=== PATIENT | male | born 1945 | race Caucasian/White ===

== ENCOUNTER 2024-05-26 13:05 | Inpatient (IN) | payer MEDICARE, SELFPAY ==
[2024-05-26] VITALS (45 sets, daily range): BP systolic 75–135; BP diastolic 50–99; BMI 27.5
--- NOTE | 2024-05-26 09:13 | ED.GENMED ---
History of Present Illness
<Paras Rodriguez PA-C - Last Filed: 05/26/24 15:12>
General
Chief Complaint: Change in Mental Status
Time Seen by Provider: 05/26/24 09:04
History of Present Illness
History of Present Illness:
Patient is a 78-year-old male with past medical history of anxiety, BPH, dysphagia, hyperlipidemia, history of ITP, depression with history of suicidal ideations, emphysema, chronic kidney disease stage III, cataracts, hypertension, history of
pneumonia, Parkinson's disease, history of type 2 diabetes mellitus, with history of urinary retention with Brice catheter, here today via EMS for a change in mental status.
Per EMS, the patient had a change in mental status starting today. He has been residing at [facility]. I spoke with Alfred at the facility who stated that the patient has been residing at the facility for several months.
He was initially placed there after being discharged for pneumonia. He was also found to have suicidal ideations and therefore could not be discharged back home. The patient is currently a DNR. She stated that the change in mental status and
symptoms began this morning. Patient is typically awake, alert, and oriented. This morning she noted the patient was lying in bed screaming out which was unlike him. He was also noted to be short of breath and shaking. His oxygen saturation was
noted to be 83% on room air and his blood pressure was noted to be low. He was placed on oxygen and his oxygen saturation came up to 92%. The patient was previously on oxygen but eventually weaned off and more recently has only been wearing oxygen
as needed. The oxygen requirement is therefore new for the patient. Last Brice catheter change was 1 week ago.
Review of Systems
<Paras Rodriguez PA-C - Last Filed: 05/26/24 15:12>
Review of Systems
All Other Systems: ROS reviewed and negative except as documented in HPI and ROS
Phy Exam
<Paras Rodriguez PA-C - Last Filed: 05/26/24 15:12>
Physical Exam
Physical Exam:
GENERAL: Not alert, oriented only to self and place
EYE: pupils equal and reactive
NECK: Supple, no significant adenopathy.
ENT: o/p clr, mmm.
CARDIAC: Tachycardic rate and regular rhythm.
LUNGS: Scattered wheezing noted, tachypneic
ABDOMEN: Soft, generalized nonfocal wincing with palpation of the abdomen, abdomen does appear slightly distended, no r/g, no cvat
NEUROLOGICAL: Not able to follow commands, only oriented to self and place
URINARY: Urinary catheter in place draining dark yellow urine. Left testicular is larger in size compared with the right with mild tenderness noted. No ecchymosis/skin changes.
SKIN: Warm and dry, skin intact.
MUSCULOSKELETAL: No edema, well perfused.
PSYCH: Not able to assess
Course
<Paras Rodriguez PA-C - Last Filed: 05/26/24 15:12>
Orders/Labs/Results
Orders:
Orders
05/26/24 09:05
CR Chest Portable - 1 View Urgent
Comment:
Reason For Exam: fever
Reason Study Needs to be Portable: Unable to Transport
05/26/24 09:09
Piperacillin/Tazo 4.5 Gram [Zosyn] 4.5 gram in 100 ml IV NOW
05/26/24 09:24
COVID-19 Antigen Urgent
Source: Nasal Swab
Complete Blood Count/With Diff Urgent
Comprehensive Metabolic Panel Urgent
Lipase Urgent
Magnesium Urgent
Manual Differential Urgent
NT-proBNP Urgent
PTT Urgent
Phosphorus Urgent
Procalcitonin Urgent
PCT Algorithmm Indication: Sepsis
Prothrombin Time Urgent
Troponin I Urgent
Venous Blood Gas Urgent
%Oxygen/Room Air: 89
Blood Culture Urgent
SARTHAK Source: Blood/Venous
Specimen Description:
Influenza A+B Rapid Molecular Urgent
SARTHAK Source: Nasal Swab
Specimen Description:
05/26/24 09:25
Lactic Acid Urgent
05/26/24 09:26
Blood Culture Routine
SARTHAK Source: Blood/Venous
Specimen Description:
05/26/24 09:29
Urinalysis Reflex To Culture Urgent
Date Specimen was Collected: 05/26/24
Time Specimen was Collected: 09:28
Urine Microscopic Reflex Cult Urgent
Urine Culture Urgent
SARTHAK Source: U
Specimen Description:
Date Specimen was Collected: 05/26/24
Time Specimen was Collected: 09:28
05/26/24 09:33
Acetaminophen [Tylenol/Feverall] 650 mg RECTAL NOW STA
05/26/24 09:40
CT Abd/pelvis W Iv Cont Urgent
Comment: please scan down into testicles
Reason For Exam: abd pain, left testicular pain
05/26/24 09:45
Vancomycin [Vancocin] 2,000 mg 0.9% Sodium Chloride 500 ml [Nss] 500 ml IV NOW
05/26/24 09:54
Cefepime HCl [Maxipime] 2,000 mg IV NOW STA
05/26/24 09:55
Sterile Water [Sterile Water For Injection] 10 ml IV NOW STA
05/26/24 09:58
0.9% Sodium Chloride 1000 ml [Nss] 2,700 ml IV NOW STA
05/26/24 10:00
NORepinephrine 4 MG/250 ML [Levophed] 4 mg in 250 ml IV PER PROTOCOL
Initial dose in mcg/min, then titrate:: 4
Titrate to keep:: MAP > 65 mmHg
Titrate by mcg/min:: 1-2 mcg/min
Frequency of titrations (minutes):: 5
Maximum dose in ICU in mcg/min:: 30
Maximum dose in IMU in mcg/min:: 8
Maximum dose in IVU in mcg/min:: 4
Begin to taper infusion when:: Remained at goal for 4hrs
Taper by mcg/min:: 1-2 mcg/min
Frequency of taper (minutes) if patient maintains goal:: 30
Taper to off?: Yes
If infusion off & no longer maintaining goal:: Contact Provider
05/26/24 11:30
Scrotum US [US Scrotum] Urgent
Comment:
Reason For Exam: left testicular pain
05/26/24 12:47
Admit/Transfer Patient As Directed
Co-Sign Provider:
Level of Care: Inpatient admission
Assign to:: ICU
Physician / Group: Eileen
Diagnosis: Septic Shock
Reason for Hospitalization: IV abx, IV fluids
Expected length of stay greater than two midnights?: Yes
ELOS- Estimated Length of Stay in days: 3
I certify the patient meets the requirements for IP care: Yes
0.9% Sodium Chloride 1000 ml [Nss] 1,000 ml IV BOLUS
05/26/24 12:52
Code Status As Directed
Resuscitation Status: Do not resuscitate
Reached after discussion with pt or family/Healthcare POA: Yes
DNR Bracelet Application ONCE
05/26/24 13:00
0.9% Sodium Chloride 1000 ml [Nss] 1,000 ml IV 200 mls/hr
05/26/24 13:04
Tennis Instructor Consult Routine
Consulting Provider: Nargis Pal
Was physician already notified: Yes
UROLOGY CONSULT Routine
Consulting Provider: Stephane Larson
Was physician already notified: Yes
05/26/24 13:05
Lactic Acid Urgent
05/26/24 14:56
Acetaminophen [Tylenol] 650 mg PO Q4HPRN PRN
Albuterol Nebs [Ventolin Nebules] 2.5 mg INH R Q6HPRN PRN
Cefepime HCl [Maxipime] 2,000 mg IV Q12H
Dextrose 50%-Water [Dextrose 50% Syringe] 12.5 grams IV [id number] PRN
Glucagon [GlucaGen] 1 mg IM PRN PRN
VANCOMYCIN Pharmacy to Dose [VANCOCIN Pharmacy to Dose] 1 each Pharmacy To Prepare [Call Pharmacy To Prepare] 0 ml IV PER PROTOCOL
dextran 70-hypromellose [Artificial Tears (PF)] 1 drop BOTH EYES [id number] PRN
05/26/24 14:56
Activity As Directed
Activity Level: Bedrest
Bedside Glucose Monitoring As Directed
Frequency: AC&HS
Additional Instructions:: Change to q6h if pt on TPN, tube feeding or not eating
Intake/ Output As Directed
Frequency: Per unit guidelines
Vital Signs As Directed
Frequency: Per unit guidelines
Weight As Directed
Frequency: Daily
Pulse Ox/cont/shift [RESP] Routine
Quantity: 1
Special Instructions: continuous pulse ox
DX Deep Vein Thrombosis Video Routine
05/26/24 Dinner
NPO
Allow oral meds: Yes
Allow clear liquids: Sips of Clears
NPO with Ice Chips: Yes
Comment: Allow sips/chips if patient is awake and alert
05/26/24 16:00
Carbidopa/Levodopa [Sinemet 25-100] 1 tablet PO TID
Heparin 5,000 units SC Q8
05/26/24 17:30
Lactic Acid Routine
05/26/24 18:00
Insulin Aspart Corrective Low [Novolog Flexpen-Low Resistance] See Protocol SC Q6
05/26/24 20:00
dextran 70-hypromellose [Artificial Tears (PF)] 1 drop BOTH EYES BID
05/26/24 22:00
Quetiapine Fumarate [Seroquel] 50 mg PO HS
05/27/24 06:00
Complete Blood Count/No Diff IN AM
Comprehensive Metabolic Panel IN AM
Glycohemoglobin (HgbA1c) IN AM
05/27/24 08:00
Pantoprazole [Protonix] 40 mg PO DAILY
Abnormal Lab Results
05/26/24 05/26/24 05/26/24
:24 09:25 09:28
WBC 23.4 H 10^3/uL
(4.8-10.8)
RDW 15.4 H %
(11.5-14.5)
Abs Neuts (Manual) 21.7 H 10^3/uL
(1.4-6.5)
Segmented Neutrophils 81 H %
(42-75)
Band Neutrophils 12 H %
(0-3)
Lymphocytes (Manual) 2 L %
(20-51)
PT 18.0 H Sec
(11.4-14.6)
APTT 38.2 H Sec
(23.4-35.0)
BUN 36 H mg/dl
(9-20)
Creatinine 1.6 H mg/dL
(0.7-1.3)
Lactic Acid 4.1 H* mmol/L
(0.7-2.0)
Total Bilirubin 1.6 H mg/dl
(0.2-1.3)
Troponin I 0.092 H* ng/ml
Total Protein 5.7 L g/dl
(6.3-8.2)
Albumin 3.4 L g/dl
(3.5-5.0)
Lipase 19 L U/L
(23-300)
Procalcitonin 13.77 H* ng/ml
(0.0-0.25)
Urine Ketones
Ur Occult Blood Reflex
Urine Nitrite (Reflex)
Urine Bilirubin
Leukocyte Esterase Rfl
Urine RBC
Urine WBC (Reflex)
Urine Bacteria (Reflex)
Urine Albumin (Reflex)
POC Glucose 140 H mg/dl
(70-99)
05/26/24 05/26/24
09:29 13:05
WBC
RDW
Abs Neuts (Manual)
Segmented Neutrophils
Band Neutrophils
Lymphocytes (Manual)
PT
APTT
BUN
Creatinine
Lactic Acid 2.1 H mmol/L
(0.7-2.0)
Total Bilirubin
Troponin I
Total Protein
Albumin
Lipase
Procalcitonin
Urine Ketones 1+ A
(Negative)
Ur Occult Blood Reflex 4+ A
(Negative)
Urine Nitrite (Reflex) Positive A
(Negative)
Urine Bilirubin 1+ A
(Negative)
Leukocyte Esterase Rfl 2+ A
(Negative)
Urine RBC 11-15 A /HPF
(0-2)
Urine WBC (Reflex) 16-20 A /HPF
(0-5)
Urine Bacteria (Reflex) Many A
(Negative)
Urine Albumin (Reflex) 2+ A
(Neg - Trace)
POC Glucose
05/26/24 09:24
05/26/24 09:24
Vital Signs
Initial and Last Documented VS:
Initial Vital Signs
BP
75/50
05/26/24 09:02
Last Documented Vital Signs
Temp Pulse Resp BP Pulse Ox
101.1 F H 85 16 101/58 94
05/26/24 11:15 05/26/24 13:45 05/26/24 13:45 05/26/24 13:30 05/26/24 14:28
<Sara Brice MD - Last Filed: 05/26/24 09:41>
Orders/Labs/Results
Orders:
Orders
05/26/24 09:05
CR Chest Portable - 1 View Urgent
Comment:
Reason For Exam: fever
Reason Study Needs to be Portable: Unable to Transport
05/26/24 09:09
Piperacillin/Tazo 4.5 Gram [Zosyn] 4.5 gram in 100 ml IV NOW
05/26/24 09:24
COVID-19 Antigen Urgent
Source: Nasal Swab
Complete Blood Count/With Diff Urgent
Comprehensive Metabolic Panel Urgent
Lipase Urgent
Magnesium Urgent
Manual Differential Urgent
NT-proBNP Urgent
PTT Urgent
Phosphorus Urgent
Procalcitonin Urgent
PCT Algorithmm Indication: Sepsis
Prothrombin Time Urgent
Troponin I Urgent
Venous Blood Gas Urgent
%Oxygen/Room Air: 89
Blood Culture Urgent
SARTHAK Source: Blood/Venous
Specimen Description:
Influenza A+B Rapid Molecular Urgent
SARTHAK Source: Nasal Swab
Specimen Description:
05/26/24 09:25
Lactic Acid Urgent
05/26/24 09:26
Blood Culture Routine
SARTHAK Source: Blood/Venous
Specimen Description:
05/26/24 09:29
Urinalysis Reflex To Culture Urgent
Date Specimen was Collected: 05/26/24
Time Specimen was Collected: 09:28
Urine Microscopic Reflex Cult Urgent
Urine Culture Urgent
SARTHAK Source: U
Specimen Description:
Date Specimen was Collected: 05/26/24
Time Specimen was Collected: 09:28
05/26/24 09:33
Acetaminophen [Tylenol/Feverall] 650 mg RECTAL NOW STA
05/26/24 09:40
CT Abd/pelvis W Iv Cont Urgent
Comment: please scan down into testicles
Reason For Exam: abd pain, left testicular pain
05/26/24 09:45
Vancomycin [Vancocin] 2,000 mg 0.9% Sodium Chloride 500 ml [Nss] 500 ml IV NOW
05/26/24 09:54
Cefepime HCl [Maxipime] 2,000 mg IV NOW STA
05/26/24 09:55
Sterile Water [Sterile Water For Injection] 10 ml IV NOW STA
05/26/24 09:58
0.9% Sodium Chloride 1000 ml [Nss] 2,700 ml IV NOW STA
05/26/24 10:00
NORepinephrine 4 MG/250 ML [Levophed] 4 mg in 250 ml IV PER PROTOCOL
Initial dose in mcg/min, then titrate:: 4
Titrate to keep:: MAP > 65 mmHg
Titrate by mcg/min:: 1-2 mcg/min
Frequency of titrations (minutes):: 5
Maximum dose in ICU in mcg/min:: 30
Maximum dose in IMU in mcg/min:: 8
Maximum dose in IVU in mcg/min:: 4
Begin to taper infusion when:: Remained at goal for 4hrs
Taper by mcg/min:: 1-2 mcg/min
Frequency of taper (minutes) if patient maintains goal:: 30
Taper to off?: Yes
If infusion off & no longer maintaining goal:: Contact Provider
05/26/24 11:30
Scrotum US [US Scrotum] Urgent
Comment:
Reason For Exam: left testicular pain
05/26/24 12:47
Admit/Transfer Patient As Directed
Co-Sign Provider:
Level of Care: Inpatient admission
Assign to:: ICU
Physician / Group: Eileen
Diagnosis: Septic Shock
Reason for Hospitalization: IV abx, IV fluids
Expected length of stay greater than two midnights?: Yes
ELOS- Estimated Length of Stay in days: 3
I certify the patient meets the requirements for IP care: Yes
0.9% Sodium Chloride 1000 ml [Nss] 1,000 ml IV BOLUS
05/26/24 12:52
Code Status As Directed
Resuscitation Status: Do not resuscitate
Reached after discussion with pt or family/Healthcare POA: Yes
DNR Bracelet Application ONCE
05/26/24 13:00
0.9% Sodium Chloride 1000 ml [Nss] 1,000 ml IV 200 mls/hr
05/26/24 13:04
Tennis Instructor Consult Routine
Consulting Provider: Nargis Pal
Was physician already notified: Yes
UROLOGY CONSULT Routine
Consulting Provider: Stephane Larson
Was physician already notified: Yes
05/26/24 13:05
Lactic Acid Urgent
05/26/24 14:56
Acetaminophen [Tylenol] 650 mg PO Q4HPRN PRN
Albuterol Nebs [Ventolin Nebules] 2.5 mg INH R Q6HPRN PRN
Cefepime HCl [Maxipime] 2,000 mg IV Q12H
Dextrose 50%-Water [Dextrose 50% Syringe] 12.5 grams IV [id number] PRN
Glucagon [GlucaGen] 1 mg IM PRN PRN
VANCOMYCIN Pharmacy to Dose [VANCOCIN Pharmacy to Dose] 1 each Pharmacy To Prepare [Call Pharmacy To Prepare] 0 ml IV PER PROTOCOL
dextran 70-hypromellose [Artificial Tears (PF)] 1 drop BOTH EYES [id number] PRN
05/26/24 14:56
Activity As Directed
Activity Level: Bedrest
Bedside Glucose Monitoring As Directed
Frequency: AC&HS
Additional Instructions:: Change to q6h if pt on TPN, tube feeding or not eating
Intake/ Output As Directed
Frequency: Per unit guidelines
Vital Signs As Directed
Frequency: Per unit guidelines
Weight As Directed
Frequency: Daily
Pulse Ox/cont/shift [RESP] Routine
Quantity: 1
Special Instructions: continuous pulse ox
DX Deep Vein Thrombosis Video Routine
05/26/24 Dinner
NPO
Allow oral meds: Yes
Allow clear liquids: Sips of Clears
NPO with Ice Chips: Yes
Comment: Allow sips/chips if patient is awake and alert
05/26/24 16:00
Carbidopa/Levodopa [Sinemet 25-100] 1 tablet PO TID
Heparin 5,000 units SC Q8
05/26/24 17:30
Lactic Acid Routine
05/26/24 18:00
Insulin Aspart Corrective Low [Novolog Flexpen-Low Resistance] See Protocol SC Q6
05/26/24 20:00
dextran 70-hypromellose [Artificial Tears (PF)] 1 drop BOTH EYES BID
05/26/24 22:00
Quetiapine Fumarate [Seroquel] 50 mg PO HS
05/27/24 06:00
Complete Blood Count/No Diff IN AM
Comprehensive Metabolic Panel IN AM
Glycohemoglobin (HgbA1c) IN AM
05/27/24 08:00
Pantoprazole [Protonix] 40 mg PO DAILY
Abnormal Lab Results
05/26/24 05/26/24 05/26/24
09:25 09:28
WBC 23.4 H 10^3/uL
(4.8-10.8)
RDW 15.4 H %
(11.5-14.5)
Abs Neuts (Manual) 21.7 H 10^3/uL
(1.4-6.5)
Segmented Neutrophils 81 H %
(42-75)
Band Neutrophils 12 H %
(0-3)
Lymphocytes (Manual) 2 L %
(20-51)
PT 18.0 H Sec
(11.4-14.6)
APTT 38.2 H Sec
(23.4-35.0)
BUN 36 H mg/dl
(9-20)
Creatinine 1.6 H mg/dL
(0.7-1.3)
Lactic Acid 4.1 H* mmol/L
(0.7-2.0)
Total Bilirubin 1.6 H mg/dl
(0.2-1.3)
Troponin I 0.092 H* ng/ml
Total Protein 5.7 L g/dl
(6.3-8.2)
Albumin 3.4 L g/dl
(3.5-5.0)
Lipase 19 L U/L
(23-300)
Procalcitonin 13.77 H* ng/ml
(0.0-0.25)
Urine Ketones
Ur Occult Blood Reflex
Urine Nitrite (Reflex)
Urine Bilirubin
Leukocyte Esterase Rfl
Urine RBC
Urine WBC (Reflex)
Urine Bacteria (Reflex)
Urine Albumin (Reflex)
POC Glucose 140 H mg/dl
(70-99)
05/26/24 05/26/24
09:29 13:05
WBC
RDW
Abs Neuts (Manual)
Segmented Neutrophils
Band Neutrophils
Lymphocytes (Manual)
PT
APTT
BUN
Creatinine
Lactic Acid 2.1 H mmol/L
(0.7-2.0)
Total Bilirubin
Troponin I
Total Protein
Albumin
Lipase
Procalcitonin
Urine Ketones 1+ A
(Negative)
Ur Occult Blood Reflex 4+ A
(Negative)
Urine Nitrite (Reflex) Positive A
(Negative)
Urine Bilirubin 1+ A
(Negative)
Leukocyte Esterase Rfl 2+ A
(Negative)
Urine RBC 11-15 A /HPF
(0-2)
Urine WBC (Reflex) 16-20 A /HPF
(0-5)
Urine Bacteria (Reflex) Many A
(Negative)
Urine Albumin (Reflex) 2+ A
(Neg - Trace)
POC Glucose
05/26/24 09:24
05/26/24 09:24
Vital Signs
Initial and Last Documented VS:
Initial Vital Signs
BP
75/50
05/26/24 09:02
Last Documented Vital Signs
Temp Pulse Resp BP Pulse Ox
101.1 F H 85 16 101/58 94
05/26/24 11:15 05/26/24 13:45 05/26/24 13:45 05/26/24 13:30 05/26/24 14:28
<Paras Rodriguez PA-C - Last Filed: 05/26/24 15:12>
MDM/Problems Addressed
Differential Diagnosis Includes:
Patient is a 78-year-old male with past medical history of anxiety, BPH, dysphagia, hyperlipidemia, history of ITP, depression with history of suicidal ideations, emphysema, chronic kidney disease stage III, cataracts, hypertension, history of
pneumonia, Parkinson's disease, history of type 2 diabetes mellitus, with history of urinary retention with Brice catheter, here today via EMS for a change in mental status. On my examination patient noted to be tachycardic and hypotensive with
blood pressure 75/50. Temperature rectally 104.6 �F. Oxygen saturation stable at 2 L nasal cannula above 92%. Will initiate full septic workup. Given suspicion for sepsis is high and patient is hypotensive, will provide 30 cc/kg bolus of normal
saline and will initiate broad-spectrum antibiotics. Will closely monitor and reassess.
05/26/2024 12:06: Screening labs abnormal with an elevated WBC count to 23.4 thousand. Bands 12%. BUN 36/creatinine 1.6. Troponin elevated. Procalcitonin elevated. Lactic acid elevated greater than 4. Urinalysis is abnormal with positive
nitrates, leukocyte esterase, and RBCs/WBCs. There is many bacteria. Chest x-ray reveals widespread bilateral pulmonary interstitial markings which could represent edema or pneumonitis. A CT scan of the abdomen and pelvis with IV contrast was
ordered which reveals a small predominantly fat only containing left inguinal hernia. There is mild subsegmental atelectasis and/or scarring as well as single dependent nodular opacities most likely representing atelectasis. No other acute
findings identified. I did reach out to the radiologist, Dr. Renee in reference to the scrotal abnormalities, who stated he did not see any other acute abnormalities aside from a left inguinal hernia containing predominantly fat. Given scrotal
findings, we will obtain scrotal ultrasound. The patient was reassessed and temperature has improved with Tylenol. Oxygen levels stable with 2 L nasal cannula. Blood pressure still mildly low but improving with a MAP above 65. Norepinephrine was
initially ordered, however, this was not provided as patient's blood pressure remained stable. The patient was also ordered initially 30 cc/kg bolus of normal saline for sepsis protocol, however, this was ultimately placed on hold as patient was
found to have an elevated BNP and crackles concerning for possible fluid overload. Hospitalist was contacted and patient was admitted to medicine for further treatment and evaluation. Patient stable at time of admission and transport to the medicine
floor. Case discussed with attending, Dr. Brice.
<Paras Rodriguez PA-C - Last Filed: 05/26/24 15:12>
*Critical Care Note
Total Time (30-74mins, 75-104mins- exclusive of procedures): Not Applicable
ED Attending Note
<Paras Rodriguez PA-C - Last Filed: 05/26/24 15:12>
-
Portions of this chart may have been created with voice recognition software.� Occasional wrong word or��sound alike� substitutions may have occurred due to the inherent limitations of voice recognition software.
<Sara Brice MD - Last Filed: 05/26/24 09:41>
ED Attending Note
Patient seen and examined by attending physician: Yes
ED Attending Note:
78-year-old male presents emergency department with noted change in mental status and hypotension. Daughter who is now at bedside states that he seemed his usual self on Sunday when she saw him and she brought him a donut. She does note that he
very recently had his Brice catheter changed. Patient is drowsy but arousable, notes discomfort in the left groin area, otherwise offers no complaints. He is awake, answers questions, appropriate. He knows who is his daughter is. On exam, mucous
membranes very dry, heart regular rate and rhythm, abdomen soft and nontender, no discomfort prickly at left lower quadrant. Brice catheter noted in place without drainage or pus. Left scrotum noted to be enlarged, firm, and tender to palpation.
No perineal erythema fullness blistering, etc. to suggest Master's. No skin changes at scrotum. Obviously septic, resuscitation started with IV fluids, pressors, antibiotics while workup proceeds.
Discharge Plan
Departure
Patient Disposition: Admit
Date of Disposition: 05/26/24
Time of Disposition: 12:07
Admit to: Telemetry
Admit to doctor: Alma Charles
Presentation/result/management discussed w/ accepting MD/DO: Hospitalist
Patient with high blood pressure during this ER visit?: No
Condition: Critical
Covid-19: Negative COVID-19
Discharge Problem:
Sepsis, Fever, Altered mental status
Interventions
Interventions:
*Risk Screen - Suicide Last Done: 05/26/24 09:05
*General Assessment Last Done: 05/26/24 09:05
*Neglect/Abuse Screening Last Done: 05/26/24 09:05
ED- Fall Risk Assessment Last Done: 05/26/24 09:05
*ED COVID-19 Vaccine History Last Done: 05/26/24 09:05
*Nursing Disposition Last Done: 05/26/24 14:28
ED- Pulmonary Assessment Last Done: 05/26/24 14:28
ED-Psychological Assessment Last Done: 05/26/24 14:28
ED- Neurological Assessment Last Done: 05/26/24 09:05
ED- Cardiac Assessment Last Done: 05/26/24 09:05
ED Swallowing Screen Last Done: 05/26/24 11:17
Discharge Date and Time
Discharge Date/Time: 05/26/24 14:29
[2024-05-26 09:30] LABS: Glucose - Point of Care 140 mg/dl (70-99)
[2024-05-26] MEDS: NSS 2700 ML IV (09:38)
[2024-05-26 09:50] LABS: Venous Blood Gas B.E. 1.2 mmol/L (-4 to +4); Venous Blood Gas pCO2 41 mmHg (35-48); Venous Blood Gas pH 7.41 (7.32-7.43); Venous Blood Gas pO2 32 mmHg (30-50)
[2024-05-26 09:53] LABS: Hematocrit 40.6 % (39.0-52.0); Mean Corp Hgb Conc. 34.5 g/dL (33.0-37.0); Mean Corpuscular Hgb 29.5 pg (27.0-31.0); Mean Corpuscular Volume 85.5 fL (80.0-94.0); Platelet Count 159 10^3/uL (130-400); Red Blood Cell Count 4.75 10^6/uL (4.70-6.10); Red Cell Dist. Width 15.4 % (11.5-14.5); White Blood Cell Count 23.4 10^3/uL (4.8-10.8)
[2024-05-26 09:56] LABS: APTT 38.2 Sec (23.4-35.0); INR 1.48
[2024-05-26 09:57] LABS: AST (SGOT) 24 U/L (17-59); Albumin 3.4 g/dl (3.5-5.0); Alkaline Phosphatase 70 U/L (38-126); Blood Urea Nitrogen 36 mg/dl (9-20); Calcium 8.9 mg/dl (8.4-10.2); Carbon Dioxide 25 mmol/L (22-30); Chloride 100 mmol/L (98-107); Estimated Creatinine Clearance 42 ml/min; Glucose 92 mg/dl (70-99); Lipase 19 U/L (23-300); Magnesium 1.6 mg/dl (1.6-2.3); Phosphorus 4.2 mg/dl (2.5-4.5); Potassium 3.7 mmol/L (3.5-5.1); Sodium 137 mmol/L (135-145); Total Bilirubin 1.6 mg/dl (0.2-1.3); Total Protein 5.7 g/dl (6.3-8.2); eGFR 44.38
--- NOTE | 2024-05-26 09:57 | PHANOTE ---
med rec note- called detention missing page 7
[2024-05-26 09:59] LABS: COVID-19 Antigen Negative (Negative)
[2024-05-26 10:00] LABS: Lactic Acid 4.1 mmol/L (0.7-2.0)
[2024-05-26] MEDS: MAXIPIME 2000 MG IV ×2 (10:00→21:50)
[2024-05-26] MEDS: TYLENOL/FEVERALL 650 MG RECTAL (10:00)
[2024-05-26] MEDS: STERILE WATER FOR INJECTION 10 ML IV ×2 (10:03→21:51)
[2024-05-26 10:05] LABS: Urine Albumin 2+ (Neg - Trace); Urine Bilirubin 1+ (Negative); Urine Character Very Cloudy (Clear); Urine Color Yellow; Urine Glucose Negative (Negative); Urine Ketone 1+ (Negative); Urine Leukocyte 2+ (Negative); Urine Nitrite Positive (Negative); Urine Occult Blood 4+ (Negative); Urine Specific Gravity 1.015 (<1.030); Urine Urobilinogen 1+ (Neg - 1+)
[2024-05-26] MEDS: VANCOCIN 540 MG IV (10:05)
[2024-05-26 10:13] LABS: NT-proBNP 4910 pg/ml; Troponin I 0.092 ng/ml
[2024-05-26 10:22] LABS: Procalcitonin 13.77 ng/ml (0.0-0.25)
[2024-05-26 10:48] LABS: Urine Mucus Few
[2024-05-26 10:50] LABS: Urine Amorphous Seen; Urine Squamous Cell 0-2 /LPF (Few)
[2024-05-26 10:53] LABS: Urine Bacteria Many (Negative); Urine White Cell 16-20 /HPF (0-5)
[2024-05-26 10:57] LABS: Absolute Neutrophils -Man Diff 21.7 10^3/uL (1.4-6.5); Band Neutrophils 12 % (0-3); Lymphocytes 2 % (20-51); Monocytes 5 % (2-9); Normal RBC Morphology Yes; Platelets Checked Yes; Segmented Neutrophils 81 % (42-75); Total Cells Counted 100
[2024-05-26 11:02] LABS: ALT (SGPT) < 30 U/L (0-50)
--- NOTE | 2024-05-26 12:57 | HPS.HSE ---
Addendum entered and electronically signed by Luis Alfredo Arellano MD 05/26/24 15:41:
I saw and examined the patient.
The [employer]ANK[employer] or PA's note was reviewed and I agree with the note.
Comment:
78 years old male was sent to the emergency room with change in mental status. History obtained from records, emergency staff doctor. Patient had hypotension at the long term. Patient met criteria of severe sepsis with septic shock on
admission. Source possible urinary tract infection/genitourinary tract
Physical Exam
General: Chronically ill looking
HEENT: Oxygen (Nasal Cannula) and Other (Mucous Membranes are very dry)
Respiratory: Decreased Breath Sounds (Poor Inspiratory Effort)
Cardiac: S1/S2 and Regular Rhythm
GI: Soft, Tender (Left Lower Quadrant) and Distended (Slightly)
Genito-urinary: Brice (Dark Urine) and Other (Left scrotum with erythema and edema, and very tender to palpation)
Musculoskeletal: No Clubbing, No Cyanosis and No Edema
Skin: Warm and Dry
Neuro: Other (Opens eyes to name, answers a few question but unable to participate in full neurologic evaluation)
Psych: Calm
Assessment and plan
#Septic shock /severe sepsis with lactic acidosis secondary to possible catheter associated UTI versus scrotal cellulitis
Admit the patient to ICU
Start the patient on IV fluid for pressure support and consider pressure support medication as Levophed if no improvement with mean blood pressure
Empiric antibiotic with IV vancomycin and IV cefepime
Sent for urine and blood culture
Scan of the abdomen and pelvis did not show acute pathology, will do scrotal ultrasound
History of cardiomyopathy, will give IV fluid while hypotensive. Patient is a clinically dehydrated.
# History of chronic kidney disease stage IIIa. Creatinine on admission 1.6.
# Chronic urinary retention with chronic Brice
# History of Parkinson disease: Continue medications orally as possible. Aspiration precautions
# History of primary hypertension. Hold home medication while hypotensive, resume when stable blood pressure
# History of ITP. Monitor platelet count. No ecchymosis seen
# CODE STATUS, DNR
Patient is new to our system. Will try to get records. Discussed with ICU doctor, appreciate help
Total time spent to see the patient, examine the patient, review data and lab results, and discuss the treatment plan with patient, ER doctor, religion professor , And nurse around 75 minutes
Original Note:
Family Physician
-
Family Physician: * NONE
Chief Complaint
-
Change in mental status
History of Present Illness
Patient is a 78 y/o male past medical history of hypertension, diabetes, CKD, Parkinson's disease who presents with change in mental status. Patient is unable to provide much history. Additional history is obtained from nursing transfer records,
and review with emergency department staff. Patient was sent from a local long term due to change in mental status and low blood pressure. Further evaluation of the patient revealed redness and swelling of the left scrotum. Patient reports he
has had left-sided pain for the last week or so. Upon arrival to the emergency department patient was found to be febrile. He was noted be hypotensive and he received IV fluids, but blood pressure remains on the low side. Hospitalist group was
asked to evaluate the patient for admission to the hospital.
Medical History
Past Medical History
Past Medical History: Reports Other
Additional Past Medical History:
Essential Hypertension
Hyperlipidemia
Diabetes Mellitus
CKD Stage III
Parkinson's Disease
ITP
BPH
Anxiety/Depression
Past Surgical History: Reports Other (Unknown)
Social History
Unable to obtain full social history at this time due to: Acuity
Living: Care Home
Family History
Family History: Unable to Obtain
Allergies / Home Medications
Allergies reflects when Allergies were last updated in [facility].
Home Medications with original date entered in [facility]
Allergy/Medication List:
Allergies
Allergy/AdvReac Type Severity Reaction Status Date / Time
Penicillins Allergy Unknown Verified 05/26/24 09:23
Home Medications
acetaminophen 325 mg tablet (Tylenol) 650 mg PO Q4HPRN PRN mild pain/fever>100 05/26/24
albuterol sulfate 2.5 mg/3 mL (0.083 %) solution for nebulization 2.5 mg inhalation R Q6HPRN PRN sob 05/26/24
amlodipine 10 mg tablet 10 mg PO DAILY Blood Pressure 05/26/24
atorvastatin 20 mg tablet 20 mg PO HS High Cholesterol 05/26/24
bisacodyl 10 mg rectal suppository (Dulcolax (bisacodyl)) 10 mg NC DAILYPRN PRN if mom ineffective after 24 hrs 05/26/24
bupropion HCl 150 mg 24 hr tablet, extended release (Wellbutrin XL) 150 mg PO DAILY depression 05/26/24
carbidopa 25 mg-levodopa 100 mg tablet 1 tab PO TID parkinson's disease 05/26/24
clonazepam 0.5 mg tablet 0.5 mg PO BID anxiety 05/26/24
dextran 70-hypromellose eye drops in a dropperette (Artificial Tears (PF) drops in a dropperette) 1 drp BOTH EYES BID dry eyes 05/26/24
dextran 70-hypromellose eye drops in a dropperette (Artificial Tears (PF) drops in a dropperette) 1 drp BOTH EYES [id number] PRN dry eyes 05/26/24
escitalopram oxalate 5 mg tablet (Lexapro) 15 mg PO DAILY depression/anxiety 05/26/24
famotidine 20 mg tablet 20 mg PO DAILY Gastrointestinal Issue 05/26/24
finasteride 5 mg tablet 5 mg PO DAILY Urinary Issue 05/26/24
ibuprofen 200 mg tablet 400 mg PO Q6HPRN PRN mild pain 05/26/24
magnesium hydroxide 400 mg/5 mL oral suspension (Milk of Magnesia) 30 ml PO [id number] PRN if no bm 3 days 05/26/24
metformin 500 mg tablet 500 mg PO BID diabetes 05/26/24
mirtazapine 15 mg tablet (Remeron) 7.5 mg PO HS depression/sleep 05/26/24
prednisone 20 mg tablet 20 mg PO DAILY Anti-Inflammatory 05/26/24
quetiapine 25 mg tablet (Seroquel) 50 mg PO HS Mental Health/Anxiety 05/26/24
sodium phosphates 19 gram-7 gram/118 mL enema (Fleet Enema) 118 ml NC DAILYPRN PRN if dulcolax ineffective after 24 hrs 05/26/24
tamsulosin 0.4 mg capsule 0.8 mg PO DAILY Urinary Issue 05/26/24
therapeutic multivitamin 1 tab PO DAILY Supplement 05/26/24
Review of Systems
-
Unable to obtain full review of systems at this time due to: Acuity
Physical Exam
Vital Signs
Vital Signs
Temp Pulse Resp BP Pulse Ox
101.1 F H 90 34 100/67 96
05/26/24 11:15 05/26/24 11:15 05/26/24 11:15 05/26/24 11:12 05/26/24 11:15
Physical Exam
General: Well Developed and Well Nourished
HEENT: Oxygen (Nasal Cannula) and Other (Mucous Membranes are very dry)
Respiratory: Decreased Breath Sounds (Poor Inspiratory Effort)
Cardiac: S1/S2 and Regular Rhythm
GI: Soft, Tender (Left Lower Quadrant) and Distended (Slightly)
Genito-urinary: Brice (Dark Urine) and Other (Left scrotum with erythema and edema, and very tender to palpation)
Musculoskeletal: No Clubbing, No Cyanosis and No Edema
Skin: Warm and Dry
Neuro: Other (Opens eyes to name, answers a few question but unable to participate in full neurologic evaluation)
Psych: Calm
Laboratory Results
-
05/26/24 09:24
05/26/24 09:24
Laboratory Results
PT 18.0 Sec (11.4-14.6) H 05/26/24 09:24
INR 1.48 05/26/24 09:24
APTT 38.2 Sec (23.4-35.0) H 05/26/24 09:24
Lactic Acid 4.1 mmol/L (0.7-2.0) H* 05/26/24 09:25
Total Bilirubin 1.6 mg/dl (0.2-1.3) H 05/26/24 09:24
AST 24 U/L (17-59) 05/26/24 09:24
ALT < 30 U/L (0-50) 05/26/24 09:24
Alkaline Phosphatase 70 U/L (38-126) 05/26/24 09:24
Troponin I 0.092 ng/ml H* 05/26/24 09:24
Lipase 19 U/L (23-300) L 05/26/24 09:24
Data Reviewed
-
Lab Data: Labs Reviewed by me
Impression/Plan
-
Septic Shock secondary to Catheter-Associated UTI vs Orchitis vs Epididymitis vs Scrotal Cellulitis
-Consult Urology
-Continue vancomycin and cefepime
-Await urine culture and blood culture
-Await scrotal ultrasound
Non-Ischemic Myocardial Injury
-Continue to trend troponin
Essential Hypertension
-Hold amlodipine
Diabetes Mellitus, Type II
-Hold metformin
-Monitor sugars and continue coverage insulin
CKD Stage III
-Suspect creatinine is at baseline
Parkinson's Disease
-Continue Sinemet
BPH with Chronic Urinary Retention/Chronic Brice
-Stable
Anxiety/Depression
-Continue Seroquel
-Resume other oral meds when able
DVT proph: SC Heparin
Code STatus: DNR
[2024-05-26] MEDS: NSS 1000 IV ×4 (13:05→21:51)
[2024-05-26 13:37] LABS: Lactic Acid 2.1 mmol/L (0.7-2.0)
--- NOTE | 2024-05-26 14:23 | CONS.URO ---
Consultation
-
Date/Time Consultation Requested: 05/26/24
Date/Time Consultation Performed: 05/26/24 1645
Requesting Provider: ER
Performing Provider: Marsha
Reason for Consultation: cUTI, urosepsis, left testicular swelling
Medical History
History of Present Illness
78M presents from ID w/ acute change in mental status.
Noted to have low BP in addition to changes from baseline mentation.
ER evaluation notable for left testicular swelling and redness.
Patient noted left-sided testicular and groin pain for approximately 1 week.
Febrile and hypotensive in ER - received IVF resuscitation but SBP remained soft.
Past Medical History
Past Medical History: HTN, NIDDM, Renal Failure (CKD III) and Other (hyperlipidemia, Parkinson's disease, ITP, anxiety/depression, BPH)
Past Surgical History: Other (unknown)
Social History
Unable to obtain full social history at this time due to: Acuity
Living: Group Home
Family History
Family History: Unable to Obtain
Allergies/Home Medications
Allergies
Allergy/AdvReac Type Severity Reaction Status Date / Time
Penicillins Allergy Unknown Verified 05/26/24 09:23
Home Medications
�Medication �Instructions �Recorded �Confirmed �Type
acetaminophen 325 mg tablet 650 mg PO Q4HPRN PRN mild 05/26/24 05/26/24 History
(Tylenol) pain/fever>100
albuterol sulfate 2.5 mg/3 mL 2.5 mg inhalation R Q6HPRN PRN sob 05/26/24 05/26/24 History
(0.083 %) solution for nebulization
amlodipine 10 mg tablet 10 mg PO DAILY Blood Pressure 05/26/24 05/26/24 History
atorvastatin 20 mg tablet 20 mg PO HS High Cholesterol 05/26/24 05/26/24 History
bisacodyl 10 mg rectal suppository 10 mg MN DAILYPRN PRN if mom 05/26/24 05/26/24 History
(Dulcolax (bisacodyl)) ineffective after 24 hrs
bupropion HCl 150 mg 24 hr tablet, 150 mg PO DAILY depression 05/26/24 05/26/24 History
extended release (Wellbutrin XL)
carbidopa 25 mg-levodopa 100 mg 1 tab PO TID parkinson's disease 05/26/24 05/26/24 History
tablet
clonazepam 0.5 mg tablet 0.5 mg PO BID anxiety 05/26/24 05/26/24 History
dextran 70-hypromellose eye drops 1 drp BOTH EYES BID dry eyes 05/26/24 05/26/24 History
in a dropperette (Artificial Tears
(PF) drops in a dropperette)
dextran 70-hypromellose eye drops 1 drp BOTH EYES [id number] PRN dry 05/26/24 05/26/24 History
in a dropperette (Artificial Tears eyes
(PF) drops in a dropperette)
escitalopram oxalate 5 mg tablet 15 mg PO DAILY depression/anxiety 05/26/24 05/26/24 History
(Lexapro)
famotidine 20 mg tablet 20 mg PO DAILY Gastrointestinal 05/26/24 05/26/24 History
Issue
finasteride 5 mg tablet 5 mg PO DAILY Urinary Issue 05/26/24 05/26/24 History
ibuprofen 200 mg tablet 400 mg PO Q6HPRN PRN mild pain 05/26/24 05/26/24 History
magnesium hydroxide 400 mg/5 mL 30 ml PO [id number] PRN if no bm 3 05/26/24 05/26/24 History
oral suspension (Milk of Magnesia) days
metformin 500 mg tablet 500 mg PO BID diabetes 05/26/24 05/26/24 History
mirtazapine 15 mg tablet (Remeron) 7.5 mg PO HS depression/sleep 05/26/24 05/26/24 History
prednisone 20 mg tablet 20 mg PO DAILY Anti-Inflammatory 05/26/24 05/26/24 History
quetiapine 25 mg tablet (Seroquel) 50 mg PO HS Mental Health/Anxiety 05/26/24 05/26/24 History
sodium phosphates 19 gram-7 118 ml MN DAILYPRN PRN if dulcolax 05/26/24 05/26/24 History
gram/118 mL enema (Fleet Enema) ineffective after 24 hrs
tamsulosin 0.4 mg capsule 0.8 mg PO DAILY Urinary Issue 05/26/24 05/26/24 History
therapeutic multivitamin 1 tab PO DAILY Supplement 05/26/24 05/26/24 History
Review of Systems
-
Unable to obtain full review of systems at this time due to: Acuity
History Source: Patient, Group Home and Transfer Record
A 12 point Review of Systems was completed except as noted: No
Physical Exam
Vital Signs
Vital Signs
Temp Pulse Resp BP Pulse Ox
101.1 F H 85 16 101/58 94
05/26/24 11:15 05/26/24 13:45 05/26/24 13:45 05/26/24 13:30 05/26/24 13:45
Lab / Testing Results
Laboratory Results
05/26/24 09:24
05/26/24 09:24
Physical Exam
General: Fever and Chills
HEENT: Normocephalic and Anicteric
Respiratory: Non Labored Respirations
Cardiac: S1/S2
Breast: N/A
GI: Soft, Non Tender and Non Distended
Rectal: Deferred by Provider
Genito-urinary: Clear Urine, Brice Catheter and Other (left scrotal edema and soft tissue swelling w/ erythema, no palpable abscess or loculated fluid collection, no crepitus)
Musculoskeletal: No Edema
Skin: Warm and Dry
Neuro: Nonfocal/Grossly Intact
Hematologic/Lymphatic: No Lymphadenopathy
Psych: Confused
Assessment / Plan
-
Urosepsis secondary to cUTI
Chronic urinary retention w/ indwelling Brice catheter (changed 1 week ago)
Acute left epididymo-orchitis w/ reactive hydrocele
WBC >23
Cr 1.6 (baseline unknown)
05/26: CTAP w/o IV contrast => no acute urologic pathology, bladder decompressed around Brice catheter balloon
05/26: Scrotal US => Moderate complex left hydrocele. Small right epididymal head cyst versus spermatocele. Small simple right hydrocele.
exam c/w acute left epididymo-orchitis WITHOUT features indicative of a necrotizing soft tissue (i.e. Master's gangrene).
CT and US imaging reviewed - c/w acute left epididymo-orchitis.
OF NOTE - I was present during bedside scrotal US and imaging reviewed at time of exam in addition to radiologist's report.
- Broad-spectrum IV antibiotics
- F/U UCx + BCx x2 speciation/sensitivities
- elevated scrotum to minimize edema
D/w Hospitalist.
Data Reviewed
-
Total Time Spent with Patient (in minutes): 55
CT Scan: Image personally visualized and interpreted, Report Reviewed by Me and Discussed with Physician
Ultrasound: Image personally visualized and interpreted, Report Reviewed by Me and Discussed with Physician
Lab Data: Labs Reviewed and Discussed with Physician
Old Records: Reviewed
--- NOTE | 2024-05-26 14:27 | CON.INTV ---
Addendum entered and electronically signed by Nargis Pal MD 05/26/24 15:25:
Additional history obtained from daughter. Patient was diagnosed with ITP in the last year postsurgical. Initially was thought to be secondary to anesthesia but with any procedure, illness, patient developed thrombocytopenia and requires higher
dose steroids.
Presently, pressure systolic pressure 75
Patient also with apneic episodes
Will empirically start stress dose steroids, continue with fluid boluses
Follow platelets
BiPAP as needed
Reviewed with critical care nursing
Original Note:
Consultation
Consultation Request
Date/Time Consultation Requested: 05/26
Date/Time Consultation Performed: 05/26
Reason for Consultation: Critical care
Medical History
-
History of Present Illness:
History is obtained from the chart as patient is unable to provide adequate history. 78-year-old assisted resident who presents with change in mental status changes. Patient is resides at [facility]. Patient also
noted to be short of breath and tremulous. Noted to have 83% saturation and hypotension. Patient was brought to [facility] where upon arrival, temperature 101.1, pulse 90, breathing at 34, blood pressure 100/67, 96%. Patient was given IV
fluids, Zosyn therapy. Cultures were sent. White count 23.4, creatinine 1.6. Patient was admitted for septic shock requiring pressors. We are asked to help from critical care standpoint
At this time, patient denies any shortness of breath, chest pain, abdominal pain. Systolic blood pressure 110s/80s. He received about 1500 cc in the ED, has not required pressors
Brice catheter in place
.
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
urinary retention with Brice catheter, history of pneumonia
Past Medical History
Past Medical History: None (See above)
Past Surgical History: None (See above)
Social History
Tobacco: Other (Unable to obtain)
Living: Detention
Family History
Family History: Unable to Obtain
Allergies / Home Medications
Allergies
Allergy/AdvReac Type Severity Reaction Status Date / Time
Penicillins Allergy Unknown Verified 05/26/24 09:23
Home Medications
�Medication �Instructions �Recorded �Confirmed �Last Taken �Type
acetaminophen 325 mg tablet 650 mg PO Q4HPRN PRN mild 05/26/24 05/26/24 Unknown History
(Tylenol) pain/fever>100
albuterol sulfate 2.5 mg/3 mL 2.5 mg inhalation R Q6HPRN PRN sob 05/26/24 05/26/24 Unknown History
(0.083 %) solution for nebulization
amlodipine 10 mg tablet 10 mg PO DAILY Blood Pressure 05/26/24 05/26/24 Unknown History
atorvastatin 20 mg tablet 20 mg PO HS High Cholesterol 05/26/24 05/26/24 Unknown History
bisacodyl 10 mg rectal suppository 10 mg KS DAILYPRN PRN if mom 05/26/24 05/26/24 Unknown History
(Dulcolax (bisacodyl)) ineffective after 24 hrs
bupropion HCl 150 mg 24 hr tablet, 150 mg PO DAILY depression 05/26/24 05/26/24 Unknown History
extended release (Wellbutrin XL)
carbidopa 25 mg-levodopa 100 mg 1 tab PO TID parkinson's disease 05/26/24 05/26/24 Unknown History
tablet
clonazepam 0.5 mg tablet 0.5 mg PO BID anxiety 05/26/24 05/26/24 Unknown History
dextran 70-hypromellose eye drops 1 drp BOTH EYES BID dry eyes 05/26/24 05/26/24 Unknown History
in a dropperette (Artificial Tears
(PF) drops in a dropperette)
dextran 70-hypromellose eye drops 1 drp BOTH EYES [id number] PRN dry 05/26/24 05/26/24 Unknown History
in a dropperette (Artificial Tears eyes
(PF) drops in a dropperette)
escitalopram oxalate 5 mg tablet 15 mg PO DAILY depression/anxiety 05/26/24 05/26/24 Unknown History
(Lexapro)
famotidine 20 mg tablet 20 mg PO DAILY Gastrointestinal 05/26/24 05/26/24 Unknown History
Issue
finasteride 5 mg tablet 5 mg PO DAILY Urinary Issue 05/26/24 05/26/24 Unknown History
ibuprofen 200 mg tablet 400 mg PO Q6HPRN PRN mild pain 05/26/24 05/26/24 Unknown History
magnesium hydroxide 400 mg/5 mL 30 ml PO [id number] PRN if no bm 3 05/26/24 05/26/24 Unknown History
oral suspension (Milk of Magnesia) days
metformin 500 mg tablet 500 mg PO BID diabetes 05/26/24 05/26/24 Unknown History
mirtazapine 15 mg tablet (Remeron) 7.5 mg PO HS depression/sleep 05/26/24 05/26/24 Unknown History
prednisone 20 mg tablet 20 mg PO DAILY Anti-Inflammatory 05/26/24 05/26/24 Unknown History
quetiapine 25 mg tablet (Seroquel) 50 mg PO HS Mental Health/Anxiety 05/26/24 05/26/24 Unknown History
sodium phosphates 19 gram-7 118 ml KS DAILYPRN PRN if dulcolax 05/26/24 05/26/24 Unknown History
gram/118 mL enema (Fleet Enema) ineffective after 24 hrs
tamsulosin 0.4 mg capsule 0.8 mg PO DAILY Urinary Issue 05/26/24 05/26/24 Unknown History
therapeutic multivitamin 1 tab PO DAILY Supplement 05/26/24 05/26/24 Unknown History
Review of Systems
-
Unable to Obtain full review of systems at this time due to: Dementia
Vitals / Labs / Diagnostic Testing
Vital Signs
Temp Pulse Resp BP Pulse Ox
101.1 F H 85 16 101/58 94
05/26/24 11:15 07/08/24 13:45 05/26/24 13:45 05/26/24 13:30 05/26/24 13:45
Lab Data
05/26/24 09:24
05/26/24 09:24
Laboratory Results
05/26/24
09:24
PT 18.0 H
INR 1.48
APTT 38.2 H
Microbiology
05/26/24 09:24 Nasal Swab Influenza Types A & B (NEEMA) - Final
Negative for Influenza A & B, NAAT
Negative results must be combined with clinical observations
and patient history.
Nucleic Acid Amplification test (NAAT)performed on the
[employer] platform.
Diagnostic Testing:
Physical Exam
-
HEENT: Normocephalic, Anicteric, Other (Dry mucosa) and Other (Large neck)
Cardiovascular: S1/S2, Regular Rhythm, Murmur (n), Rub (n) and Peripheral Edema (tr)
Respiratory: Wheeze (mild, upper airway), Rales (n), Rhonchi (few) and Accessory Resp Muscle Use (Mild use of accessory muscles)
GI: Soft, Non Distended (Obese) and Non Tender
Neurology: Awake, No Motor Deficits (Moves extremities, generally weak) and Tremors (Tremulous)
Skin: Other (Extremities are warm. Scrotum is enlarged, mildly erythematous, mildly warm)
General: Comfortable (Appears comfortable, answering questions)
Assessment
-
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
changes, tremors. Found to be hypotensive, with enlarged scrotum, erythematous. Patient was given IV fluids, IV antibiotics admitted to ICU for further management
Hypotension, septic shock
Chronic Brice catheter
Scrotal swelling/erythema
Elevated troponin
Bibasilar nodular atelectasis per abdominal imaging (my review)
Suspected rounded atelectasis
Fat-containing left inguinal hernia
Leukocytosis
Elevated lactate
Conditions present prior to admission
Hypertension
Diabetes
Chronic kidney disease, stage III
History of BPH, chronic Brice catheter
History of anxiety/depression
Suicidal ideation in the past
History of ITP
Plan/recommendations
At this time, patient appears to be critically ill
Presents with mental status changes, hypotension
Elevated lactate noted
Moving forward
Continue with treatment for sepsis
Blood pressure systolic 70s, now improved to the 100s
Received 1500 cc of normal saline
Brice catheter in place
Swollen scrotum noted
Chest exam is clear with mild wheezing
Abdominal imaging with nodular atelectasis at the base, no acute abdominal findings
Continue with IV fluids
Records suggest history of cardiomyopathy although cannot confirm this
Present oxygen requirement is minimal. Follow closely
Pressors as needed
Continue antibiotics, Zosyn/Vanco
Follow culture data
Brice catheter in place. Given scrotal findings, urology has been consulted per primary service
Reviewed with critical care nursing
DNR status noted
TCCT 31 min
--- NOTE | 2024-05-26 14:52 | W.PN.SEPSIS ---
Sepsis
Vital Signs
Temp Pulse Resp BP Pulse Ox
101.1 F H 85 16 101/58 94
05/26/24 11:15 05/26/24 13:45 05/26/24 13:45 05/26/24 13:30 05/26/24 14:28
Physical Exam
Physical Exam:
A focused exam was performed after fluid resuscitation.
Capillary Refill
Bilateral Upper Extremity:
Courtney Time: Less than 3 sec
Pulse Evaluation
Right Radial:
Pulse Evaluation: Present
Additional Information
Patient appears to have responded to IV fluid resuscitation. Has not required pressors
Continue with maintenance fluids for now
Bolus fluids as indicated
[2024-05-26 14:54] LABS: Glucose - Point of Care 102 mg/dl (70-99)
--- NOTE | 2024-05-26 15:43 | PHA.VAN.IN ---
Assessment
- Assessment
Renal Function: Unknown baseline
Concomitant Antimicrobials: cefepime
Plan
- Plan
Initial / Loading Dose: 2000mg - 05/26 10:05
Maintenance Regimen: dosing by level
Monitoring: random 05/27 06
Pharmacokinetics Vancomycin I
- -
Patient Age: 78
Patient Sex: Male
Vancomycin Day #: 1
Indication: Genito-Urinary Tract
Requesting Provider: Crispin Fierro
Pertinent Antimicrobial Allergies:
penicillins - unknown
Height / Weight:
Height 5 ft 11 in
Actual Weight 89.4 kg
Pertinent Past Medical History: Parkinson's, CKD
- Vital Signs / Lab Results
Temp Pulse Resp BP Pulse Ox
98.8 F 85 16 101/58 94
05/26/24 15:00 05/26/24 13:45 05/26/24 13:45 05/26/24 13:30 05/26/24 14:28
Lab Results - Hematology
05/26/24
09:24
WBC 23.4 H
Band Neutrophils 12 H
Lab Results - Chemistry
05/26/24
09:24
BUN 36 H
Creatinine 1.6 H
Estimated Creat Clear 42
Albumin 3.4 L
05/26/24 05/26/24
09:25 13:05
Lactic Acid 4.1 H* 2.1 H
Lab Results - Urine
05/26/24
09:29
Urine Nitrite (Reflex) Positive A
Leukocyte Esterase Rfl 2+ A
Urine WBC (Reflex) 16-20 A
Ur Squamous Epith Cells 0-2
Urine Bacteria (Reflex) Many A
Microbiology Results
05/26/24 09:24 Influenza Types A & B (NEEMA) - Final
Nasal Swab Negative for Influenza A & B, NAAT
Negative results must be combined with clinical observations
and patient history.
Nucleic Acid Amplification test (NAAT)performed on the
[employer] platform.
[2024-05-26] MEDS: HEPARIN 5000 UNITS SC ×2 (16:46→23:32)
[2024-05-26] MEDS: SOLU-CORTEF 100 MG IV (16:47)
--- NOTE | 2024-05-26 17:04 | PTCARENOTE ---
pt received from ED on 2L O2. AAOx2 lethargic but arousable. Chronic bernardo with cloudy dark yellow urine. NS started with increase in BP. Complete CHG bath and oral care provided. Daughter at beside helped with admission. Elbows and heels reddened
but blanchable, skin barrier applied.
[2024-05-26 17:53] LABS: Glucose - Point of Care 118 mg/dl (70-99)
[2024-05-26] MEDS: SINEMET 25-100 PO ×2 (19:11→21:51)
[2024-05-26] MEDS: DESENEX/MITRAZOL/ZEASORB 1 APPLIC TOPICAL (19:39)
[2024-05-26] MEDS: REFRESH EYE DROPS (PF) 1 DROPS BOTH EYES (19:39)
--- NOTE | 2024-05-26 20:11 | PTCARENOTE ---
Received patient in bed, oriented to self, very drowsy and lethargic. Responds to verbal stimulation, follows commands. PERRLA, 2mm. Normal sinus, 80s, BP stable, 90s-100s/50s-60s, normothermic. Trace edema in bilateral hands and feet, SCDs on. on 4
liters nasal cannula, saturating 94%. Lung sounds very coarse, scattered rhonchi throughout. Abdomen round, obese, firm, hypoactive bowel sounds, incontinent of stool. Chronic bernardo draining cloudy, dereck urine. MASD on bilateral groin, desenex
applied. Left scrotum swollen, tender to touch. Heels and elbows red but blanchable. NSS @ 200 mls/hr ongoing per order. 2 PIVs patent, WNL. Mouth care done. Hourly rounding and patient safety checks ongoing.
[2024-05-26] MEDS: SEROQUEL PO (21:51)
[2024-05-26] MEDS: SOLU-CORTEF 50 MG IV (23:31)
[2024-05-27] VITALS (25 sets, daily range): BP systolic 89–130; BP diastolic 58–94; PULSE 2–94; O2SAT 92–93; BMI 28.6
--- NOTE | 2024-05-27 00:30 | PTCARENOTE ---
Patient assessment unchanged from previous, warm blanket provided.
[2024-05-27 00:36] LABS: Glucose - Point of Care 141 mg/dl (70-99)
--- NOTE | 2024-05-27 02:48 | PTCARENOTE ---
Patient put on bipap earlier in the night, continuously desaturating into the high 70s. Switched to cpap, tolerated for about 2 hours and wakes up agitated, trying to take the mask off, saying 'I gotta get it off'. Switched back to nasal cannula.
[2024-05-27] MEDS: VENTOLIN NEBULES 2.5 MG INH (03:19)
[2024-05-27] MEDS: NSS (PRESERVATIVE FREE) 0.25 ML IV (03:41)
[2024-05-27] MEDS: ATIVAN 0.5 MG IV (03:42)
[2024-05-27 03:57] LABS: Hematocrit 33.4 % (39.0-52.0); Hemoglobin 11.4 g/dL (13.0-18.0); Mean Corp Hgb Conc. 34.1 g/dL (33.0-37.0); Mean Corpuscular Hgb 30.3 pg (27.0-31.0); Mean Corpuscular Volume 88.8 fL (80.0-94.0); Red Blood Cell Count 3.76 10^6/uL (4.70-6.10); Red Cell Dist. Width 15.4 % (11.5-14.5)
--- NOTE | 2024-05-27 04:11 | PTCARENOTE ---
Patient more anxious, crying in bed saying 'I don't feel good, I don't know what's wrong'. Complaining of SOB, breathing treatment given. Ativan 0.5 mg given. Mouth care done again for dryness.
[2024-05-27 04:23] LABS: Vancomycin Random 10.9 ug/ml
[2024-05-27 04:47] LABS: AST (SGOT) 25 U/L (17-59); Albumin 2.9 g/dl (3.5-5.0); Alkaline Phosphatase 77 U/L (38-126); Blood Urea Nitrogen 32 mg/dl (9-20); Calcium 7.9 mg/dl (8.4-10.2); Carbon Dioxide 19 mmol/L (22-30); Chloride 110 mmol/L (98-107); Estimated Creatinine Clearance 61 ml/min; Glucose 114 mg/dl (70-99); Potassium 3.8 mmol/L (3.5-5.1); Sodium 140 mmol/L (135-145); Total Bilirubin 0.8 mg/dl (0.2-1.3); Total Protein 5.1 g/dl (6.3-8.2); eGFR > 60.00
[2024-05-27 05:12] LABS: ALT (SGPT) < 30 U/L (0-50)
[2024-05-27 05:33] LABS: Hepatitis C Antibody Negative (Negative)
[2024-05-27] MEDS: SOLU-CORTEF 50 MG IV (05:33)
[2024-05-27 05:48] LABS: Mean Platelet Volume 11.3 fL (7.4-10.4); Platelet Count 62 10^3/uL (130-400)
[2024-05-27 06:17] LABS: Glucose - Point of Care 137 mg/dl (70-99)
--- NOTE | 2024-05-27 06:32 | W.PN.HOSP.TC ---
Today's Communication/Plan
-
.
Assessment / Plan
Assessment / Plan
Physical Exam
General: Chronically ill looking, on oxygen
HEENT: Oxygen (Nasal Cannula) and Other (Mucous Membranes are dry)
Respiratory: Decreased Breath Sounds (Poor Inspiratory Effort)
Cardiac: S1/S2 and Regular Rhythm
GI: Soft,
Genito-urinary: Brice (Dark Urine) and Other (Left scrotum with erythema and edema, and very tender to palpation)
Musculoskeletal: No Clubbing, No Cyanosis and No Edema
Skin: Warm and Dry
Neuro: better today, more alert, answering questions. Tremor
Psych: Calm
78 years old male was sent to the emergency room with change in mental status. Patient met criteria of severe sepsis with septic shock on admission. Source possible urinary tract infection/genitourinary tract
Assessment and plan
#Septic shock /severe sepsis with lactic acidosis secondary to possible catheter associated UTI versus scrotal cellulitis
He is better, no fevers, better blood pressure. WBC is coming down
Will cut back on IVF
c/w empiric IV Cefepime and Vancomycin
Await urine and blood cultures
US scrotum Moderate complex left hydrocele. Small right epididymal head cyst versus spermatocele.
D/w urology.
Appreciate urology and ICU doctors input
# History of cardiomyopathy, s/p IV fluid while hypotensive. Patient is less dehydrated today, will cut back on IVF
# drop in HGB, likely HGB at 14 on admission was not accurate due to dehydration
monitor for now
# JANNY
History of chronic kidney disease stage IIIa. Creatinine on admission 1.6.
Creatinine is coming down
# Chronic urinary retention with chronic Brice
# History of Parkinson disease: Continue medications orally as possible. Aspiration precautions
Will need to resume oral medications
# History of primary hypertension. Held home medication while hypotensive, resume when stable blood pressure
# History of ITP. Monitor platelet count. No ecchymosis seen
# CODE STATUS, DNR
Total time spent to see the patient, examine the patient, review data and lab results, and discuss the treatment plan with patient, urologist, nurse around 55 minutes
Anticipated Discharge: > 48 hours
Subjective/Interval History
-
Date of Service: May 27, 2024
Looks better and more alert
He is hungry
No fevers
Objective Data
-
Labs:
Laboratory Results
05/27/24
03:50
WBC 19.0 H
Hgb 11.4 L
Hct 33.4 L
Plt Count 62 L D
Sodium 140
Potassium 3.8
Chloride 110 H
Carbon Dioxide 19 L
BUN 32 H
Creatinine 1.1
Glucose 114 H
Calcium 7.9 L
Total Bilirubin 0.8
AST 25
ALT < 30
Alkaline Phosphatase 77
Vital Signs:
Vital Signs
Temp Pulse Resp BP Pulse Ox
99.0 F 87 24 119/76 96
05/27/24 03:25 05/27/24 06:00 05/27/24 06:00 05/27/24 06:00 05/27/24 06:00
I&O
05/25/24 05/26/24 05/27/24
06:59 06:59 06:59
Intake Total 3200 / 3200
Output Total 1000 / 1000
Balance 2200 / 2200
--- NOTE | 2024-05-27 07:07 | W.PN.INTV ---
Today's Communication / Plan
Recommendations
Doing well, not on pressors
Continue abx, can likely stop vanc if MRSA neg
PT/OT, OOB encouraged
Further management per Uro
Can transfer to floors if ok with team, we will sign off upon transfer
Assessment
-
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
changes, tremors. Found to be hypotensive, with enlarged scrotum, erythematous. Patient was given IV fluids, IV antibiotics admitted to ICU for further management
Hypotension, septic shock
Chronic Brice catheter
Scrotal swelling/erythema
Elevated troponin
Bibasilar nodular atelectasis per abdominal imaging (my review)
Suspected rounded atelectasis
Fat-containing left inguinal hernia
Leukocytosis
Elevated lactate
Conditions present prior to admission
Hypertension
Diabetes
Chronic kidney disease, stage III
History of BPH, chronic Brice catheter
History of anxiety/depression
Suicidal ideation in the past
History of ITP
Plan/recommendations
At this time, patient appears to be improving, sitting in chair
No new complaints
Presented with mental status changes, hypotension--resolved
Elevated lactate noted
Moving forward
Continue with treatment for sepsis
Blood pressure systolic 70s, now improved to the 100s--did not require pressors
Monitor on telemetry
Received 1500 cc of normal saline
Brice catheter in place
Swollen scrotum noted
Chest exam is clear with mild wheezing
Abdominal imaging with nodular atelectasis at the base, no acute abdominal findings
Continue with IV fluids
Records suggest history of cardiomyopathy although cannot confirm this
Present oxygen requirement is minimal. Follow closely
Pressors remain off
Continue antibiotics, Zosyn/Vanco
Follow culture data
Can stop vanc if MRSA neg, pending
Brice catheter in place.
Given scrotal findings, urology has been consulted per primary service
Reviewed with critical care nursing
PT/OT, OOB
DNR status noted
Diagnostic Data
CXR 05/26/24- Low lung volumes and elevation of right hemidiaphragm. Widespread bilateral pulmonary interstitial markings at least top normal. Cannot exclude acute interstitial process such as edema or pneumonitis.
Abd CT 05/26/24- Small predominantly fat only containing left inguinal hernia. Small simple hepatic cyst. Cannot exclude small hiatal hernia. Included lung bases with some subsegmental atelectasis and/or scarring as well as single dependent nodular
opacities in the lower lobes bilaterally most likely representing 'rounded' atelectasis. No intestinal obstruction,, obstructive uropathy, free air or right lower quadrant laboratory changes. Descending colon and sigmoid diverticulosis.
-----
Critical Care time 35 mins -- The patient is admitted for acute critical illness for the treatment of vital organ failure and/or prevention of further life-threatening conditions. Total care includes time spent in review of history, physical exam,
medications, hemodynamic/ventilator parameters, laboratory data, imaging and discussion with house staff, pharmacy, respiratory therapy, finance broker, and nursing.
Subjective Dataa
Subjective Data
Date of Service:
Date of Service: May 27, 2024
Chief Complaint: [employer] Follow Up
Subjective:
Doing well, no acute events ON
Remains off pressors
Tremors noted, but at baseline. Sitting in chair
No new complaints
Objective Data
Data Reviewed
Vital Signs / I&O / Oxygen:
Vital Signs
Temp Pulse Resp BP Pulse Ox
99.0 F 87 24 119/76 96
05/27/24 03:25 05/27/24 06:00 05/27/24 06:00 05/27/24 06:00 05/27/24 06:00
Intake and Output
05/26/24 05/27/24 05/28/24
06:59 06:59 06:59
Intake Total 3200 / 3200
Output Total 1000 / 1000
Balance 2200 / 2200
SaO2 96
Nasal Cannula flow liters per 6
minute
Physical Exam
General: Comfortable and Other (NAD)
HEENT: Normocephalic, Anicteric and Moist Mucous Membranes
Cardiovascular: S1-S2 and Regular Rhythm
Respiratory: Clear and Non-Labored Respirations
GI: Soft, Non Distended and Non Tender
Neurology: Awake, Alert, Oriented, AO x 3, No Motor Deficits and Tremors
Skin: Warm, Dry and Good Color
Labs/Micro/Reports
Lab Data
05/27/24 03:50
05/27/24 03:50
Laboratory Results
05/26/24
09:24
PT 18.0 H
INR 1.48
APTT 38.2 H
Microbiology
05/26/24 09:24 Nasal Swab Influenza Types A & B (NEEMA) - Final
Negative for Influenza A & B, NAAT
Negative results must be combined with clinical observations
and patient history.
Nucleic Acid Amplification test (NAAT)performed on the
[employer] platform.
--- NOTE | 2024-05-27 07:15 | W.PN.URO.CBU ---
Today's Communication / Plan
-
- Continue broad-spectrum IV antibiotics
- Pending UCx/BCx speciation/sensitivities
- elevate scrotum to minimize edema
D/w patient.
D/w Dr. Arellano.
Assessment / Plan
-
Urosepsis secondary to cUTI
Chronic urinary retention w/ indwelling Brice catheter (changed 1 week ago)
Acute left epididymo-orchitis w/ reactive hydrocele
WBC improving
Cr 1.1 (from 1.6)
05/26: CTAP w/o IV contrast => no acute urologic pathology, bladder decompressed around Brice catheter balloon
05/26: Scrotal US => Moderate complex left hydrocele. Small right epididymal head cyst versus spermatocele. Small simple right hydrocele.
exam c/w acute left epididymo-orchitis WITHOUT features indicative of a necrotizing soft tissue (i.e. Master's gangrene).
CT and US imaging reviewed - c/w acute left epididymo-orchitis.
Diagnosis
-
Date of Service: May 27, 2024
-
Patient Diagnosis:
Urosepsis secondary to cUTI
Chronic urinary retention w/ indwelling Brice catheter
Acute left epididymo-orchitis w/ reactive hydrocele
Subjective
-
Alert and awake today.
Notes appetite.
Feeling significant w/n last 24 hrs.
Notes improvement in left testicular pain.
Objective
-
Vital Signs
Temp Pulse Resp BP Pulse Ox
98.2 F 92 20 122/80 93
05/27/24 07:52 05/27/24 08:00 05/27/24 08:00 05/27/24 08:00 05/27/24 08:00
Intake and Output
05/26/24 05/27/24 05/28/24
06:59 06:59 06:59
Intake Total 3200 / 3200
Output Total 1000 / 1000
Balance 2200 / 2200
Intake:
IV fluids (Total) 3200 / 3200
Nss 1,000 ml @ 200 mls/hr IV . 3200 / 3200
Q5H ABILIO Rx#:[id number]
Output:
Urine, Brice 1000 / 1000
Laboratory Results
05/27/24 03:50
05/27/24 03:50
Physical Exam
-
General - well developed, well nourished, no acute distress
Abdomen - soft, non-tender, non-distended
Genitalia - left scrotal swelling and erythema w/ edema, no overt cellulitis, no crepitus/loculated fluid collections/abscess, Brice catheter in place w/ clear UOP
Skin - warm & dry with no rash
Neuro - AOx3, no motor deficits
Care Review
Data Reviewed
Discussed with: Hospitalist
CT Scan: Report Pers Reviewed and Image Pers Reviewed
Ultrasound: Report Pers Reviewed and Image Pers Reviewed
Total Time Spent with Patient (in minutes): 35
[2024-05-27] MEDS: NSS 1000 IV (07:45)
[2024-05-27] MEDS: REFRESH EYE DROPS (PF) 1 DROPS BOTH EYES (08:14)
[2024-05-27] MEDS: HEPARIN 5000 UNITS SC ×3 (08:14→23:32)
[2024-05-27] MEDS: DESENEX/MITRAZOL/ZEASORB 1 APPLIC TOPICAL ×2 (08:14→20:18)
[2024-05-27] MEDS: PROTONIX 40 MG PO (08:14)
[2024-05-27] MEDS: TYLENOL 650 MG PO (08:15)
[2024-05-27] MEDS: SINEMET 25-100 1 TABLET PO ×3 (08:15→21:02)
--- NOTE | 2024-05-27 08:23 | PHA.VAN.FU ---
Vancomycin Assessment / Plan
- Assessment
Renal Function: SCR Decreasing
WBC's are: Trending Down
Concomitant Antimicrobials: cefepime
- Assessment - Therapeutic Drug Monitoring
Random Level: 10.9 - drawn ~18H after 2g loading dose
Specimen not protected from light and may have caused some degradation of the sample
- Dosing Plan
Dosing by Level: Re-dose today (Vanc 750mg now and 750mg x1 at 1800)
Will give total of 1500mg today
CrCl borderline and SCR trending down - unknown baseline
- Monitoring Plan
Random Level: 05/28 0600
- Follow Up
Pharmacy will continue to follow.
Vancomycin Follow UP
- -
Patient Age: 78
Patient Sex: Male
Vancomycin Day #: 2
Indication: Genito-Urinary Tract
Requesting Provider: Crispin Fierro
Pertinent Antimicrobial Allergies:
penicillins - unknown
Height / Weight:
Height 5 ft 11 in
Actual Weight 93 kg
Pertinent Past Medical History: Parkinson's, CKD
- Vital Signs / Lab Results
Temp Pulse Resp BP Pulse Ox
98.2 F 87 24 119/76 96
05/27/24 07:52 05/27/24 06:00 05/27/24 06:00 05/27/24 06:00 05/27/24 06:00
Lab Results - Hematology
05/26/24 05/27/24
03:50
WBC 23.4 H 19.0 H
Band Neutrophils 12 H
Lab Results - Chemistry
05/26/24 05/27/24
03:50
BUN 36 H 32 H
Creatinine 1.6 H 1.1
Estimated Creat Clear 42 61
Albumin 3.4 L 2.9 L
07/08/24 07/08/24 07/08/24
09:25 13:05 17:30
Lactic Acid 4.1 H* 2.1 H Cancelled
Lab Results - Urine
05/26/24
09:29
Urine Nitrite (Reflex) Positive A
Leukocyte Esterase Rfl 2+ A
Ur Squamous Epith Cells 0-2
Microbiology Results
05/26/24 09:24 Influenza Types A & B (NEEMA) - Final
Nasal Swab Negative for Influenza A & B, NAAT
Negative results must be combined with clinical observations
and patient history.
Nucleic Acid Amplification test (NAAT)performed on the
[employer] platform.
Therapeutic Drug Monitoring
Random Vancomycin 10.9 ug/ml 05/27/24 03:50
--- NOTE | 2024-05-27 08:45 | PTOTSP ---
Dysphagia Evaluation
Patient with mild but functional oral stage differences and no signs/complaints of pharyngeal dysphagia. Given acute confusion related to septic shock from UTI in combination with baseline history of Parkinson's disease - recommend temporary
dysphagia diet.
Recommend:
1. IDDSI Level 6 Soft/Bite Sized, IDDSI Level 0 Thin liquids
2. Medications - 1 at a time with sips of water
3. Strategies: upright to 90 degrees, supervision/assist as needed, small sips/bites, slow rate
4. Oral care 3x daily
5. Dysphagia tx at the acute care level.
[2024-05-27 09:41] LABS: Glycohemoglobin (HgbA1c) 5.3 % (4.0-5.6)
[2024-05-27] MEDS: VANCOCIN 150 IV ×2 (10:01→17:44)
[2024-05-27] MEDS: STERILE WATER FOR INJECTION 10 ML IV ×2 (10:02→21:03)
[2024-05-27] MEDS: MAXIPIME 2000 MG IV ×2 (10:02→21:03)
[2024-05-27 12:38] LABS: Glucose - Point of Care 327 mg/dl (70-99)
[2024-05-27] MEDS: DELTASONE 20 MG PO (13:17)
[2024-05-27] MEDS: NOVOLOG FLEXPEN-LOW RESISTANCE 4 UNITS SC (13:18)
--- NOTE | 2024-05-27 13:30 | PTCARENOTE ---
Dr Arellano made aware of elevated blood sugar after late lunch. No new orders. Pt also had a nonsustained asymptomatic burst hr 190s with stable blood pressure. radiation technician in room at time of episode and echo initiated shortly after episode. Pt has
been slightly confused and forgetful, t/o morning, but pleasant and cooperative. Ringing call [facility] for needs. Otherwise see flowsheets.
--- NOTE | 2024-05-27 13:35 | CARDSERVLU ---
Echocardiogram with Lumason completed after protocol screening completed. Allergies verified.
Patent IV site: __Rt AC___
IV site flushed with 0.9% NaCl pre and post administration.
Diluted bolus method utilized to enhance visualization of ventricular palmer.
Total volume given: __4.5__ mL
Patient tolerated all procedures well without complications.
[2024-05-27] MEDS: TOPROL XL 12.5 MG PO (15:51)
--- NOTE | 2024-05-27 16:10 | PTCARENOTE ---
Pt updated and aware of transfer to tele bed, attempted to call daughter and make her aware but no answer.
[2024-05-27] MEDS: NOVOLOG FLEXPEN-LOW RESISTANCE 1 UNITS SC (16:54)
--- NOTE | 2024-05-27 17:01 | CM ---
Patient from [facility] with Hx Parkinsons Dz with Dx Septic shock /severe sepsis. O2 4L. CPAP. Receiving IV Abx, IV Solucortef. ST for dysphagia. PT & OT recommend skilled rehab. Per nurse assessment; confused.
Spoke with Adm [facility]; the patient resides there in LTC on an MA bed hold. He is ambulatory with a RW and touch assistance. The patient was not on O2. He requires supervision for eating. The patient was not receiving PT.
Plan contact patient's son/daughter about SNF return.
Plan return to [facility] when medically ready.
[2024-05-27 17:07] LABS: Glucose - Point of Care 150 mg/dl (70-99)
--- NOTE | 2024-05-27 17:28 | PTCARENOTE ---
Daughter Daysi called and aware of transfer to new room.
--- NOTE | 2024-05-27 17:40 | PTCARENOTE ---
Received pt from ICU via bed. Pt acclimated to room. Call [facility] and TV remote in reach.
[2024-05-27] MEDS: REFRESH EYE DROPS (PF) BOTH EYES ×2 (20:18→20:23)
[2024-05-27] MEDS: SEROQUEL 50 MG PO (21:02)
[2024-05-27 21:53] LABS: Glucose - Point of Care 318 mg/dl (70-99)
[2024-05-28] VITALS (7 sets, daily range): BP systolic 108–137; BP diastolic 67–88; PULSE 82; O2SAT 94; BMI 29.2
[2024-05-28 02:51] LABS: Glucose - Point of Care 179 mg/dl (70-99)
--- NOTE | 2024-05-28 06:44 | W.PN.HOSP.TC ---
Today's Communication/Plan
-
Replace K
c/w IV Ab
Elevate scrotum
Start Tylenol ATC for pain, add PRN Ibuprofen
Add low dose BB for SVT
Assessment / Plan
Assessment / Plan
Physical Exam
General: Chronically ill looking, on oxygen
HEENT: Oxygen (Nasal Cannula) and Other (Mucous Membranes are dry)
Respiratory: Decreased Breath Sounds (Poor Inspiratory Effort)
Cardiac: S1/S2 and Regular Rhythm
GI: Soft,
Genito-urinary: Brice (Dark Urine) and Other (Left scrotum with erythema and edema, and very tender to palpation)
Musculoskeletal: No Clubbing, No Cyanosis and No Edema
Skin: Warm and Dry
Neuro: better today, more alert, answering questions. Tremor
Psych: Calm
78 years old male was sent to the emergency room with change in mental status. Patient met criteria of severe sepsis with septic shock on admission. Source possible urinary tract infection/genitourinary tract
Assessment and plan
#Septic shock /severe sepsis with lactic acidosis secondary to acute left epididymo-orchitis
He is better, no fevers, better blood pressure. WBC is coming down
Scrotal pain , to use pain medicine with elevation
No need for more IVF
s/p empiric IV Cefepime and Vancomycin , will stop vancomycin, c/w Cefepime and add Doxycycline.
Urine and blood cultures no growth.
US scrotum Moderate complex left hydrocele. Small right epididymal head cyst versus spermatocele.
D/w urology.
Appreciate urology and ICU doctors input
# History of cardiomyopathy, s/p IV fluid while hypotensive.
Echocardiogram showed left ventricular ejection fraction 60-65% with normal regional wall motion. Male mild to moderate mitral regurgitation, mild aortic regurgitation.
# Nonsustained supraventricular tachycardia, asymptomatic.
Blood pressure is better. Start low-dose beta-ira.
# drop in HGB, likely HGB at 14 on admission was not accurate due to dehydration. Likely hemoglobin baseline 10-11
monitor for now. No active bleeding
# JANNY, resolving
History of chronic kidney disease stage IIIa. Creatinine on admission 1.6.
Creatinine is coming down
# Chronic urinary retention with chronic Brice
# History of Parkinson disease: Continue medications orally as possible. Aspiration precautions
Resume oral medication
# History of primary hypertension. Started on low-dose beta-ira to help with cardiac dysrhythmia. Continue to hold amlodipine
# History of ITP. Monitor platelet count. No ecchymosis seen
Continue with oral prednisone
# History of depression, continue home medication including Lexapro, Seroquel, clonazepam, mirtazapine
# Hypokalemia, replaced.
# CODE STATUS, DNR
Total time spent to see the patient, examine the patient, review data and lab results, and discuss the treatment plan with patient, daughter, nurse around 55 minutes
Anticipated Discharge: > 48 hours
Subjective/Interval History
-
Date of Service: May 28, 2024
No chest pain
No sob
Scrotal pain
Objective Data
-
Labs:
Laboratory Results
05/28/24
06:08
WBC Pending
Hgb Pending
Hct Pending
Plt Count Pending
Sodium Pending
Potassium Pending
Chloride Pending
Carbon Dioxide Pending
BUN Pending
Creatinine Pending
Glucose Pending
Calcium Pending
Vital Signs:
Vital Signs
Temp Pulse Resp BP Pulse Ox
97.6 F 87 18 137/73 94
05/28/24 03:08 05/28/24 03:08 05/28/24 03:08 05/28/24 03:08 05/28/24 03:08
I&O
05/26/24 05/27/24 05/28/24
06:59 06:59 06:59
Intake Total 3200 / 3325 1405 / 1405
Output Total 1000 / 1000 975 / 975
Balance 2200 / 2325 430 / 430
[2024-05-28 06:48] LABS: Hemoglobin 10.8 g/dL (13.0-18.0); Mean Corpuscular Hgb 30.5 pg (27.0-31.0); Mean Corpuscular Volume 84.7 fL (80.0-94.0); Mean Platelet Volume 11.6 fL (7.4-10.4); Platelet Count 69 10^3/uL (130-400); Red Blood Cell Count 3.54 10^6/uL (4.70-6.10); Red Cell Dist. Width 15.3 % (11.5-14.5); White Blood Cell Count 19.8 10^3/uL (4.8-10.8)
[2024-05-28 06:56] LABS: Blood Urea Nitrogen 29 mg/dl (9-20); Calcium 8.5 mg/dl (8.4-10.2); Carbon Dioxide 20 mmol/L (22-30); Chloride 112 mmol/L (98-107); Estimated Creatinine Clearance 67 ml/min; Glucose 103 mg/dl (70-99); Potassium 3.1 mmol/L (3.5-5.1); Sodium 141 mmol/L (135-145); eGFR > 60.00
[2024-05-28 07:00] LABS: Vancomycin Random 13.5 ug/ml
[2024-05-28] MEDS: DELTASONE 20 MG PO (07:34)
[2024-05-28] MEDS: DESENEX/MITRAZOL/ZEASORB 1 APPLIC TOPICAL ×2 (07:35→19:44)
[2024-05-28] MEDS: HEPARIN 5000 UNITS SC ×3 (07:39→23:18)
[2024-05-28] MEDS: SINEMET 25-100 1 TABLET PO ×3 (07:40→21:21)
[2024-05-28] MEDS: TOPROL XL 12.5 MG PO ×2 (07:40→11:59)
[2024-05-28] MEDS: REFRESH EYE DROPS (PF) 1 DROPS BOTH EYES (07:40)
[2024-05-28 08:13] LABS: Glucose - Point of Care 101 mg/dl (70-99)
[2024-05-28] MEDS: NOVOLOG FLEXPEN-LOW RESISTANCE SC (08:39)
--- NOTE | 2024-05-28 08:39 | PHA.VAN.FU ---
Vancomycin Assessment / Plan
- Assessment
Renal Function: SCR Decreasing
WBC's are: Stable
In the past 24 hrs, patient has been: Afebrile
Concomitant Antimicrobials: cefepime
- Assessment - Therapeutic Drug Monitoring
Random Level: 13.5 - drawn ~12.5H after 2nd dose of 750mg
- Dosing Plan
Dosing by Level: Re-dose today (Vanc 750mg x2 doses)
Dosing Comments: will continue trial of BID dosing with improving SCR
holding off on scheduling dosing given unstable renal function
- Monitoring Plan
Random Level: 05/29 0600
- Follow Up
Pharmacy will continue to follow.
Vancomycin Follow UP
- -
Patient Age: 78
Patient Sex: Male
Vancomycin Day #: 3
Indication: Genito-Urinary Tract
Requesting Provider: Crispin Fierro
Pertinent Antimicrobial Allergies:
penicillins - unknown
Height / Weight:
Height 5 ft 11 in
Actual Weight 94.892 kg
Pertinent Past Medical History: Parkinson's, CKD
- Vital Signs / Lab Results
Temp Pulse Resp BP Pulse Ox
98.1 F 79 17 129/88 96
05/28/24 07:28 05/28/24 07:28 05/28/24 07:28 05/28/24 07:28 05/28/24 07:28
Lab Results - Hematology
05/26/24 05/27/24 05/28/24
03:50 06:08
WBC 23.4 H 19.0 H 19.8 H
Band Neutrophils 12 H
Lab Results - Chemistry
05/26/24 05/27/24 05/28/24
03:50 06:08
BUN 36 H 32 H 29 H
Creatinine 1.6 H 1.1 1.0
Estimated Creat Clear 42 61 67
Albumin 3.4 L 2.9 L
05/26/24 05/26/24 05/26/24
09:25 13:05 17:30
Lactic Acid 4.1 H* 2.1 H Cancelled
Microbiology Results
05/26/24 15:49 MRSA Screen - Final
Nose No Methicillin Resistant Staphylococcus aureus isolated.
05/26/24 09:26 Blood Culture - Preliminary
Blood/Venous Positive culture in progress
Gram Stain - Preliminary
05/26/24 09:29 Urine Culture - Final
Urine
05/26/24 09:24 Blood Culture - Preliminary
Blood/Venous No Growth in 24 hours- Final report to follow
05/26/24 09:24 Influenza Types A & B (NEEMA) - Final
Nasal Swab Negative for Influenza A & B, NAAT
Negative results must be combined with clinical observations
and patient history.
Nucleic Acid Amplification test (NAAT)performed on the
[employer] platform.
Therapeutic Drug Monitoring
Random Vancomycin 13.5 ug/ml 05/28/24 06:08
[2024-05-28] MEDS: VANCOCIN 150 IV (09:14)
[2024-05-28] MEDS: STERILE WATER FOR INJECTION 10 ML IV ×2 (09:17→21:20)
[2024-05-28] MEDS: MAXIPIME 2000 MG IV ×2 (09:17→21:20)
[2024-05-28 11:45] LABS: Glucose - Point of Care 243 mg/dl (70-99)
--- NOTE | 2024-05-28 11:47 | PTOTSP ---
Dysphagia Therapy
Patient with mild but functional oral stage differences likely due to acute illness and baseline Parkinson's disease. Patient reported dislike of modified diet (L6 soft/bite sized) and able to verbalize soft food choices. In order to maximize
nutrition/hydration, consider the following
Recommend:
1. Regular (pick soft), IDDSI Level 0 Thin liquids
2. Medications - 1 at a time with sips of water
3. Strategies: upright to 90 degrees, supervision/assist as needed, small sips/bites, slow rate
4. Oral care 3x daily
5. No further dysphagia tx warranted. Reconsult as appropriate.
[2024-05-28] MEDS: NOVOLOG FLEXPEN-LOW RESISTANCE 2 UNITS SC (11:59)
[2024-05-28] MEDS: KCL 40 MEQ PO (12:00)
[2024-05-28] MEDS: MOTRIN 200 MG PO (12:00)
[2024-05-28] MEDS: TYLENOL 1000 MG PO ×3 (12:02→21:21)
[2024-05-28] MEDS: TYLENOL PO (12:35)
--- NOTE | 2024-05-28 13:08 | W.PN.URO.CBU ---
Today's Communication / Plan
-
Continue IV antibiotics
Scrotal elevation
NSAIDs/Tylenol for orchialgia
Maintain Brice catheter (chronic)
Assessment / Plan
-
Urosepsis secondary to cUTI
Chronic urinary retention w/ indwelling Brice catheter (changed 1 week ago)
Acute left epididymo-orchitis w/ reactive hydrocele
WBC 19
Cr 1.0
05/26: CTAP w/o IV contrast => no acute urologic pathology, bladder decompressed around Brice catheter balloon
05/26: Scrotal US => Moderate complex left hydrocele. Small right epididymal head cyst versus spermatocele. Small simple right hydrocele.
Serial exams show stable findings c/w acute left epididymo-orchitis WITHOUT features indicative of a necrotizing soft tissue (i.e. Master's gangrene).
CT and US imaging reviewed - c/w acute left epididymo-orchitis.
Diagnosis
-
Date of Service: May 28, 2024
-
Patient Diagnosis:
Urosepsis secondary to cUTI
Chronic urinary retention w/ indwelling Brice catheter
Acute left epididymo-orchitis w/ reactive hydrocele
Subjective
-
Left scrotum tender - albeit significantly improved from admission.
Tolerating diet.
Urine clear in Brice catheter.
Objective
-
Vital Signs
Temp Pulse Resp BP Pulse Ox
98.2 F 78 18 119/79 96
05/28/24 11:18 05/28/24 11:18 05/28/24 11:18 05/28/24 11:18 05/28/24 11:18
Intake and Output
05/27/24 05/28/24 05/29/24
06:59 06:59 06:59
Intake Total 3200 / 3325 1405 / 1405
Output Total 999 / 999 975 / 975
Balance 2200 / 2325 430 / 430
Intake:
Oral fluids 880 / 880
IV fluids (Total) 3200 / 3325 375 / 375
Nss 1,000 ml @ 125 mls/hr IV . 3200 / 3325 375 / 375
Q8H ABILIO Rx#:[id number]
IV piggybacks 150 / 150
Output:
Urine, Brice 999 / 999 / 97
Laboratory Results
05/28/24 06:08
05/28/24 06:08
Physical Exam
-
General - ill-appearing, no acute distress
Abdomen - soft, non-tender, non-tender
Genitalia - Brice catheter w/ clear UOP, erythema and edema of left hemiscrotum w/o crepitus/fluid collection/abscess, tender left testis w/ palpable hydrocele
Skin - warm & dry with no rash
Neuro - AOx3, no motor deficits
Extremities - no clubbing, no cyanosis, no edema
[2024-05-28 17:16] LABS: Glucose - Point of Care 154 mg/dl (70-99)
[2024-05-28] MEDS: NOVOLOG FLEXPEN-LOW RESISTANCE 1 UNITS SC (17:31)
[2024-05-28] MEDS: GLUCOPHAGE 500 MG PO (17:32)
[2024-05-28] MEDS: VIBRAMYCIN 100 MG PO (19:44)
[2024-05-28] MEDS: REFRESH EYE DROPS (PF) BOTH EYES ×2 (19:44→19:48)
[2024-05-28 21:12] LABS: Glucose - Point of Care 138 mg/dl (70-99)
[2024-05-28] MEDS: SEROQUEL 50 MG PO (21:18)
[2024-05-28] MEDS: REMERON 7.5 MG PO (21:20)
[2024-05-29 03:32] VITALS: BP 127/77
[2024-05-29 05:35] VITALS: BMI 28.9
[2024-05-29 07:25] LABS: Glucose - Point of Care 72 mg/dl (70-99)
[2024-05-29 07:30] VITALS: BP 114/90
[2024-05-29] MEDS: NOVOLOG FLEXPEN-LOW RESISTANCE SC ×2 (07:42→11:59)
[2024-05-29] MEDS: DELTASONE 20 MG PO (07:43)
[2024-05-29] MEDS: DESENEX/MITRAZOL/ZEASORB 1 APPLIC TOPICAL ×2 (07:43→19:38)
[2024-05-29] MEDS: LEXAPRO 15 MG PO (07:44)
[2024-05-29] MEDS: HEPARIN 5000 UNITS SC ×3 (07:44→23:41)
[2024-05-29] MEDS: GLUCOPHAGE 500 MG PO ×2 (07:44→17:02)
[2024-05-29] MEDS: TOPROL XL 25 MG PO (07:45)
[2024-05-29] MEDS: VIBRAMYCIN 100 MG PO ×2 (07:45→19:38)
[2024-05-29] MEDS: REFRESH EYE DROPS (PF) 1 DROPS BOTH EYES (07:45)
[2024-05-29] MEDS: SINEMET 25-100 1 TABLET PO ×3 (07:45→21:26)
[2024-05-29] MEDS: TYLENOL 1000 MG PO ×4 (07:45→21:26)
[2024-05-29] MEDS: MAXIPIME 2000 MG IV ×2 (09:10→21:23)
[2024-05-29] MEDS: STERILE WATER FOR INJECTION 10 ML IV ×2 (09:10→21:23)
[2024-05-29 09:12] LABS: Hematocrit 34.4 % (39.0-52.0); Hemoglobin 12.3 g/dL (13.0-18.0); Mean Corp Hgb Conc. 35.8 g/dL (33.0-37.0); Mean Corpuscular Hgb 29.3 pg (27.0-31.0); Mean Corpuscular Volume 81.9 fL (80.0-94.0); Mean Platelet Volume 10.7 fL (7.4-10.4); Platelet Count 107 10^3/uL (130-400); Red Cell Dist. Width 15.9 % (11.5-14.5); White Blood Cell Count 15.5 10^3/uL (4.8-10.8)
[2024-05-29 10:31] LABS: Blood Urea Nitrogen 28 mg/dl (9-20); Calcium 9.5 mg/dl (8.4-10.2); Carbon Dioxide 18 mmol/L (22-30); Chloride 112 mmol/L (98-107); Estimated Creatinine Clearance 74 ml/min; Glucose 67 mg/dl (70-99); Potassium 3.4 mmol/L (3.5-5.1); Sodium 144 mmol/L (135-145); eGFR > 60.00
--- NOTE | 2024-05-29 11:10 | W.PN.HOSP.TC ---
Today's Communication/Plan
-
replace K
Give Ibuprofen for pain
c/w Toprol
Encourage PT/OT
Assessment / Plan
Assessment / Plan
Physical Exam
General: Chronically ill looking, on oxygen
HEENT: Oxygen (Nasal Cannula) and Other (Mucous Membranes are dry)
Respiratory: Decreased Breath Sounds (Poor Inspiratory Effort)
Cardiac: S1/S2 and Regular Rhythm
GI: Soft,
Genito-urinary: Brice (Dark Urine) and Other (Left scrotum with erythema and edema, and very tender to palpation)
Musculoskeletal: No Clubbing, No Cyanosis and No Edema
Skin: Warm and Dry
Neuro: better today, more alert, answering questions. Tremor
Psych: Calm
78 years old male was sent to the emergency room with change in mental status. Patient met criteria of severe sepsis with septic shock on admission. Source possible urinary tract infection/genitourinary tract
Assessment and plan
#Septic shock /severe sepsis with lactic acidosis secondary to acute left epididymo-orchitis
He is better, no fevers, better blood pressure. WBC is coming down
Scrotal pain , still the same quality. Receiving Tylenol ATC and PRN Ibuprofen.
No need for more IVF
s/p empiric IV Cefepime and Vancomycin , stopped vancomycin, c/w Cefepime and add Doxycycline.
Urine and blood cultures no growth.
US scrotum Moderate complex left hydrocele. Small right epididymal head cyst versus spermatocele.
D/w urology.
Appreciate urology and ICU doctors input
# One Bottle of blood culture positive for coagulase-negative staph.
Contamination
Patient is a clinically improving.
# History of cardiomyopathy, s/p IV fluid while hypotensive.
Echocardiogram showed left ventricular ejection fraction 60-65% with normal regional wall motion. Male mild to moderate mitral regurgitation, mild aortic regurgitation.
# Nonsustained supraventricular tachycardia, asymptomatic.
Blood pressure is better. Start low-dose beta-ira.
# drop in HGB, likely HGB at 14 on admission was not accurate due to dehydration. Likely hemoglobin baseline 10-11
monitor for now. No active bleeding
# JANNY, resolving
History of chronic kidney disease stage IIIa. Creatinine on admission 1.6.
Creatinine is coming down
# Chronic urinary retention with chronic Brice
# History of Parkinson disease: Continue medications orally as possible. Aspiration precautions
Resume oral medication
# History of primary hypertension. Started on low-dose beta-ira to help with cardiac dysrhythmia. Continue to hold amlodipine
# History of ITP. Monitor platelet count. No ecchymosis seen
Continue with oral prednisone
# History of depression, continue home medication including Lexapro, Seroquel, clonazepam, mirtazapine
# Hypokalemia, replaced.
# CODE STATUS, DNR
Total time spent to see the patient, examine the patient, review data and lab results, and discuss the treatment plan with patient, daughter, nurse around 55 minutes
Anticipated Discharge: 24 - 48 hours
Subjective/Interval History
-
Date of Service: May 29, 2024
Still same pain in scrotum
No fevers
no chest pain
Objective Data
-
Labs:
Laboratory Results
05/29/24
08:33
WBC 15.5 H
Hgb 12.3 L
Hct 34.4 L
Plt Count 107 L D
Sodium 144
Potassium 3.4 L
Chloride 112 H
Carbon Dioxide 18 L
BUN 28 H
Creatinine 0.9
Glucose 67 L
Calcium 9.5
Vital Signs:
Vital Signs
Temp Pulse Resp BP Pulse Ox
97.9 F 87 22 114/90 99
05/29/24 07:30 05/29/24 07:30 05/29/24 07:30 05/29/24 07:30 05/29/24 07:30
I&O
05/28/24 05/29/24 05/30/24
06:59 06:59 06:59
Intake Total 1405 / 1405 630 / 630
Output Total 975 / 975 800 / 800
Balance 430 / 430 -170 / -170
[2024-05-29 11:30] VITALS: BP 118/78
[2024-05-29 11:56] LABS: Glucose - Point of Care 133 mg/dl (70-99)
[2024-05-29] MEDS: KCL 20 MEQ PO (11:59)
--- NOTE | 2024-05-29 12:10 | W.PN.URO.CBU ---
Today's Communication / Plan
-
IV antibiotics w/ conversion to PO course on discharge for cUTI
NSAIDs/Tylenol prn
Elevate scrotum
Maintain Brice catheter
OK to resume q4 week catheter changes @[facility] on discharge
Assessment / Plan
-
Urosepsis secondary to cUTI
Chronic urinary retention w/ indwelling Brice catheter (changed 1 week ago)
Acute left epididymo-orchitis w/ reactive hydrocele
WBC downtrending
Cr 1.0
05/26: CTAP w/o IV contrast => no acute urologic pathology, bladder decompressed around Brice catheter balloon
05/26: Scrotal US => Moderate complex left hydrocele. Small right epididymal head cyst versus spermatocele. Small simple right hydrocele.
Serial exams show stable findings c/w acute left epididymo-orchitis WITHOUT features indicative of a necrotizing soft tissue (i.e. Master's gangrene).
CT and US imaging reviewed - c/w acute left epididymo-orchitis.
Diagnosis
-
Date of Service: May 29, 2024
-
Patient Diagnosis:
Urosepsis secondary to cUTI
Chronic urinary retention w/ indwelling Brice catheter
Acute left epididymo-orchitis w/ reactive hydrocele
Subjective
-
Pain gradually improving.
exam slowly improving - left testicular swelling still present (hydrocele).
Objective
-
Vital Signs
Temp Pulse Resp BP Pulse Ox
97.6 F 64 20 118/78 94
05/29/24 11:30 05/29/24 11:30 05/29/24 11:30 05/29/24 11:30 05/29/24 11:30
Intake and Output
05/28/24 05/29/24 05/30/24
06:59 06:59 06:59
Intake Total 1405 / 1405 630 / 630
Output Total 975 / 975 800 / 800
Balance 430 / 430 -170 / -170
Intake:
Oral fluids 880 / 880 480 / 480
IV fluids (Total) 375 / 375
Nss 1,000 ml @ 125 mls/hr IV . 375 / 375
[facility]8H [facility] Rx#:[id number]
IV piggybacks 150 / 150 150 / 150
Output:
Urine, Brice 975 / 975 400 / 400
Urine, Voided 400 / 400
Laboratory Results
05/29/24 08:33
05/29/24 08:33
Physical Exam
-
General - chronically ill-appearing, no acute distress
Abdomen - soft, non-tender, non-distended
Genitalia - left scrotal swelling (palpable hydrocele sac) and erythema w/ improving edema, no overt cellulitis, no crepitus/loculated fluid collections/abscess, Brice catheter in place w/ clear UOP
Skin - warm & dry with no rash
Neuro - AOx3, no motor deficits
[2024-05-29 15:24] VITALS: BP 140/85
[2024-05-29 16:45] LABS: Glucose - Point of Care 177 mg/dl (70-99)
[2024-05-29] MEDS: NOVOLOG FLEXPEN-LOW RESISTANCE 1 UNITS SC (17:02)
[2024-05-29] MEDS: REFRESH EYE DROPS (PF) BOTH EYES (19:38)
[2024-05-29 19:40] VITALS: BP 120/74
[2024-05-29] MEDS: MOTRIN 200 MG PO (19:42)
[2024-05-29 21:23] LABS: Glucose - Point of Care 140 mg/dl (70-99)
[2024-05-29] MEDS: SEROQUEL 50 MG PO (21:25)
[2024-05-29] MEDS: REMERON 7.5 MG PO (21:26)
[2024-05-29 23:04] VITALS: BP 116/71
[2024-05-30] VITALS (7 sets, daily range): BP systolic 119–148; BP diastolic 66–87; PULSE 70; BMI 28.7
[2024-05-30] MEDS: LEXAPRO 15 MG PO (07:36)
[2024-05-30] MEDS: REFRESH EYE DROPS (PF) 1 DROPS BOTH EYES ×2 (07:37→20:57)
[2024-05-30] MEDS: TYLENOL 1000 MG PO ×2 (07:38→20:59)
[2024-05-30] MEDS: SINEMET 25-100 1 TABLET PO ×3 (07:38→20:59)
[2024-05-30] MEDS: TOPROL XL 25 MG PO (07:39)
[2024-05-30] MEDS: DELTASONE 20 MG PO (07:39)
[2024-05-30] MEDS: GLUCOPHAGE 500 MG PO ×2 (07:40→16:05)
[2024-05-30] MEDS: VIBRAMYCIN 100 MG PO (07:41)
[2024-05-30] MEDS: HEPARIN 5000 UNITS SC ×3 (07:44→23:17)
[2024-05-30] MEDS: TYLENOL PO (07:46)
[2024-05-30 07:48] LABS: Glucose - Point of Care 76 mg/dl (70-99)
[2024-05-30] MEDS: ROCEPHIN 2000 MG IV (07:48)
[2024-05-30] MEDS: DESENEX/MITRAZOL/ZEASORB 1 APPLIC TOPICAL ×2 (08:09→20:57)
[2024-05-30] MEDS: NOVOLOG FLEXPEN-LOW RESISTANCE SC ×2 (08:10→12:59)
[2024-05-30 08:18] LABS: Blood Urea Nitrogen 27 mg/dl (9-20); Calcium 9.2 mg/dl (8.4-10.2); Carbon Dioxide 22 mmol/L (22-30); Chloride 111 mmol/L (98-107); Estimated Creatinine Clearance 74 ml/min; Glucose 69 mg/dl (70-99); Potassium 3.7 mmol/L (3.5-5.1); Sodium 145 mmol/L (135-145); eGFR > 60.00
--- NOTE | 2024-05-30 09:15 | CM ---
Late entry from 05/29/2024
Patient seen bedside, reports no needs to CM at this time. Patient is LTC resident on [place] bed hold at [facility]. Referral sent in [facility]. CM will continue to follow for all discharge planning needs.
Plan; return to [facility] when stable.
[2024-05-30 10:22] LABS: Hematocrit 33.4 % (39.0-52.0); Hemoglobin 11.5 g/dL (13.0-18.0); Mean Corp Hgb Conc. 34.4 g/dL (33.0-37.0); Mean Corpuscular Hgb 29.5 pg (27.0-31.0); Mean Corpuscular Volume 85.6 fL (80.0-94.0); Mean Platelet Volume 10.9 fL (7.4-10.4); Platelet Count 133 10^3/uL (130-400); Red Cell Dist. Width 16.5 % (11.5-14.5); White Blood Cell Count 13.9 10^3/uL (4.8-10.8)
--- NOTE | 2024-05-30 11:27 | PN.CDI ---
CDI
- -
CDI:
Physician Documentation Request
Admit Date: 05/26/24 13:05
Dear Doctor Eileen,
Patient admitted with severe sepsis and septic shock.
ED Note, ' ...the patient had a change in mental status starting today.... She stated that the change in mental status and symptoms began this morning. Patient is typically awake, alert, and oriented. This morning she noted the patient was lying
in bed screaming out which was unlike him.
05/29 PN, 'Source possible urinary tract infection/genitourinary tract.... acute left epididymo-orchitis.'
Based on the above, please provide in your note the most likely etiology of the change in mental status:
Metabolic encephalopathy
Toxic metabolic encephalopathy
Change in mental status only
Other
Use of terms such as suspected, likely, concern for, or probable (associated with a specific diagnosis that is being evaluated, monitored, or treated as if it exists) are acceptable and can be coded in the inpatient setting, when documented at the
time of discharge.
Thank you,
Janet ROY,RN,CCDS
CDI Specialist
Available via [place] text
Please use your independent medical judgment in providing your response.
--- NOTE | 2024-05-30 12:02 | PN.CDI ---
CDI
- -
CDI:
Physician Documentation Request
Admit Date: 05/26/24 13:05
Dear Doctor Eileen,
Patient admitted with severe sepsis and septic shock.
Platelet counts documented below:
Laboratory Tests
05/27/24 05/28/24 05/29/24
03:50 06:08 08:33
Plt Count 62 L D 69 L 107 L D
Based on the above, please clarify in the progress notes, the appropriate diagnosis, if significant, that supports the above abnormalities and additional evaluation, monitoring and/or treatment rendered:
Thrombocytopenia
Insignificant abnormal lab findings
Other
Use of terms such as suspected, likely, concern for, or probable (associated with a specific diagnosis that is being evaluated, monitored, or treated as if it exists) are acceptable and can be coded in the inpatient setting, when documented at the
time of discharge.
Thank you,
Janet ROY,RN,CCDS
CDI Specialist
Available via [place] text
Please use your independent medical judgment in providing your response.
--- NOTE | 2024-05-30 12:09 | W.PN.HOSP.TC ---
Today's Communication/Plan
-
likely dc in am or Sunday depending on scrotal discomfort
Assessment / Plan
Assessment / Plan
Physical Exam
General: Chronically ill looking, on oxygen
HEENT: Oxygen (Nasal Cannula) and Other (Mucous Membranes are dry)
Respiratory: Decreased Breath Sounds (Poor Inspiratory Effort)
Cardiac: S1/S2 and Regular Rhythm
GI: Soft,
Genito-urinary: Brice (clear Urine) and Other (Left scrotum with less erythema and edema, and less tender to palpation)
Musculoskeletal: No Clubbing, No Cyanosis and No Edema
Skin: Warm and Dry
Neuro: better today, more alert, answering questions. Tremor
Psych: Calm
78 years old male was sent to the emergency room with change in mental status. Patient met criteria of severe sepsis with septic shock on admission. Source possible urinary tract infection/genitourinary tract
Assessment and plan
#Septic shock /severe sepsis with lactic acidosis secondary to acute left epididymo-orchitis
He is better, no fevers, better blood pressure. WBC is coming down
Scrotal pain , is less with Tylenol and PRN Ibuprofen.
No need for more IVF
s/p empiric IV Cefepime and Vancomycin , stopped vancomycin & Cefepime, c/w Rocephin and Doxycycline.
Urine and blood cultures no growth.
US scrotum Moderate complex left hydrocele. Small right epididymal head cyst versus spermatocele.
D/w urology.
Appreciate urology and ICU doctors input
# Toxic metabolic encephalopathy
resolved, back to baseline. Oriented to self and surroundings.
# thrombocytopenia due to infection
Plt count is improving.
# One Bottle of blood culture positive for coagulase-negative staph.
Contamination
Patient is a clinically improving.
# History of cardiomyopathy, s/p IV fluid while hypotensive.
Echocardiogram showed left ventricular ejection fraction 60-65% with normal regional wall motion. Male mild to moderate mitral regurgitation, mild aortic regurgitation.
# Nonsustained supraventricular tachycardia, asymptomatic.
Blood pressure is better. Start low-dose beta-ira.
# drop in HGB, likely HGB at 14 on admission was not accurate due to dehydration. Likely hemoglobin baseline 10-11
monitor for now. No active bleeding
# JNANY, resolving
History of chronic kidney disease stage IIIa. Creatinine on admission 1.6.
Creatinine is coming down
# Chronic urinary retention with chronic Brice
# History of Parkinson disease: Continue medications orally as possible. Aspiration precautions
Resume oral medication
# History of primary hypertension. Started on low-dose beta-ira to help with cardiac dysrhythmia. Continue to hold amlodipine
# History of ITP. Monitor platelet count. No ecchymosis seen
Continue with oral prednisone
# History of depression, continue home medication including Lexapro, Seroquel, clonazepam, mirtazapine
# Hypokalemia, replaced.
# CODE STATUS, DNR
Total time spent to see the patient, examine the patient, review data and lab results, and discuss the treatment plan with patient, daughter, nurse around 55 minutes
Anticipated Discharge: 24 - 48 hours
Subjective/Interval History
-
Date of Service: May 30, 2024
Less pain in scrotum
No fevers
Objective Data
-
Labs:
Laboratory Results
05/30/24
07:15
WBC 13.9 H
Hgb 11.5 L
Hct 33.4 L
Plt Count 133 D
Sodium 145
Potassium 3.7
Chloride 111 H
Carbon Dioxide 22
BUN 27 H
Creatinine 0.9
Glucose 69 L
Calcium 9.2
Vital Signs:
Vital Signs
Temp Pulse Resp BP Pulse Ox
97.1 F 64 18 127/78 97
05/30/24 11:19 05/30/24 11:19 05/30/24 11:19 05/30/24 11:19 05/30/24 11:19
I&O
05/29/24 05/30/24 05/31/24
06:59 06:59 06:59
Intake Total 630 / 630 720 / 720
Output Total 800 / 800 1000 / 1000
Balance -170 / -170 -280 / -280
[2024-05-30 12:16] LABS: Glucose - Point of Care 131 mg/dl (70-99)
--- NOTE | 2024-05-30 12:58 | CM ---
Addendum entered by Constanza Thompson 05/30/24 15:11:
[facility]
Report: [phone]

Original Note:
Patient seen bedside, reports no needs to CM at this time. Patient confirms he resides at [facility]. CM offered to call family, patient reports this is not necessary at this time. CM will continue to follow for all discharge planning needs.
Plan; return to [facility] when stable.
[2024-05-30 16:05] LABS: Glucose - Point of Care 163 mg/dl (70-99)
[2024-05-30] MEDS: NOVOLOG FLEXPEN-LOW RESISTANCE 1 UNITS SC (16:06)
--- NOTE | 2024-05-30 16:25 | W.PN.URO.CBU ---
Today's Communication / Plan
-
exam progressively improving'
Continue IV antibiotics - PO course for cUTI/epididymo-orchitis on discharge (7-10 days suggested)
Ice pack and elevation to scrotum
NSAIDs/Tylenol prn
Assessment / Plan
-
Urosepsis secondary to cUTI
Chronic urinary retention w/ indwelling Brice catheter (changed 1 week ago)
Acute left epididymo-orchitis w/ reactive complex hydrocele
Afebrile
WBC downtrending
Cr WNL
05/26: CTAP w/o IV contrast => no acute urologic pathology, bladder decompressed around Brice catheter balloon
05/26: Scrotal US => Moderate complex left hydrocele. Small right epididymal head cyst vs. spermatocele. Small simple right hydrocele.
Serial exams show stable findings c/w acute left epididymo-orchitis WITHOUT features indicative of a necrotizing soft tissue (i.e. Master's gangrene) or abscess.
CT and US imaging reviewed - c/w acute left epididymo-orchitis.
Diagnosis
-
Date of Service: May 31, 2024
-
Patient Diagnosis:
Urosepsis secondary to cUTI
Chronic urinary retention w/ indwelling Brice catheter
H/o neurogenic bladder
Acute left epididymo-orchitis w/ reactive complex hydrocele
Subjective
-
Slow improvement left testicular pain - improved from admission.
Tolerating diet.
Afebrile.
Urine clear in catheter tubing.
Objective
-
Vital Signs
Temp Pulse Resp BP Pulse Ox
98.6 F 72 19 141/72 96
05/30/24 22:50 05/30/24 22:50 05/30/24 22:50 05/30/24 22:50 05/30/24 23:00
Intake and Output
05/29/24 05/30/24 05/31/24
06:59 06:59 06:59
Intake Total 630 / 630 720 / 720 840 / 840
Output Total 800 / 800 1000 / 1000 2400 / 2400
Balance -170 / -170 -280 / -280 -1560 / -1560
Intake:
Oral fluids 480 / 480 720 / 720 840 / 840
IV piggybacks 150 / 150
Output:
Urine, Brice 400 / 400 1000 / 1000 2400 / 2400
Urine, Voided 400 / 400
Laboratory Results
05/30/24 07:15
05/30/24 07:15
Physical Exam
-
General - chronically ill-appearing, no acute distress
Abdomen - soft, non-tender, non-distended
Genitalia - Brice catheter w/ clear UOP, left scrotal erythema (improved) w/ mild left lateral induration, palpable hydrocele sac, no loculated fluid collection/abscess, no crepitus
Skin - warm & dry with no rash
Neuro - AOx3, no motor deficits
Extremities - no clubbing, no cyanosis, no edema
Care Review
Data Reviewed
Discussed with: Hospitalist
CT Scan: Report Pers Reviewed and Image Pers Reviewed
Ultrasound: Report Pers Reviewed and Image Pers Reviewed
[2024-05-30 20:54] LABS: Glucose - Point of Care 81 mg/dl (70-99)
[2024-05-30] MEDS: MOTRIN 200 MG PO (20:58)
[2024-05-30] MEDS: REMERON 7.5 MG PO (20:58)
[2024-05-30] MEDS: SEROQUEL 50 MG PO (20:59)
[2024-05-31 05:42] VITALS: BMI 28.9
[2024-05-31 07:00] VITALS: BP 131/85
[2024-05-31 07:47] LABS: Glucose - Point of Care 97 mg/dl (70-99)
[2024-05-31] MEDS: NOVOLOG FLEXPEN-LOW RESISTANCE SC (08:04)
[2024-05-31] MEDS: GLUCOPHAGE 500 MG PO ×2 (08:05→18:01)
[2024-05-31] MEDS: DELTASONE 20 MG PO (08:05)
[2024-05-31] MEDS: DESENEX/MITRAZOL/ZEASORB 1 APPLIC TOPICAL ×2 (08:05→20:24)
[2024-05-31] MEDS: HEPARIN 5000 UNITS SC ×3 (08:06→22:42)
[2024-05-31] MEDS: LEXAPRO 15 MG PO (08:06)
[2024-05-31] MEDS: REFRESH EYE DROPS (PF) 1 DROPS BOTH EYES ×2 (08:06→20:23)
[2024-05-31] MEDS: SINEMET 25-100 1 TABLET PO ×3 (08:08→20:22)
[2024-05-31] MEDS: TOPROL XL 25 MG PO (08:08)
[2024-05-31] MEDS: TYLENOL 1000 MG PO ×3 (08:09→20:22)
[2024-05-31] MEDS: ROCEPHIN 2000 MG IV (08:15)
--- NOTE | 2024-05-31 11:03 | W.PN.HOSP.TC ---
Today's Communication/Plan
-
dc in am
Assessment / Plan
Assessment / Plan
Physical Exam
General: Chronically ill looking, on oxygen
HEENT: Oxygen (Nasal Cannula) and Other (Mucous Membranes are dry)
Respiratory: Decreased Breath Sounds (Poor Inspiratory Effort)
Cardiac: S1/S2 and Regular Rhythm
GI: Soft,
Genito-urinary: Brice (clear Urine) and Other (Left scrotum with less erythema and edema, and less tender to palpation)
Musculoskeletal: No Clubbing, No Cyanosis and No Edema
Skin: Warm and Dry
Neuro: better today, more alert, answering questions. Tremor
Psych: Calm
78 years old male was sent to the emergency room with change in mental status. Patient met criteria of severe sepsis with septic shock on admission. Source possible urinary tract infection/genitourinary tract
Assessment and plan
#Septic shock /severe sepsis with lactic acidosis secondary to acute left epididymo-orchitis
He is better, no fevers, better blood pressure. WBC is coming down
Scrotal pain , is less with Tylenol and PRN Ibuprofen.
No need for more IVF
s/p empiric IV Cefepime and Vancomycin , stopped vancomycin & Cefepime, c/w Rocephin, change to Cefdinir upon dc.
Urine and blood cultures no growth.
US scrotum Moderate complex left hydrocele. Small right epididymal head cyst versus spermatocele.
D/w urology.
Appreciate urology and ICU doctors input
# Toxic metabolic encephalopathy
resolved, back to baseline. Oriented to self and surroundings.
# thrombocytopenia due to infection
Plt count is improving.
# One Bottle of blood culture positive for coagulase-negative staph.
Contamination
Patient is a clinically improving.
# History of cardiomyopathy, s/p IV fluid while hypotensive.
Echocardiogram showed left ventricular ejection fraction 60-65% with normal regional wall motion. Male mild to moderate mitral regurgitation, mild aortic regurgitation.
# Nonsustained supraventricular tachycardia, asymptomatic.
Blood pressure is better. Start low-dose beta-ira.
# drop in HGB, likely HGB at 14 on admission was not accurate due to dehydration. Likely hemoglobin baseline 10-11
monitor for now. No active bleeding
# JANNY, resolving
History of chronic kidney disease stage IIIa. Creatinine on admission 1.6.
Creatinine is coming down
# Chronic urinary retention with chronic Brice
# History of Parkinson disease: Continue medications orally as possible. Aspiration precautions
Resume oral medication
# History of primary hypertension. Started on low-dose beta-ira to help with cardiac dysrhythmia. Continue to hold amlodipine
# History of ITP. Monitor platelet count. No ecchymosis seen
Continue with oral prednisone
# History of depression, continue home medication including Lexapro, Seroquel, clonazepam, mirtazapine
# Hypokalemia, replaced.
# CODE STATUS, DNR
Total time spent to see the patient, examine the patient, review data and lab results, and discuss the treatment plan with patient, daughter, nurse around 45 minutes
Anticipated Discharge: Within 24 hours
Subjective/Interval History
-
Date of Service: May 31, 2024
Less pain in scrotum
No fevers
he feels he is not ready to leave today
Objective Data
-
Vital Signs:
Vital Signs
Temp Pulse Resp BP Pulse Ox
97.7 F 72 16 131/85 97
05/31/24 07:00 05/31/24 08:08 05/31/24 07:00 05/31/24 08:08 05/31/24 07:00
I&O
05/30/24 05/31/24 06/01/24
06:59 06:59 06:59
Intake Total 720 / 720 840 / 840
Output Total 1000 / 1000 2400 / 2400
Balance -280 / -280 -1560 / -1560
[2024-05-31 11:36] LABS: Glucose - Point of Care 171 mg/dl (70-99)
[2024-05-31] MEDS: NOVOLOG FLEXPEN-LOW RESISTANCE 1 UNITS SC (11:47)
[2024-05-31 15:00] VITALS: BP 137/80
[2024-05-31 16:38] LABS: Glucose - Point of Care 236 mg/dl (70-99)
[2024-05-31] MEDS: NOVOLOG FLEXPEN-LOW RESISTANCE 2 UNITS SC (16:55)
[2024-05-31 21:37] LABS: Glucose - Point of Care 134 mg/dl (70-99)
[2024-05-31] MEDS: SEROQUEL 50 MG PO (22:42)
[2024-05-31] MEDS: REMERON 7.5 MG PO (22:42)
[2024-05-31 23:29] VITALS: BP 116/85
[2024-06-01 05:57] VITALS: BMI 28.9
--- NOTE | 2024-06-01 06:03 | W.PN.URO.CBU ---
Today's Communication / Plan
-
rec 10-14 day course of empiric outpatient abx
Assessment / Plan
-
Urosepsis secondary to cUTI
Chronic urinary retention w/ indwelling Brice catheter (changed 1 week ago)
Acute left epididymo-orchitis w/ reactive complex hydrocele
Diagnosis
-
Date of Service: June 01, 2024
-
Patient Diagnosis:
Urosepsis secondary to cUTI
Chronic urinary retention w/ indwelling Brice catheter
H/o neurogenic bladder
Acute left epididymo-orchitis w/ reactive complex hydrocele
Objective
-
Vital Signs
Temp Pulse Resp BP Pulse Ox
97.5 F 86 18 116/85 98
05/31/24 23:29 05/31/24 23:29 05/31/24 23:29 05/31/24 23:29 05/31/24 23:29
Intake and Output
05/30/24 05/31/24 06/01/24
06:59 06:59 06:59
Intake Total 720 / 720 840 / 840 720 / 720
Output Total 1000 / 1000 2400 / 2400 1350 / 1350
Balance -280 / -280 -1560 / -1560 -630 / -630
Intake:
Oral fluids 720 / 720 840 / 840 720 / 720
Output:
Urine, Brice 1000 / 1000 2400 / 2400 1350 / 1350
Laboratory Results
05/30/24 07:15
05/30/24 07:15
Physical Exam
-
General - well developed, well nourished, no acute distress
Genitalia -left testis/epid remain enlarged and tender
[2024-06-01 07:12] LABS: Glucose - Point of Care 106 mg/dl (70-99)
[2024-06-01 07:57] VITALS: BP 141/84
[2024-06-01] MEDS: REFRESH EYE DROPS (PF) 1 DROPS BOTH EYES (08:48)
[2024-06-01] MEDS: ROCEPHIN 2000 MG IV (08:48)
[2024-06-01] MEDS: SINEMET 25-100 1 TABLET PO (08:48)
[2024-06-01] MEDS: LEXAPRO 15 MG PO (08:48)
[2024-06-01] MEDS: TOPROL XL 25 MG PO (08:49)
[2024-06-01] MEDS: TYLENOL 1000 MG PO (08:49)
[2024-06-01] MEDS: HEPARIN 5000 UNITS SC (08:50)
[2024-06-01] MEDS: DESENEX/MITRAZOL/ZEASORB 1 APPLIC TOPICAL (08:50)
[2024-06-01] MEDS: NOVOLOG FLEXPEN-LOW RESISTANCE SC (08:50)
[2024-06-01] MEDS: DELTASONE 20 MG PO (08:50)
[2024-06-01] MEDS: GLUCOPHAGE 500 MG PO (08:50)
--- NOTE | 2024-06-01 09:46 | CM ---
Patient for transport back to [facility] today.
IMM completed.
Patient notified his daughter.
Ambulance transport forms completed.
[facility] updated.
[facility] updated.
[facility]
Report: [phone]
[2024-06-01 11:32] VITALS: BP 136/83
--- NOTE | 2024-06-01 11:33 | W.PN.HOSP.TC ---
Today's Communication/Plan
-
dc
Assessment / Plan
Assessment / Plan
Physical Exam
General: Chronically ill looking, on oxygen
HEENT: Oxygen (Nasal Cannula) and Other (Mucous Membranes are dry)
Respiratory: Decreased Breath Sounds (Poor Inspiratory Effort)
Cardiac: S1/S2 and Regular Rhythm
GI: Soft,
Genito-urinary: Brice (clear Urine) and Other (Left scrotum with less erythema and edema, and less tender to palpation)
Musculoskeletal: No Clubbing, No Cyanosis and No Edema
Skin: Warm and Dry
Neuro: better today, more alert, answering questions. Tremor
Psych: Calm
78 years old male was sent to the emergency room with change in mental status. Patient met criteria of severe sepsis with septic shock on admission. Source possible urinary tract infection/genitourinary tract
Assessment and plan
#Septic shock /severe sepsis with lactic acidosis secondary to acute left epididymo-orchitis
He is better, no fevers, better blood pressure. WBC is coming down
Scrotal pain , is less with Tylenol and PRN Ibuprofen.
No need for more IVF
s/p empiric IV Cefepime and Vancomycin , stopped vancomycin & Cefepime, c/w Rocephin, change to Cefdinir upon dc.
Urine and blood cultures no growth.
US scrotum Moderate complex left hydrocele. Small right epididymal head cyst versus spermatocele.
D/w urology.
Appreciate urology and ICU doctors input
# Toxic metabolic encephalopathy
resolved, back to baseline. Oriented to self and surroundings.
# thrombocytopenia due to infection
Plt count is improving.
# One Bottle of blood culture positive for coagulase-negative staph.
Contamination
Patient is a clinically improving.
# History of cardiomyopathy, s/p IV fluid while hypotensive.
Echocardiogram showed left ventricular ejection fraction 60-65% with normal regional wall motion. Male mild to moderate mitral regurgitation, mild aortic regurgitation.
# Nonsustained supraventricular tachycardia, asymptomatic.
Blood pressure is better. Start low-dose beta-ira.
# drop in HGB, likely HGB at 14 on admission was not accurate due to dehydration. Likely hemoglobin baseline 10-11
monitor for now. No active bleeding
# JANNY, resolving
History of chronic kidney disease stage IIIa. Creatinine on admission 1.6.
Creatinine is coming down
# Chronic urinary retention with chronic Brice
# History of Parkinson disease: Continue medications orally as possible. Aspiration precautions
Resume oral medication
# History of primary hypertension. Started on low-dose beta-ira to help with cardiac dysrhythmia. Continue to hold amlodipine
# History of ITP. Monitor platelet count. No ecchymosis seen
Continue with oral prednisone
# History of depression, continue home medication including Lexapro, Seroquel, clonazepam, mirtazapine
# Hypokalemia, replaced.
# CODE STATUS, DNR
Total discharge time spent to see the patient, examine the patient, review data and lab results, and discuss the discharge plan with patient, daughter, nurse around 67 minutes
Anticipated Discharge: Today
Subjective/Interval History
-
Date of Service: June 01, 2024
Doing better
less pain in scrotum
Objective Data
-
Vital Signs:
Vital Signs
Temp Pulse Resp BP Pulse Ox
98.1 F 72 16 136/83 96
06/01/24 11:32 06/01/24 11:32 06/01/24 11:32 06/01/24 11:32 06/01/24 11:32
I&O
05/31/24 06/01/24 06/02/24
06:59 06:59 06:59
Intake Total 840 / 840 720 / 720
Output Total 2400 / 2400 1350 / 1350
Balance -1560 / -1560 -630 / -630
--- NOTE | 2024-06-01 11:36 | W.DCSUMMARY ---
Discharge Summary
Discharge Data
Date of Admission: 05/26/24
Date of Discharge: 06/01/24
-
Pending Results: No
Hospital Course
78 years old male admitted with sepsis and septic shock. Patient was diagnosed with sepsis secondary to left epididymis/orchitis infection. Urine and blood culture did not show growth. Patient was followed by urologist. Patient received
intravenous antibiotics. He started to improve slowly. Patient complained of left scrotal pain and tenderness. Urologist recommended elevation and ice pack as needed. Patient used Tylenol and ibuprofen for pain. Pain and tenderness subsided
slowly. He continued to have Brice catheter which was not present before admission. No changes were made to his Parkinson medications. Patient had acute kidney injury but resolved. Echocardiogram showed left ventricular ejection fraction around
65% with mild to moderate mitral regurgitation. Patient remained hemodynamically stable. Was able to tolerate diet. Patient was discharged back to snf. He was given prescription for antibiotic to finish course of 10 days.
Discharge Plan
-
Patient Disposition: Jail/SNF
Discharge Diagnosis/Procedures: #Septic shock /severe sepsis with lactic acidosis secondary to acute left epididymo-orchitis, c/w Ice pack and elevation to scrotum/ NSAIDs/Tylenol prn
#Toxic metabolic encephalopathy
#Acute kidney injury , creatinine on discharge is 0.9.
#History of cardiomyopathy, echocardiogram showed left ventricular ejection fraction 60-65% with normal regional wall motion. Male mild to moderate mitral regurgitation, mild aortic regurgitation.
# Non-sustained supraventricular tachycardia, asymptomatic.
Started low-dose beta-ira.
Diet: As tolerated
Referrals:
Stephane Larson MD [Active] - in one to two weeks
NONE,* [Family Provider] -
Prescriptions:
New
metoprolol succinate 25 mg Tablet Extended Release 24 Hr
25 mg PO DAILY Qty: 30 0RF
cefdinir 300 mg capsule
300 mg PO BID Qty: 6 0RF
phenazopyridine [Pyridium] 100 mg tablet
100 mg PO TID PRN (Reason: dysuria) Qty: 10 0RF
polyethylene glycol 3350 [Miralax] 17 gram powder in packet
17 g PO DAILY Qty: 30 0RF
senna 8.6 mg capsule
17.2 mg PO HS Qty: 60 0RF
Continued
quetiapine [Seroquel] 25 mg Tablet
50 mg PO HS
metformin 500 mg Tablet
500 mg PO BID
acetaminophen [Tylenol] 325 mg Tablet
650 mg PO Q4HPRN PRN (Reason: mild pain/fever>100)
atorvastatin 20 mg Tablet
20 mg PO HS
albuterol sulfate 2.5 mg /3 mL (0.083 %) Solution For Nebulization
2.5 mg INHALATION R Q6HPRN PRN (Reason: sob)
prednisone 20 mg Tablet
20 mg PO DAILY
clonazepam 0.5 mg Tablet
0.5 mg PO BID
therapeutic multivitamin Tablet
1 tab PO DAILY
famotidine 20 mg Tablet
20 mg PO DAILY
magnesium hydroxide [Milk of Magnesia] 400 mg/5 mL Suspension
30 ml PO [id number] PRN (Reason: if no bm 3 days)
tamsulosin 0.4 mg Capsule
0.8 mg PO DAILY
amlodipine 10 mg Tablet
10 mg PO DAILY
bisacodyl [Dulcolax (bisacodyl)] 10 mg Suppository
10 mg SD DAILYPRN PRN (Reason: if mom ineffective after 24 hrs)
Fleet Enema 19-7 gram/118 mL Enema
118 ml SD DAILYPRN PRN (Reason: if dulcolax ineffective after 24 hrs)
mirtazapine [Remeron] 15 mg Tablet
7.5 mg PO HS
carbidopa-levodopa 25-100 mg Tablet
1 tab PO TID
finasteride 5 mg Tablet
5 mg PO DAILY
Artificial Tears (PF) Dropperette
1 drp BOTH EYES [id number] PRN (Reason: dry eyes)
Artificial Tears (PF) Dropperette
1 drp BOTH EYES BID
bupropion HCl [Wellbutrin XL] 150 mg Tablet Extended Release 24 Hr
150 mg PO DAILY
escitalopram oxalate [Lexapro] 5 mg Tablet
15 mg PO DAILY
ibuprofen 200 mg Tablet
400 mg PO Q6HPRN PRN (Reason: mod to severe pain) Qty: 0 0RF
Discharge Orders:
Discharge Patient (As Directed); Ordered 06/01/24
Ordered By: Luis Alfredo Arellano
Discharge Date and Time
Discharge Date/Time: 06/01/24 12:53
Print Language: SAO TOMEAN
== END 2024-06-01 12:53 | DRG 871 ==
LOC: 4 WEST ACU 13:05
PROVIDERS: Physician Assistant; Physician Assistant Medical; ADMITTING PHYSICIAN Internal Medicine; CONSULT PHYSICIAN Surgery; EMERGENCY PHYSICIAN Emergency Medicine; OTHER PHYSICIAN Internal Medicine Critical Care Medicine
DX: A41.9 Sepsis, unspecified organism (principal); G92.8 Other toxic encephalopathy; R65.21 Severe sepsis with septic shock; N17.9 Acute kidney failure, unspecified; E87.20 Acidosis, unspecified; I47.10 Supraventricular tachycardia, unspecified; N45.2 Orchitis; Z11.52 Encounter for screening for COVID-19; D69.6 Thrombocytopenia, unspecified
CPT/HCPCS: 71045; 74177; 76870; 80048; 80053; 80202; 81003; 81015; 82805; 82962; 83036; 83605; 83690; 83735; 83880; 84100; 84145; 84484; 85025; 85027; 85610; 85730; 86803; 87040; 87070; 87086; 87150; 87205; 87502; 87811; 90677; 92526; 92610; 93005; 93306; 93976; 94640; 94660; 96361; 96374; 96375; 97163; 97167; 97530; 99285; G0009; Q9950; Q9967

== ENCOUNTER 2024-07-07 12:52 | Emergency (ER) | payer MEDICARE, SELFPAY ==
[2024-07-07 12:58] VITALS: BP 156/118
--- NOTE | 2024-07-07 13:42 | ED.GENMED ---
History of Present Illness
<Sofy Garcia NP - Last Filed: 07/07/24 13:52>
General
Chief Complaint: Catheter/Tube Problem
Source: patient
Exam Limitations: none
Time Seen by Provider: 07/07/24 13:08
Nursing documentation reviewed up to this point in time: agreed with
History of Present Illness
History of Present Illness:
Patient sent to ED from [place] for bernardo catheter replacement. Staff at [place] unable to advance catheter. No other complaints
Past History
<Sofy Garcia NP - Last Filed: 07/07/24 13:52>
Past History
ED Past Medical History: HTN, Hypercholesterolemia, NIDDM and Other (Parkinson's dx, BPH)
Review of Systems
<Sofy Garcia NP - Last Filed: 07/07/24 13:52>
Review of Systems
Allergies reviewed?: Yes
All Other Systems: ROS reviewed and negative except as documented in HPI and ROS
Constitutional: Reports no symptoms
EENT: Reports no symptoms
Respiratory: Reports no symptoms
Cardiac: Reports no symptoms
ABD/GI: Reports no symptoms
: Reports other (chronic bernardo catheter. Unable to replace at [place])
Musculoskeletal: Reports no symptoms
Skin: Reports no symptoms
Neurological: Reports no symptoms
Psychiatric: Reports no symptoms
Phy Exam
<Sofy Garcia NP - Last Filed: 07/07/24 13:52>
General Physical Exam
General Presentation: well appearing and no apparent distress
General age: appears stated age
General Skin: warm and dry
General Habitus: normal
General Mental: alert
General Hydration: appears well hydrated
Pulmonary Exam
Pulmonary Exam: no respiratory distress and chest non tender
Genitourinary Exam Male
Exam Male: circumcised, no discharge, normal external genitalia, no evidence of trauma, no testicular swelling, no testicular tenderness and other (18F coude catheter placed by Dr. Salazar. Draining cloudy yellow urine. UA sent.)
Musculoskeletal Exam
Musculoskeletal Exam: full ROM and neuro vasc intact
Skin Exam
Skin Exam: normal color, warm/dry and no rash
Psychiatric Exam
Psychiatric Exam: normal mood/affect
Course
<Sofy Garcia NP - Last Filed: 07/07/24 13:52>
Orders/Labs/Results
Orders:
Orders
07/07/24 13:02
Lidocaine 2% [Lidocaine Uro-Jet 2%] 1 syringe .ROUTE .STK-MED ONE
07/07/24 13:30
Lidocaine 2% [Lidocaine Uro-Jet 2%] 1 syringe .ROUTE .STK-MED ONE
07/07/24 13:38
Sulfamethox./Trimethoprim Ds [Bactrim Ds 800 mg/160 mg] 1 tablet PO NOW STA
07/07/24 13:55
Urinalysis Reflex To Culture Urgent
Date Specimen was Collected: 07/07/24
Time Specimen was Collected: 13:47
Urine Microscopic Reflex Cult Urgent
Urine Culture Urgent
SARTHAK Source: U
Specimen Description:
Date Specimen was Collected: 07/07/24
Time Specimen was Collected: 13:47
Abnormal Lab Results
07/07/24
13:55
Ur Occult Blood Reflex 4+ A
(Negative)
Leukocyte Esterase Rfl 2+ A
(Negative)
Urine RBC 7-10 A /HPF
(0-2)
Urine WBC (Reflex) 40-50 A /HPF
(0-5)
Urine Bacteria (Reflex) Many A
(Negative)
Urine Albumin (Reflex) 2+ A
(Neg - Trace)
Vital Signs
Initial and Last Documented VS:
Initial Vital Signs
Temp Pulse Resp BP Pulse Ox
97.9 F 74 18 156/118 96
07/07/24 12:58 07/07/24 12:58 07/07/24 12:58 07/07/24 12:58 07/07/24 12:58
Last Documented Vital Signs
Temp Pulse Resp BP Pulse Ox
97.9 F 74 18 156/118 96
07/07/24 12:58 07/07/24 12:58 07/07/24 12:58 07/07/24 12:58 07/07/24 12:58
<Boo Salazar, DO - Last Filed: 07/07/24 19:53>
Orders/Labs/Results
Orders:
Orders
07/07/24 13:02
Lidocaine 2% [Lidocaine Uro-Jet 2%] 1 syringe .ROUTE .STK-MED ONE
07/07/24 13:30
Lidocaine 2% [Lidocaine Uro-Jet 2%] 1 syringe .ROUTE .STK-MED ONE
07/07/24 13:38
Sulfamethox./Trimethoprim Ds [Bactrim Ds 800 mg/160 mg] 1 tablet PO NOW STA
07/07/24 13:55
Urinalysis Reflex To Culture Urgent
Date Specimen was Collected: 07/07/24
Time Specimen was Collected: 13:47
Urine Microscopic Reflex Cult Urgent
Urine Culture Urgent
SARTHAK Source: U
Specimen Description:
Date Specimen was Collected: 07/07/24
Time Specimen was Collected: 13:47
Abnormal Lab Results
07/07/24
13:55
Ur Occult Blood Reflex 4+ A
(Negative)
Leukocyte Esterase Rfl 2+ A
(Negative)
Urine RBC 7-10 A /HPF
(0-2)
Urine WBC (Reflex) 40-50 A /HPF
(0-5)
Urine Bacteria (Reflex) Many A
(Negative)
Urine Albumin (Reflex) 2+ A
(Neg - Trace)
Vital Signs
Initial and Last Documented VS:
Initial Vital Signs
Temp Pulse Resp BP Pulse Ox
97.9 F 74 18 156/118 96
07/07/24 12:58 07/07/24 12:58 07/07/24 12:58 07/07/24 12:58 07/07/24 12:58
Last Documented Vital Signs
Temp Pulse Resp BP Pulse Ox
97.9 F 74 18 156/118 96
07/07/24 12:58 07/07/24 12:58 07/07/24 12:58 07/07/24 12:58 07/07/24 12:58
Procedures
<Boo Salazar DO - Last Filed: 07/07/24 19:53>
Urinary Catheter
Procedure completed by: Dr. Salazar
Type of urinary catheter: indwelling catheter
Catheter size (lithuanian): 16
Urine description: cloudy
Urine output (ml): 500
<Sofy Garcia COMMERCIAL PHOTOGRAPHER - Last Filed: 07/07/24 13:52>
*Critical Care Note
Total Time (30-74mins, 75-104mins- exclusive of procedures): Not Applicable
<Boo Salazar DO - Last Filed: 07/07/24 19:53>
Data Reviewed
Review of Other/Old Records Reveals: Labs (Prior cultures reviewed)
<Sofy Garcia COMMERCIAL PHOTOGRAPHER - Last Filed: 07/07/24 13:52>
Update Note
Update Note:
18F coude catheter placed by Dr. Salazar, draining cloudy yellow urine. Bactrim DS started in dept pending culture results.
ED Attending Note
<Sofy Garcia COMMERCIAL PHOTOGRAPHER - Last Filed: 07/07/24 13:52>
-
Portions of this chart may have been created with voice recognition software.� Occasional wrong word or��sound alike� substitutions may have occurred due to the inherent limitations of voice recognition software.
<Boo Salazar, DO - Last Filed: 07/07/24 19:53>
ED Attending Note
Patient seen and examined by attending physician: Yes
I performed the substantive portion of visit, reviewed & personally made and approve the management plan that is documented in note by myself or FEI.: Yes
ED Attending Note:
Bernardo catheter replaced. Cover with antibiotics. Okay for discharge
Discharge Plan
Departure
Patient Disposition: Correction/SNF
Date of Disposition: 07/07/24
Time of Disposition: 13:40
Patient with high blood pressure during this ER visit?: No
Condition: Good
Covid-19: Not Applicable
Discharge Problem:
Encounter for Bernardo catheter replacement
Instructions: How to Care for Your Bernardo Catheter, Male
Prescriptions:
New
sulfamethoxazole-trimethoprim [Bactrim DS] 800-160 mg tablet
1 tab PO BID Qty: 13 0RF
No Action
quetiapine [Seroquel] 25 mg Tablet
50 mg PO HS
metformin 500 mg Tablet
500 mg PO BID
acetaminophen [Tylenol] 325 mg Tablet
650 mg PO Q4HPRN PRN (Reason: mild pain/fever>100)
atorvastatin 20 mg Tablet
20 mg PO HS
albuterol sulfate 2.5 mg /3 mL (0.083 %) Solution For Nebulization
2.5 mg INHALATION R Q6HPRN PRN (Reason: sob)
prednisone 20 mg Tablet
20 mg PO DAILY
clonazepam 0.5 mg Tablet
0.5 mg PO BID
therapeutic multivitamin Tablet
1 tab PO DAILY
famotidine 20 mg Tablet
20 mg PO DAILY
magnesium hydroxide [Milk of Magnesia] 400 mg/5 mL Suspension
30 ml PO [id number] PRN (Reason: if no bm 3 days)
tamsulosin 0.4 mg Capsule
0.8 mg PO DAILY
amlodipine 10 mg Tablet
10 mg PO DAILY
bisacodyl [Dulcolax (bisacodyl)] 10 mg Suppository
10 mg NV DAILYPRN PRN (Reason: if mom ineffective after 24 hrs)
Fleet Enema 19-7 gram/118 mL Enema
118 ml NV DAILYPRN PRN (Reason: if dulcolax ineffective after 24 hrs)
mirtazapine [Remeron] 15 mg Tablet
7.5 mg PO HS
carbidopa-levodopa 25-100 mg Tablet
1 tab PO TID
finasteride 5 mg Tablet
5 mg PO DAILY
Artificial Tears (PF) Dropperette
1 drp BOTH EYES [id number] PRN (Reason: dry eyes)
Artificial Tears (PF) Dropperette
1 drp BOTH EYES BID
bupropion HCl [Wellbutrin XL] 150 mg Tablet Extended Release 24 Hr
150 mg PO DAILY
escitalopram oxalate [Lexapro] 5 mg Tablet
15 mg PO DAILY
metoprolol succinate 25 mg Tablet Extended Release 24 Hr
25 mg PO DAILY Qty: 30 0RF
cefdinir 300 mg capsule
300 mg PO BID Qty: 6 0RF
phenazopyridine [Pyridium] 100 mg tablet
100 mg PO TID PRN (Reason: dysuria) Qty: 10 0RF
ibuprofen 200 mg Tablet
400 mg PO Q6HPRN PRN (Reason: mod to severe pain) Qty: 0 0RF
polyethylene glycol 3350 [Miralax] 17 gram powder in packet
17 g PO DAILY Qty: 30 0RF
senna 8.6 mg capsule
17.2 mg PO HS Qty: 60 0RF
Interventions
Interventions:
*Risk Screen - Suicide Last Done: 07/07/24 12:58
*General Assessment Last Done: 07/07/24 12:58
*Neglect/Abuse Screening Last Done: 07/07/24 12:58
ED- Fall Risk Assessment Last Done: 07/07/24 17:15
*Nursing Disposition Last Done: 07/07/24 17:15
RQ-[id number]-[id number] Assessment Last Done: 07/07/24 14:14
ED-Male Genitourinary Assessment Last Done: 07/07/24 14:14
Discharge Date and Time
Discharge Date/Time: 07/07/24 17:16
Print Language: LITHUANIAN
[2024-07-07] MEDS: BACTRIM DS 800 MG/160 MG 1 TABLET PO (13:50)
[2024-07-07 14:13] LABS: Urine Albumin 2+ (Neg - Trace); Urine Bilirubin Negative (Negative); Urine Character Very Cloudy (Clear); Urine Color Yellow; Urine Glucose Negative (Negative); Urine Ketone Negative (Negative); Urine Leukocyte 2+ (Negative); Urine Nitrite Negative (Negative); Urine Occult Blood 4+ (Negative); Urine Specific Gravity 1.015 (<1.030); Urine Urobilinogen Negative (Neg - 1+)
[2024-07-07 14:41] LABS: Urine Bacteria Many (Negative); Urine Squamous Cell 0-2 /LPF (Few); Urine White Cell 40-50 /HPF (0-5)
== END 2024-07-07 17:16 ==
LOC: EMR 12:52
PROVIDERS: Nurse Practitioner; EMERGENCY PHYSICIAN Student in an Organized Health Care Education/Training Program
DX: Z46.6 Encounter for fitting and adjustment of urinary device (principal)
CPT/HCPCS: 99283; 51702; 81003; 81015; 87077; 87086; 87088; 87186

== ENCOUNTER 2024-08-08 04:05 | Inpatient (IN) | payer MEDICARE, SELFPAY ==
[2024-08-08] VITALS (19 sets, daily range): BP systolic 98–140; BP diastolic 58–96; PULSE 65; O2SAT 94–95; BMI 28.6; BMI 28.1
[2024-08-08] MEDS: MORPHINE SULFATE 4 MG IV (00:33)
[2024-08-08] MEDS: ZOFRAN 4 MG IV (00:33)
--- NOTE | 2024-08-08 01:11 | ED.GENMED ---
History of Present Illness
<WARD Mcgill - Last Filed: 08/08/24 03:02>
General
Chief Complaint: Catheter/Tube Problem
Source: patient and ambulance crew
Exam Limitations: none
Time Seen by Provider: 08/08/24 00:05
History of Present Illness
History of Present Illness:
This is a 78 year old male that comes in by ambulance with c/o catheter being out. Told that they just found the patient in bed and the catheter was out. Patient was c/o penial pain. Called and spoke to the Nursing Senior Production Supervisor at [facility].
States that the patient was found to have his catheter pulled out. They are unable to place a catheter and that this has been done by the Urologist. States that the past few days the patient has been more confused. Denies any fever, chils, chest
pain, SOB, nausea, vomiting, diarrhea, headache.
Past History
<WARD Mcgill - Last Filed: 08/08/24 03:02>
Past History
ED Past Medical History: HTN, Hypercholesterolemia, NIDDM, Psychiatric (Anxiety, Depression, ), Other (Diabetic Neuropathy. Parkinson's, PNA, emphysema, Renal calculus, Urinary retention, UTI, Diplopia, thrombocytopenia, ) and Other (Parkinson's dx,
BPH)
ED Past Surgical History: Orthopedic (Spinal fusion), Urological (Lithotripsy, Urogenital implants) and Other (cataracts, )
Review of Systems
<WARD Mcgill - Last Filed: 08/08/24 03:02>
Review of Systems
Other source history: custodial
All Other Systems: ROS reviewed and negative except as documented in HPI and ROS
Constitutional: Reports no symptoms; Denies fever or chills
EENT: Reports no symptoms
Respiratory: Reports no symptoms; Denies cough or trouble breathing
Cardiac: Reports no symptoms; Denies chest pain
ABD/GI: Denies nausea, vomiting or diarrhea
: Reports other (Bernardo catheter was pulled out. Penial pain)
Musculoskeletal: Reports no symptoms
Skin: Reports no symptoms
Neurological: Denies dizzy or headache
Psychiatric: Reports no symptoms
Phy Exam
<WARD Mcgill - Last Filed: 08/08/24 03:02>
General Physical Exam
General Presentation: mild distress
General age: appears stated age
General Skin: warm and dry
General Habitus: elderly
General Mental: usual mental status
General Hydration: dry mucous membranes
ENT Exam
ENT Exam: TM's normal and pharynx normal
Cardiovascular Exam
Cardiovascular Exam: regular rate/rhythm, no edema and normal peripheral pulses
Pulmonary Exam
Pulmonary Exam: lungs clear, no respiratory distress, no rales, chest non tender, no crackles, no rhonchi, no wheezing and no cough
Gastrointestinal Exam
Gastrointestinal Exam: normal bowel sounds, no organomegaly, no pulsatile mass and distended
Musculoskeletal Exam
Musculoskeletal Exam: full ROM and no edema
Skin Exam
Skin Exam: normal color, warm/dry, no rash and no petechia
Psychiatric Exam
Psychiatric Exam: normal mood/affect
Course
<WARD Mcgill - Last Filed: 08/08/24 03:02>
Orders/Labs/Results
Orders:
Orders
08/08/24 00:13
Lidocaine 2% [Lidocaine Uro-Jet 2%] 1 syringe .ROUTE .STK-MED ONE
08/08/24 00:29
Morphine Sulfate 4 mg .ROUTE .STK-MED ONE
Ondansetron Injectable [Zofran] 4 mg .ROUTE .STK-MED ONE
08/08/24 00:31
Ondansetron Injectable [Zofran] 4 mg IV NOW STA
08/08/24 00:32
Morphine Sulfate 4 mg IV NOW STA
08/08/24 01:10
CT Abd/pelvis W Iv Cont Urgent
Comment:
Reason For Exam: abd pain, distention
0.9% Sodium Chloride 1000 ml [Nss] 1,000 ml IV BOLUS
08/08/24 01:20
Complete Blood Count/With Diff Urgent
Comprehensive Metabolic Panel Urgent
Lactic Acid Urgent
08/08/24 02:19
COVID-19 Antigen Urgent
Source: Nasal Swab
08/08/24 02:30
Lactic Acid Q4H
Comment: CANCEL 2nd LACTIC ACID IF 1st LACTIC ACID IS LESS THAN 2
08/08/24 06:30
Lactic Acid Q4H
Comment: CANCEL 2nd LACTIC ACID IF 1st LACTIC ACID IS LESS THAN 2
Abnormal Lab Results
08/08/24
01:20
RBC 4.61 L 10^6/uL
(4.70-6.10)
Hct 38.3 L %
(39.0-52.0)
RDW 14.9 H %
(11.5-14.5)
Abs Immat Gran (auto) 0.1 H 10^3/uL
(0-0.05)
Absolute Lymphs (auto) 0.5 L 10^3/uL
(1.2-3.4)
Immature Gran % 1.4 H %
(0-0.5)
Neutrophils % 87.5 H %
(42.2-75.2)
Lymphocytes % 8.3 L %
(20.5-51.1)
BUN 22 H mg/dl
(9-20)
Glucose 109 H mg/dl
(70-99)
Lactic Acid 3.6 H mmol/L
(0.7-2.0)
Total Protein 5.8 L g/dl
(6.3-8.2)
08/08/24 01:20
08/08/24 01:20
Dehydration. glucose nonfasting. elevated Lactic acid. Total protein low.
Vital Signs
Initial and Last Documented VS:
Initial Vital Signs
Temp Pulse Resp BP Pulse Ox
97.3 F 73 18 111/85 99
08/08/24 00:00 08/08/24 00:00 08/08/24 00:00 08/08/24 00:00 08/08/24 00:00
Last Documented Vital Signs
Temp Pulse Resp BP Pulse Ox
97.3 F 69 16 108/81 95
08/08/24 00:00 08/08/24 02:00 08/08/24 02:00 08/08/24 02:00 08/08/24 02:01
<Marito High DO - Last Filed: 08/08/24 02:29>
Orders/Labs/Results
Orders:
Orders
08/08/24 00:13
Lidocaine 2% [Lidocaine Uro-Jet 2%] 1 syringe .ROUTE .STK-MED ONE
08/08/24 00:29
Morphine Sulfate 4 mg .ROUTE .STK-MED ONE
Ondansetron Injectable [Zofran] 4 mg .ROUTE .STK-MED ONE
08/08/24 00:31
Ondansetron Injectable [Zofran] 4 mg IV NOW STA
08/08/24 00:32
Morphine Sulfate 4 mg IV NOW STA
08/08/24 01:10
CT Abd/pelvis W Iv Cont Urgent
Comment:
Reason For Exam: abd pain, distention
0.9% Sodium Chloride 1000 ml [Nss] 1,000 ml IV BOLUS
08/08/24 01:20
Complete Blood Count/With Diff Urgent
Comprehensive Metabolic Panel Urgent
Lactic Acid Urgent
08/08/24 02:19
COVID-19 Antigen Urgent
Source: Nasal Swab
08/08/24 02:30
Lactic Acid Q4H
Comment: CANCEL 2nd LACTIC ACID IF 1st LACTIC ACID IS LESS THAN 2
08/08/24 06:30
Lactic Acid Q4H
Comment: CANCEL 2nd LACTIC ACID IF 1st LACTIC ACID IS LESS THAN 2
Abnormal Lab Results
08/08/24
01:20
RBC 4.61 L 10^6/uL
(4.70-6.10)
Hct 38.3 L %
(39.0-52.0)
RDW 14.9 H %
(11.5-14.5)
Abs Immat Gran (auto) 0.1 H 10^3/uL
(0-0.05)
Absolute Lymphs (auto) 0.5 L 10^3/uL
(1.2-3.4)
Immature Gran % 1.4 H %
(0-0.5)
Neutrophils % 87.5 H %
(42.2-75.2)
Lymphocytes % 8.3 L %
(20.5-51.1)
BUN 22 H mg/dl
(9-20)
Glucose 109 H mg/dl
(70-99)
Lactic Acid 3.6 H mmol/L
(0.7-2.0)
Total Protein 5.8 L g/dl
(6.3-8.2)
08/08/24 01:20
08/08/24 01:20
Vital Signs
Initial and Last Documented VS:
Initial Vital Signs
Temp Pulse Resp BP Pulse Ox
97.3 F 73 18 111/85 99
08/08/24 00:00 08/08/24 00:00 08/08/24 00:00 08/08/24 00:00 08/08/24 00:00
Last Documented Vital Signs
Temp Pulse Resp BP Pulse Ox
97.3 F 69 16 108/81 95
08/08/24 00:00 08/08/24 02:00 08/08/24 02:00 08/08/24 02:00 08/08/24 02:01
<WARD Mcgill - Last Filed: 08/08/24 03:02>
MDM/Problems Addressed
Differential Diagnosis Includes:
Urinary retention. constipation
MDM/Problems Addressed:
This is a 78 year old male that comes in with c/o his catheter being pulled out. Called and spoke with the Senior Production Supervisor Dallin at [facility] and said that they found the patient with his catheter out and that the patient as been more confused the
past few days.
will get labs. Patient was seen by Dr. High and he was unable to place the bernardo. Will get CT scan as bladder scanner says that there is no urine in the bladder.
Chronic conditions affecting care:
Chronic catheter
Acute Exacerbation and/or Progression of Chronic Illness:
Chronic catheter
<WARD Mcgill - Last Filed: 08/08/24 03:02>
*Radiology
Radiology exam reviewed: radiology read reviewed (CT scan= [facility] hawk- Moderatea bladder wall thickening in an underdistended bladder, which may be due to under distention or cystitis. Small amount of gas in the bladder. No bowel obstruction or
inflammation. Appendix is not visualized, likely surgically absent. No hydronephrosis or nephrolithiasis.) and all reviewed NAD by ED Provider (Ct cont- No free air or free fluid. Moderate bilateral lower lobe subsegmental atelectasis. Moderate
cardiomegaly. Cholelithiasis without cholecystitis. Posterior spinal fusion hardware from L4-5. DJD and DDD )
*Pulse Oximetry
Patient hypoxic: no
*EKG
Interpreted by ED Provider?: NA
Rate: EKG- N/A
*Head Baker Interpretation
Rate: Head Baker- N/A
*Critical Care Note
Total Time (30-74mins, 75-104mins- exclusive of procedures): Not Applicable
ED Attending Note
<WARD Mcgill - Last Filed: 08/08/24 03:02>
-
Portions of this chart may have been created with voice recognition software.� Occasional wrong word or��sound alike� substitutions may have occurred due to the inherent limitations of voice recognition software.
<Marito High DO - Last Filed: 08/08/24 02:29>
ED Attending Note
Patient seen and examined by attending physician: Yes
I performed the substantive portion of visit, reviewed & personally made and approve the management plan that is documented in note by myself or FEI.: Yes
ED Attending Note:
Patient is a 78-year-old male with a history of Parkinson's and chronic indwelling Bernardo who presents to the emergency department from a custodial after his Bernardo catheter was found out. In the past placement of the catheter is required urology.
Patient denies fever or chills, nasal congestion, sore throat or cough. Patient denies chest pain or shortness of breath. Patient denies any abdominal pain, nausea, vomiting or diarrhea. Patient does complain of pain in his penis especially when
the catheter is attempting to be passed. On physical exam patient's heart is regular and lungs are clear. Abdomen is distended but nontender. Patient circumcised with blood at the meatus. Multiple attempts of trying to pass the catheter both
coud� and with a stylette were unsuccessful. Patient has bleeding from the meatus. Patient's lactic acid is elevated. The catheter could not be placed. Patient's lactic acid is elevated. Patient's BUN is at its baseline. Patient does not have
an elevated white count. Awaiting CT results at this time. Patient will need urology to place the tube but given the time of day is probably reasonable to wait till the morning. Patient will be admitted.
Discharge Plan
Departure
Patient Disposition: Admit
Date of Disposition: 08/08/24
Time of Disposition: 02:59
Admit to: Med/Surg
Presentation/result/management discussed w/ accepting MD/DO: Hospitalist
Patient with high blood pressure during this ER visit?: No
Condition: Good
Covid-19: Negative COVID-19
Discharge Problem:
Hematuria, Possible UTI
Prescriptions:
No Action
metformin 500 mg Tablet
500 mg PO BID
acetaminophen [Tylenol] 325 mg Tablet
650 mg PO Q4HPRN PRN (Reason: mild pain/fever>100)
atorvastatin 20 mg Tablet
20 mg PO HS
albuterol sulfate 2.5 mg /3 mL (0.083 %) Solution For Nebulization
2.5 mg INHALATION R Q6HPRN PRN (Reason: sob)
prednisone 20 mg Tablet
20 mg PO DAILY
clonazepam 0.5 mg Tablet
0.5 mg PO BID
therapeutic multivitamin Tablet
1 tab PO DAILY
famotidine 20 mg Tablet
20 mg PO DAILY
magnesium hydroxide [Milk of Magnesia] 400 mg/5 mL Suspension
30 ml PO [id number] PRN (Reason: if no bm 3 days)
tamsulosin 0.4 mg Capsule
0.8 mg PO DAILY
bisacodyl [Dulcolax (bisacodyl)] 10 mg Suppository
10 mg [place] DAILYPRN PRN (Reason: if mom ineffective after 24 hrs)
Fleet Enema 19-7 gram/118 mL Enema
118 ml [place] DAILYPRN PRN (Reason: if dulcolax ineffective after 24 hrs)
carbidopa-levodopa 25-100 mg Tablet
1 tab PO TID
finasteride 5 mg Tablet
5 mg PO DAILY
Artificial Tears (PF) Dropperette
1 drp BOTH EYES [id number] PRN (Reason: dry eyes)
Artificial Tears (PF) Dropperette
1 drp BOTH EYES BID
bupropion HCl [Wellbutrin XL] 150 mg Tablet Extended Release 24 Hr
150 mg PO Q48H
escitalopram oxalate [Lexapro] 5 mg Tablet
15 mg PO DAILY
metoprolol succinate 25 mg Tablet Extended Release 24 Hr
25 mg PO DAILY Qty: 30 0RF
phenazopyridine [Pyridium] 100 mg tablet
100 mg PO TID PRN (Reason: dysuria) Qty: 10 0RF
ibuprofen 200 mg Tablet
400 mg PO Q6HPRN PRN (Reason: mod to severe pain) Qty: 0 0RF
polyethylene glycol 3350 [Miralax] 17 gram powder in packet
17 g PO DAILY Qty: 30 0RF
senna 8.6 mg capsule
17.2 mg PO HS Qty: 60 0RF
quetiapine [Seroquel] 25 mg Tablet
25 mg PO BID
amlodipine [Norvasc] 5 mg Tablet
5 mg PO DAILY
quetiapine [Seroquel] 100 mg Tablet
100 mg PO HS
Referrals:
Ken Bodn I., DO [Family Provider] -
Interventions
Interventions:
*Risk Screen - Suicide Last Done: 08/08/24 00:00
*General Assessment Last Done: 08/08/24 00:00
*Neglect/Abuse Screening Last Done: 08/08/24 00:00
*ED COVID-19 Vaccine History Last Done: 08/08/24 00:00
IH-Xcpgkf-Eluyayqhyv Assessment Last Done: 08/08/24 00:24
ED-Male Genitourinary Assessment Last Done: 08/08/24 00:24
Discharge Date and Time
Print Language: NEPALI
[2024-08-08] MEDS: NSS 1000 IV (01:25)
[2024-08-08 01:31] LABS: % Basophils 0.3 % (0-2); % Eosinophils 0.6 % (0-6); % Immature Granulocytes 1.4 % (0-0.5); % Lymphocytes 8.3 % (20.5-51.1); % Monocytes 1.9 % (1.7-9.3); % Neutrophils 87.5 % (42.2-75.2); Absolute Immature Granulocytes 0.1 10^3/uL (0-0.05); Absolute Lymphocytes 0.5 10^3/uL (1.2-3.4); Absolute Monocytes 0.1 10^3/uL (0.1-0.6); Absolute Neutrophils 5.6 10^3/uL (1.4-6.5); Hematocrit 38.3 % (39.0-52.0); Hemoglobin 13.3 g/dL (13.0-18.0); Mean Corp Hgb Conc. 34.7 g/dL (33.0-37.0); Mean Corpuscular Hgb 28.9 pg (27.0-31.0); Mean Corpuscular Volume 83.1 fL (80.0-94.0); Mean Platelet Volume 9.1 fL (7.4-10.4); Nucleated Red Blood Cells % 0 % (-); Platelet Count 179 10^3/uL (130-400); Red Blood Cell Count 4.61 10^6/uL (4.70-6.10); Red Cell Dist. Width 14.9 % (11.5-14.5); White Blood Cell Count 6.4 10^3/uL (4.8-10.8)
[2024-08-08 01:51] LABS: Lactic Acid 3.6 mmol/L (0.7-2.0)
[2024-08-08 01:53] LABS: ALT (SGPT) 15 U/L (0-50); AST (SGOT) 17 U/L (17-59); Albumin 3.6 g/dl (3.5-5.0); Alkaline Phosphatase 90 U/L (38-126); Blood Urea Nitrogen 22 mg/dl (9-20); Calcium 9.1 mg/dl (8.4-10.2); Carbon Dioxide 25 mmol/L (22-30); Chloride 105 mmol/L (98-107); Estimated Creatinine Clearance 67 ml/min; Glucose 109 mg/dl (70-99); Potassium 4.1 mmol/L (3.5-5.1); Sodium 143 mmol/L (135-145); Total Bilirubin 0.5 mg/dl (0.2-1.3); Total Protein 5.8 g/dl (6.3-8.2); eGFR > 60.00
[2024-08-08 02:42] LABS: COVID-19 Antigen Negative (Negative)
--- NOTE | 2024-08-08 04:03 | HPS.HSE ---
Family Physician
-
Family Physician: Ken Bond
Chief Complaint
-
Hematuria / Brice Removed
History of Present Illness
Patient is a 78y M with PMH significant for Parkinson's with dementia and behavioral disturbance and BPH with chronic Brice who presents to ED from [place] after patient was found in bed with his Brice removed, bloody urethra and complaints of
penile pain. Patient presumably pulled his own Brice catheter. Staff reported that patient has seemed more confused for the past few days.
After multiple attempts in the ED, a 22 Fr 3-way catheter was placed and connected to gravity drainage. Gross blood appreciated from the urethra. Urine is dark urine without appreciable gross blood or clots.
Medical History
Past Medical History
Past Medical History: Reports Other
Additional Past Medical History:
Essential Hypertension
Hyperlipidemia
Diabetes Mellitus
CKD Stage III
Parkinson's Disease
ITP
BPH
Anxiety/Depression
Past Surgical History: Reports Other
Additional Past Surgical History:
Unknown
Social History
Unable to obtain full social history at this time due to: Acuity
Living: Alf
Family History
Family History: Unable to Obtain
Allergies / Home Medications
Allergies reflects when Allergies were last updated in [facility].
Home Medications with original date entered in [facility]
Allergy/Medication List:
Allergies
Allergy/AdvReac Type Severity Reaction Status Date / Time
Penicillins Allergy Unknown Verified 07/07/24 12:57
Home Medications
acetaminophen 325 mg tablet (Tylenol) 650 mg PO Q4HPRN PRN mild pain/fever>100 05/26/24
albuterol sulfate 2.5 mg/3 mL (0.083 %) solution for nebulization 2.5 mg inhalation R Q6HPRN PRN sob 05/26/24
atorvastatin 20 mg tablet 20 mg PO HS High Cholesterol 05/26/24
bisacodyl 10 mg rectal suppository (Dulcolax (bisacodyl)) 10 mg [place] DAILYPRN PRN if mom ineffective after 24 hrs 05/26/24
bupropion HCl 150 mg 24 hr tablet, extended release (Wellbutrin XL) 150 mg PO Q48H depression 05/26/24
carbidopa 25 mg-levodopa 100 mg tablet 1 tab PO TID parkinson's disease 05/26/24
clonazepam 0.5 mg tablet 0.5 mg PO BID anxiety 05/26/24
dextran 70-hypromellose eye drops in a dropperette (Artificial Tears (PF) drops in a dropperette) 1 drp BOTH EYES BID dry eyes 05/26/24
dextran 70-hypromellose eye drops in a dropperette (Artificial Tears (PF) drops in a dropperette) 1 drp BOTH EYES [id number] PRN dry eyes 05/26/24
escitalopram oxalate 5 mg tablet (Lexapro) 15 mg PO DAILY depression/anxiety 05/26/24
famotidine 20 mg tablet 20 mg PO DAILY Gastrointestinal Issue 05/26/24
finasteride 5 mg tablet 5 mg PO DAILY Urinary Issue 05/26/24
magnesium hydroxide 400 mg/5 mL oral suspension (Milk of Magnesia) 30 ml PO [id number] PRN if no bm 3 days 05/26/24
metformin 500 mg tablet 500 mg PO BID diabetes 05/26/24
prednisone 20 mg tablet 20 mg PO DAILY Anti-Inflammatory 05/26/24
sodium phosphates 19 gram-7 gram/118 mL enema (Fleet Enema) 118 ml [place] DAILYPRN PRN if dulcolax ineffective after 24 hrs 05/26/24
tamsulosin 0.4 mg capsule 0.8 mg PO DAILY Urinary Issue 05/26/24
therapeutic multivitamin 1 tab PO DAILY Supplement 05/26/24
ibuprofen 200 mg tablet 400 mg (2 x 200 mg) PO Q6HPRN PRN mod to severe pain #0 tabs 06/01/24
metoprolol succinate 25 mg tablet,extended release 24 hr 25 mg PO DAILY #30 tabs 06/01/24
phenazopyridine 100 mg tablet (Pyridium) 100 mg PO TID PRN dysuria #10 tabs 06/01/24
polyethylene glycol 3350 17 gram oral powder packet (Miralax) 17 g PO DAILY #30 ea 06/01/24
sennosides 8.6 mg capsule (senna) 17.2 mg (2 x 8.6 mg) PO HS #60 caps 06/01/24
amlodipine 5 mg tablet (Norvasc) 5 mg PO DAILY 08/08/24
quetiapine 100 mg tablet (Seroquel) 100 mg PO HS 08/08/24
quetiapine 25 mg tablet (Seroquel) 25 mg PO BID 08/08/24
Review of Systems
-
Unable to obtain full review of systems at this time due to: Dementia
History Source: Patient
Constitutional: Denies Fever
Respiratory: Reports Cough
Cardiac: Denies Chest Pain
Abdomen/GI: Denies Abdominal Pain
: Reports Other (Penile pain / bleeding.)
Neurological: Denies Headache
Physical Exam
Vital Signs
Vital Signs
Temp Pulse Resp BP Pulse Ox
97.3 F 87 28 112/84 96
08/08/24 00:00 08/08/24 03:00 08/08/24 03:00 08/08/24 03:00 08/08/24 03:00
Physical Exam
General: Other (78y M in no acute distress.)
HEENT: Moist mucous membranes and PERRLA
Respiratory: Clear; No Wheezes, Rales or Rhonchi
Cardiac: S1/S2 and Regular Rhythm; No Murmur
GI: Other (Abdomen is distended and somewhat firm. Not tender. No guarding. Pos BS.)
Genito-urinary: Other (Bleeding from meatus. Brice placed without difficulty and connected to gravity drainage.)
Musculoskeletal: No Clubbing, No Cyanosis and No Edema
Neuro: Awake and Alert; No Oriented
Psych: Agitated
Laboratory Results
-
08/08/24 01:20
08/08/24 01:20
Laboratory Results
Lactic Acid Cancelled 08/08/24 02:18
Total Bilirubin 0.5 mg/dl (0.2-1.3) 08/08/24 01:20
AST 17 U/L (17-59) 08/08/24 01:20
ALT 15 U/L (0-50) 08/08/24 01:20
Alkaline Phosphatase 90 U/L (38-126) 08/08/24 01:20
Impression/Plan
-
A/P: Patient is a 78y M with PMH significant for Parkinson's / dementia and BPH with chronic Brice who was sent to ED for evaluation after he was found to have pulled his Brice catheter.
Traumatic Catheter Removal
Hematuria / Likely traumatic secondary to the above
BPH with Chronic Urinary Retention
- Observe overnight for further evaluation and treatment.
- Brice re-placed in the ED.
- Urine does not appear bloody in device and suspect that bleeding from meatus is due to trauma from catheter removal.
- Not on any anticoagulants.
- Maintain Brice.
- Follow urine output and monitor for any clots / obstruction / etc.
- Urology evaluation.
- Continue usual BPH med regimen.
Elevated Lactic Acid
- ? etiology. Patient is afebrile and non-toxic appearing.
- No leukocytosis.
- ? related to metformin use and will hold this for now.
- IVFs overnight and follow serial lactate levels.
- Follow-up UA, but will hold on abx for now pending definitive evidence of infectious process.
Parkinson's Disease
Dementia with Behavioral Disturbance
- Somewhat anxious/ agitated in the ED due to discomfort / multiple attempts at Brice placement.
- Continue usual outpatient med regimen including quetiapine and clonazepam.
- Follow for mood stability.
DM-II
- Hold metformin as noted above.
- Follow glucose and cover with SSI as needed.
Benign Hypertension
- BP on the lower side in the ED.
- Will hold BP medications for now and resume when necessary.
DVT Prophylaxis: SCDs
Code Status: DNR
[2024-08-08] MEDS: ATIVAN 0.5 MG IV (04:11)
[2024-08-08 04:36] LABS: Glucose - Point of Care 136 mg/dl (70-99)
[2024-08-08 04:48] LABS: Urine Albumin 1+ (Neg - Trace); Urine Bilirubin 1+ (Negative); Urine Color Brown; Urine Glucose Negative (Negative); Urine Ketone Trace (Negative); Urine Leukocyte 2+ (Negative); Urine Nitrite Positive (Negative); Urine Occult Blood 4+ (Negative); Urine Specific Gravity 1.015 (<1.030); Urine Urobilinogen Negative (Neg - 1+)
[2024-08-08 04:50] LABS: Urine Character Cloudy (Clear)
[2024-08-08 05:07] LABS: Lactic Acid 5.7 mmol/L (0.7-2.0)
[2024-08-08] MEDS: LR 1000 IV ×2 (05:20→12:21)
--- NOTE | 2024-08-08 05:41 | PTCARENOTE ---
Pt was received from the ED. He was pulled over from stretcher to bed. Pt AAO to self, vital signs stable, bed alarm and med sitter placed for safety. Pt's lactic was 5.7. STRETCHING MACHINE TENDER FRAME notified, instructed to continue LR @125ml/hr. Pt oriented to room. Call
stevens within reach.
[2024-08-08 05:45] LABS: Urine Red Blood Cell >100 /HPF (0-2)
[2024-08-08 05:46] LABS: Urine Amorphous Seen; Urine Bacteria Many (Negative); Urine Mucus Many; Urine Squamous Cell >30 /LPF (Few); Urine White Cell >100 /HPF (0-5)
[2024-08-08] MEDS: FLOMAX 0.8 MG PO (08:06)
[2024-08-08] MEDS: DELTASONE 20 MG PO (08:07)
[2024-08-08] MEDS: SEROQUEL 25 MG PO ×2 (08:07→20:05)
[2024-08-08] MEDS: LEXAPRO 15 MG PO (08:07)
[2024-08-08 08:08] LABS: Glucose - Point of Care 101 mg/dl (70-99)
[2024-08-08] MEDS: PROSCAR 5 MG PO (08:08)
[2024-08-08] MEDS: TOPROL XL 25 MG PO (08:08)
[2024-08-08] MEDS: KLONOPIN 0.5 MG PO ×2 (08:21→20:05)
[2024-08-08] MEDS: SINEMET 25-100 1 TABLET PO ×3 (08:21→22:08)
[2024-08-08] MEDS: NOVOLOG FLEXPEN-LOW RESISTANCE SC (08:26)
[2024-08-08 08:40] LABS: Hematocrit 39.9 % (39.0-52.0); Hemoglobin 13.8 g/dL (13.0-18.0); Mean Corp Hgb Conc. 34.6 g/dL (33.0-37.0); Mean Corpuscular Volume 83.8 fL (80.0-94.0); Mean Platelet Volume 9.2 fL (7.4-10.4); Platelet Count 169 10^3/uL (130-400); Red Blood Cell Count 4.76 10^6/uL (4.70-6.10); Red Cell Dist. Width 15.1 % (11.5-14.5); White Blood Cell Count 12.2 10^3/uL (4.8-10.8)
[2024-08-08 08:58] LABS: Lactic Acid 3.1 mmol/L (0.7-2.0)
[2024-08-08 09:34] LABS: Glycohemoglobin (HgbA1c) 5.5 % (4.0-5.6)
--- NOTE | 2024-08-08 10:27 | W.PN.HOSP.TC ---
Today's Communication/Plan
-
empiric abx pending Ur Cx with elevated WBC
Assessment / Plan
Assessment / Plan
A/P: Patient is a 78y M with PMH significant for Parkinson's / dementia and BPH with chronic Bernardo who was sent to ED for evaluation after he was found to have pulled his Bernardo catheter.
Traumatic Catheter Removal
Hematuria / Likely traumatic secondary to the above
BPH with Chronic Urinary Retention
- Bernardo re-placed in the ED.
WBC 6.4-->12.2
- Urine with >100RBC/>100 WBC/Many Bact
- Not on any anticoagulants.
- Maintain Bernardo.
- Follow urine output and monitor for any clots / obstruction / etc.
- Urology evaluation.
- Continue usual BPH med regimen.
Will start on abx pending Ur cx
PCN allergy listed of unknown significance, will use Cephalosporin/Vanco
Elevated Lactic Acid
- ? etiology. Patient is afebrile and non-toxic appearing.
- No leukocytosis.
- ? related to metformin use and will hold this for now.
- IVFs overnight and follow serial lactate levels.
Lactate on admission 3.1, repeat pending
Parkinson's Disease
Dementia with Behavioral Disturbance
- Somewhat anxious/ agitated in the ED due to discomfort / multiple attempts at Bernardo placement.
- Continue usual outpatient med regimen including quetiapine and clonazepam.
- Follow for mood stability.
DM-II
- Hold metformin as noted above.
- Follow glucose and cover with SSI as needed.
Benign Hypertension
- BP on the lower side in the ED.
- Will hold BP medications for now and resume when necessary.
DVT Prophylaxis: SCDs
Code Status: DNR
Anticipated Discharge: 24 - 48 hours
Subjective/Interval History
-
Date of Service: August 08, 2024
Awake, alert, answering basic questions
Objective Data
-
Labs:
Laboratory Results
08/08/24 08/08/24
01:20 08:30
WBC 6.4 12.2 H
Hgb 13.3 13.8
Hct 38.3 L 39.9
Plt Count 179 169
Sodium 143 Pending
Potassium 4.1 Pending
Chloride 105 Pending
Carbon Dioxide 25 Pending
BUN 22 H Pending
Creatinine 1.0 Pending
Glucose 109 H Pending
Calcium 9.1 Pending
Total Bilirubin 0.5
AST 17
ALT 15
Alkaline Phosphatase 90
Vital Signs:
Vital Signs
Temp Pulse Resp BP Pulse Ox
98.2 F 75 22 128/76 97
08/08/24 07:30 08/08/24 08:08 08/08/24 07:30 08/08/24 08:08 08/08/24 09:07
Review of Systems
-
History Source: Coordinated Provider
Constitutional: Denies Fever
EENT: Reports No Symptoms Reported
Respiratory: Reports No Symptoms
Cardiac: Reports No Symptoms
Abdomen/GI: Reports No Symptoms
Genitourinary: Reports Other (bernardo has been reinserted)
Physical Exam
-
General: Well Developed, Well Nourished, No Apparent Distress and Comfortable
HEENT: Normocephalic and Atraumatic
Respiratory: Clear to Auscultation; Negative Wheezes, Rales or Rhonchi
Cardiac: Regular Rhythm and S1/S2
GI: Nontender and Nondistended
Musculoskeletal: No Clubbing, No Cyanosis and No Edema
Neuro: Awake, Alert and Other (cogwheel rigidity, with Parkinsonian tremor)
[2024-08-08 11:04] LABS: Blood Urea Nitrogen 20 mg/dl (9-20); Calcium 9.1 mg/dl (8.4-10.2); Carbon Dioxide 23 mmol/L (22-30); Chloride 103 mmol/L (98-107); Estimated Creatinine Clearance 67 ml/min; Glucose 102 mg/dl (70-99); Potassium 3.5 mmol/L (3.5-5.1); Sodium 144 mmol/L (135-145); eGFR > 60.00
--- NOTE | 2024-08-08 11:37 | PHA.VAN.IN ---
Assessment
- Assessment
Renal Function: Appears similar to baseline
Concomitant Antimicrobials: cefepime
AUC Dosing Plan
- Dosing Variables
Dosing Weight (kg): 91
Dosing CrCl (ml/min): 67
Vd coefficient (L/kg): 0.7
- Empiric Dosing
Initial / Loading Dose: 1500mg - administration pending
Maintenance Regimen: Vanc 1000mg Q12H starting 08/09 06
Estimated AUC (mcg*h/mL): 539
Estimated Peak (mcg*h/mL): 30.6
Estimated Trough (mcg/ml): 15.8
Estimated Half Life (H): 11.5
- Monitoring
No levels ordered at this time: consider levels in next few days
Pharmacokinetics Vancomycin I
- -
Patient Age: 78
Patient Sex: Male
Vancomycin Day #: 1
Indication: Genito-Urinary Tract
Requesting Provider: Dr. Lauren
Pertinent Antimicrobial Allergies:
penicillins -unknown
Height / Weight:
Height 5 ft 11 in
Actual Weight 91.444 kg
Pertinent Past Medical History: DM II
- Vital Signs / Lab Results
Temp Pulse Resp BP Pulse Ox
98.2 F 75 22 128/76 97
08/08/24 07:30 08/08/24 08:08 08/08/24 07:30 08/08/24 08:08 08/08/24 09:07
Lab Results - Hematology
08/08/24 08/08/24
01:20 08:30
WBC 6.4 12.2 H
Lab Results - Chemistry
08/08/24 08/08/24
01:20 08:30
BUN 22 H 20
Creatinine 1.0 1.0
Estimated Creat Clear 67 67
Albumin 3.6
08/08/24 08/08/24 08/08/24
01:20 02:18 04:18
Lactic Acid 3.6 H Cancelled 5.7 H*
08/08/24 08/08/24
06:00 08:30
Lactic Acid Cancelled 3.1 H
Lab Results - Urine
08/08/24
04:18
Urine Nitrite (Reflex) Positive A
Leukocyte Esterase Rfl 2+ A
Urine WBC (Reflex) >100 A
Ur Squamous Epith Cells >30
Urine Bacteria (Reflex) Many A
[2024-08-08] MEDS: VANCOCIN 300 ML IV (12:04)
[2024-08-08] MEDS: VANCOCIN 300 MG IV (12:04)
[2024-08-08 12:16] LABS: Glucose - Point of Care 206 mg/dl (70-99)
[2024-08-08] MEDS: NOVOLOG FLEXPEN-LOW RESISTANCE 2 UNITS SC ×2 (12:18→16:05)
[2024-08-08 12:46] LABS: Lactic Acid 2.4 mmol/L (0.7-2.0)
[2024-08-08] MEDS: MAXIPIME 1000 MG IV ×2 (13:55→20:04)
[2024-08-08] MEDS: STERILE WATER FOR INJECTION 10 ML IV ×2 (13:56→20:04)
--- NOTE | 2024-08-08 15:30 | W.PN.UPDATE ---
Update Note
Progress Note Update
78M with h/o Parkinson's and dementia with long-term indwelling catheter for BPH w/ chronic urinary retention.
Sent to ED after patient noted to have traumatically removed his catheter.
Seen in office on 08/05/24 (Dr. Burt) as new patient - previously saw urologist in [place] but no records available.
18Fr Coude catheter replaced.
Scheduled for catheter change in 08/2024 w/ plans for video urodynamics study in 09/2024 in office.
Multiple Brice catheter placement attempts made by ED staff - RN and MD (regular/Coude).
Urology consulted early AM 08/08 - Fr 3-way catheter placed w/o difficulty or resistance.
No grossly bloody UOP or clots noted - concentrated dark urine output after catheter placement.
A/P:
Traumatic catheter removal
Acute on chronic urinary retention
BPH
cUTI
UA >100 WBCs/RBCs, many bacteria
UCx pending
- Maintain Brice catheter to drainage
- F/U as scheduled 09/03 for catheter change w/ Urology, VUDS in 09/2024 scheduled
- Transition to PO antibiotic course on discharge for cUTI pending UCx S/S
- Tentative discharge 08/09
D/w Dr. Lauren.
[2024-08-08 16:37] LABS: Glucose - Point of Care 208 mg/dl (70-99)
--- NOTE | 2024-08-08 16:49 | CM ---
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
of bed.
he has had vn in past from [facility] and has been to [facility] acute rehab and [facility] rehab.
PCP: dr isbell
PMH:parkinson's disease,dementia,bph with chronic bernardo.
patient is adm after pulling out his bernardo/hematuria and possible uti.he is on iv abx,urine cx pending,ua with inc wbc.he is on 2 liters nc o2([facility] uses o2 at facility).patient was seen by therapy who recommended skilled therapy.i contacted
marly to let her know.cont meds for parkinson's and dementia.Plan :return to [facility] when stable for dc. referral placed in ecin.
[2024-08-08 17:37] LABS: Lactic Acid 3.2 mmol/L (0.7-2.0)
[2024-08-08 21:36] LABS: Glucose - Point of Care 161 mg/dl (70-99)
[2024-08-08] MEDS: SEROQUEL 100 MG PO (22:08)
[2024-08-08] MEDS: SENOKOT 17.2 MG PO (22:08)
--- NOTE | 2024-08-08 22:20 | PTCARENOTE ---
Pt coughed a lot with scheduled 22:00 pills. Speech consult request placed. Pt spit out two pills, one of them being senna and one of them being a white pill. Will continue to monitor.
[2024-08-09 00:21] LABS: Lactic Acid 1.7 mmol/L (0.7-2.0)
[2024-08-09] MEDS: LR 1000 IV (01:21)
[2024-08-09 03:17] VITALS: BP 153/77
[2024-08-09] MEDS: MAXIPIME 1000 MG IV ×3 (03:48→21:09)
[2024-08-09] MEDS: STERILE WATER FOR INJECTION 10 ML IV ×3 (03:48→21:08)
[2024-08-09] MEDS: VANCOCIN 200 IV ×2 (05:22→17:18)
[2024-08-09 07:00] VITALS: BP 136/81
[2024-08-09 07:26] LABS: % Basophils 0.5 % (0-2); % Eosinophils 1.9 % (0-6); % Immature Granulocytes 1.4 % (0-0.5); % Lymphocytes 14.2 % (20.5-51.1); % Monocytes 11.5 % (1.7-9.3); % Neutrophils 70.5 % (42.2-75.2); Absolute Eosinophils 0.2 10^3/uL (0-0.7); Absolute Immature Granulocytes 0.1 10^3/uL (0-0.05); Absolute Lymphocytes 1.1 10^3/uL (1.2-3.4); Absolute Monocytes 0.9 10^3/uL (0.1-0.6); Absolute Neutrophils 5.6 10^3/uL (1.4-6.5); Hematocrit 35.7 % (39.0-52.0); Hemoglobin 12.4 g/dL (13.0-18.0); Mean Corp Hgb Conc. 34.7 g/dL (33.0-37.0); Mean Corpuscular Volume 86.2 fL (80.0-94.0); Mean Platelet Volume 10.1 fL (7.4-10.4); Nucleated Red Blood Cells % 0 % (-); Platelet Count 103 10^3/uL (130-400); Red Blood Cell Count 4.14 10^6/uL (4.70-6.10); White Blood Cell Count 7.9 10^3/uL (4.8-10.8)
[2024-08-09 07:46] LABS: Glucose - Point of Care 96 mg/dl (70-99)
[2024-08-09 08:18] LABS: Blood Urea Nitrogen 18 mg/dl (9-20); Calcium 8.9 mg/dl (8.4-10.2); Carbon Dioxide 27 mmol/L (22-30); Chloride 104 mmol/L (98-107); Estimated Creatinine Clearance 74 ml/min; Glucose 117 mg/dl (70-99); Potassium 3.6 mmol/L (3.5-5.1); Sodium 140 mmol/L (135-145); eGFR > 60.00
[2024-08-09] MEDS: NOVOLOG FLEXPEN-LOW RESISTANCE SC ×2 (08:37→13:13)
[2024-08-09] MEDS: FLOMAX 0.8 MG PO (08:37)
[2024-08-09] MEDS: PROSCAR 5 MG PO (08:38)
[2024-08-09] MEDS: DELTASONE 20 MG PO (08:38)
[2024-08-09] MEDS: KLONOPIN 0.5 MG PO ×2 (08:38→21:08)
[2024-08-09] MEDS: SINEMET 25-100 1 TABLET PO ×3 (08:38→21:09)
[2024-08-09] MEDS: TOPROL XL 25 MG PO (08:38)
[2024-08-09] MEDS: SEROQUEL 25 MG PO ×2 (08:38→21:08)
[2024-08-09] MEDS: LEXAPRO 15 MG PO (08:51)
--- NOTE | 2024-08-09 10:41 | PHA.VAN.FU ---
Vancomycin Assessment / Plan
- Assessment
Renal Function: Stable
WBC's are: Trending Down
In the past 24 hrs, patient has been: Afebrile
Concomitant Antimicrobials: cefepime
- Dosing Plan
Continue: vancomycin 1 g q12h - first maint dose 08/09 600
- Monitoring Plan
No level(s) ordered at this time: consider levels after Sun tj dose
- Follow Up
Pharmacy will continue to follow.
Vancomycin Follow UP
- -
Patient Age: 78
Patient Sex: Male
Vancomycin Day #: 2
Indication: Genito-Urinary Tract
Requesting Provider: Dr. Lauren
Pertinent Antimicrobial Allergies:
penicillins -unknown
Height / Weight:
Height 5 ft 11 in
Actual Weight 91.444 kg
Pertinent Past Medical History: DM II
- Vital Signs / Lab Results
Temp Pulse Resp BP Pulse Ox
97.6 F 62 17 136/81 96
08/09/24 07:00 08/09/24 07:00 08/09/24 07:00 08/09/24 07:00 08/09/24 07:00
Lab Results - Hematology
08/08/24 08/08/24 08/09/24
01:20 08:30 06:27
WBC 6.4 12.2 H 7.9
Lab Results - Chemistry
08/08/24 08/08/24 08/09/24
01:20 08:30 06:27
BUN 22 H 20 18
Creatinine 1.0 1.0 0.9
Estimated Creat Clear 67 67 74
Albumin 3.6
08/08/24 08/08/24 08/08/24
01:20 02:18 04:18
Lactic Acid 3.6 H Cancelled 5.7 H*
08/08/24 08/08/24 08/08/24
06:00 08:30 12:09
Lactic Acid Cancelled 3.1 H 2.4 H
08/08/24 08/09/24 08/09/24
17:05 00:01 06:00
Lactic Acid 3.2 H 1.7 Cancelled
Microbiology Results
08/08/24 05:42 MRSA Screen - Final
Nose No Methicillin Resistant Staphylococcus aureus isolated.
[2024-08-09 11:00] VITALS: BP 145/75
--- NOTE | 2024-08-09 11:27 | W.PN.HOSP.TC ---
Addendum entered and electronically signed by Marito Lauren MD 08/09/24 13:22:
text from Speech therapy, recommend NPO as pt is high risk for aspiration, will change
Original Note:
Today's Communication/Plan
-
await Ur cx, continue Cefepime/Vanco awaiting cx results
stop IVF
Assessment / Plan
Assessment / Plan
A/P: Patient is a 78y M with PMH significant for Parkinson's / dementia and BPH with chronic Bernardo who was sent to ED for evaluation after he was found to have pulled his Bernardo catheter.
Traumatic Catheter Removal
Hematuria / Likely traumatic secondary to the above
BPH with Chronic Urinary Retention
- Bernardo re-placed in the ED.
WBC 6.4-->12.2-->7.9
- Urine with >100RBC/>100 WBC/Many Bact
- Not on any anticoagulants.
- Maintain Bernardo.
- Follow urine output and monitor for any clots / obstruction / etc.
- Urology evaluation appreciated, discussed with Dr. Larson
Urine Cx pending
- Continue usual BPH med regimen.
Will start on abx pending Ur cx
PCN allergy listed of unknown significance, will use Cephalosporin/Vanco
Elevated Lactic Acid
- ? etiology. Patient is afebrile and non-toxic appearing.
- No leukocytosis.
- ? related to metformin use and will hold this for now.
- IVFs overnight and follow serial lactate levels.
Lactate 3.6-->5.7-->3.1-->2.4-->3.2-->1.7
Parkinson's Disease
Dementia with Behavioral Disturbance
- Somewhat anxious/ agitated in the ED due to discomfort / multiple attempts at Bernardo placement.
- Continue usual outpatient med regimen including quetiapine and clonazepam.
- Follow for mood stability.
DM-II
- Hold metformin as noted above.
- Follow glucose and cover with SSI as needed.
Benign Hypertension
- BP on the lower side in the ED. Currently in the 136/81 range
- Will hold BP medications for now and resume when necessary.
DVT Prophylaxis: SCDs
Code Status: DNR
Anticipated Discharge: 24 - 48 hours
Subjective/Interval History
-
Date of Service: August 09, 2024
Appears more alert today
Objective Data
-
Labs:
Laboratory Results
08/09/24
06:27
WBC 7.9
Hgb 12.4 L
Hct 35.7 L
Plt Count 103 L D
Sodium 140
Potassium 3.6
Chloride 104
Carbon Dioxide 27
BUN 18
Creatinine 0.9
Glucose 117 H
Calcium 8.9
Vital Signs:
Vital Signs
Temp Pulse Resp BP Pulse Ox
97.6 F 62 17 136/81 96
08/09/24 07:00 08/09/24 07:00 08/09/24 07:00 08/09/24 07:00 08/09/24 07:00
I&O
08/08/24 08/09/24 08/10/24
06:59 06:59 06:59
Intake Total 2560 / 2560
Output Total 900 / 900
Balance 1660 / 1660
Review of Systems
-
History Source: Coordinated Provider
Constitutional: Denies Fever
EENT: Reports No Symptoms Reported
Respiratory: Reports No Symptoms
Cardiac: Reports No Symptoms
Abdomen/GI: Reports No Symptoms
Genitourinary: Reports Other (bernardo has been reinserted)
Physical Exam
-
General: Well Developed, Well Nourished, No Apparent Distress and Comfortable
HEENT: Normocephalic and Atraumatic
Respiratory: Clear to Auscultation; Negative Wheezes, Rales or Rhonchi
Cardiac: Regular Rhythm and S1/S2
GI: Nontender and Nondistended
Genito-urinary: Bernardo (draining clear urine)
Musculoskeletal: No Clubbing, No Cyanosis and No Edema
Neuro: Awake, Alert and Other (cogwheel rigidity, with Parkinsonian tremor)
[2024-08-09 11:56] LABS: Glucose - Point of Care 187 mg/dl (70-99)
--- NOTE | 2024-08-09 13:16 | PTOTSP ---
SPEECH THERAPY SWALLOW EVALUATION:
Patient exhibits clinical signs of oropharyngeal dysphagia, likely chronic related to Parkinson's disease and dementia, and acutely exacerbated by UTI. Patient is at high risk for aspiration and related complications given confusion/impulsivity and
tenuous respiratory status. Consider CXR. Patient's daughter reports chronic dysphagia symptoms including signs of aspiration (coughing) multiple times with every meal; History of pneumonia x2 last year. Recommend patient to be temporary NPO at this
time, except for necessary medications crushed in puree, and small single sips of water following oral care with RN supervision. Speech therapy to follow, re-assess in 24 hours, determine readiness for diet advancement and/or instrumental assessment
of swallowing as appropriate, and provide continued patient/family education. Discussed with patient/family. Daughter in agreement. Patient refused recommendations, continuing to attempt to eat from tray despite rationale for NPO at this time.
RECOMMEND:
1) temporary NPO
2) necessary medications crushed in puree
3) ARHP: small single sips of water following oral care with RN supervision
4) Speech therapy to follow, re-assess in 24 hours
[2024-08-09] MEDS: D5/0.45%NSS with KCL 10 MEQ 1000 IV (14:42)
[2024-08-09 15:00] VITALS: BP 136/68
[2024-08-09 16:21] LABS: Glucose - Point of Care 208 mg/dl (70-99)
[2024-08-09] MEDS: NOVOLOG FLEXPEN-LOW RESISTANCE 2 UNITS SC (17:20)
--- NOTE | 2024-08-09 17:41 | W.PN.URO.CBU ---
Today's Communication / Plan
-
Maintain bernardo
Abx for possible UTI
Outpatient follow up as scheduled after discharge
Will sign off - please call with any further questions
Assessment / Plan
-
78M with h/o Parkinson's and dementia with long-term indwelling catheter for BPH w/ chronic urinary retention.
Sent to ED after patient noted to have traumatically removed his catheter.
Seen in office on 08/05/24 (Dr. Burt) as new patient - previously saw urologist in [place] but no records available.
Scheduled for catheter change in 08/2024 w/ plans for video urodynamics study in 09/2024 in office.
Multiple Bernardo catheter placement attempts made by ED staff - RN and MD (regular/Coude).
Urology consulted early AM 08/08 - 22Fr 3-way catheter placed w/o difficulty or resistance.
No grossly bloody UOP or clots noted - concentrated dark urine output after catheter placement.
A/P:
Traumatic catheter removal
Acute on chronic urinary retention
BPH
cUTI
UA >100 WBCs/RBCs, many bacteria
UCx pending
- Hematuria resolved
- Maintain Bernardo catheter to drainage
- F/U as scheduled 09/03 for catheter change w/ Urology, VUDS in 09/2024 scheduled
- Transition to PO antibiotic course on discharge for cUTI pending UCx S/S
Diagnosis
-
Date of Service: August 09, 2024
-
Patient Diagnosis:
Urinary retention - chronic
Traumatic bernardo removal
Bacteriuria
Post Op Day:
Subjective
-
No events overnight
No hematuria
Objective
-
Vital Signs
Temp Pulse Resp BP Pulse Ox
98.3 F 49 17 136/68 94
08/09/24 15:00 08/09/24 15:00 08/09/24 15:00 08/09/24 15:00 08/09/24 15:00
Intake and Output
08/08/24 08/09/24 08/10/24
06:59 06:59 06:59
Intake Total 2560 / 2560 720 / 720
Output Total 900 / 900 250 / 250
Balance 1660 / 1660 470 / 470
Intake:
Oral fluids 480 / 480 240 / 240
IV fluids (Total) 1880 / 1880 480 / 480
IV piggybacks 200 / 200
Output:
Urine, Bernardo 900 / 900 250 / 250
Laboratory Results
08/09/24 06:27
08/09/24 06:27
Physical Exam
-
General - well developed, well nourished, no acute distress
Chest - clear
Abdomen - soft, non-tender
- bernardo in place, clear urine
[2024-08-09 19:35] VITALS: BP 132/96
[2024-08-09] MEDS: SENOKOT 17.2 MG PO (21:08)
[2024-08-09] MEDS: SEROQUEL 100 MG PO (21:08)
[2024-08-09 23:20] VITALS: BP 151/85
[2024-08-10 00:42] LABS: Glucose - Point of Care 129 mg/dl (70-99)
[2024-08-10 03:40] VITALS: BP 137/78
[2024-08-10] MEDS: D5/0.45%NSS with KCL 10 MEQ 1000 IV ×2 (03:47→17:25)
[2024-08-10] MEDS: MAXIPIME 1000 MG IV ×2 (03:48→11:55)
[2024-08-10] MEDS: STERILE WATER FOR INJECTION 10 ML IV ×3 (03:48→15:18)
[2024-08-10] MEDS: VANCOCIN 200 IV (06:12)
[2024-08-10 06:18] LABS: Glucose - Point of Care 100 mg/dl (70-99)
[2024-08-10] MEDS: NOVOLOG FLEXPEN-LOW RESISTANCE SC (06:26)
[2024-08-10 07:00] VITALS: BP 143/85
[2024-08-10 08:18] LABS: Glucose - Point of Care 104 mg/dl (70-99)
[2024-08-10] MEDS: LEXAPRO 15 MG PO (08:37)
[2024-08-10] MEDS: KLONOPIN 0.5 MG PO ×2 (08:38→21:56)
[2024-08-10] MEDS: DELTASONE 20 MG PO (08:38)
[2024-08-10] MEDS: FLOMAX 0.8 MG PO (08:38)
[2024-08-10] MEDS: SEROQUEL 25 MG PO ×2 (08:38→21:57)
[2024-08-10] MEDS: SINEMET 25-100 1 TABLET PO ×3 (08:38→21:57)
[2024-08-10] MEDS: PROSCAR 5 MG PO (08:38)
[2024-08-10] MEDS: TOPROL XL 25 MG PO (08:43)
--- NOTE | 2024-08-10 10:16 | PHA.VAN.FU ---
Vancomycin Assessment / Plan
- Assessment
Renal Function: Stable
WBC's are: WNL
In the past 24 hrs, patient has been: Afebrile
Concomitant Antimicrobials: cefepime
- Dosing Plan
Continue: vanc 1000 mg q12h
- Monitoring Plan
Peak Level: 08/10/24 2030 - after 4th maint dose
Trough Level: 08/11/2430
- Follow Up
Pharmacy will continue to follow.
Vancomycin Follow UP
- -
Patient Age: 78
Patient Sex: Male
Vancomycin Day #: 3
Indication: Genito-Urinary Tract
Requesting Provider: Dr. Lauren
Pertinent Antimicrobial Allergies:
penicillins -unknown
Height / Weight:
Height 5 ft 11 in
Actual Weight 91.444 kg
Pertinent Past Medical History: DM II
- Vital Signs / Lab Results
Temp Pulse Resp BP Pulse Ox
97.6 F 55 17 143/85 96
08/10/24 07:00 08/10/24 07:00 08/10/24 07:00 08/10/24 07:00 08/10/24 07:00
Lab Results - Hematology
08/08/24 08/08/24 08/09/24
01:20 08:30 06:27
WBC 6.4 12.2 H 7.9
Lab Results - Chemistry
08/08/24 08/08/24 08/09/24
01:20 08:30 06:27
BUN 22 H 20 18
Creatinine 1.0 1.0 0.9
Estimated Creat Clear 67 67 74
Albumin 3.6
08/08/24 08/08/24 08/08/24
01:20 02:18 04:18
Lactic Acid 3.6 H Cancelled 5.7 H*
08/08/24 08/08/24 08/08/24
06:00 08:30 12:09
Lactic Acid Cancelled 3.1 H 2.4 H
08/08/24 08/09/24 08/09/24
17:05 00:01 06:00
Lactic Acid 3.2 H 1.7 Cancelled
Lab Results - Urine
08/08/24
04:18
Urine Nitrite (Reflex) Positive A
Leukocyte Esterase Rfl 2+ A
Ur Squamous Epith Cells >30
Microbiology Results
08/08/24 04:18 Urine Culture - Final
Urine Klebsiella pneumoniae
08/08/24 05:42 MRSA Screen - Final
Nose No Methicillin Resistant Staphylococcus aureus isolated.
--- NOTE | 2024-08-10 10:49 | PTOTSP ---
SPEECH THERAPY SWALLOW FOLLOW UP NOTE:
Patient exhibits clinical signs of oropharyngeal dysphagia, likely chronic related to Parkinson's disease and dementia, and acutely exacerbated by UTI. Patient remains at risk for aspiration and related complications given impulsivity and confusion,
along with tenuous respiratory status. Could consider instrumental assessment of swallowing (VSE), though patient is currently unable to tolerate upright positioning requirements for VSE due to back pain. Recommend initiating cautious oral diet of
IDDSI Level 4 Puree diet, thin liquids. Medications crushed in puree. Strict Aspiration precautions includin:1 assist/100% supervision with meals; As upright as able to tolerate positioning; Small sips/bites, including pinching straw/removing
cup to limit size/rate of intake; only provide p.o when SpO2>90% and RR<30; do not eat when short of breath; Close monitoring for signs of aspiration. Patient is at a LOW threshold to resume NPO; D/c oral diet if any decline in mental or respiratory
status. Discussed with RN and Dr. Lauren. ST to continue to follow, assess diet tolerance and modify as appropriate, determine readiness for VSE as able to tolerate, provide continued education regarding aspiration risks/precautions, and continue
plan of care.
RECOMMEND:
1) IDDSI Level 4 Puree diet, thin liquids
2) Medications crushed in puree
3) Strict Aspiration precautions includin:1 assist/100% supervision with meals; As upright as able to tolerate positioning; Small sips/bites, including pinching straw/removing cup to limit size/rate of intake; only provide p.o when SpO2>90% and
RR<30; do not eat when short of breath; Close monitoring for signs of aspiration. Patient is at a LOW threshold to resume NPO; D/c oral diet if any decline in mental or respiratory status
4) ST to follow and determine readiness for VSE as able to tolerate
[2024-08-10 11:00] VITALS: BP 144/84
[2024-08-10 12:04] LABS: Glucose - Point of Care 173 mg/dl (70-99)
[2024-08-10] MEDS: NOVOLOG FLEXPEN-LOW RESISTANCE 1 UNITS SC ×2 (12:19→17:28)
--- NOTE | 2024-08-10 12:41 | W.PN.HOSP.TC ---
Today's Communication/Plan
-
change abx to Rocephin. Will resume diet. If tolerates diet, potential change to oral abx tomorrow with dc to SNF to follow
Assessment / Plan
Assessment / Plan
A/P: Patient is a 78y M with PMH significant for Parkinson's / dementia and BPH with chronic Bernardo who was sent to ED for evaluation after he was found to have pulled his Bernardo catheter.
Traumatic Catheter Removal
Hematuria / Likely traumatic secondary to the above
BPH with Chronic Urinary Retention
- Bernardo re-placed in the ED.
WBC 6.4-->12.2-->7.9
- Urine with >100RBC/>100 WBC/Many Bact
- Not on any anticoagulants.
- Maintain Bernardo.
- Follow urine output and monitor for any clots / obstruction / etc.
- Urology evaluation appreciated, discussed with Dr. Larson
Urine Cx Klebsiella multiple drug sensitivities
will dc Vanco/Cefepime and start Rocephin
- Continue usual BPH med regimen.
Elevated Lactic Acid
- ? etiology. Patient is afebrile and non-toxic appearing.
- No leukocytosis.
- ? related to metformin use and will hold this for now.
- IVFs overnight and follow serial lactate levels.
Lactate 3.6-->5.7-->3.1-->2.4-->3.2-->1.7
Parkinson's Disease
Dementia with Behavioral Disturbance
- Somewhat anxious/ agitated in the ED due to discomfort / multiple attempts at Bernardo placement.
- Continue usual outpatient med regimen including quetiapine and clonazepam.
- Follow for mood stability.
Was evaluated by speech yesterday who felt that the pt was high risk for aspiration and recommended NPO. Contacted again today, 08/10 and speech is recommending IDDSI with aspiration precautions, will adjust
DM-II
- Hold metformin as noted above.
- Follow glucose and cover with SSI as needed.
a1c 5.5%
Benign Hypertension
- BP on the lower side in the ED. Currently in the 136/81 range
- Will hold BP medications for now and resume when necessary.
DVT Prophylaxis: SCDs
Code Status: DNR
Anticipated Discharge: 24 - 48 hours
Subjective/Interval History
-
Date of Service: August 10, 2024
Voice is stronger, asking when he will be able to leave
Objective Data
-
Vital Signs:
Vital Signs
Temp Pulse Resp BP Pulse Ox
97.7 F 62 18 144/84 96
08/10/24 11:00 08/10/24 11:00 08/10/24 11:00 08/10/24 11:00 08/10/24 11:00
I&O
08/09/24 08/10/24 08/11/24
06:59 06:59 06:59
Intake Total 2560 / 2560 1670 / 1670 160 / 160
Output Total 900 / 900 1999 / 1999
Balance 1660 / 1660 -330 / -330 160 / 160
Review of Systems
-
Unable to obtain full review of systems at this time due to: Dementia
History Source: Coordinated Provider
Constitutional: Denies Fever
EENT: Reports No Symptoms Reported
Respiratory: Reports No Symptoms
Cardiac: Reports No Symptoms
Abdomen/GI: Reports No Symptoms
Genitourinary: Reports Other (bernardo has been reinserted)
Physical Exam
-
General: Well Developed, Well Nourished, No Apparent Distress and Comfortable
HEENT: Normocephalic and Atraumatic
Respiratory: Clear to Auscultation; Negative Wheezes, Rales or Rhonchi
Cardiac: Regular Rhythm and S1/S2
GI: Nontender and Nondistended
Genito-urinary: Bernardo (draining clear urine)
Musculoskeletal: No Clubbing, No Cyanosis and No Edema
Neuro: Awake, Alert and Other (cogwheel rigidity, with Parkinsonian tremor)
[2024-08-10 15:00] VITALS: BP 109/64
[2024-08-10] MEDS: ROCEPHIN 1000 MG IV (15:18)
[2024-08-10 16:38] LABS: Glucose - Point of Care 188 mg/dl (70-99)
[2024-08-10 19:23] VITALS: BP 133/67
[2024-08-10 21:20] LABS: Glucose - Point of Care 123 mg/dl (70-99)
[2024-08-10] MEDS: SEROQUEL 100 MG PO (21:57)
[2024-08-10] MEDS: SENOKOT 17.2 MG PO (21:57)
[2024-08-10] MEDS: ROBITUSSIN 200 MG PO (23:02)
[2024-08-10 23:10] VITALS: BP 115/82
[2024-08-10] MEDS: DUONEB 3 ML INH (23:31)
--- NOTE | 2024-08-11 00:30 | PTCARENOTE ---
Pt continues w/barking harsh cough. Tearful/crying at times. Auscultated for coarse rhonci and scattered expiratory wheezes. [facility] covering house contacted. Electronic orders received for nebs/PRN robitussin/CXR in am. Refer to JAN of med
administration. Pt denies respiratory distress but appears to be. Repositioned to high fowlers with some improvement. Plan of care ongoing.
[2024-08-11] MEDS: DUONEB 3 ML INH ×5 (03:48→19:42)
[2024-08-11] MEDS: ROBITUSSIN 200 MG PO ×2 (04:09→10:18)
[2024-08-11 04:32] VITALS: BP 113/71
[2024-08-11 06:18] LABS: % Basophils 0.5 % (0-2); % Eosinophils 1.8 % (0-6); % Lymphocytes 13.5 % (20.5-51.1); % Monocytes 10.3 % (1.7-9.3); % Neutrophils 72.9 % (42.2-75.2); Absolute Eosinophils 0.1 10^3/uL (0-0.7); Absolute Immature Granulocytes 0.1 10^3/uL (0-0.05); Absolute Lymphocytes 1.1 10^3/uL (1.2-3.4); Absolute Monocytes 0.8 10^3/uL (0.1-0.6); Absolute Neutrophils 5.7 10^3/uL (1.4-6.5); Hematocrit 37.6 % (39.0-52.0); Hemoglobin 12.9 g/dL (13.0-18.0); Mean Corp Hgb Conc. 34.3 g/dL (33.0-37.0); Mean Corpuscular Volume 84.5 fL (80.0-94.0); Mean Platelet Volume 10.4 fL (7.4-10.4); Nucleated Red Blood Cells % 0 % (-); Platelet Count 93 10^3/uL (130-400); Red Blood Cell Count 4.45 10^6/uL (4.70-6.10); Red Cell Dist. Width 14.8 % (11.5-14.5); White Blood Cell Count 7.8 10^3/uL (4.8-10.8)
[2024-08-11 06:45] LABS: Blood Urea Nitrogen 16 mg/dl (9-20); Calcium 9.3 mg/dl (8.4-10.2); Carbon Dioxide 26 mmol/L (22-30); Chloride 102 mmol/L (98-107); Estimated Creatinine Clearance 67 ml/min; Glucose 85 mg/dl (70-99); Potassium 3.5 mmol/L (3.5-5.1); Sodium 143 mmol/L (135-145); eGFR > 60.00
[2024-08-11 07:25] VITALS: BP 152/83
[2024-08-11 07:42] LABS: Glucose - Point of Care 64 mg/dl (70-99)
[2024-08-11 08:08] LABS: Glucose - Point of Care 93 mg/dl (70-99)
[2024-08-11] MEDS: NOVOLOG FLEXPEN-LOW RESISTANCE SC ×2 (08:42→12:44)
[2024-08-11] MEDS: PROSCAR 5 MG PO (08:47)
[2024-08-11] MEDS: FLOMAX 0.8 MG PO (08:47)
[2024-08-11] MEDS: SINEMET 25-100 1 TABLET PO ×3 (08:47→21:29)
[2024-08-11] MEDS: KLONOPIN 0.5 MG PO ×2 (08:47→21:29)
[2024-08-11] MEDS: DELTASONE 20 MG PO (08:47)
[2024-08-11] MEDS: LEXAPRO 15 MG PO (08:47)
[2024-08-11] MEDS: TOPROL XL 25 MG PO (08:47)
[2024-08-11] MEDS: SEROQUEL 25 MG PO ×2 (08:47→21:29)
--- NOTE | 2024-08-11 10:23 | CM ---
CM following for discharge; plan to return to [facility] when medically ready, possibly today.
Will need ambulance transport due to dementia and refusal to attempt OOB to chair since admission.
Plan: Return to [facility] pending medical clearance. Will need ambulance transport set up at discharge.
[facility] Report: [phone]
[facility]
[2024-08-11 11:10] VITALS: BP 102/70
[2024-08-11 11:43] LABS: Glucose - Point of Care 136 mg/dl (70-99)
--- NOTE | 2024-08-11 12:59 | W.PN.HOSP.TC ---
Addendum entered and electronically signed by Ben Garzon MD 08/11/24 16:10:
Daughter updated over the phone
Original Note:
Today's Communication/Plan
-
monitor vitals
see plan
speech
check procal
mucinex
Assessment / Plan
Assessment / Plan
A/P: Patient is a 78y M with PMH significant for Parkinson's / dementia and BPH with chronic Brice who was sent to ED for evaluation after he was found to have pulled his Brice catheter.
Traumatic Catheter Removal
Hematuria / Likely traumatic secondary to the above
BPH with Chronic Urinary Retention
- Brice re-placed in the ED.
- Urine with >100RBC/>100 WBC/Many Bact
- Not on any anticoagulants.
- Maintain Brice.
- Follow urine output and monitor for any clots / obstruction / etc.
- Urology evaluation appreciated, discussed with Dr. Larson
Urine Cx Klebsiella multiple drug sensitivities
will dc Vanco/Cefepime and start Rocephin
- Continue usual BPH med regimen.
Elevated Lactic Acid
- ? etiology. Patient is afebrile and non-toxic appearing.
- No leukocytosis.
- ? related to metformin use and will hold this for now.
lactate resolved
Parkinson's Disease
Dementia with Behavioral Disturbance
- Somewhat anxious/ agitated in the ED due to discomfort / multiple attempts at Brice placement.
- Continue usual outpatient med regimen including quetiapine and clonazepam.
- Follow for mood stability.
Was evaluated by speech and rec pureed diet
overnight 08/10 with cough and wheezing; chest x-ray with coarsening of bronchial vascular markings throughout both lungs with minimal reactive due to suboptimal inspiration however interstitial bronchitis is not excluded. No focal areas of
consolidation. Check Pro-Ryan. mucinex. cw duoneb for now
DM-II
- Hold metformin as noted above.
- Follow glucose and cover with SSI as needed.
a1c 5.5%
Benign Hypertension
- BP on the lower side in the ED. Currently in the 136/81 range
- Will hold BP medications for now and resume when necessary.
DVT Prophylaxis: SCDs
Code Status: DNR
General: Well Developed, Well Nourished, No Apparent Distress and Comfortable
HEENT: Normocephalic and Atraumatic
Respiratory: Clear to Auscultation; Negative Wheezes, Rales or Rhonchi
Cardiac: Regular Rhythm and S1/S2
GI: Nontender and Nondistended
Genito-urinary: Brice (draining clear urine)
Musculoskeletal: No Edema
Neuro: Awake, Alert and Other (cogwheel rigidity, with Parkinsonian tremor)
Anticipated Discharge: 24 - 48 hours
Subjective/Interval History
-
Date of Service: August 11, 2024
denies pain
Objective Data
-
Labs:
Laboratory Results
08/11/24
05:53
WBC 7.8
Hgb 12.9 L
Hct 37.6 L
Plt Count 93 L
Sodium 143
Potassium 3.5
Chloride 102
Carbon Dioxide 26
BUN 16
Creatinine 1.0
Glucose 85
Calcium 9.3
Vital Signs:
Vital Signs
Temp Pulse Resp BP Pulse Ox
99.1 F 76 22 102/70 95
08/11/24 11:10 08/11/24 11:10 08/11/24 11:10 08/11/24 11:10 08/11/24 11:10
I&O
08/10/24 08/11/24 08/12/24
06:59 06:59 06:59
Intake Total 1670 / 1670 1270 / 1270
Output Total 1999 2350 / 235
Balance -330 / -330 -1080 / -1080
[2024-08-11] MEDS: MUCINEX 1200 MG PO ×2 (14:15→21:29)
[2024-08-11] MEDS: STERILE WATER FOR INJECTION 10 ML IV (14:15)
[2024-08-11] MEDS: ROCEPHIN 1000 MG IV (14:16)
[2024-08-11 14:44] LABS: Procalcitonin < 0.05 ng/ml (0.0-0.25)
[2024-08-11 15:43] VITALS: BP 115/75
[2024-08-11] MEDS: TESSALON PERLES 200 MG PO ×2 (16:27→21:33)
[2024-08-11 16:36] LABS: Glucose - Point of Care 201 mg/dl (70-99)
[2024-08-11] MEDS: NOVOLOG FLEXPEN-LOW RESISTANCE 2 UNITS SC (17:20)
[2024-08-11 21:22] VITALS: BP 119/73
[2024-08-11] MEDS: SEROQUEL 100 MG PO (21:29)
[2024-08-11] MEDS: SENOKOT 17.2 MG PO (21:30)
[2024-08-11 22:25] LABS: Glucose - Point of Care 110 mg/dl (70-99)
[2024-08-11] MEDS: ROBITUSSIN DM 10 ML PO (22:25)
[2024-08-11] MEDS: MORPHINE SULFATE 1 MG IV (23:26)
[2024-08-11 23:31] VITALS: BP 119/83
[2024-08-11] MEDS: ROBITUSSIN DM PO (23:35)
--- NOTE | 2024-08-11 23:38 | PTCARENOTE ---
Pt started having uncontrollable nonproductive harsh barking cough and verbalizing discomfort and looks in distress. Placed on 2L NC for comfort. pulse ox 95-96% on 2L. VSS. HOB raised and pt given PRN tessalon perles. Pt still coughing frequently.
Pt coarse throughout with expiratory wheezing. WARD Lizama notified and at bedside to evaluate pt. Orders in for scheduled Robitussin DM and one time dose of morphine. Pt states feeling like cough has improved after medications administered and able
to sleep.
[2024-08-12] VITALS (7 sets, daily range): BP systolic 98–139; BP diastolic 54–96
[2024-08-12] MEDS: ROBITUSSIN DM 10 ML PO ×6 (03:44→22:02)
--- NOTE | 2024-08-12 04:22 | W.PN.UPDATE ---
Update Note
Progress Note Update
Notified by RN patient experiencing worsening cough and SOB. Upon visit, patient sitting up in bed. Patient lungs course throughout. Patient reports he is not SOB, but experiencing worsening cough. Rx Dextromethorphan added to Guaifenesin. 1mg IV
morphine. Of note patient had coughing episode with taking oral medications on 08/08/24 possible aspiration, speech following. Rx CXR in AM.
[2024-08-12] MEDS: DUONEB 3 ML INH ×5 (04:53→19:36)
[2024-08-12 07:26] LABS: % Basophils 0.3 % (0-2); % Eosinophils 1.2 % (0-6); % Immature Granulocytes 1.1 % (0-0.5); % Lymphocytes 13.7 % (20.5-51.1); % Monocytes 10.8 % (1.7-9.3); % Neutrophils 72.9 % (42.2-75.2); Absolute Eosinophils 0.1 10^3/uL (0-0.7); Absolute Immature Granulocytes 0.1 10^3/uL (0-0.05); Absolute Lymphocytes 0.9 10^3/uL (1.2-3.4); Absolute Monocytes 0.7 10^3/uL (0.1-0.6); Absolute Neutrophils 4.9 10^3/uL (1.4-6.5); Hemoglobin 12.5 g/dL (13.0-18.0); Mean Corp Hgb Conc. 33.8 g/dL (33.0-37.0); Mean Corpuscular Hgb 28.6 pg (27.0-31.0); Mean Corpuscular Volume 84.7 fL (80.0-94.0); Mean Platelet Volume 10.2 fL (7.4-10.4); Nucleated Red Blood Cells % 0 % (-); Platelet Count 98 10^3/uL (130-400); Red Blood Cell Count 4.37 10^6/uL (4.70-6.10); Red Cell Dist. Width 14.9 % (11.5-14.5); White Blood Cell Count 6.7 10^3/uL (4.8-10.8)
[2024-08-12 07:45] LABS: Blood Urea Nitrogen 17 mg/dl (9-20); Carbon Dioxide 27 mmol/L (22-30); Chloride 103 mmol/L (98-107); Estimated Creatinine Clearance 67 ml/min; Glucose 78 mg/dl (70-99); Potassium 3.6 mmol/L (3.5-5.1); Sodium 142 mmol/L (135-145); eGFR > 60.00
[2024-08-12 08:27] LABS: Glucose - Point of Care 88 mg/dl (70-99)
[2024-08-12] MEDS: NOVOLOG FLEXPEN-LOW RESISTANCE SC ×2 (08:41→12:19)
[2024-08-12] MEDS: FLOMAX 0.8 MG PO (08:41)
[2024-08-12] MEDS: SINEMET 25-100 1 TABLET PO ×3 (08:42→21:33)
[2024-08-12] MEDS: SEROQUEL 25 MG PO ×2 (08:42→21:32)
[2024-08-12] MEDS: DELTASONE 20 MG PO (08:42)
[2024-08-12] MEDS: TOPROL XL 25 MG PO (08:42)
[2024-08-12] MEDS: KLONOPIN 0.5 MG PO ×2 (08:42→21:33)
[2024-08-12] MEDS: LEXAPRO 15 MG PO (08:42)
[2024-08-12] MEDS: PROSCAR 5 MG PO (08:42)
--- NOTE | 2024-08-12 09:20 | PTOTSP ---
Speech Language Pathology
Pt seen for dysphagia tx at request of RN given significant coughing. Per notes, pt with barking cough last evening. Repeat CXR from 08/11 showed coarsening of bronchovascular markings throughout both lungs with minimal reactive due to suboptimal
inspiration but interstitial bronchitis not excluded; no focal areas of consolidation. WBC 6.7. White patchy areas noted in posterior oral cavity, but pt denied sore throat. He complained of difficulty hearing (which is not typical) and feeling
like he has swimmer's ear. Question fluid in inner ear.
Frequent harsh dry cough at rest. P.O. trials of puree, regular solids, and thin liquids provided. Adequate mastication, bolus formation, and A-P transit noted with no oral residue. No overt signs of aspiration. Do not suspect coughing related
to aspiration given WBC WNL, findings on CXR, and presentation of cough.
Recommend:
(1) Upgrade to regular solids/thin liquids
(2) General aspiration precautions
(3) Meds as tolerated
(4) ICT SECURITY SPECIALIST to continue to follow
--- NOTE | 2024-08-12 12:07 | W.PN.HOSP.TC ---
Today's Communication/Plan
-
Monitor vital signs
see plan
follow x-ray
Continue with cough meds
Antibiotics
Assessment / Plan
Assessment / Plan
A/P: Patient is a 78y M with PMH significant for Parkinson's / dementia and BPH with chronic Brice who was sent to ED for evaluation after he was found to have pulled his Brice catheter.
Traumatic Catheter Removal
Hematuria / Likely traumatic secondary to the above
BPH with Chronic Urinary Retention
- Brice re-placed in the ED.
- Urine with >100RBC/>100 WBC/Many Bact
- Not on any anticoagulants.
- Maintain Brice.
- Follow urine output and monitor for any clots / obstruction / etc.
- Urology evaluation appreciated, discussed with Dr. Larson
Urine Cx Klebsiella multiple drug sensitivities
will dc Vanco/Cefepime and start Rocephin
- Continue usual BPH med regimen.
Elevated Lactic Acid
- ? etiology. Patient is afebrile and non-toxic appearing.
- No leukocytosis.
- ? related to metformin use and will hold this for now.
lactate resolved
Parkinson's Disease
Dementia with Behavioral Disturbance
- Somewhat anxious/ agitated in the ED due to discomfort / multiple attempts at Brice placement.
- Continue usual outpatient med regimen including quetiapine and clonazepam.
- Follow for mood stability.
Speech following, does not appear to be related to aspiration. Speech now recommended regular diet with liquid
overnight 08/10 with cough and wheezing; chest x-ray with coarsening of bronchial vascular markings throughout both lungs with minimal reactive due to suboptimal inspiration however interstitial bronchitis is not excluded. No focal areas of
consolidation. Pro-Ryan neg. mucinex. cw duoneb for now. tessalon pearls. denies sob
DM-II
- Hold metformin as noted above.
- Follow glucose and cover with SSI as needed.
a1c 5.5%
Benign Hypertension
- BP on the lower side in the ED. Currently in the 136/81 range
- Will hold BP medications for now and resume when necessary.
DVT Prophylaxis: SCDs
Code Status: DNR
General: Well Developed, Well Nourished, No Apparent Distress and Comfortable
HEENT: Normocephalic and Atraumatic
Respiratory: Clear to Auscultation; Negative Wheezes, Rales or Rhonchi
Cardiac: Regular Rhythm and S1/S2
GI: Nontender and Nondistended
Genito-urinary: Brice (draining clear urine)
Musculoskeletal: No Edema
Neuro: Awake, Alert and Other (cogwheel rigidity, with Parkinsonian tremor)
Anticipated Discharge: Within 24 hours
Subjective/Interval History
-
Date of Service: August 12, 2024
has cough
Objective Data
-
Labs:
Laboratory Results
08/12/24
06:22
WBC 6.7
Hgb 12.5 L
Hct 37.0 L
Plt Count 98 L
Sodium 142
Potassium 3.6
Chloride 103
Carbon Dioxide 27
BUN 17
Creatinine 1.0
Glucose 78
Calcium 9.0
Vital Signs:
Vital Signs
Temp Pulse Resp BP Pulse Ox
98.2 F 88 18 139/96 95
08/12/24 07:00 08/12/24 11:15 08/12/24 11:15 08/12/24 08:42 08/12/24 08:15
I&O
08/11/24 08/12/24 08/13/24
06:59 06:59 06:59
Intake Total 1270 / 1270 100 / 100
Output Total 2350 / 2350 850 / 850
Balance -1080 / -1080 -750 / -750
[2024-08-12 12:14] LABS: Glucose - Point of Care 116 mg/dl (70-99)
--- NOTE | 2024-08-12 13:53 | PN.CDI ---
CDI
- -
CDI:
Physician Documentation Request
Admit Date: 08/08/24 04:05
Dear Doctor Duran,
Please review the following and provide your response in the progress notes.
Clinical Indicators:
Urology, PN, 08/09
#Abx for possible UTI
#BPH
#cUTI
#UA >100 WBCs/RBCs, many bacteria
#Bacteriuria
PN, 08/12
#BPH with Chronic Urinary Retention
#...- Urine with >100RBC/>100 WBC/Many Bact
#...Urine Cx Klebsiella multiple drug sensitivities
#...will dc Vanco/Cefepime and start Rocephin
Documentation in the medical record includes administration of Rocephin.
Please provide in the Progress Notes the diagnosis(es) associated with the medication listed above.
UTI
Bacteruria
Other(please specify)
Use of terms such as suspected, likely, concern for, or probable (associated with a specific diagnosis that is being evaluated, monitored, or treated as if it exists) are acceptable and can be coded in the inpatient setting, when documented at the
time of discharge.
Thank you,
Oralia Robles RN BSN CCDS
CDI Specialist
please contact via tiger text
Please use your independent medical judgment in providing your response.
[2024-08-12] MEDS: STERILE WATER FOR INJECTION 10 ML IV (14:47)
[2024-08-12] MEDS: ROCEPHIN 1000 MG IV (14:47)
[2024-08-12] MEDS: TESSALON PERLES 200 MG PO ×2 (15:55→21:32)
[2024-08-12 16:57] LABS: Glucose - Point of Care 204 mg/dl (70-99)
[2024-08-12] MEDS: NOVOLOG FLEXPEN-LOW RESISTANCE 2 UNITS SC (18:23)
[2024-08-12] MEDS: SEROQUEL 100 MG PO (21:32)
[2024-08-12] MEDS: PEPCID 20 MG IV (21:33)
[2024-08-12] MEDS: NSS (PRESERVATIVE FREE) 8 ML IV (21:33)
[2024-08-12 21:44] LABS: Glucose - Point of Care 95 mg/dl (70-99)
[2024-08-12] MEDS: SENOKOT PO (21:47)
[2024-08-12] MEDS: OCEAN, SALINE MIST 2 SPRAYS NASAL (22:01)
[2024-08-12] MEDS: TYLENOL 650 MG PO (22:19)
[2024-08-13] VITALS (8 sets, daily range): BP systolic 103–153; BP diastolic 59–96; PULSE 75; O2SAT 94
[2024-08-13] MEDS: DUONEB 3 ML INH ×5 (00:02→19:28)
[2024-08-13] MEDS: ROBITUSSIN DM 10 ML PO ×6 (02:38→22:12)
[2024-08-13 06:19] LABS: % Basophils 0.7 % (0-2); % Eosinophils 0.7 % (0-6); % Immature Granulocytes 1.4 % (0-0.5); % Lymphocytes 11.2 % (20.5-51.1); % Monocytes 11.4 % (1.7-9.3); % Neutrophils 74.6 % (42.2-75.2); Absolute Immature Granulocytes 0.1 10^3/uL (0-0.05); Absolute Lymphocytes 0.6 10^3/uL (1.2-3.4); Absolute Monocytes 0.7 10^3/uL (0.1-0.6); Absolute Neutrophils 4.3 10^3/uL (1.4-6.5); Hematocrit 37.1 % (39.0-52.0); Hemoglobin 12.7 g/dL (13.0-18.0); Mean Corp Hgb Conc. 34.2 g/dL (33.0-37.0); Mean Corpuscular Volume 87.7 fL (80.0-94.0); Mean Platelet Volume 10.4 fL (7.4-10.4); Nucleated Red Blood Cells % 0 % (-); Platelet Count 91 10^3/uL (130-400); Red Blood Cell Count 4.23 10^6/uL (4.70-6.10); Red Cell Dist. Width 15.1 % (11.5-14.5); White Blood Cell Count 5.7 10^3/uL (4.8-10.8)
[2024-08-13 06:29] LABS: Blood Urea Nitrogen 18 mg/dl (9-20); Calcium 8.8 mg/dl (8.4-10.2); Carbon Dioxide 30 mmol/L (22-30); Chloride 104 mmol/L (98-107); Estimated Creatinine Clearance 67 ml/min; Glucose 78 mg/dl (70-99); Potassium 3.8 mmol/L (3.5-5.1); Sodium 144 mmol/L (135-145); eGFR > 60.00
[2024-08-13 07:23] LABS: Glucose - Point of Care 85 mg/dl (70-99)
[2024-08-13] MEDS: NOVOLOG FLEXPEN-LOW RESISTANCE SC (08:07)
[2024-08-13] MEDS: FLOMAX 0.8 MG PO (08:34)
[2024-08-13] MEDS: SINEMET 25-100 1 TABLET PO ×3 (08:34→21:32)
[2024-08-13] MEDS: TOPROL XL 25 MG PO (08:35)
[2024-08-13] MEDS: DELTASONE 20 MG PO (08:35)
[2024-08-13] MEDS: TESSALON PERLES 200 MG PO ×3 (08:35→21:32)
[2024-08-13] MEDS: SEROQUEL 25 MG PO ×2 (08:35→20:11)
[2024-08-13] MEDS: PROSCAR 5 MG PO (08:35)
[2024-08-13] MEDS: KLONOPIN 0.5 MG PO ×2 (08:35→20:11)
[2024-08-13] MEDS: LEXAPRO 15 MG PO (08:35)
[2024-08-13 09:09] LABS: COVID-19 Antigen Negative (Negative)
--- NOTE | 2024-08-13 12:07 | W.PN.HOSP.TC ---
Today's Communication/Plan
-
Monitor vital signs see plan
Added azithromycin; cw ceftriaxone
Follow fever curve
If continues to have another fever then will need blood culture
Qtc acceptable
covid and flu neg
Assessment / Plan
Assessment / Plan
A/P: Patient is a 78y M with PMH significant for Parkinson's / dementia and BPH with chronic Brice who was sent to ED for evaluation after he was found to have pulled his Brice catheter.
Traumatic Catheter Removal
Hematuria / Likely traumatic secondary to the above
Catheter associated urinary tract infection
BPH with Chronic Urinary Retention
- Brice re-placed in the ED.
- Urine with >100RBC/>100 WBC/Many Bact
- Not on any anticoagulants.
- Maintain Brice.
- Follow urine output and monitor for any clots / obstruction / etc.
- Urology evaluation appreciated, discussed with Dr. Larson
Urine Cx Klebsiella multiple drug sensitivities
cw rocephin
- Continue usual BPH med regimen.
fever 08/12; given fever will treat for pneumonitis. COVID and flu negative. Added azithromycin to ceftriaxone. check bcx if febrile again
Elevated Lactic Acid
- ? etiology. Patient is afebrile and non-toxic appearing.
- No leukocytosis.
- ? related to metformin use and will hold this for now.
lactate resolved
Parkinson's Disease
Dementia with Behavioral Disturbance
- Somewhat anxious/ agitated in the ED due to discomfort / multiple attempts at Brice placement.
- Continue usual outpatient med regimen including quetiapine and clonazepam.
- Follow for mood stability.
Speech following, does not appear to be related to aspiration. Speech now recommended regular diet with liquid
overnight 08/10 with cough and wheezing; chest x-ray with coarsening of bronchial vascular markings throughout both lungs with minimal reactive due to suboptimal inspiration however interstitial bronchitis is not excluded. No focal areas of
consolidation. Pro-Ryan neg. mucinex. cw duoneb for now. lashanda vidal. denies sob
DM-II
- Hold metformin as noted above.
- Follow glucose and cover with SSI as needed.
a1c 5.5%
Benign Hypertension
- Will hold BP medications for now and resume when necessary.
DVT Prophylaxis: SCDs
Code Status: DNR
General: Well Developed, Well Nourished, No Apparent Distress and Comfortable
HEENT: Normocephalic and Atraumatic
Respiratory: Clear to Auscultation; Negative Wheezes, Rales or Rhonchi
Cardiac: Regular Rhythm and S1/S2
GI: Nontender and Nondistended
Genito-urinary: Brice (draining clear urine)
Musculoskeletal: No Edema
Neuro: Awake, Alert and Other (cogwheel rigidity, with Parkinsonian tremor)
I spent a total of 52 minutes with the patient or on the floor. More than 50% of this time involved counseling and coordination of care.
Anticipated Discharge: 24 - 48 hours
Subjective/Interval History
-
Date of Service: August 13, 2024
denies pain
Objective Data
-
Labs:
Laboratory Results
08/13/24
05:38
WBC 5.7
Hgb 12.7 L
Hct 37.1 L
Plt Count 91 L
Sodium 144
Potassium 3.8
Chloride 104
Carbon Dioxide 30
BUN 18
Creatinine 1.0
Glucose 78
Calcium 8.8
Vital Signs:
Vital Signs
Temp Pulse Resp BP Pulse Ox
98.7 F 69 20 147/88 96
08/13/24 11:07 08/13/24 11:36 08/13/24 11:36 08/13/24 11:07 08/13/24 11:36
I&O
08/12/24 08/13/24 08/14/24
06:59 06:59 06:59
Intake Total 100 / 100 2397 / 2397
Output Total 850 / 850 975 / 975
Balance -750 / -750 1422 / 1422
[2024-08-13 12:16] LABS: Glucose - Point of Care 155 mg/dl (70-99)
[2024-08-13] MEDS: ZITHROMAX 500 MG PO (12:43)
[2024-08-13] MEDS: NOVOLOG FLEXPEN-LOW RESISTANCE 1 UNITS SC (12:43)
[2024-08-13] MEDS: ROCEPHIN 1000 MG IV (14:18)
[2024-08-13] MEDS: STERILE WATER FOR INJECTION 10 ML IV (14:19)
[2024-08-13 16:24] LABS: Glucose - Point of Care 252 mg/dl (70-99)
[2024-08-13] MEDS: NOVOLOG FLEXPEN-LOW RESISTANCE 3 UNITS SC (16:27)
[2024-08-13 21:24] LABS: Glucose - Point of Care 158 mg/dl (70-99)
[2024-08-13] MEDS: SEROQUEL 100 MG PO (21:32)
[2024-08-13] MEDS: SENOKOT 17.2 MG PO (21:32)
[2024-08-14] MEDS: ROBITUSSIN DM 10 ML PO ×6 (03:10→23:00)
[2024-08-14 03:51] VITALS: BP 152/91
[2024-08-14 05:56] VITALS: BMI 28.4
[2024-08-14 06:25] LABS: % Basophils 0.5 % (0-2); % Eosinophils 0.5 % (0-6); % Immature Granulocytes 1.2 % (0-0.5); % Lymphocytes 14.4 % (20.5-51.1); % Monocytes 11.2 % (1.7-9.3); % Neutrophils 72.2 % (42.2-75.2); Absolute Immature Granulocytes 0.1 10^3/uL (0-0.05); Absolute Lymphocytes 0.9 10^3/uL (1.2-3.4); Absolute Monocytes 0.7 10^3/uL (0.1-0.6); Absolute Neutrophils 4.3 10^3/uL (1.4-6.5); Hematocrit 36.6 % (39.0-52.0); Hemoglobin 12.4 g/dL (13.0-18.0); Mean Corp Hgb Conc. 33.9 g/dL (33.0-37.0); Mean Corpuscular Hgb 29.3 pg (27.0-31.0); Mean Corpuscular Volume 86.5 fL (80.0-94.0); Nucleated Red Blood Cells % 0 % (-); Red Blood Cell Count 4.23 10^6/uL (4.70-6.10)
[2024-08-14 06:39] LABS: Platelet Count 56 10^3/uL (130-400)
[2024-08-14 06:43] LABS: Blood Urea Nitrogen 17 mg/dl (9-20); Calcium 8.6 mg/dl (8.4-10.2); Carbon Dioxide 30 mmol/L (22-30); Chloride 102 mmol/L (98-107); Estimated Creatinine Clearance 67 ml/min; Glucose 80 mg/dl (70-99); Potassium 3.5 mmol/L (3.5-5.1); Sodium 138 mmol/L (135-145); eGFR > 60.00
[2024-08-14 07:28] LABS: Glucose - Point of Care 95 mg/dl (70-99)
[2024-08-14] MEDS: DUONEB 3 ML INH ×4 (07:53→19:24)
[2024-08-14 08:00] VITALS: BP 152/90
[2024-08-14] MEDS: NOVOLOG FLEXPEN-LOW RESISTANCE SC (08:12)
[2024-08-14] MEDS: SINEMET 25-100 1 TABLET PO ×3 (08:18→22:59)
[2024-08-14] MEDS: ZITHROMAX 500 MG PO (08:18)
[2024-08-14] MEDS: DELTASONE 20 MG PO (08:18)
[2024-08-14] MEDS: LEXAPRO 15 MG PO (08:18)
[2024-08-14] MEDS: SEROQUEL 25 MG PO ×2 (08:18→20:29)
[2024-08-14] MEDS: TESSALON PERLES 200 MG PO ×3 (08:21→22:59)
[2024-08-14] MEDS: FLOMAX 0.8 MG PO (08:21)
[2024-08-14] MEDS: PROSCAR 5 MG PO (08:21)
[2024-08-14] MEDS: KLONOPIN 0.5 MG PO ×2 (08:23→20:29)
[2024-08-14] MEDS: TOPROL XL 25 MG PO (08:24)
[2024-08-14 11:42] VITALS: BP 125/85
--- NOTE | 2024-08-14 11:45 | W.PN.HOSP.TC ---
Today's Communication/Plan
-
Monitor vital signs see plan
Follow fever curve, would need blood culture if febrile again
Continue with antibiotics
Monitor cough
Daughter updated over the phone
Assessment / Plan
Assessment / Plan
A/P: Patient is a 78y M with PMH significant for Parkinson's / dementia and BPH with chronic Brice who was sent to ED for evaluation after he was found to have pulled his Brice catheter.
Traumatic Catheter Removal
Hematuria / Likely traumatic secondary to the above
Catheter associated urinary tract infection
BPH with Chronic Urinary Retention
- Brice re-placed in the ED.
- Urine with >100RBC/>100 WBC/Many Bact
- Not on any anticoagulants.
- Maintain Brice.
- Follow urine output and monitor for any clots / obstruction / etc.
- Urology evaluation appreciated, discussed with Dr. Larson
Urine Cx Klebsiella multiple drug sensitivities
cw rocephin
- Continue usual BPH med regimen.
fever 08/12; given fever will treat for pneumonitis. COVID and flu negative. Added azithromycin to ceftriaxone. check bcx if febrile again
Elevated Lactic Acid
- ? etiology. Patient is afebrile and non-toxic appearing.
- No leukocytosis.
- ? related to metformin use and will hold this for now.
lactate resolved
Parkinson's Disease
Dementia with Behavioral Disturbance
- Somewhat anxious/ agitated in the ED due to discomfort / multiple attempts at Brice placement.
- Continue usual outpatient med regimen including quetiapine and clonazepam.
- Follow for mood stability.
Speech following, does not appear to be related to aspiration. Speech now recommended regular diet with liquid
overnight 08/10 with cough and wheezing; chest x-ray with coarsening of bronchial vascular markings throughout both lungs with minimal reactive due to suboptimal inspiration however interstitial bronchitis is not excluded. No focal areas of
consolidation. Pro-Ryan neg. mucinex. cw duoneb for now. tessalon pearls. denies sob
likely does have bronchitis/pneumonitis; cw abx
Thrombocytopenia
Continue to monitor
Is on medications that could cause it; also does have infection
DM-II
- Hold metformin as noted above.
- Follow glucose and cover with SSI as needed.
a1c 5.5%
Benign Hypertension
- Will hold BP medications for now and resume when necessary.
DVT Prophylaxis: SCDs
Code Status: DNR
General: Well Developed, Well Nourished, No Apparent Distress and Comfortable
HEENT: Normocephalic and Atraumatic
Respiratory: Clear to Auscultation; Negative Wheezes, Rales or Rhonchi
Cardiac: Regular Rhythm and S1/S2
GI: Nontender and Nondistended
Genito-urinary: Brice (draining clear urine)
Musculoskeletal: No Edema
Neuro: Awake, Alert and Other (cogwheel rigidity, with Parkinsonian tremor)
I spent a total of 52 minutes with the patient or on the floor. More than 50% of this time involved counseling and coordination of care.
Anticipated Discharge: 24 - 48 hours
Subjective/Interval History
-
Date of Service: August 14, 2024
denies pain
Objective Data
-
Labs:
Laboratory Results
08/14/24
05:55
WBC 6.0
Hgb 12.4 L
Hct 36.6 L
Plt Count 56 L D
Sodium 138
Potassium 3.5
Chloride 102
Carbon Dioxide 30
BUN 17
Creatinine 1.0
Glucose 80
Calcium 8.6
Vital Signs:
Vital Signs
Temp Pulse Resp BP Pulse Ox
99.3 F 65 20 125/85 98
08/14/24 11:42 08/14/24 11:42 08/14/24 11:42 08/14/24 11:42 08/14/24 11:42
I&O
08/13/24 08/14/24 08/15/24
06:59 06:59 06:59
Intake Total 2397 / 2397 420 / 420
Output Total 975 / 975 825 / 825
Balance 1422 / 1422 -405 / -405
[2024-08-14 12:15] LABS: Glucose - Point of Care 189 mg/dl (70-99)
[2024-08-14] MEDS: PROTONIX 40 MG PO (12:38)
[2024-08-14] MEDS: NOVOLOG FLEXPEN-LOW RESISTANCE 1 UNITS SC ×2 (12:43→18:15)
[2024-08-14] MEDS: STERILE WATER FOR INJECTION 10 ML IV (15:22)
[2024-08-14] MEDS: ROCEPHIN 1000 MG IV (15:22)
[2024-08-14 16:00] VITALS: BP 127/81
[2024-08-14 18:05] LABS: Glucose - Point of Care 177 mg/dl (70-99)
[2024-08-14 19:00] VITALS: BP 133/68
[2024-08-14 21:15] LABS: Glucose - Point of Care 158 mg/dl (70-99)
[2024-08-14] MEDS: SEROQUEL 100 MG PO (22:59)
[2024-08-14] MEDS: SENOKOT 17.2 MG PO (22:59)
[2024-08-14 23:00] VITALS: BP 122/72
[2024-08-15 03:00] VITALS: BP 136/84
[2024-08-15] MEDS: ROBITUSSIN DM PO ×2 (04:07→22:17)
[2024-08-15 07:07] LABS: Blood Urea Nitrogen 14 mg/dl (9-20); Calcium 8.6 mg/dl (8.4-10.2); Carbon Dioxide 30 mmol/L (22-30); Chloride 104 mmol/L (98-107); Estimated Creatinine Clearance 74 ml/min; Glucose 78 mg/dl (70-99); Potassium 3.6 mmol/L (3.5-5.1); Sodium 142 mmol/L (135-145); eGFR > 60.00
[2024-08-15 07:16] LABS: % Basophils 0.2 % (0-2); % Eosinophils 0.9 % (0-6); % Immature Granulocytes 0.9 % (0-0.5); % Lymphocytes 18.7 % (20.5-51.1); % Monocytes 11.9 % (1.7-9.3); % Neutrophils 67.4 % (42.2-75.2); Absolute Eosinophils 0.1 10^3/uL (0-0.7); Absolute Immature Granulocytes 0.1 10^3/uL (0-0.05); Absolute Lymphocytes 1.1 10^3/uL (1.2-3.4); Absolute Monocytes 0.7 10^3/uL (0.1-0.6); Hematocrit 35.7 % (39.0-52.0); Hemoglobin 12.2 g/dL (13.0-18.0); Mean Corp Hgb Conc. 34.2 g/dL (33.0-37.0); Mean Corpuscular Hgb 28.6 pg (27.0-31.0); Mean Corpuscular Volume 83.6 fL (80.0-94.0); Nucleated Red Blood Cells % 0 % (-); Red Blood Cell Count 4.27 10^6/uL (4.70-6.10); Red Cell Dist. Width 14.9 % (11.5-14.5); White Blood Cell Count 5.9 10^3/uL (4.8-10.8)
[2024-08-15 07:19] LABS: Mean Platelet Volume 10.6 fL (7.4-10.4); Platelet Count 32 10^3/uL (130-400)
[2024-08-15 07:24] LABS: Glucose - Point of Care 81 mg/dl (70-99)
[2024-08-15 07:36] VITALS: BP 157/90
[2024-08-15] MEDS: DUONEB 3 ML INH ×2 (07:37→11:18)
[2024-08-15] MEDS: NOVOLOG FLEXPEN-LOW RESISTANCE SC (07:52)
[2024-08-15] MEDS: ZITHROMAX 500 MG PO (08:28)
[2024-08-15] MEDS: ROBITUSSIN DM 10 ML PO ×4 (08:28→21:11)
[2024-08-15] MEDS: LEXAPRO 15 MG PO (08:28)
[2024-08-15] MEDS: FLOMAX 0.8 MG PO (08:28)
[2024-08-15] MEDS: SEROQUEL 25 MG PO ×2 (08:29→21:11)
[2024-08-15] MEDS: PROTONIX 40 MG PO (08:29)
[2024-08-15] MEDS: SINEMET 25-100 1 TABLET PO ×3 (08:29→21:15)
[2024-08-15] MEDS: PROSCAR 5 MG PO (08:29)
[2024-08-15] MEDS: TESSALON PERLES 200 MG PO ×3 (08:29→21:16)
[2024-08-15] MEDS: DELTASONE 20 MG PO (08:29)
[2024-08-15] MEDS: TOPROL XL 25 MG PO (08:29)
[2024-08-15] MEDS: KLONOPIN 0.5 MG PO ×2 (08:32→21:11)
[2024-08-15 09:16] LABS: APTT 27.5 Sec (23.4-35.0); Fibrinogen 292 MG/DL (199-459); INR 1.15; PT 14.5 Sec (11.4-14.6)
[2024-08-15] MEDS: LEVAQUIN 100 IV (10:51)
[2024-08-15 11:17] VITALS: BP 125/80
--- NOTE | 2024-08-15 12:01 | W.PN.HOSP.TC ---
Today's Communication/Plan
-
monitor vitals
see plan
change abx to levaquin
monitor plts closely; no signs of bleeding
Assessment / Plan
Assessment / Plan
A/P: Patient is a 78y M with PMH significant for Parkinson's / dementia and BPH with chronic Brice who was sent to ED for evaluation after he was found to have pulled his Brice catheter.
Traumatic Catheter Removal
Hematuria / Likely traumatic secondary to the above
Catheter associated urinary tract infection
BPH with Chronic Urinary Retention
- Brice re-placed in the ED.
- Urine with >100RBC/>100 WBC/Many Bact
- Not on any anticoagulants.
- Maintain Brice.
- Follow urine output and monitor for any clots / obstruction / etc.
- Urology evaluation appreciated, discussed with Dr. Larson
Urine Cx Klebsiella multiple drug sensitivities
rocephin stopped 2/2 thrombocytopenia. Switched to Levaquin which will also cover for pneumonia
- Continue usual BPH med regimen.
fever 08/12; given fever will treat for pneumonitis. COVID and flu negative. Ceftriaxone stopped secondary to thrombocytopenia. Switch to Levaquin. DC azithromycin. check bcx if febrile again
Elevated Lactic Acid
- ? etiology. Patient is afebrile and non-toxic appearing.
- No leukocytosis.
- ? related to metformin use and will hold this for now.
lactate resolved
Parkinson's Disease
Dementia with Behavioral Disturbance
- Somewhat anxious/ agitated in the ED due to discomfort / multiple attempts at Brice placement.
- Continue usual outpatient med regimen including quetiapine and clonazepam.
- Follow for mood stability.
Speech following, does not appear to be related to aspiration. Speech now recommended regular diet with liquid
overnight 08/10 with cough and wheezing; chest x-ray with coarsening of bronchial vascular markings throughout both lungs with minimal reactive due to suboptimal inspiration however interstitial bronchitis is not excluded. No focal areas of
consolidation. Pro-Ryan neg. mucinex. cw duoneb for now. lashanda young. denies sob
likely does have bronchitis/pneumonitis; cw abx
Thrombocytopenia
Continue to monitor
Is on medications that could cause it; also does have infection
Antibiotics switched to Levaquin
hematology
DM-II
- Hold metformin as noted above.
- Follow glucose and cover with SSI as needed.
a1c 5.5%
Benign Hypertension
- Will hold BP medications for now and resume when necessary.
DVT Prophylaxis: SCDs
Code Status: DNR
General: Well Developed, Well Nourished, No Apparent Distress and Comfortable
HEENT: Normocephalic and Atraumatic
Respiratory: Clear to Auscultation; Negative Wheezes, Rales or Rhonchi
Cardiac: Regular Rhythm and S1/S2
GI: Nontender and Nondistended
Genito-urinary: Brice (draining clear urine)
Musculoskeletal: No Edema
Neuro: Awake, Alert and Other (cogwheel rigidity, with Parkinsonian tremor)
I spent a total of 51 minutes with the patient or on the floor. More than 50% of this time involved counseling and coordination of care.
Anticipated Discharge: 24 - 48 hours
Subjective/Interval History
-
Date of Service: August 15, 2024
denies pain
Objective Data
-
Labs:
Laboratory Results
08/15/24 08/15/24
06:21 08:56
WBC 5.9
Hgb 12.2 L
Hct 35.7 L
Plt Count 32 L D
PT 14.5
INR 1.15
APTT 27.5
Sodium 142
Potassium 3.6
Chloride 104
Carbon Dioxide 30
BUN 14
Creatinine 0.9
Glucose 78
Calcium 8.6
Vital Signs:
Vital Signs
Temp Pulse Resp BP Pulse Ox
97.8 F 57 18 125/80 92
08/15/24 11:17 08/15/24 11:20 08/15/24 11:20 08/15/24 11:17 08/15/24 11:20
I&O
08/14/24 08/15/24 08/16/24
06:59 06:59 06:59
Intake Total 420 / 420 120 / 120
Output Total 825 / 825 1375 / 1375
Balance -405 / -405 -1255 / -1255
[2024-08-15 12:15] LABS: Glucose - Point of Care 182 mg/dl (70-99)
[2024-08-15] MEDS: MIRALAX 17 GRAMS PO (13:36)
[2024-08-15] MEDS: NOVOLOG FLEXPEN-LOW RESISTANCE 1 UNITS SC (13:36)
[2024-08-15] MEDS: DULCOLAX 10 MG RECTAL (13:36)
--- NOTE | 2024-08-15 14:16 | CON.ONC ---
Impression
Impression
klebsiella UTI
dementia
thrombocytopenia
Plan
Plan
1. Thrombocytopenia - the etiology of this patient's thrombocytopenia is unclear. It has occurred acutely during hospitalization and could be related to ongoing infection/ inflammation as well as antibiotic therapy. During recent hospitalization in
May, he also developed a similar drop in platelet count in the context of urinary infection on antibiotics. He was on a cephalosporin in May and again during this hospitalization, raising suspicion that this could be a contributing cause. He has
not been on heparin. PT/ INR and aPTT are normal. Fibrinogen is normal. Will check B12/ folic acid level. Follow CBC.
Will continue to follow with you.
Patient History
History of Present Illness
78y/o male seen in consultation today regarding thrombocytopenia.
The patient has a h/o dementia, BPH w/ chronic indwelling bernardo, presented to the [facility] on 08/08/24, from local [facility] after patient was found in bed with his Bernardo removed, bloody urethra and complaints of penile pain. He has now been
admitted for treatment and management of multiple issues including klebsiella UTI.
CBC on presentation revealed hemoglobin 13.8g/dl and platelet count 169,000. His platelet count has slowly drifted down to 32,000 today. On presentation he was started on antibiotics - vancomycin and cefepime, with eventual transition to ceftriaxone
and now levaquin.
On review of prior records, when he was admitted to [facility] in May, his platelets also dropped during hospitalization for treatment of urinary infection w/ cephalosporin antibiotics.
Clinically, he is lethargic today. He is confused and unable to provide significant history.
Past-Medical/Surgical History
PMH:
dementia
Parkinsons
Essential Hypertension
Hyperlipidemia
Diabetes Mellitus
CKD Stage III
ITP
BPH - indwelling bernardo
Anxiety/Depression
recurrent UTI
SH: resides at [facility] - no tobacco, no ETOH
FH: non-contributory
Allergies: PCN
Patient Medication
�Medication �Instructions �Recorded �Confirmed �Last Taken �Type
acetaminophen 325 mg tablet 650 mg PO Q4HPRN PRN mild 05/26/24 08/08/24 Unknown History
(Tylenol) pain/fever>100
albuterol sulfate 2.5 mg/3 mL 2.5 mg inhalation R Q6HPRN PRN sob 05/26/24 08/08/24 Unknown History
(0.083 %) solution for nebulization
atorvastatin 20 mg tablet 20 mg PO HS High Cholesterol 05/26/24 08/08/24 Unknown History
bisacodyl 10 mg rectal suppository 10 mg FL DAILYPRN PRN if mom 05/26/24 08/08/24 Unknown History
(Dulcolax (bisacodyl)) ineffective after 24 hrs
bupropion HCl 150 mg 24 hr tablet, 150 mg PO Q48H depression 05/26/24 08/08/24 Unknown History
extended release (Wellbutrin XL)
carbidopa 25 mg-levodopa 100 mg 1 tab PO TID parkinson's disease 05/26/24 08/08/24 Unknown History
tablet
clonazepam 0.5 mg tablet 0.5 mg PO BID anxiety 05/26/24 08/08/24 Unknown History
dextran 70-hypromellose eye drops 1 drp BOTH EYES BID dry eyes 05/26/24 08/08/24 Unknown History
in a dropperette (Artificial Tears
(PF) drops in a dropperette)
dextran 70-hypromellose eye drops 1 drp BOTH EYES [id number] PRN dry 05/26/24 08/08/24 Unknown History
in a dropperette (Artificial Tears eyes
(PF) drops in a dropperette)
escitalopram oxalate 5 mg tablet 15 mg PO DAILY depression/anxiety 05/26/24 08/08/24 Unknown History
(Lexapro)
famotidine 20 mg tablet 20 mg PO DAILY Gastrointestinal 05/26/24 08/08/24 Unknown History
Issue
finasteride 5 mg tablet 5 mg PO DAILY Urinary Issue 05/26/24 08/08/24 Unknown History
magnesium hydroxide 400 mg/5 mL 30 ml PO [id number] PRN if no bm 3 05/26/24 08/08/24 Unknown History
oral suspension (Milk of Magnesia) days
metformin 500 mg tablet 500 mg PO BID diabetes 05/26/24 08/08/24 Unknown History
prednisone 20 mg tablet 20 mg PO DAILY Anti-Inflammatory 05/26/24 08/08/24 Unknown History
sodium phosphates 19 gram-7 118 ml FL DAILYPRN PRN if dulcolax 05/26/24 08/08/24 Unknown History
gram/118 mL enema (Fleet Enema) ineffective after 24 hrs
tamsulosin 0.4 mg capsule 0.8 mg PO DAILY Urinary Issue 05/26/24 08/08/24 Unknown History
therapeutic multivitamin 1 tab PO DAILY Supplement 05/26/24 08/08/24 Unknown History
ibuprofen 200 mg tablet 400 mg (2 x 200 mg) PO Q6HPRN PRN 06/01/24 08/08/24 Unknown Rx
mod to severe pain #0 tabs
metoprolol succinate 25 mg 25 mg PO DAILY #30 tabs 06/01/24 08/08/24 Unknown Rx
tablet,extended release 24 hr
phenazopyridine 100 mg tablet 100 mg PO TID PRN dysuria #10 tabs 06/01/24 08/08/24 Unknown Rx
(Pyridium)
polyethylene glycol 3350 17 gram 17 g PO DAILY #30 ea 06/01/24 08/08/24 Unknown Rx
oral powder packet (Miralax)
sennosides 8.6 mg capsule (senna) 17.2 mg (2 x 8.6 mg) PO HS #60 caps 06/01/24 08/08/24 Unknown Rx
amlodipine 5 mg tablet (Norvasc) 5 mg PO DAILY Blood Pressure 08/08/24 08/08/24 Unknown History
quetiapine 100 mg tablet (Seroquel) 100 mg PO HS Sleep 08/08/24 08/08/24 Unknown History
quetiapine 25 mg tablet (Seroquel) 25 mg PO BID Mental Health/Anxiety 08/08/24 08/08/24 Unknown History
Active Medications
Generic Name Dose Route Start Last Admin
Trade Name Freq PRN Reason Stop Dose Admin
Acetaminophen 650 mg 08/08/24 04:29 08/12/24 22:19
Acetaminophen 325 Mg Tablet PO 09/05/24 04:28 650 mg
Q4HPRN PRN Administration
Mild Pain / Temp > 101
Albuterol/Ipratropium 3 ml 08/10/24 22:20 08/13/24 00:02
Ipratropium 0.5/Albuterol 3 Mg (3 Ml Ampul) INH 3 ml
R Q4HPRN PRN Administration
sob/wheeze
Protocol
Albuterol/Ipratropium 3 ml 08/11/24 08:00 08/15/24 11:18
Ipratropium 0.5/Albuterol 3 Mg (3 Ml Ampul) INH 3 ml
R QID ABILIO Administration
Protocol
Benzonatate 200 mg 08/12/24 16:00 08/15/24 08:29
Benzonatate 100 Mg Capsule PO 09/09/24 15:59 200 mg
TID ABILIO Administration
Bisacodyl 10 mg 08/16/24 08:00
Bisacodyl 10 Mg Rectal Suppository RECTAL 09/13/24 07:59
DAILYPRN PRN
constipation
Carbidopa/Levodopa 1 tablet 08/08/24 08:00 08/15/24 08:29
Carbidopa (25 Mg)/Levodopa (100 Mg) Regular Release Tablet PO 09/05/24 07:59 1 tablet
TID ABILIO Administration
Clonazepam 0.5 mg 08/08/24 08:00 08/15/24 08:32
Clonazepam 0.5 Mg Tablet PO 09/05/24 07:59 0.5 mg
BID BAILIO Administration
Dextrose 12.5 grams 08/08/24 04:29
Dextrose 50% (0.5 Grams/Ml) 50 Ml Syringe IV 09/05/24 04:28
[id number] PRN
hypoglycemia
Protocol
Escitalopram Oxalate 15 mg 08/08/24 08:00 08/15/24 08:28
Escitalopram 5 Mg Tablet PO 09/05/24 07:59 15 mg
DAILY ABILIO Administration
Finasteride 5 mg 08/08/24 08:00 08/15/24 08:29
Finasteride 5 Mg Tablet PO 09/05/24 07:59 5 mg
DAILY ABILIO Administration
Glucagon 1 mg 08/08/24 04:29
Glucagon 1 Mg Vial IM 09/05/24 04:28
PRN PRN
hypoglycemia
Protocol
Guaifenesin/Dextromethorphan 10 ml 08/11/24 23:00 08/15/24 10:51
Guaifenesin/Dextromethorphan 200 Mg/10 Ml Cup PO 09/08/24 22:59 10 ml
Q4H ABILIO Administration
Levofloxacin/Dextrose 500 mg in 100 mls @ 100 mls/hr 08/15/24 10:00 08/15/24 10:51
Levaquin IV 100 mls
Q24H ABILIO Administration
Insulin Aspart 0 units 08/11/24 07:30 08/15/24 13:36
Insulin Aspart Low Resistance 300 Units/3 Ml Pen.Injctr SC 09/08/24 07:29 1 units
AC ABILIO Administration
Protocol
Metoprolol Succinate 25 mg 08/08/24 08:00 08/15/24 08:29
Metoprolol 25 Mg Extended Release Tablet PO 09/05/24 07:59 25 mg
DAILY ABILIO Administration
Pantoprazole Sodium 40 mg 08/14/24 12:00 08/15/24 08:29
Pantoprazole 40 Mg Delayed Release Tablet PO 09/11/24 11:59 40 mg
DAILY ABILIO Administration
Polyethylene Glycol 17 grams 08/15/24 13:00 08/15/24 13:36
Polyethylene Glycol Powder 17 Grams Packet PO 09/12/24 12:59 17 grams
DAILY ABILIO Administration
Prednisone 20 mg 08/08/24 08:00 08/15/24 08:29
Prednisone 20 Mg Tablet PO 09/05/24 07:59 20 mg
DAILY ABILIO Administration
Quetiapine Fumarate 25 mg 08/08/24 08:00 08/15/24 08:29
Quetiapine 25 Mg Tablet PO 09/05/24 07:59 25 mg
BID ABILIO Administration
Quetiapine Fumarate 100 mg 08/08/24 22:00 08/14/24 22:59
Quetiapine 100 Mg Tablet PO 09/05/24 21:59 100 mg
HS ABILIO Administration
Sennosides 17.2 mg 08/08/24 22:00 08/14/24 22:59
Sennosides (Senokot) 8.6 Mg Tablet PO 09/05/24 21:59 17.2 mg
HS ABILIO Administration
Sodium Chloride 0 flush 08/08/24 06:00
Sodium Chloride 0.9% (Flush) Syringe IV 09/05/24 05:59
PER PROTOCOL ABILIO
Sodium Chloride 0 sprays 08/12/24 21:15 08/12/24 22:01
Sodium Chloride 0.65% Nasal Lutz 45 Ml Bottle NASAL 09/09/24 21:14 2 sprays
QIDPRN PRN Administration
dry nose/congestion
Tamsulosin HCl 0.8 mg 08/08/24 08:00 08/15/24 08:28
Tamsulosin 0.4 Mg Capsule PO 09/05/24 07:59 0.8 mg
DAILY ABILIO Administration
Review of Systems
-
ROS was unable to be performed due to patient's mental status.
Physical Exam
-
General: Well Developed
HEENT: Negative Jaundice
Cardiology: Normal Sinus Rhythm
GI: Soft
Labs
Lab Results
WBC 5.9 10^3/uL (4.8-10.8) 08/15/24 06:21
RBC 4.27 10^6/uL (4.70-6.10) L 08/15/24 06:21
Hgb 12.2 g/dL (13.0-18.0) L 08/15/24 06:21
Hct 35.7 % (39.0-52.0) L 08/15/24 06:21
MCV 83.6 fL (80.0-94.0) 08/15/24 06:21
MCH 28.6 pg (27.0-31.0) 08/15/24 06:21
MCHC 34.2 g/dL (33.0-37.0) 08/15/24 06:21
RDW 14.9 % (11.5-14.5) H 08/15/24 06:21
Plt Count 32 10^3/uL (130-400) L D 08/15/24 06:21
MPV 10.6 fL (7.4-10.4) H 08/15/24 06:21
Abs Immat Gran (auto) 0.1 10^3/uL (0-0.05) H 08/15/24 06:21
Absolute Neuts (auto) 4.0 10^3/uL (1.4-6.5) 08/15/24 06:21
Absolute Lymphs (auto) 1.1 10^3/uL (1.2-3.4) L 08/15/24 06:21
Absolute Monos (auto) 0.7 10^3/uL (0.1-0.6) H 08/15/24 06:21
Absolute Eos (auto) 0.1 10^3/uL (0-0.7) 08/15/24 06:21
Absolute Basos (auto) 0.0 10^3/uL (0-0.2) 08/15/24 06:21
Immature Gran % 0.9 % (0-0.5) H 08/15/24 06:21
Neutrophils % 67.4 % (42.2-75.2) 08/15/24 06:21
Lymphocytes % 18.7 % (20.5-51.1) L 08/15/24 06:21
Monocytes % 11.9 % (1.7-9.3) H 08/15/24 06:21
Eosinophils % 0.9 % (0-6) 08/15/24 06:21
Basophils % 0.2 % (0-2) 08/15/24 06:21
Creatinine 0.9 mg/dL (0.7-1.3) 08/15/24 06:21
Vital Signs
Vital Signs
Temp Pulse Resp BP Pulse Ox
97.8 F 57 18 125/80 92
08/15/24 11:17 08/15/24 11:20 08/15/24 11:20 08/15/24 11:17 08/15/24 11:20
[2024-08-15 14:48] VITALS: BP 130/75
[2024-08-15] MEDS: DUONEB INH (15:27)
[2024-08-15 16:41] LABS: Glucose - Point of Care 282 mg/dl (70-99)
[2024-08-15] MEDS: NOVOLOG FLEXPEN-LOW RESISTANCE 3 UNITS SC (17:23)
[2024-08-15 18:06] LABS: Folate > 20.0 ng/ml (2.76-20)
[2024-08-15 19:18] LABS: Vitamin B12 559 pg/ml (239-931)
[2024-08-15] MEDS: SEROQUEL 100 MG PO (21:15)
[2024-08-15] MEDS: SENOKOT 17.2 MG PO (21:16)
[2024-08-15 21:47] LABS: Glucose - Point of Care 118 mg/dl (70-99)
[2024-08-15 23:28] VITALS: BP 123/75
[2024-08-16 03:00] VITALS: BP 135/91
[2024-08-16] MEDS: ROBITUSSIN DM 10 ML PO ×5 (03:35→22:38)
[2024-08-16] MEDS: ROBITUSSIN DM PO (07:48)
[2024-08-16 08:40] LABS: % Basophils 0.2 % (0-2); % Eosinophils 0.7 % (0-6); % Immature Granulocytes 0.9 % (0-0.5); % Monocytes 10.2 % (1.7-9.3); Absolute Immature Granulocytes 0.1 10^3/uL (0-0.05); Absolute Lymphocytes 1.4 10^3/uL (1.2-3.4); Absolute Monocytes 0.6 10^3/uL (0.1-0.6); Absolute Neutrophils 3.4 10^3/uL (1.4-6.5); Hematocrit 36.5 % (39.0-52.0); Hemoglobin 12.3 g/dL (13.0-18.0); Mean Corp Hgb Conc. 33.7 g/dL (33.0-37.0); Mean Corpuscular Hgb 28.3 pg (27.0-31.0); Mean Corpuscular Volume 83.9 fL (80.0-94.0); Nucleated Red Blood Cells % 0 % (-); Red Blood Cell Count 4.35 10^6/uL (4.70-6.10); Red Cell Dist. Width 14.8 % (11.5-14.5); White Blood Cell Count 5.5 10^3/uL (4.8-10.8)
[2024-08-16] MEDS: DELTASONE 20 MG PO (08:46)
[2024-08-16] MEDS: PROTONIX 40 MG PO (08:46)
[2024-08-16] MEDS: SEROQUEL 25 MG PO ×2 (08:46→20:23)
[2024-08-16] MEDS: TOPROL XL 25 MG PO (08:46)
[2024-08-16] MEDS: LEXAPRO 15 MG PO (08:46)
[2024-08-16] MEDS: PROSCAR 5 MG PO (08:46)
[2024-08-16] MEDS: SINEMET 25-100 1 TABLET PO ×3 (08:46→20:30)
[2024-08-16] MEDS: KLONOPIN 0.5 MG PO ×2 (08:46→20:23)
[2024-08-16] MEDS: FLOMAX 0.8 MG PO (08:46)
[2024-08-16] MEDS: MIRALAX 17 GRAMS PO (08:47)
[2024-08-16] MEDS: TESSALON PERLES 200 MG PO ×3 (08:47→20:26)
[2024-08-16] MEDS: DESENEX/MITRAZOL/ZEASORB 1 APPLIC TOPICAL ×2 (08:47→20:23)
[2024-08-16 08:57] LABS: Blood Urea Nitrogen 18 mg/dl (9-20); Calcium 8.8 mg/dl (8.4-10.2); Carbon Dioxide 27 mmol/L (22-30); Chloride 104 mmol/L (98-107); Estimated Creatinine Clearance 74 ml/min; Glucose 76 mg/dl (70-99); Potassium 3.5 mmol/L (3.5-5.1); Sodium 141 mmol/L (135-145); eGFR > 60.00
[2024-08-16 08:58] LABS: Glucose - Point of Care 100 mg/dl (70-99)
[2024-08-16 09:06] VITALS: BP 155/83
[2024-08-16] MEDS: NOVOLOG FLEXPEN-LOW RESISTANCE SC ×2 (09:11→13:31)
[2024-08-16 09:14] LABS: Platelet Count 20 10^3/uL (130-400)
[2024-08-16] MEDS: LEVAQUIN IV (09:22)
--- NOTE | 2024-08-16 11:37 | W.PN.HOSP.TC ---
Today's Communication/Plan
-
monitor vitals
see plan
monitor cbc
daughter updated over the phone
heme following
monitor off abx
transfusion form consented in case need for transfusion
Assessment / Plan
Assessment / Plan
A/P: Patient is a 78y M with PMH significant for Parkinson's / dementia and BPH with chronic Brice who was sent to ED for evaluation after he was found to have pulled his Brice catheter.
Traumatic Catheter Removal
Hematuria / Likely traumatic secondary to the above
Catheter associated urinary tract infection
BPH with Chronic Urinary Retention
- Brice re-placed in the ED.
- Urine with >100RBC/>100 WBC/Many Bact
- Not on any anticoagulants.
- Maintain Brice.
- Follow urine output and monitor for any clots / obstruction / etc.
- Urology evaluation appreciated, discussed with Dr. Larson
Urine Cx Klebsiella multiple drug sensitivities
rocephin stopped 2/2 thrombocytopenia. plts now 20; dc levaquin; monitor off abx. transfusion form signed and in chart. repeat cbc later today
- Continue usual BPH med regimen.
fever 08/12; given fever will treat for pneumonitis. COVID and flu negative. was on abx; now monitor off abx
Elevated Lactic Acid
- ? etiology. Patient is afebrile and non-toxic appearing.
- No leukocytosis.
- ? related to metformin use and will hold this for now.
lactate resolved
Parkinson's Disease
Dementia with Behavioral Disturbance
- Somewhat anxious/ agitated in the ED due to discomfort / multiple attempts at Brice placement.
- Continue usual outpatient med regimen including quetiapine and clonazepam.
- Follow for mood stability.
Speech following, does not appear to be related to aspiration. Speech now recommended regular diet with liquid
overnight 08/10 with cough and wheezing; chest x-ray with coarsening of bronchial vascular markings throughout both lungs with minimal reactive due to suboptimal inspiration however interstitial bronchitis is not excluded. No focal areas of
consolidation. Pro-Ryan neg. mucinex. cw duoneb for now. joseabby vidal. denies sob
likely does have bronchitis/pneumonitis; now off abx
Thrombocytopenia
Continue to monitor
Follows up with hematology outpatient.hx of ITP per daughter
Is on medications that could cause it; also does have infection
monitor off abx
fibrinogen,pt/ptt wnl
hematology following
transfusion form signed and in chart. repeat cbc later today. no bleeding
DM-II
- Hold metformin as noted above.
- Follow glucose and cover with SSI as needed.
a1c 5.5%
Benign Hypertension
- Will hold BP medications for now and resume when necessary.
DVT Prophylaxis: SCDs
Code Status: DNR
General: Well Developed, Well Nourished, No Apparent Distress and Comfortable
HEENT: Normocephalic and Atraumatic
Respiratory: Clear to Auscultation; Negative Wheezes, Rales or Rhonchi
Cardiac: Regular Rhythm and S1/S2
GI: Nontender and Nondistended
Genito-urinary: Brice (draining clear urine)
Musculoskeletal: No Edema
Neuro: Awake, Alert and Other (cogwheel rigidity, with Parkinsonian tremor)
I spent a total of 52 minutes with the patient or on the floor. More than 50% of this time involved counseling and coordination of care.
Anticipated Discharge: 24 - 48 hours
Subjective/Interval History
-
Date of Service: August 16, 2024
denies pain
Objective Data
-
Labs:
Laboratory Results
08/16/24 08/16/24
07:02 13:00
WBC 5.5 Pending
Hgb 12.3 L Pending
Hct 36.5 L Pending
Plt Count 20 L* D Pending
Sodium 141
Potassium 3.5
Chloride 104
Carbon Dioxide 27
BUN 18
Creatinine 0.9
Glucose 76
Calcium 8.8
Vital Signs:
Vital Signs
Temp Pulse Resp BP Pulse Ox
97.5 F 54 19 155/83 94
08/16/24 09:06 08/16/24 09:06 08/16/24 09:06 08/16/24 09:06 08/16/24 09:06
I&O
08/15/24 08/16/24 08/17/24
06:59 06:59 06:59
Intake Total 120 / 120 1040 / 1040
Output Total 1375 / 1375 875 / 875
Balance -1255 / -1255 165 / 165
[2024-08-16 13:27] LABS: Glucose - Point of Care 151 mg/dl (70-99)
[2024-08-16 13:48] LABS: Hematocrit 35.5 % (39.0-52.0); Hemoglobin 12.5 g/dL (13.0-18.0); Mean Corp Hgb Conc. 35.2 g/dL (33.0-37.0); Mean Corpuscular Hgb 28.7 pg (27.0-31.0); Mean Corpuscular Volume 81.6 fL (80.0-94.0); Platelet Count 21 10^3/uL (130-400); Red Blood Cell Count 4.35 10^6/uL (4.70-6.10); Red Cell Dist. Width 14.7 % (11.5-14.5); White Blood Cell Count 6.8 10^3/uL (4.8-10.8)
[2024-08-16 15:52] VITALS: BP 118/78
[2024-08-16 17:37] LABS: Glucose - Point of Care 169 mg/dl (70-99)
[2024-08-16] MEDS: NOVOLOG FLEXPEN-LOW RESISTANCE 1 UNITS SC (18:15)
[2024-08-16] MEDS: SEROQUEL 100 MG PO (20:27)
[2024-08-16] MEDS: SENOKOT 17.2 MG PO (20:27)
[2024-08-16 22:11] LABS: Glucose - Point of Care 142 mg/dl (70-99)
[2024-08-16 23:00] VITALS: BP 147/83
[2024-08-17] MEDS: ROBITUSSIN DM PO (02:45)
[2024-08-17 07:56] VITALS: BP 154/91
[2024-08-17 08:53] LABS: Glucose - Point of Care 98 mg/dl (70-99)
[2024-08-17] MEDS: NOVOLOG FLEXPEN-LOW RESISTANCE SC (09:04)
[2024-08-17] MEDS: ROBITUSSIN DM 10 ML PO ×5 (09:05→23:05)
[2024-08-17] MEDS: SINEMET 25-100 1 TABLET PO ×3 (09:05→23:06)
[2024-08-17] MEDS: TESSALON PERLES 200 MG PO ×3 (09:05→23:05)
[2024-08-17] MEDS: PROTONIX 40 MG PO (09:05)
[2024-08-17] MEDS: LEXAPRO 15 MG PO (09:05)
[2024-08-17] MEDS: DELTASONE 20 MG PO (09:05)
[2024-08-17] MEDS: TOPROL XL 25 MG PO (09:06)
[2024-08-17] MEDS: PROSCAR 5 MG PO (09:06)
[2024-08-17] MEDS: KLONOPIN 0.5 MG PO ×2 (09:06→20:24)
[2024-08-17] MEDS: SEROQUEL 25 MG PO ×2 (09:06→20:24)
[2024-08-17] MEDS: MIRALAX 17 GRAMS PO (09:07)
[2024-08-17] MEDS: FLOMAX 0.8 MG PO (09:07)
[2024-08-17] MEDS: DESENEX/MITRAZOL/ZEASORB 1 APPLIC TOPICAL ×2 (09:07→20:25)
[2024-08-17] MEDS: DUONEB 3 ML INH ×2 (09:18→13:30)
[2024-08-17 10:19] LABS: Blood Urea Nitrogen 20 mg/dl (9-20); Carbon Dioxide 30 mmol/L (22-30); Chloride 101 mmol/L (98-107); Estimated Creatinine Clearance 67 ml/min; Glucose 67 mg/dl (70-99); Potassium 3.2 mmol/L (3.5-5.1); Sodium 140 mmol/L (135-145); eGFR > 60.00
[2024-08-17 10:21] LABS: % Basophils 0.3 % (0-2); % Eosinophils 0.7 % (0-6); % Immature Granulocytes 0.8 % (0-0.5); % Lymphocytes 25.6 % (20.5-51.1); % Monocytes 7.8 % (1.7-9.3); % Neutrophils 64.8 % (42.2-75.2); Absolute Eosinophils 0.1 10^3/uL (0-0.7); Absolute Immature Granulocytes 0.1 10^3/uL (0-0.05); Absolute Lymphocytes 1.9 10^3/uL (1.2-3.4); Absolute Monocytes 0.6 10^3/uL (0.1-0.6); Absolute Neutrophils 4.7 10^3/uL (1.4-6.5); Hematocrit 35.8 % (39.0-52.0); Hemoglobin 12.4 g/dL (13.0-18.0); Mean Corp Hgb Conc. 34.6 g/dL (33.0-37.0); Mean Corpuscular Hgb 28.8 pg (27.0-31.0); Mean Corpuscular Volume 83.1 fL (80.0-94.0); Nucleated Red Blood Cells % 0 % (-); Red Blood Cell Count 4.31 10^6/uL (4.70-6.10); Red Cell Dist. Width 14.6 % (11.5-14.5); White Blood Cell Count 7.3 10^3/uL (4.8-10.8)
[2024-08-17 10:30] LABS: Platelet Count 29 10^3/uL (130-400)
--- NOTE | 2024-08-17 12:06 | W.PN.HOSP.TC ---
Today's Communication/Plan
-
Monitor vital signs see plan
Continue to monitor platelets
Restart amlodipine
Possible discharge if platelets continue to improve
Monitor off antibiotics
replete K
Assessment / Plan
Assessment / Plan
A/P: Patient is a 78y M with PMH significant for Parkinson's / dementia and BPH with chronic Brice who was sent to ED for evaluation after he was found to have pulled his Brice catheter.
Traumatic Catheter Removal
Hematuria / Likely traumatic secondary to the above
Catheter associated urinary tract infection
BPH with Chronic Urinary Retention
- Brice re-placed in the ED.
- Urine with >100RBC/>100 WBC/Many Bact
- Not on any anticoagulants.
- Maintain Brice.
- Urology evaluation appreciated, discussed with Dr. Larson
Urine Cx Klebsiella multiple drug sensitivities
rocephin stopped 2/2 thrombocytopenia. plts was 20; dc levaquin; monitor off abx. transfusion form signed and in chart. plts now 29
- Continue usual BPH med regimen.
fever 08/12; xray concerning for pneumonia/pneumonitis. given fever will treat for pneumonitis. COVID and flu negative. was on abx for UTI before; now monitor off abx
Elevated Lactic Acid
- ? etiology. Patient is afebrile and non-toxic appearing.
- No leukocytosis.
- ? related to metformin use and will hold this for now.
lactate resolved
Parkinson's Disease
Dementia with Behavioral Disturbance
- Somewhat anxious/ agitated in the ED due to discomfort / multiple attempts at Brice placement.
- Continue usual outpatient med regimen including quetiapine and clonazepam.
- Follow for mood stability.
Speech following, does not appear to be related to aspiration. Speech now recommended regular diet with liquid
Hypokalemia
replete
overnight 08/10 with cough and wheezing; chest x-ray with coarsening of bronchial vascular markings throughout both lungs with minimal reactive due to suboptimal inspiration however interstitial bronchitis is not excluded. No focal areas of
consolidation. Pro-Ryan neg. mucinex. cw duoneb for now. lashanda vidal. denies sob
likely does have bronchitis/pneumonitis; now off abx
Thrombocytopenia
Continue to monitor
Follows up with hematology outpatient.hx of ITP per daughter
Is on medications that could cause it; also does have infection
monitor off abx
fibrinogen,pt/ptt wnl
hematology following
transfusion form signed and in chart. no bleeding. plts now 29
DM-II
- Hold metformin as noted above.
- Follow glucose and cover with SSI as needed.
a1c 5.5%
Benign Hypertension
restart amlodipine
DVT Prophylaxis: SCDs
Code Status: DNR
General: Well Developed, Well Nourished, No Apparent Distress and Comfortable
HEENT: Normocephalic and Atraumatic
Respiratory: Clear to Auscultation; Negative Wheezes
Cardiac: Regular Rhythm and S1/S2
GI: Nontender and Nondistended
Genito-urinary: Brice (draining clear urine)
Musculoskeletal: No Edema
Neuro: Awake, Alert and Other (cogwheel rigidity, with Parkinsonian tremor)
I spent a total of 51 minutes with the patient or on the floor. More than 50% of this time involved counseling and coordination of care.
Anticipated Discharge: Within 24 hours
Subjective/Interval History
-
Date of Service: August 17, 2024
denies pain
Objective Data
-
Labs:
Laboratory Results
08/17/24
07:27
WBC 7.3
Hgb 12.4 L
Hct 35.8 L
Plt Count 29 L* D
Sodium 140
Potassium 3.2 L
Chloride 101
Carbon Dioxide 30
BUN 20
Creatinine 1.0
Glucose 67 L
Calcium 9.0
Vital Signs:
Vital Signs
Temp Pulse Resp BP Pulse Ox
97.8 F 65 20 154/91 96
08/17/24 07:56 08/17/24 09:21 08/17/24 09:21 08/17/24 07:56 08/17/24 09:59
I&O
08/16/24 08/17/24 08/18/24
06:59 06:59 06:59
Intake Total 1040 / 1040 0 / 0
Output Total 875 / 875 1175 / 1175
Balance 165 / 165 -1175 / -1175
[2024-08-17 12:23] LABS: Glucose - Point of Care 162 mg/dl (70-99)
[2024-08-17] MEDS: KCL 40 MEQ PO (13:01)
[2024-08-17] MEDS: NORVASC 5 MG PO (13:02)
[2024-08-17] MEDS: NOVOLOG FLEXPEN-LOW RESISTANCE 1 UNITS SC (13:03)
[2024-08-17 16:07] VITALS: BP 142/76
[2024-08-17 16:54] LABS: Glucose - Point of Care 323 mg/dl (70-99)
[2024-08-17 18:09] LABS: Glucose - Point of Care 301 mg/dl (70-99)
[2024-08-17] MEDS: NOVOLOG FLEXPEN-LOW RESISTANCE 4 UNITS SC (18:32)
[2024-08-17 21:23] LABS: Glucose - Point of Care 189 mg/dl (70-99)
[2024-08-17] MEDS: SEROQUEL 100 MG PO (23:06)
[2024-08-17] MEDS: SENOKOT 17.2 MG PO (23:06)
[2024-08-17] MEDS: LIPITOR 20 MG PO (23:07)
[2024-08-18 00:18] VITALS: BP 141/82
[2024-08-18] MEDS: ROBITUSSIN DM PO ×2 (03:19→21:58)
[2024-08-18 07:29] VITALS: BP 146/88
[2024-08-18 07:38] LABS: % Basophils 0.5 % (0-2); % Eosinophils 0.7 % (0-6); % Immature Granulocytes 1.2 % (0-0.5); % Lymphocytes 20.9 % (20.5-51.1); % Monocytes 7.6 % (1.7-9.3); % Neutrophils 69.1 % (42.2-75.2); Absolute Eosinophils 0.1 10^3/uL (0-0.7); Absolute Immature Granulocytes 0.1 10^3/uL (0-0.05); Absolute Lymphocytes 1.6 10^3/uL (1.2-3.4); Absolute Monocytes 0.6 10^3/uL (0.1-0.6); Absolute Neutrophils 5.1 10^3/uL (1.4-6.5); Hematocrit 36.6 % (39.0-52.0); Mean Corp Hgb Conc. 35.5 g/dL (33.0-37.0); Mean Corpuscular Hgb 30.4 pg (27.0-31.0); Mean Corpuscular Volume 85.5 fL (80.0-94.0); Mean Platelet Volume 11.1 fL (7.4-10.4); Nucleated Red Blood Cells % 0 % (-); Platelet Count 61 10^3/uL (130-400); Red Blood Cell Count 4.28 10^6/uL (4.70-6.10); Red Cell Dist. Width 14.6 % (11.5-14.5); White Blood Cell Count 7.4 10^3/uL (4.8-10.8)
[2024-08-18 07:38] LABS: Glucose - Point of Care 99 mg/dl (70-99)
[2024-08-18] MEDS: NOVOLOG FLEXPEN-LOW RESISTANCE SC (07:39)
[2024-08-18] MEDS: KLONOPIN 0.5 MG PO ×2 (07:41→21:43)
[2024-08-18] MEDS: NORVASC 5 MG PO (07:41)
[2024-08-18] MEDS: SINEMET 25-100 1 TABLET PO ×3 (07:41→21:44)
[2024-08-18] MEDS: TESSALON PERLES 200 MG PO ×3 (07:41→21:44)
[2024-08-18] MEDS: ROBITUSSIN DM 10 ML PO ×4 (07:41→21:42)
[2024-08-18] MEDS: FLOMAX 0.8 MG PO (07:41)
[2024-08-18] MEDS: PROTONIX 40 MG PO (07:41)
[2024-08-18] MEDS: SEROQUEL 25 MG PO ×2 (07:41→21:46)
[2024-08-18] MEDS: TOPROL XL PO (07:42)
[2024-08-18] MEDS: LEXAPRO 15 MG PO (07:42)
[2024-08-18] MEDS: DESENEX/MITRAZOL/ZEASORB 1 APPLIC TOPICAL ×2 (07:43→21:42)
[2024-08-18] MEDS: DELTASONE 20 MG PO (07:43)
[2024-08-18] MEDS: PROSCAR 5 MG PO (07:43)
[2024-08-18] MEDS: MIRALAX 17 GRAMS PO (07:43)
[2024-08-18 08:06] LABS: Blood Urea Nitrogen 19 mg/dl (9-20); Carbon Dioxide 28 mmol/L (22-30); Chloride 105 mmol/L (98-107); Estimated Creatinine Clearance 74 ml/min; Glucose 78 mg/dl (70-99); Potassium 3.9 mmol/L (3.5-5.1); Sodium 144 mmol/L (135-145); eGFR > 60.00
[2024-08-18 08:43] LABS: NT-proBNP 384 pg/ml
--- NOTE | 2024-08-18 10:11 | W.PN.HOSP.TC ---
Today's Communication/Plan
-
Speech consult
Aspiration precautions
f/w chest x ray
consult pulmonary
Assessment / Plan
Assessment / Plan
Physical exam:
General: Elderly, coughing
HEENT: Normocephalic and Atraumatic. Hard hearing.
Respiratory: Diffuse, scattered rhonchi, wheezes heard
Cardiac: S1 S2
GI: Nontender and Nondistended
Genito-urinary: Brice (draining clear urine)
Musculoskeletal: No Edema
Neuro: Awake, Alert and Other (cogwheel rigidity, with Parkinsonian tremor)
Psych: calm, no agitation
A/P: Patient is a 78y M with PMH significant for Parkinson's / dementia and BPH with chronic Brice who was sent to ED for evaluation after he was found to have pulled his Brice catheter.
Traumatic Catheter Removal
Hematuria / Likely traumatic secondary to the above
Catheter associated urinary tract infection
BPH with Chronic Urinary Retention
- Brice re-placed in the ED.
- Urine with >100RBC/>100 WBC/Many Bact
- Not on any anticoagulants.
- Maintain Brice.
- Urology evaluation appreciated, discussed with Dr. Larson
Urine Cx Klebsiella multiple drug sensitivities
Rocephin stopped 2/2 thrombocytopenia. plts was 20; dc Levaquin; monitor off abx. transfusion form signed and in chart. plts now 29
- Continue usual BPH med regimen.
# Acute respiratory distress
He continues to have rales/ rhonchi on exam
Suspect aspiration related
No fevers, no hypoxia, no leukocytosis
pt is on high dose on steroid, he is immunocompromised
Will re-consult speech
Order chest x ray
Check Pro-BNP
Consult pulmonary
He is on Prednisone , chronic TX at 20 mg daily ( possible related to ITP)
#Elevated Lactic Acid, resolved
- Was suspected related t metformin TX more than infection.
# Parkinson's Disease
Dementia with Behavioral Disturbance
- chronic benzodiazepine treatment
- He was somewhat anxious/ agitated in the ED due to discomfort / multiple attempts at Brice placement.
- Continue usual outpatient med regimen including quetiapine and clonazepam.
#Hypokalemia
replete
# Acute on chronic Thrombocytopenia
Follows up with hematology outpatient.hx of ITP
fibrinogen,pt/ptt wnl
hematology followed
transfusion form signed and in chart. no bleeding.
#DM-II
- Hold metformin as noted above.
- Follow glucose and cover with SSI as needed.
a1c 5.5%
# Benign Hypertension
restart amlodipine
# DVT Prophylaxis: SCDs
Code Status: DNR
Total time spent to see the patient, examine the patient on the floor, review data and lab results, discuss treatment plan with patient, nursing staff around 55 minutes
Anticipated Discharge: 24 - 48 hours
Subjective/Interval History
-
Date of Service: August 18, 2024
Pt denies breathing problems
Nurse: pt is with sob/ cough
Objective Data
-
Labs:
Laboratory Results
08/18/24
07:15
WBC 7.4
Hgb 13.0
Hct 36.6 L
Plt Count 61 L D
Sodium 144
Potassium 3.9
Chloride 105
Carbon Dioxide 28
BUN 19
Creatinine 0.9
Glucose 78
Calcium 9.0
Vital Signs:
Vital Signs
Temp Pulse Resp BP Pulse Ox
97.3 F 55 22 146/88 96
08/18/24 07:29 08/18/24 07:42 08/18/24 07:29 08/18/24 07:41 08/18/24 07:29
I&O
08/17/24 08/18/24 08/19/24
06:59 06:59 06:59
Intake Total 0 / 0 600 / 600
Output Total 1175 / 1175 1300 / 1300
Balance -1175 / -1175 -700 / -700
--- NOTE | 2024-08-18 11:14 | CON.PUL ---
Consultation
Consultation Request
Date/Time Consultation Requested: 08/18/2024
Date/Time Consultation Performed: 08/18/2024
Requesting Provider: Dr. Arellano
Performing Provider: Dr. Rufino Weaver
Reason for Consultation: Hypoxemic respiratory failure
Medical History
-
History of Present Illness:
History is obtained from the chart as patient is unable to provide adequate history. 78-year-old [facility] resident who resides at [facility]. History of dementia/Parkinson's, behavioral disturbances, BPH with
chronic Bernardo initially presented to the emergency room on 08/08/2024. Admitted with traumatic hematuria, sepsis possibly urinary source.
Last 24 hours developed cough, shortness of breath.
We were consulted for evaluation.
There is concerns for aspiration as the patient has bilateral rails.
.
Past Medical History
Past Medical History: None (See above)
Past Surgical History: None (See above)
Social History
Tobacco: Other (Unable to obtain)
Living: [facility]
Family History
Family History: Unable to Obtain
Allergies / Home Medications
Allergies
Allergy/AdvReac Type Severity Reaction Status Date / Time
Penicillins Allergy Unknown Verified 07/07/24 12:57
Home Medications
�Medication �Instructions �Recorded �Confirmed �Last Taken �Type
acetaminophen 325 mg tablet 650 mg PO Q4HPRN PRN mild 05/26/24 08/08/24 Unknown History
(Tylenol) pain/fever>100
albuterol sulfate 2.5 mg/3 mL 2.5 mg inhalation R Q6HPRN PRN sob 05/26/24 08/08/24 Unknown History
(0.083 %) solution for nebulization
atorvastatin 20 mg tablet 20 mg PO HS High Cholesterol 05/26/24 08/08/24 Unknown History
bisacodyl 10 mg rectal suppository [address] DAILYPRN PRN if mom 05/26/24 08/08/24 Unknown History
(Dulcolax (bisacodyl)) ineffective after 24 hrs
bupropion HCl 150 mg 24 hr tablet, 150 mg PO Q48H depression 05/26/24 08/08/24 Unknown History
extended release (Wellbutrin XL)
carbidopa 25 mg-levodopa 100 mg 1 tab PO TID parkinson's disease 05/26/24 08/08/24 Unknown History
tablet
clonazepam 0.5 mg tablet 0.5 mg PO BID anxiety 05/26/24 08/08/24 Unknown History
dextran 70-hypromellose eye drops 1 drp BOTH EYES BID dry eyes 05/26/24 08/08/24 Unknown History
in a dropperette (Artificial Tears
(PF) drops in a dropperette)
dextran 70-hypromellose eye drops 1 drp BOTH EYES [id number] PRN dry 05/26/24 08/08/24 Unknown History
in a dropperette (Artificial Tears eyes
(PF) drops in a dropperette)
escitalopram oxalate 5 mg tablet 15 mg PO DAILY depression/anxiety 05/26/24 08/08/24 Unknown History
(Lexapro)
famotidine 20 mg tablet 20 mg PO DAILY Gastrointestinal 05/26/24 08/08/24 Unknown History
Issue
finasteride 5 mg tablet 5 mg PO DAILY Urinary Issue 05/26/24 08/08/24 Unknown History
magnesium hydroxide 400 mg/5 mL 30 ml PO [id number] PRN if no bm 3 05/26/24 08/08/24 Unknown History
oral suspension (Milk of Magnesia) days
metformin 500 mg tablet 500 mg PO BID diabetes 05/26/24 08/08/24 Unknown History
prednisone 20 mg tablet 20 mg PO DAILY Anti-Inflammatory 05/26/24 08/08/24 Unknown History
sodium phosphates 19 gram-[address] DAILYPRN PRN if dulcolax 05/26/24 08/08/24 Unknown History
gram/118 mL enema (Fleet Enema) ineffective after 24 hrs
tamsulosin 0.4 mg capsule 0.8 mg PO DAILY Urinary Issue 05/26/24 08/08/24 Unknown History
therapeutic multivitamin 1 tab PO DAILY Supplement 05/26/24 08/08/24 Unknown History
ibuprofen 200 mg tablet 400 mg (2 x 200 mg) PO Q6HPRN PRN 06/01/24 08/08/24 Unknown Rx
mod to severe pain #0 tabs
metoprolol succinate 25 mg 25 mg PO DAILY #30 tabs 06/01/24 08/08/24 Unknown Rx
tablet,extended release 24 hr
phenazopyridine 100 mg tablet 100 mg PO TID PRN dysuria #10 tabs 06/01/24 08/08/24 Unknown Rx
(Pyridium)
polyethylene glycol 3350 17 gram 17 g PO DAILY #30 ea 06/01/24 08/08/24 Unknown Rx
oral powder packet (Miralax)
sennosides 8.6 mg capsule (senna) 17.2 mg (2 x 8.6 mg) PO HS #60 caps 06/01/24 08/08/24 Unknown Rx
amlodipine 5 mg tablet (Norvasc) 5 mg PO DAILY Blood Pressure 08/08/24 08/08/24 Unknown History
quetiapine 100 mg tablet (Seroquel) 100 mg PO HS Sleep 08/08/24 08/08/24 Unknown History
quetiapine 25 mg tablet (Seroquel) 25 mg PO BID Mental Health/Anxiety 08/08/24 08/08/24 Unknown History
Review of Systems
-
Unable to Obtain full review of systems at this time due to: Dementia
Vitals / Labs / Diagnostic Testing
Vital Signs
Temp Pulse Resp BP Pulse Ox
97.3 F 55 22 146/88 98
08/18/24 07:29 08/18/24 07:42 08/18/24 07:29 08/18/24 07:41 08/18/24 08:16
Lab Data
08/18/24 07:15
08/18/24 07:15
Diagnostic Testing:
Physical Exam
-
HEENT: Normocephalic
Cardiovascular: S1/S2
Respiratory: Wheeze (expiratory bilaterally) and Rales
GI: Soft and Non Distended
Neurology: Awake, Alert and No Motor Deficits
Skin: Warm
General: Comfortable (at rest)
Assessment
-
78yo with history of Parkinsons ds/dementia, chornic bernardo. Initially admitted with urinary issues. Developed chest congestion and cough last few days. We were consulted for evaluations.
Acute respiratory sufficiency/coughing
Possible aspiration pneumonitis
Normal proBNP
Chest x-ray 08/18/2024: Reviewed showed elevation of the right hemidiaphragm with low lung volumes. Bibasilar atelectasis.
CT abdomen pelvis lung cuts reviewed: Bibasilar subsegmental rounded atelectasis. No acute infiltrates.
Conditions present prior to admission
Admission to [facility] 05/2024 with septic shock
Hypertension
Diabetes
Chronic kidney disease, stage III
History of BPH, chronic Bernardo catheter
History of anxiety/depression
Suicidal ideation in the past
History of ITP
Assessment and plan:
Cough/congestion/rales-possibly intermittent microaspiration with pneumonitis versus tracheobronchitis.
CXR today reviewed, no infiltrates.
So far afebrile.
No leukocytosis
I agree with the speech evaluation, may need video barium swallow if the patient cooperates.
Holding antibiotics for now continue to observe closely.
-
On prednisone 20mg for ITP.
-
Hold high-dose of systemic corticosteroids, high risk for delirium.
Secretion clearance interventions will start Pulmicort twice a day- May continue until symptoms clear.
DuoNebs 3 times a day
Acapella device
Antitussive
Continue symptomatic management.
-
Oxygen supplementation to maintain pulse ox above 90%-currently on RA
Incentive spirometry if able
-
DVT prophylaxis with SCDs.
-
Will continue to follow
[2024-08-18 11:35] LABS: Glucose - Point of Care 153 mg/dl (70-99)
--- NOTE | 2024-08-18 11:41 | CM ---
Addendum entered by Bessie Jose 08/18/24 12:14:
Updated clinicals sent to facility.
Original Note:
Pt seen at bedside. Care is ongoing.
Speech and pulmonary consults pending
Will need transportation arranged for d/c
CM will send clinical updates to facility
Plan: Return to [facility] when stable
[2024-08-18] MEDS: NOVOLOG FLEXPEN-LOW RESISTANCE 1 UNITS SC (11:48)
[2024-08-18] MEDS: PULMICORT 0.5 MG INH ×2 (12:21→20:13)
[2024-08-18] MEDS: DUONEB 3 ML INH ×2 (12:21→20:13)
[2024-08-18 15:23] VITALS: BP 115/72
--- NOTE | 2024-08-18 15:43 | W.PN.ONC ---
Today's Communication / Plan
-
follow CBC
Impression
Impression
klebsiella UTI
dementia
thrombocytopenia
Plan
Plan
1. Thrombocytopenia - the etiology of this patient's thrombocytopenia is unclear. It has occurred acutely during hospitalization and could be related to ongoing infection/ inflammation as well as antibiotic therapy. During recent hospitalization in
May, he also developed a similar drop in platelet count in the context of urinary infection on antibiotics. He was on a cephalosporin in May and again during this hospitalization, raising suspicion that this could be a contributing cause. He has
not been on heparin. PT/ INR and aPTT are normal. Fibrinogen is normal. No B12/ folic acid deficiencies. Platelet count has improved to 61,000 today. She has not required transfusion. Follow CBC.
Will continue to follow with you.
Subjective/Objective
Subjective/Objective
improving platelets
Vital Signs:
Vital Signs
Temp Pulse Resp BP Pulse Ox
98.2 F 77 18 115/72 97
08/18/24 15:23 08/18/24 15:23 08/18/24 15:23 08/18/24 15:23 08/18/24 15:23
Lab Results:
Laboratory Data
WBC 7.4 10^3/uL (4.8-10.8) 08/18/24 07:15
Hgb 13.0 g/dL (13.0-18.0) 08/18/24 07:15
Plt Count 61 10^3/uL (130-400) L D 08/18/24 07:15
PT 14.5 Sec (11.4-14.6) 08/15/24 08:56
INR 1.15 08/15/24 08:56
APTT 27.5 Sec (23.4-35.0) 08/15/24 08:56
eGFR > 60.00 08/18/24 07:15
[2024-08-18 16:09] LABS: Glucose - Point of Care 274 mg/dl (70-99)
[2024-08-18] MEDS: NOVOLOG FLEXPEN-LOW RESISTANCE 3 UNITS SC (17:50)
[2024-08-18 21:04] LABS: Glucose - Point of Care 168 mg/dl (70-99)
[2024-08-18] MEDS: LIPITOR 20 MG PO (21:44)
[2024-08-18] MEDS: SENOKOT 17.2 MG PO (21:44)
[2024-08-18] MEDS: SEROQUEL 100 MG PO (21:44)
[2024-08-18 23:00] VITALS: BP 125/92
[2024-08-19] MEDS: ROBITUSSIN DM PO (03:46)
[2024-08-19] MEDS: ROBITUSSIN DM 10 ML PO ×2 (06:36→10:45)
[2024-08-19] MEDS: DUONEB 3 ML INH ×3 (07:48→19:41)
[2024-08-19] MEDS: PULMICORT 0.5 MG INH ×2 (07:48→19:41)
[2024-08-19 07:51] LABS: Glucose - Point of Care 97 mg/dl (70-99)
[2024-08-19 08:00] VITALS: BP 134/93
--- NOTE | 2024-08-19 09:07 | W.PN.HOSP.TC ---
Today's Communication/Plan
-
c/w to treat acute bronchitis
Video swallow today, daughter is POA and decision maker.
Likely discharge in next two-3 days, would like to control coughing/ distress episodes first
Assessment / Plan
Assessment / Plan
Physical exam:
General: Elderly, coughing
HEENT: Normocephalic and Atraumatic. Hard hearing.
Respiratory: Diffuse, scattered rhonchi, wheezes heard
Cardiac: S1 S2
GI: Nontender and Nondistended
Genito-urinary: Brice (draining clear urine)
Musculoskeletal: No Edema
Neuro: Awake, Alert and Other (cogwheel rigidity, with Parkinsonian tremor)
Psych: calm, no agitation
A/P: Patient is a 78y M with PMH significant for Parkinson's / dementia and BPH with chronic Brice who was sent to ED for evaluation after he was found to have pulled his Brice catheter.
Traumatic Catheter Removal
Hematuria / Likely traumatic secondary to the above
Catheter associated urinary tract infection
BPH with Chronic Urinary Retention
- Brice re-placed in the ED.
- Urine with >100RBC/>100 WBC/Many Bact
- Not on any anticoagulants.
- Maintain Brice.
- Urology evaluation appreciated, discussed with Dr. Larson
Urine Cx Klebsiella multiple drug sensitivities
Rocephin stopped 2/2 thrombocytopenia. plts was 20; dc Levaquin; monitor off abx. transfusion form signed and in chart. plts now 29
- Continue usual BPH med regimen.
# Acute respiratory distress likely due to acute bronchitis
He continues to have rales/ rhonchi on exam
Suspect aspiration related
No fevers, no hypoxia, no leukocytosis
pt is on high dose on steroid, he is immunocompromised
d/w speech therapist, will do video swallow
Repeat chest x ray: elevation of the anterior right hemidiaphragm with low lung volumes, similar to prior. Bibasilar atelectasis.
Normal level Pro-BNP
Consulted pulmonary, started on Nebulizer treatment.
He is on Prednisone , chronic TX at 20 mg daily ( possible related to ITP)
#Elevated Lactic Acid, resolved
- Was suspected related t metformin TX more than infection.
# Parkinson's Disease
Dementia with Behavioral Disturbance
- chronic benzodiazepine treatment
- He was somewhat anxious/ agitated in the ED due to discomfort / multiple attempts at Brice placement.
- Continue usual outpatient med regimen including quetiapine and clonazepam.
#Hypokalemia
replete
# Acute on chronic Thrombocytopenia
Follows up with hematology outpatient.hx of ITP
fibrinogen,pt/ptt wnl
hematology followed
transfusion form signed and in chart. no bleeding.
#DM-II
- Hold metformin as noted above.
- Follow glucose and cover with SSI as needed.
a1c 5.5%
# Benign Hypertension
restarted amlodipine
# DVT Prophylaxis: SCDs
Code Status: DNR
Total time spent to see the patient, examine the patient on the floor, review data and lab results, discuss treatment plan with patient, daughter, nursing staff around 55 minutes
Anticipated Discharge: 24 - 48 hours
Subjective/Interval History
-
Date of Service: August 19, 2024
Denies sob
Reports cough
Objective Data
-
Vital Signs:
Vital Signs
Temp Pulse Resp BP Pulse Ox
97.4 F 68 17 125/92 95
08/18/24 23:00 08/19/24 07:50 08/19/24 07:50 08/18/24 23:00 08/19/24 07:50
I&O
08/18/24 08/19/24 08/20/24
06:59 06:59 06:59
Intake Total 600 / 600 770 / 770
Output Total 1300 / 1300 850 / 850
Balance -700 / -700 -80 / -80
--- NOTE | 2024-08-19 09:25 | PTOTSP ---
Speech Language Pathology
VIDEOFLUOROSCOPIC SWALLOWING EXAMINATION (VSE) completed. Oropharyngeal swallow WFL. Trace pharyngeal residue noted with all consistencies trialed. No penetration/aspiration noted with any consistencies trialed.
Recommend:
(1) Continue regular solids/thin liquids
(2) General aspiration precautions
(3) Meds as tolerated
(4) TALENT DEVELOPMENT MANAGER to sign off. Please reconsult as indicated
--- NOTE | 2024-08-19 10:34 | W.PN.PUL3 ---
Today's Communication / Plan
-
Continue nebulizer therapy for secretion clearance: Pulmicort/DuoNebs
Acapella device
Mucolytic's
Aspiration precautions
Hold antibiotics and systemic corticosteroids for now
Symptomatic management
Assessment
-
78yo with history of Parkinsons ds/dementia, chornic bernardo. Initially admitted with urinary issues. Developed chest congestion and cough last few days. We were consulted for evaluations.
Acute respiratory sufficiency/coughing
Possible aspiration pneumonitis
Normal proBNP
Chest x-ray 08/18/2024: Reviewed showed elevation of the right hemidiaphragm with low lung volumes. Bibasilar atelectasis.
CT abdomen pelvis lung cuts reviewed: Bibasilar subsegmental rounded atelectasis. No acute infiltrates.
Conditions present prior to admission
Admission to [facility] 05/2024 with septic shock
History of Parkinson disease/dementia
Hypertension
Diabetes
Chronic kidney disease, stage III
History of BPH, chronic Bernardo catheter
History of anxiety/depression
Suicidal ideation in the past
History of ITP
Assessment and plan:
Cough/congestion/rales-with history of Parkinson's disease/dementia-possibly intermittent microaspiration with pneumonitis versus tracheobronchitis.
CXR today -acute no infiltrates.
Remains afebrile.
No leukocytosis
Barium swallow evaluation today 08/19/2024: No evidence for aspiration.
Holding antibiotics for now continue to observe closely.
-
On prednisone 20mg for ITP.
-
Hold high-dose of systemic corticosteroids, high risk for delirium with history of dementia and advanced Parkinson's.
Continue with secretion clearance interventions, continue to suspect recurrent microaspiration.
Head of bed elevation
Avoid sedatives
Continue Pulmicort twice a day(started on 08/18/2024)- May continue until symptoms clear.
DuoNebs 3 times a day
Acapella device
Antitussive
Continue symptomatic management.
-
Oxygen supplementation to maintain pulse ox above 90%-currently on RA
Incentive spirometry if able
-
History of ITP: Thrombocytopenia noted: Improving. Hematology following the patient.
-
DVT prophylaxis with SCDs.
-
Will continue to follow
-
Hopefully can discharge in the next 48 hours if continues to improve.
Subjective Data
-
Date of Service:
Date of Service: August 19, 2024
Chief Complaint: Pulmonary Follow Up (Continues to have intermittent coughing and congestion.)
Subjective:
Patient provides no meaningful history
Denies shortness of breath at rest
Denies significant phlegm production
Review of Systems
General: Fever (n)
Cardiopulmonary: Dyspnea (none at rest)
GI: Abdominal Pain (n) and Nausea (n)
Neuro: Headache (n)
Objective Data
Data Reviewed
Vital Signs / I&O / Oxygen:
Vital Signs
Temp Pulse Resp BP Pulse Ox
97.4 F 68 17 125/92 95
08/18/24 23:00 08/19/24 07:50 08/19/24 07:50 08/18/24 23:00 08/19/24 07:50
Intake and Output
08/18/24 08/19/24 08/20/24
06:59 06:59 06:59
Intake Total 600 / 600 770 / 770
Output Total 1300 / 1300 850 / 850
Balance -700 / -700 -80 / -80
SaO2 95
Nasal Cannula flow liters per 2
minute
Physical Exam
General: Respiratory Distress (n)
HEENT: Normocephalic
Cardiovascular: S1-S2
Respiratory: Wheeze (n) and Crackles (bases)
GI: Soft and Non Distended
Neurology: Awake and Alert
Labs/Micro/Reports
Lab Data
08/18/24 07:15
08/18/24 07:15
[2024-08-19] MEDS: PROTONIX 40 MG PO (10:45)
[2024-08-19] MEDS: KLONOPIN 0.5 MG PO (10:45)
[2024-08-19] MEDS: LEXAPRO 15 MG PO (10:45)
[2024-08-19] MEDS: TESSALON PERLES 200 MG PO ×3 (10:46→23:55)
[2024-08-19] MEDS: SEROQUEL 25 MG PO (10:46)
[2024-08-19] MEDS: FLOMAX 0.8 MG PO (10:46)
[2024-08-19] MEDS: NORVASC 5 MG PO (10:46)
[2024-08-19] MEDS: DELTASONE 20 MG PO (10:46)
[2024-08-19] MEDS: MIRALAX 17 GRAMS PO (10:46)
[2024-08-19] MEDS: TOPROL XL 25 MG PO (10:46)
[2024-08-19] MEDS: SINEMET 25-100 1 TABLET PO ×3 (10:47→23:58)
[2024-08-19] MEDS: NOVOLOG FLEXPEN-LOW RESISTANCE SC ×2 (10:47→16:03)
[2024-08-19] MEDS: PROSCAR 5 MG PO (10:48)
--- NOTE | 2024-08-19 11:24 | CM ---
Chart reviewed. Pt will complete video swallow today
Per hospitalist note, pt can d/c back to facility once coughing is more controlled.
CM will cont. to follow for d/c needs.
Plan: Return to [facility] when stable
[2024-08-19 15:38] VITALS: BP 131/91
[2024-08-19 16:08] LABS: Glucose - Point of Care 263 mg/dl (70-99)
[2024-08-19] MEDS: NOVOLOG FLEXPEN-LOW RESISTANCE 3 UNITS SC (16:20)
[2024-08-19] MEDS: DESENEX/MITRAZOL/ZEASORB 1 APPLIC TOPICAL ×2 (16:21→23:59)
[2024-08-19 22:04] VITALS: BP 126/85
[2024-08-19 22:08] LABS: Glucose - Point of Care 163 mg/dl (70-99)
[2024-08-19] MEDS: SEROQUEL 100 MG PO (23:54)
[2024-08-19] MEDS: SENOKOT 17.2 MG PO (23:55)
[2024-08-19] MEDS: LIPITOR 20 MG PO (23:58)
[2024-08-19] MEDS: SEROQUEL PO (23:59)
[2024-08-20] MEDS: KLONOPIN 0.5 MG PO ×2 (00:26→08:24)
[2024-08-20 06:31] LABS: Hematocrit 37.6 % (39.0-52.0); Hemoglobin 13.1 g/dL (13.0-18.0); Mean Corp Hgb Conc. 34.8 g/dL (33.0-37.0); Mean Corpuscular Hgb 29.2 pg (27.0-31.0); Mean Corpuscular Volume 83.7 fL (80.0-94.0); Mean Platelet Volume 10.5 fL (7.4-10.4); Platelet Count 108 10^3/uL (130-400); Red Blood Cell Count 4.49 10^6/uL (4.70-6.10); Red Cell Dist. Width 14.9 % (11.5-14.5); White Blood Cell Count 10.4 10^3/uL (4.8-10.8)
[2024-08-20 06:56] LABS: Blood Urea Nitrogen 22 mg/dl (9-20); Calcium 9.1 mg/dl (8.4-10.2); Carbon Dioxide 29 mmol/L (22-30); Chloride 103 mmol/L (98-107); Estimated Creatinine Clearance 74 ml/min; Glucose 84 mg/dl (70-99); Potassium 4.1 mmol/L (3.5-5.1); Sodium 141 mmol/L (135-145); eGFR > 60.00
[2024-08-20 07:00] VITALS: BP 162/89
[2024-08-20] MEDS: DUONEB 3 ML INH ×2 (07:55→15:22)
[2024-08-20] MEDS: PULMICORT 0.5 MG INH (07:55)
[2024-08-20 08:04] LABS: Glucose - Point of Care 93 mg/dl (70-99)
[2024-08-20] MEDS: NOVOLOG FLEXPEN-LOW RESISTANCE SC (08:22)
[2024-08-20] MEDS: NORVASC 5 MG PO (08:23)
[2024-08-20] MEDS: LEXAPRO 15 MG PO (08:23)
[2024-08-20] MEDS: TESSALON PERLES 200 MG PO ×2 (08:23→15:54)
[2024-08-20] MEDS: MUCINEX 1200 MG PO ×2 (08:23)
[2024-08-20] MEDS: DELTASONE 20 MG PO (08:23)
[2024-08-20] MEDS: PROTONIX 40 MG PO (08:23)
[2024-08-20] MEDS: FLOMAX 0.8 MG PO (08:23)
[2024-08-20] MEDS: PROSCAR 5 MG PO (08:24)
[2024-08-20] MEDS: TOPROL XL 25 MG PO (08:24)
[2024-08-20] MEDS: MIRALAX PO (08:25)
[2024-08-20] MEDS: SINEMET 25-100 1 TABLET PO ×2 (08:27→15:54)
[2024-08-20] MEDS: DESENEX/MITRAZOL/ZEASORB 1 APPLIC TOPICAL (08:28)
[2024-08-20] MEDS: SEROQUEL 25 MG PO (09:30)
--- NOTE | 2024-08-20 10:12 | W.PN.HOSP.TC ---
Today's Communication/Plan
-
DC planning
Assessment / Plan
Assessment / Plan
Physical exam:
General: Elderly, coughing
HEENT: Normocephalic and Atraumatic. Hard hearing.
Respiratory: Diffuse, scattered rhonchi, wheezes heard
Cardiac: S1 S2
GI: Nontender and Nondistended
Genito-urinary: Brice (draining clear urine)
Musculoskeletal: No Edema
Neuro: Awake, Alert and Other (cogwheel rigidity, with Parkinsonian tremor)
Psych: calm, no agitation
A/P: Patient is a 78y M with PMH significant for Parkinson's / dementia and BPH with chronic Brice who was sent to ED for evaluation after he was found to have pulled his Brice catheter.
Traumatic Catheter Removal
Hematuria / Likely traumatic secondary to the above
Catheter associated urinary tract infection
BPH with Chronic Urinary Retention
- Brice re-placed in the ED.
- Urine with >100RBC/>100 WBC/Many Bact
- Not on any anticoagulants.
- Maintain Brice.
- Urology evaluation appreciated, discussed with Dr. Larson
Urine Cx Klebsiella multiple drug sensitivities
Rocephin stopped 2/2 thrombocytopenia. plts was 20; dc Levaquin; monitor off abx. transfusion form signed and in chart. plts now 29
- Continue usual BPH med regimen.
# Acute respiratory distress likely due to acute tracheobronchitis.
Less rales/ rhonchi on exam
Seems comfortable with less cough . No hypoxia
Video swallow, no aspiration.
No fevers, no leukocytosis
pt is on high dose on steroid for ITP at 20 mg QD, he is immunocompromised w
Repeat chest x ray: elevation of the anterior right hemidiaphragm with low lung volumes, similar to prior. Bibasilar atelectasis.
Normal level Pro-BNP
Consulted pulmonary, started on Nebulizer treatment.
He is on Prednisone , chronic TX at 20 mg daily ( related to ITP)
#Elevated Lactic Acid, resolved
- Was suspected related t metformin TX more than infection.
# Parkinson's Disease
Dementia with Behavioral Disturbance
- chronic benzodiazepine treatment
- He was somewhat anxious/ agitated in the ED due to discomfort / multiple attempts at Brice placement.
- Continue usual outpatient med regimen including quetiapine and clonazepam.
#Hypokalemia
replaced.
# Acute on chronic Thrombocytopenia
Follows up with hematology outpatient.hx of ITP
fibrinogen,pt/ptt wnl
hematology followed
transfusion form signed and in chart. no bleeding. Plt around 108 upon dc ( improved).
#DM-II
- Hold metformin as noted above.
- Follow glucose and cover with SSI as needed.
a1c 5.5%
# Benign Hypertension
restarted amlodipine
# DVT Prophylaxis: SCDs
Code Status: DNR
Total discharge time spent to see the patient, examine the patient on the floor, review data and lab results, discuss discharge plan with patient, catalytic case operator, nursing staff around 65 minutes
Anticipated Discharge: Today
Subjective/Interval History
-
Date of Service: August 20, 2024
less cough
No sob
Objective Data
-
Labs:
Laboratory Results
08/20/24
06:07
WBC 10.4
Hgb 13.1
Hct 37.6 L
Plt Count 108 L D
Sodium 141
Potassium 4.1
Chloride 103
Carbon Dioxide 29
BUN 22 H
Creatinine 0.9
Glucose 84
Calcium 9.1
Vital Signs:
Vital Signs
Temp Pulse Resp BP Pulse Ox
97.0 F 54 18 162/89 99
08/20/24 07:00 08/20/24 08:23 08/20/24 07:00 08/20/24 08:23 08/20/24 07:00
I&O
08/19/24 08/20/24 08/21/24
06:59 06:59 06:59
Intake Total 770 / 770 240 / 240 340 / 340
Output Total 850 / 850 550 / 550 260 / 260
Balance -80 / -80 -310 / -310 80 / 80
--- NOTE | 2024-08-20 10:57 | CM ---
Addendum entered by Bessie Jose 08/20/24 11:45:
Pt is medically stable for d/c today.
CM informed Carol @ [facility]. CM confirmed that pt is on regular diet w/ no diet changes following video swallow exam.
Ambulance transport forms provided to [facility]. supervisor final @ 16:15. Carol and hospitalist made aware.
CM will send updated clinicals to facility
Per pt's daughter, she suggested pt sign IMM.
IMM reviewed, signed and put into chart
Plan: Return to [facility] today w/ ambulance transport.
Original Note:
Spoke w/ Carol @ [facility] who confirmed today is pt's 15th day bed hold, however, they will accept him back when medically stable.
[facility] Report: [phone]
[facility]
Plan: Return to [facility]
[2024-08-20 11:25] VITALS: BP 116/75; PULSE 59; O2SAT 98
--- NOTE | 2024-08-20 11:32 | W.PN.PUL3 ---
Today's Communication / Plan
-
Continue nebulizer therapy
Symptomatic therapy for bronchitis
Holding antibiotics
Aspiration precautions
DC planning
Assessment
-
78yo with history of Parkinsons ds/dementia, chornic bernardo. Initially admitted with urinary issues. Developed chest congestion and cough last few days. We were consulted for evaluations.
Acute respiratory sufficiency/coughing
Possible aspiration pneumonitis
Normal proBNP
Chest x-ray 08/18/2024: Reviewed showed elevation of the right hemidiaphragm with low lung volumes. Bibasilar atelectasis.
CT abdomen pelvis lung cuts reviewed: Bibasilar subsegmental rounded atelectasis. No acute infiltrates.
Conditions present prior to admission
Admission to [facility] 05/2024 with septic shock
History of Parkinson disease/dementia
Hypertension
Diabetes
Chronic kidney disease, stage III
History of BPH, chronic Bernardo catheter
History of anxiety/depression
Suicidal ideation in the past
History of ITP
Assessment and plan:
Cough/congestion/rales-with history of Parkinson's disease/dementia-possibly intermittent microaspiration with pneumonitis versus tracheobronchitis.
CXR today -acute no infiltrates.
Remains afebrile.
No leukocytosis
Barium swallow evaluation today 08/19/2024: No evidence for aspiration.
Holding antibiotics for now continue to observe closely.
-
On prednisone 20mg for ITP.
-
Slowly improving from bronchitis.
Continue to hold high-dose of systemic corticosteroids, high risk for delirium with history of dementia and advanced Parkinson's.
Continue with secretion clearance interventions, continue to suspect recurrent microaspiration.
Head of bed elevation
Avoid sedatives
Continue Pulmicort twice a day(started on 08/18/2024)- May continue until symptoms clear.
DuoNebs 3 times a day-May continue until symptoms clear in the outpatient setting.
Acapella device
Antitussive
Continue symptomatic management.
-
Remains on room air.
Incentive spirometry if able
-
History of ITP: Thrombocytopenia noted: Improving. Hematology following the patient.
-
DVT prophylaxis with SCDs.
-
Will continue to follow
-
Agree with discharge planning.
Subjective Data
-
Date of Service:
Date of Service: August 20, 2024
Chief Complaint: Pulmonary Follow Up (Continues to have intermittent coughing and congestion.)
Subjective:
No new complaints, continues to intermittently have cough spells
No significant phlegm production
Denies shortness of breath at rest
Review of Systems
Cardiopulmonary: Cough and Chest Pain (n)
Objective Data
Data Reviewed
Vital Signs / I&O / Oxygen:
Vital Signs
Temp Pulse Resp BP Pulse Ox
97.0 F 54 18 162/89 99
08/20/24 07:00 08/20/24 08:23 08/20/24 07:00 08/20/24 08:23 08/20/24 07:00
Intake and Output
08/19/24 08/20/24 08/21/24
06:59 06:59 06:59
Intake Total 770 / 770 240 / 240 340 / 340
Output Total 850 / 850 550 / 550 260 / 260
Balance -80 / -80 -310 / -310 80 / 80
SaO2 99
Nasal Cannula flow liters per 7
minute
Physical Exam
General: Respiratory Distress (n)
HEENT: Normocephalic
Cardiovascular: S1-S2
Respiratory: Wheeze (n) and Crackles (bases)
GI: Soft and Non Distended
Neurology: Awake and Alert
Labs/Micro/Reports
Lab Data
08/20/24 06:07
08/20/24 06:07
[2024-08-20 11:53] LABS: Glucose - Point of Care 210 mg/dl (70-99)
[2024-08-20 12:08] VITALS: BP 116/75; PULSE 59; O2SAT 98
[2024-08-20] MEDS: NOVOLOG FLEXPEN-LOW RESISTANCE 2 UNITS SC (12:58)
--- NOTE | 2024-08-20 16:02 | W.DCSUMMARY ---
Discharge Summary
Discharge Data
Date of Admission: 08/08/24
Date of Discharge: 08/20/24
-
Pending Results: No
Hospital Course
78 years old male with history of Parkinson disease, cognitive decline presented to the emergency room after patient noted to have traumatically removed his urinary catheter. Multiple Brice catheter placement attempts were made and urology was
consulted. Urologist placed Brice catheter without difficulty or resistant, no gross hematuria noted. Urologist recommended to maintain Brice and to continue his regular medications. Urine was noted to be positive for white blood cells and
bacteria. Patient was given empiric antibiotic. Urine culture showed Klebsiella pneumoniae, pansensitive micro. Patient has history of immune thrombocytopenic purpura. His platelet count went down. Hematology was consulted. Etiology of the
patient's thrombocytopenia was unclear. Patient had normal PT/INR/APTT/fibrinogen. He had normal vitamin B12, folate level. Antibiotic was discontinued after finishing the course. Platelet level started to improve. Patient remained on usual
dose of 20 mg prednisone without escalating the dose. Patient was noted to have acute on chronic cough. Speech therapy evaluated the patient with no signs of aspiration noted. Video swallow did not show aspiration. Patient was evaluated by
pulmonary doctor, chest radiography did not show infiltrate but showed atelectasis and low lung volume. Patient was given nebulizer treatment and was diagnosed with acute tracheobronchitis. Negative COVID test. Patient was given cough medicine.
Patient remained hemodynamically stable and was discharged back to [facility] in a stable condition.
Discharge Plan
-
Patient Disposition: Assisted/SNF
Discharge Diagnosis/Procedures: -Acute tracheobronchitis:
Continue nebulizer therapy
Symptomatic therapy for bronchitis
Aspiration precautions
- Traumatic Catheter Removal, status post replacement. Urology evaluation was done.
Condition: Fair
Diet: As tolerated
Referrals:
Ken Bond DO [Family Provider] - in one to two weeks
Rufino Calix MD [Active] - in two to three weeks (May see electronic resources librarian)
Prescriptions:
New
ipratropium-albuterol 0.5 mg-3 mg(2.5 mg base)/3 mL Solution For Nebulization
3 ml inhalation R TID Qty: 90 0RF
ipratropium-albuterol 0.5 mg-3 mg(2.5 mg base)/3 mL Solution For Nebulization
3 ml inhalation R Q4HPRN PRN (Reason: sob/wheeze) Qty: 30 0RF
benzonatate 100 mg Capsule
100 mg PO TID Qty: 20 0RF
budesonide 0.5 mg/2 mL Suspension For Nebulization
0.5 mg inhalation R BID Qty: 60 0RF
guaifenesin 600 mg Tablet Extended Release 12hr
1,200 mg PO Q12 Qty: 60 0RF
Continued
metformin 500 mg Tablet
500 mg PO BID
acetaminophen [Tylenol] 325 mg Tablet
650 mg PO Q4HPRN PRN (Reason: mild pain/fever>100)
atorvastatin 20 mg Tablet
20 mg PO HS
prednisone 20 mg Tablet
20 mg PO DAILY
clonazepam 0.5 mg Tablet
0.5 mg PO BID
therapeutic multivitamin Tablet
1 tab PO DAILY
famotidine 20 mg Tablet
20 mg PO DAILY
magnesium hydroxide [Milk of Magnesia] 400 mg/5 mL Suspension
30 ml PO [id number] PRN (Reason: if no bm 3 days)
tamsulosin 0.4 mg Capsule
0.8 mg PO DAILY
bisacodyl [Dulcolax (bisacodyl)] 10 mg Suppository
10 mg IA DAILYPRN PRN (Reason: if mom ineffective after 24 hrs)
Fleet Enema 19-7 gram/118 mL Enema
118 ml IA DAILYPRN PRN (Reason: if dulcolax ineffective after 24 hrs)
carbidopa-levodopa 25-100 mg Tablet
1 tab PO TID
finasteride 5 mg Tablet
5 mg PO DAILY
Artificial Tears (PF) Dropperette
1 drp BOTH EYES [id number] PRN (Reason: dry eyes)
Artificial Tears (PF) Dropperette
1 drp BOTH EYES BID
bupropion HCl [Wellbutrin XL] 150 mg Tablet Extended Release 24 Hr
150 mg PO Q48H
escitalopram oxalate [Lexapro] 5 mg Tablet
15 mg PO DAILY
metoprolol succinate 25 mg Tablet Extended Release 24 Hr
25 mg PO DAILY Qty: 30 0RF
phenazopyridine [Pyridium] 100 mg tablet
100 mg PO TID PRN (Reason: dysuria) Qty: 10 0RF
ibuprofen 200 mg Tablet
400 mg PO Q6HPRN PRN (Reason: mod to severe pain) Qty: 0 0RF
polyethylene glycol 3350 [Miralax] 17 gram powder in packet
17 g PO DAILY Qty: 30 0RF
senna 8.6 mg capsule
17.2 mg PO HS Qty: 60 0RF
quetiapine [Seroquel] 25 mg Tablet
25 mg PO BID
amlodipine [Norvasc] 5 mg Tablet
5 mg PO DAILY
quetiapine [Seroquel] 100 mg Tablet
100 mg PO HS
Discontinued
albuterol sulfate 2.5 mg /3 mL (0.083 %) Solution For Nebulization
2.5 mg INHALATION R Q6HPRN PRN (Reason: sob)
Discharge Orders:
Discharge Patient (As Directed); Ordered 08/20/24
Ordered By: Luis Alfredo Arellano
Discharge Date and Time
Print Language: [place] Z[place]
[2024-08-20 16:25] VITALS: BP 118/72
== END 2024-08-20 16:39 | DRG 699 ==
LOC: 3 WEST ACU 04:05
PROVIDERS: Clinical Nurse Specialist Family Health; Internal Medicine; Nurse Practitioner Gerontology; ADMITTING PHYSICIAN Hospitalist; ATTENDING PHYSICIAN Internal Medicine; CONSULT PHYSICIAN Internal Medicine Hematology & Oncology; EMERGENCY PHYSICIAN Emergency Medicine; FAMILY PHYSICIAN Internal Medicine; OTHER PHYSICIAN Internal Medicine Critical Care Medicine
DX: T83.511A Infection and inflammatory reaction due to indwelling urethral catheter, initial encounter (principal); D69.3 Immune thrombocytopenic purpura; B96.1 Klebsiella pneumoniae [K. pneumoniae] as the cause of diseases classified elsewhere; N39.0 Urinary tract infection, site not specified; Y73.1 Therapeutic (nonsurgical) and rehabilitative gastroenterology and urology devices associated with adverse incidents; Z11.52 Encounter for screening for COVID-19
CPT/HCPCS: 51702; 71045; 71046; 74177; 74230; 80048; 80053; 81003; 81015; 82607; 82746; 82962; 83036; 83605; 83880; 84145; 85025; 85027; 85384; 85610; 85730; 87070; 87077; 87086; 87186; 87502; 87811; 92526; 92610; 92611; 93005; 94640; 96361; 96374; 96375; 97163; 97166; 97530; 99285; J3480; Q9967

== ENCOUNTER 2024-09-16 20:12 | Emergency (ER) | payer MEDICARE, SELFPAY ==
[2024-09-16] VITALS (12 sets, daily range): BP systolic 105–144; BP diastolic 68–92
--- NOTE | 2024-09-16 20:57 | ED.GENMED ---
History of Present Illness
General
Chief Complaint: Male Genito-Urinary Symptoms
Source: patient
Exam Limitations: none
Time Seen by Provider: 09/16/24 20:19
History of Present Illness
History of Present Illness:
This is a 79 year old male that comes in with c/o urinary catheter not draining. Daughter states that he just had the catheter changes a week ago. States that it was bloody in the past. Patient is c/o lower abd discomfort. Denies any fever, chills,
chest pain, SOB, nausea, vomiting, diarrhea, headache, dizziness
Past History
Past History
ED Past Medical History: HTN, Hypercholesterolemia, NIDDM, Psychiatric (Anxiety, Depression, ), Other (Diabetic Neuropathy. Parkinson's, PNA, emphysema, Renal calculus, Urinary retention, UTI, Diplopia, thrombocytopenia, Strabismus) and Other
(Parkinson's dx, BPH)
ED Past Surgical History: Orthopedic (Spinal fusion), Urological (Lithotripsy, Urogenital implants) and Other (cataracts, )
Social History
Tobacco: Former smoker
Alcohol: None
Personal:
Living: [facility]
Review of Systems
Review of Systems
All Other Systems: ROS reviewed and negative except as documented in HPI and ROS
Constitutional: Reports no symptoms; Denies fever or chills
EENT: Reports no symptoms
Respiratory: Reports no symptoms; Denies cough or trouble breathing
Cardiac: Reports no symptoms; Denies chest pain
ABD/GI: Reports abdominal pain; Denies nausea, vomiting or diarrhea
: Reports other (NO drainage from the urinary catheter)
Musculoskeletal: Reports no symptoms
Skin: Reports no symptoms
Neurological: Reports no symptoms; Denies dizzy or headache
Psychiatric: Reports no symptoms
Phy Exam
General Physical Exam
General Presentation: mild distress
General age: appears stated age
General Skin: warm and dry
General Habitus: elderly
General Mental: alert
General Hydration: appears well hydrated
ENT Exam
ENT Exam: TM's normal, pharynx normal and neck supple
Cardiovascular Exam
Cardiovascular Exam: regular rate/rhythm, no edema and normal peripheral pulses
Pulmonary Exam
Pulmonary Exam: lungs clear, no respiratory distress, no rales, chest non tender, no crackles, no rhonchi, no wheezing and no cough
Gastrointestinal Exam
Gastrointestinal Exam: normal bowel sounds, soft, no pulsatile mass, non distended and other (Bladder distention to naval)
Musculoskeletal Exam
Musculoskeletal Exam: full ROM and no edema
Skin Exam
Skin Exam: normal color, warm/dry, no rash and no petechia
Psychiatric Exam
Psychiatric Exam: normal mood/affect
Course
Orders/Labs/Results
Orders:
Orders
09/16/24 20:56
Urinalysis Reflex To Culture Urgent
Date Specimen was Collected: 09/16/24
Time Specimen was Collected: 20:18
Urine Microscopic Reflex Cult Urgent
Urine Culture Urgent
SARTHAK Source: U
Specimen Description:
Date Specimen was Collected: 09/16/24
Time Specimen was Collected: 20:18
09/16/24 22:16
CefTRIAXone [Rocephin] 1,000 mg IV NOW STA
Abnormal Lab Results
09/16/24
20:56
Ur Occult Blood Reflex 3+ A
(Negative)
Urine Nitrite (Reflex) Positive A
(Negative)
Leukocyte Esterase Rfl 2+ A
(Negative)
Urine RBC 16-20 A /HPF
(0-2)
Urine WBC (Reflex) 11-15 A /HPF
(0-5)
Urine Bacteria (Reflex) Many A
(Negative)
Urine Glucose Trace A
(Negative)
Urine Albumin (Reflex) 1+ A
(Neg - Trace)
Vital Signs
Initial and Last Documented VS:
Initial Vital Signs
Temp Pulse BP Pulse Ox
97.7 F 67 144/85 99
09/16/24 20:19 09/16/24 20:19 09/16/24 20:19 09/16/24 20:19
Last Documented Vital Signs
Temp Pulse BP Pulse Ox
97.7 F 51 129/75 95
09/16/24 20:19 09/16/24 23:15 09/16/24 23:15 09/16/24 22:30
MDM/Problems Addressed
Differential Diagnosis Includes:
Blocked catheter,
MDM/Problems Addressed:
This is a 79 year old male that comes in with c/o lower abd discomfort as his catheter is not draining.
Catheter changed by nursing and patient is draining. States that he is feeling better. Will get Urine.
Back into see patient. Bernardo catheter was changed and patient appears to have a UTI. Will give IV antibiotics and sent back on antibiotics. Patient to return with any concerns.
Chronic conditions affecting care:
Chronic bernardo catheter
Acute Exacerbation and/or Progression of Chronic Illness:
Chronic bernardo catheter
*Pulse Oximetry
Patient hypoxic: no
*EKG
Interpreted by ED Provider?: NA
Rate: EKG- N/A
*Chief Vendor Quality Interpretation
Rate: bradycardiac
Heart Rate: 55
Rhythm: sinus
*Critical Care Note
Total Time (30-74mins, 75-104mins- exclusive of procedures): Not Applicable
ED Attending Note
-
Portions of this chart may have been created with voice recognition software.� Occasional wrong word or��sound alike� substitutions may have occurred due to the inherent limitations of voice recognition software.
Discharge Plan
Departure
Patient Disposition: [facility]SNF
Date of Disposition: 09/16/24
Time of Disposition: 22:21
Patient with high blood pressure during this ER visit?: No
Condition: Good
Covid-19: Not Applicable
Discharge Problem:
Urinary catheter (Bernardo) change required, Acute UTI
Instructions: How to Care for Your Bernardo Catheter, Male, Urinary Retention (DC), Urinary Tract Infection, Adult ED
Prescriptions:
New
cefdinir 300 mg capsule
300 mg PO BID Qty: 14 0RF
No Action
acetaminophen [Tylenol] 325 mg Tablet
650 mg PO Q4HPRN PRN (Reason: mild pain/fever>100)
atorvastatin 20 mg Tablet
20 mg PO HS
prednisone 20 mg Tablet
20 mg PO DAILY
clonazepam 0.5 mg Tablet
0.5 mg PO BID
therapeutic multivitamin Tablet
1 tab PO DAILY
famotidine 20 mg Tablet
20 mg PO DAILY
magnesium hydroxide [Milk of Magnesia] 400 mg/5 mL Suspension
30 ml PO DAILYPRN PRN (Reason: if no bm 3 days)
tamsulosin 0.4 mg Capsule
0.8 mg PO DAILY
bisacodyl [Dulcolax (bisacodyl)] 10 mg Suppository
10 mg RI DAILYPRN PRN (Reason: if mom ineffective after 24 hrs)
Fleet Enema 19-7 gram/118 mL Enema
118 ml RI DAILYPRN PRN (Reason: if dulcolax ineffective after 24 hrs)
carbidopa-levodopa 25-100 mg Tablet
1 tab PO TID
finasteride 5 mg Tablet
5 mg PO DAILY
Artificial Tears (PF) Dropperette
1 drp BOTH EYES [id number] PRN (Reason: dry eyes)
Artificial Tears (PF) Dropperette
1 drp BOTH EYES BID
escitalopram oxalate [Lexapro] 5 mg Tablet
15 mg PO DAILY
metoprolol succinate 25 mg Tablet Extended Release 24 Hr
25 mg PO DAILY Qty: 30 0RF
ibuprofen 200 mg Tablet
400 mg PO Q6HPRN PRN (Reason: mod to severe pain) Qty: 0 0RF
polyethylene glycol 3350 [Miralax] 17 gram powder in packet
17 g PO DAILY Qty: 30 0RF
senna 8.6 mg capsule
17.2 mg PO HS Qty: 60 0RF
quetiapine [Seroquel] 25 mg Tablet
25 mg PO BID
amlodipine [Norvasc] 5 mg Tablet
5 mg PO DAILY
quetiapine [Seroquel] 100 mg Tablet
100 mg PO HS
ipratropium-albuterol 0.5 mg-3 mg(2.5 mg base)/3 mL Solution For Nebulization
3 ml inhalation R TID Qty: 90 0RF
ipratropium-albuterol 0.5 mg-3 mg(2.5 mg base)/3 mL Solution For Nebulization
3 ml inhalation R Q4HPRN PRN (Reason: sob/wheeze) Qty: 30 0RF
benzonatate 100 mg Capsule
100 mg PO TID Qty: 20 0RF
budesonide 0.5 mg/2 mL Suspension For Nebulization
0.5 mg inhalation R BID Qty: 60 0RF
guaifenesin 600 mg Tablet Extended Release 12hr
1,200 mg PO Q12 Qty: 60 0RF
nitrofurantoin monohyd/m-cryst [Macrobid] 100 mg Capsule
100 mg PO BID
phenazopyridine [Pyridium] 100 mg tablet
100 mg PO Q8HPRN PRN (Reason: dysuria)
Activity Restrictions/Additional Instructions:
As discussed, patient catheter was blocked and his catheter was changed. Please increased patient water intake to 8-8oz glasses daily. He was given IV antibiotic here and a prescription has been sent back with patient. Follow up with the Urologist.
IF YOU HAVE ANY OTHER CONCERNS PLEASE RETURN TO THE EMERGENCY ROOM.
Interventions
Interventions:
*Risk Screen - Suicide Last Done: 09/16/24 20:25
*General Assessment Last Done: 09/16/24 20:25
*Neglect/Abuse Screening Last Done: 09/16/24 20:25
ED- Fall Risk Assessment Last Done: 09/16/24 20:25
*ED COVID-19 Vaccine History Last Done: 09/16/24 20:25
*Nursing Disposition Last Done: 09/16/24 23:22
ED-Male Genitourinary Assessment Last Done: 09/16/24 20:25
Discharge Date and Time
Discharge Date/Time: 09/16/24 23:25
Print Language: VENEZUELAN
[2024-09-16 21:07] LABS: Urine Albumin 1+ (Neg - Trace); Urine Bilirubin Negative (Negative); Urine Character Slightly Cloudy (Clear); Urine Color Yellow; Urine Glucose Trace (Negative); Urine Ketone Negative (Negative); Urine Leukocyte 2+ (Negative); Urine Nitrite Positive (Negative); Urine Occult Blood 3+ (Negative); Urine Urobilinogen Negative (Neg - 1+)
[2024-09-16 21:13] LABS: Urine Squamous Cell 0-2 /LPF (Few); Urine Triple Phosphate Crystal Present
[2024-09-16 21:20] LABS: Urine Bacteria Many (Negative)
[2024-09-16 21:21] LABS: Urine Red Blood Cell 16-20 /HPF (0-2)
[2024-09-16] MEDS: ROCEPHIN 1000 MG IV (22:29)
== END 2024-09-16 23:25 ==
LOC: EMR 20:12
PROVIDERS: EMERGENCY PHYSICIAN Emergency Medicine; FAMILY PHYSICIAN Internal Medicine
DX: N39.0 Urinary tract infection, site not specified (principal); Z46.6 Encounter for fitting and adjustment of urinary device; Z87.891 Personal history of nicotine dependence
CPT/HCPCS: 99283; 51798; 51702; 81003; 81015; 87077; 87086

== ENCOUNTER 2024-11-11 11:48 | Emergency (ER) | payer MEDICARE, SELFPAY ==
[2024-11-11] VITALS (11 sets, daily range): BP systolic 115–141; BP diastolic 65–94
--- NOTE | 2024-11-11 12:03 | ED.GENMED ---
History of Present Illness
General
Chief Complaint: Breathing Problem
Source: patient
Time Seen by Provider: 11/11/24 11:58
History of Present Illness
History of Present Illness:
79-year-old male with past medical history of Parkinson's, hypertension, hyperlipidemia, CKD, [id number] diabetes presenting to the emergency department for evaluation after being diagnosed with the flu 4 days ago, increased cough,
reported shortness of breath and staff at his long-term living facility stating patient seem to be a little bit more confused than normal. Patient does endorse the cough and feels short of breath but when asked what is bothering him the most
patient states 'being here at the hospital'.
Past History
Past History
ED Past Medical History: HTN, Hypercholesterolemia, NIDDM, Psychiatric (Anxiety, Depression, ), Other (Diabetic Neuropathy. Parkinson's, PNA, emphysema, Renal calculus, Urinary retention, UTI, Diplopia, thrombocytopenia, Strabismus) and Other
(Parkinson's dx, BPH)
ED Past Surgical History: Orthopedic (Spinal fusion), Urological (Lithotripsy, Urogenital implants) and Other (cataracts, )
Social History
Tobacco: Former smoker
Alcohol: None
Drug: None
Personal: Single
Living: longterm
Review of Systems
Review of Systems
All Other Systems: ROS reviewed and negative except as documented in HPI and ROS
Phy Exam
Physical Exam
Physical Exam:
GENERAL: Alert , in no apparent distress
EYE: conjunctiva clear
NECK: Supple,/gurgling audible upper airway wheeze/gurgling but no stridor
ENT: o/p clr, mmm.
CARDIAC: Regular rate and rhythm
LUNGS: Tachypneic, rhonchorous lung sounds scattered throughout but no wheezing or rails, speaks 2-3 word sentences with dyspnea following
NEUROLOGICAL: Alert and oriented
SKIN: Warm and dry, skin intact.
MUSCULOSKELETAL: well perfused.
PSYCH: Normal and appropriate interaction.
Scores
Heart Failure Risk
Heart Failure Risk Score: Not Applicable
Heart Score for Chest Pain Patients
STEMI patient?: Not applicable
Withdrawal Assessment of Alcohol
Withdrawal Assessment Completed?: Not applicable
Course
Orders/Labs/Results
Orders:
Orders
11/11/24 12:03
CR Chest Portable - 1 View Urgent
Comment:
Reason For Exam: flu, hypoxia, tachypnea
Reason Study Needs to be Portable: Unable to Transport
11/11/24 12:04
Electrocardiogram (*1) Urgent
Reason for Study: Shortness of Breath
EKG- Treatment ONCE
11/11/24 12:14
Basic Metabolic Panel Urgent
Complete Blood Count/With Diff Urgent
NT-proBNP Urgent
Abnormal Lab Results
11/11/24
12:14
WBC 11.4 H 10^3/uL
(4.8-10.8)
RBC 4.69 L 10^6/uL
(4.70-6.10)
RDW 14.7 H %
(11.5-14.5)
Abs Immat Gran (auto) 0.2 H 10^3/uL
(0-0.05)
Absolute Neuts (auto) 9.5 H 10^3/uL
(1.4-6.5)
Absolute Lymphs (auto) 1.0 L 10^3/uL
(1.2-3.4)
Absolute Monos (auto) 0.7 H 10^3/uL
(0.1-0.6)
Immature Gran % 1.4 H %
(0-0.5)
Neutrophils % 82.9 H %
(42.2-75.2)
Lymphocytes % 8.7 L %
(20.5-51.1)
BUN 24 H mg/dl
(9-20)
Glucose 127 H mg/dl
(70-99)
11/11/24 12:14
11/11/24 12:14
Vital Signs
Initial and Last Documented VS:
Initial Vital Signs
Pulse Resp BP Pulse Ox
76 24 131/94 94
11/11/24 11:54 11/11/24 11:54 11/11/24 11:54 11/11/24 11:54
Last Documented Vital Signs
Temp Pulse Resp BP Pulse Ox
97.3 F 64 22 124/85 89
11/11/24 11:55 11/11/24 13:45 11/11/24 13:30 11/11/24 13:00 11/11/24 13:45
MDM/Problems Addressed
Differential Diagnosis Includes:
Influenza, pneumonia, dehydration
MDM/Problems Addressed:
79-year-old male presenting to the emergency department for evaluation at request of his living facility after testing positive for the flu 4 days ago, currently on day 4 of Tamiflu and staff felt patient seemed to be worsening. He does have noted
tachypnea, cough and appeared short of breath on arrival here. Pulse ox will intermittently drop to around 89% on room air but would then respond by going back into the mid 90s. Patient does have noted tachypnea and 2-3 word dyspnea while
speaking. Will check labs, chest x-ray with anticipated admission being patient's ultimate disposition given his comorbidities.
Chronic conditions affecting care: COPD and Kidney disease
*Pulse Oximetry
Patient hypoxic: yes
*EKG
Interpreted by ED Provider?: Yes
Heart Rate: 82
Rate: normal
Rhythm: sinus
Ischemia: no ischemia
*Resistance Welder Interpretation
Rate: normal
Rhythm: sinus
*Critical Care Note
Total Time (30-74mins, 75-104mins- exclusive of procedures): Not Applicable
Patient Management
Social determinants of health affecting care: Living situation
Discussion with other providers: snf staff
Escalation/DeEscalation of care consider admission/obs:
Patient's labs do reveal a mild leukocytosis of 11,000. Chest x-ray stable from previous and does not show any effusions or infiltrates. Following continuous observation patient's respiratory status did seem to improve. He is no longer tachypneic
and is able to speak in full sentences. Patient was able to tolerate p.o. here. Given patient lives at a facility where he is continuously monitored, currently not requiring any oxygen supplementation, tolerating p.o., no acute respiratory
distress I do feel it is reasonable to send patient back to his living facility. I did speak with the nursing team at [facility] and they are aware that patient will be coming back to the facility.
ED Attending Note
-
Portions of this chart may have been created with voice recognition software.� Occasional wrong word or��sound alike� substitutions may have occurred due to the inherent limitations of voice recognition software.
Discharge Plan
Departure
Patient Disposition: Prison/SNF
Date of Disposition: 11/11/24
Time of Disposition: 14:14
Patient with high blood pressure during this ER visit?: No
Discharge Problem:
Influenza
Instructions: Flu in adults - Discharge instructions
Prescriptions:
No Action
acetaminophen [Tylenol] 325 mg Tablet
650 mg PO Q4HPRN PRN (Reason: mild pain/fever>100)
atorvastatin 20 mg Tablet
20 mg PO HS
prednisone 20 mg Tablet
20 mg PO DAILY
clonazepam 0.5 mg Tablet
0.5 mg PO BID
therapeutic multivitamin Tablet
1 tab PO DAILY
famotidine 20 mg Tablet
20 mg PO DAILY
magnesium hydroxide [Milk of Magnesia] 400 mg/5 mL Suspension
30 ml PO DAILYPRN PRN (Reason: if no bm 3 days)
tamsulosin 0.4 mg Capsule
0.8 mg PO DAILY
bisacodyl [Dulcolax (bisacodyl)] 10 mg Suppository
10 mg UT DAILYPRN PRN (Reason: if mom ineffective after 24 hrs)
Fleet Enema 19-7 gram/118 mL Enema
118 ml UT DAILYPRN PRN (Reason: if dulcolax ineffective after 24 hrs)
carbidopa-levodopa 25-100 mg Tablet
1 tab PO TID
finasteride 5 mg Tablet
5 mg PO DAILY
Artificial Tears (PF) Dropperette
1 drp BOTH EYES [id number] PRN (Reason: dry eyes)
Artificial Tears (PF) Dropperette
1 drp BOTH EYES BID
escitalopram oxalate [Lexapro] 5 mg Tablet
15 mg PO DAILY
metoprolol succinate 25 mg Tablet Extended Release 24 Hr
25 mg PO DAILY Qty: 30 0RF
ibuprofen 200 mg Tablet
400 mg PO Q6HPRN PRN (Reason: mod to severe pain) Qty: 0 0RF
polyethylene glycol 3350 [Miralax] 17 gram powder in packet
17 g PO DAILY Qty: 30 0RF
senna 8.6 mg capsule
17.2 mg PO HS Qty: 60 0RF
quetiapine [Seroquel] 25 mg Tablet
25 mg PO BID@0800,1200
amlodipine [Norvasc] 5 mg Tablet
5 mg PO DAILY
quetiapine [Seroquel] 100 mg Tablet
100 mg PO HS
ipratropium-albuterol 0.5 mg-3 mg(2.5 mg base)/3 mL Solution For Nebulization
3 ml inhalation R TID Qty: 90 0RF
ipratropium-albuterol 0.5 mg-3 mg(2.5 mg base)/3 mL Solution For Nebulization
3 ml inhalation R Q4HPRN PRN (Reason: sob/wheeze) Qty: 30 0RF
benzonatate 100 mg Capsule
100 mg PO TID Qty: 20 0RF
budesonide 0.5 mg/2 mL Suspension For Nebulization
0.5 mg inhalation R BID Qty: 60 0RF
guaifenesin 600 mg Tablet Extended Release 12hr
1,200 mg PO Q12 Qty: 60 0RF
phenazopyridine [Pyridium] 100 mg tablet
100 mg PO Q8HPRN PRN (Reason: dysuria)
oseltamivir [Tamiflu] 75 mg Capsule
75 mg PO HS
Rx Instructions:
take for 14 day starting 11/07/24
Referrals:
Ken Bond I., DO [Family Provider] -
Interventions
Interventions:
*ED COVID-19 Vaccine History Last Done: 11/11/24 12:01
ED- Cardiac Assessment Last Done: 11/11/24 12:54
ED- Pulmonary Assessment Last Done: 11/11/24 12:54
Discharge Date and Time
Print Language: FAROESE
[2024-11-11 12:32] LABS: % Basophils 0.3 % (0-2); % Eosinophils 0.5 % (0-6); % Immature Granulocytes 1.4 % (0-0.5); % Lymphocytes 8.7 % (20.5-51.1); % Monocytes 6.2 % (1.7-9.3); % Neutrophils 82.9 % (42.2-75.2); Absolute Eosinophils 0.1 10^3/uL (0-0.7); Absolute Immature Granulocytes 0.2 10^3/uL (0-0.05); Absolute Monocytes 0.7 10^3/uL (0.1-0.6); Absolute Neutrophils 9.5 10^3/uL (1.4-6.5); Hematocrit 39.9 % (39.0-52.0); Hemoglobin 14.3 g/dL (13.0-18.0); Mean Corp Hgb Conc. 35.8 g/dL (33.0-37.0); Mean Corpuscular Hgb 30.5 pg (27.0-31.0); Mean Corpuscular Volume 85.1 fL (80.0-94.0); Mean Platelet Volume 9.6 fL (7.4-10.4); Nucleated Red Blood Cells % 0 % (-); Platelet Count 144 10^3/uL (130-400); Red Blood Cell Count 4.69 10^6/uL (4.70-6.10); Red Cell Dist. Width 14.7 % (11.5-14.5); White Blood Cell Count 11.4 10^3/uL (4.8-10.8)
[2024-11-11 12:45] LABS: Blood Urea Nitrogen 24 mg/dl (9-20); Calcium 9.1 mg/dl (8.4-10.2); Carbon Dioxide 24 mmol/L (22-30); Chloride 105 mmol/L (98-107); Glucose 127 mg/dl (70-99); Potassium 3.6 mmol/L (3.5-5.1); Sodium 138 mmol/L (135-145); eGFR > 60.00
[2024-11-11 12:54] LABS: NT-proBNP 299 pg/ml
== END 2024-11-11 20:37 ==
LOC: EMR 11:48
PROVIDERS: Physician Assistant Medical; EMERGENCY PHYSICIAN Emergency Medicine; FAMILY PHYSICIAN Internal Medicine
DX: J11.1 Influenza due to unidentified influenza virus with other respiratory manifestations (principal); I12.9 Hypertensive chronic kidney disease with stage 1 through stage 4 chronic kidney disease, or unspecified chronic kidney disease; E11.22 Type 2 diabetes mellitus with diabetic chronic kidney disease; N18.9 Chronic kidney disease, unspecified; E78.00 Pure hypercholesterolemia, unspecified; G20.A1 Parkinson's disease without dyskinesia, without mention of fluctuations; J43.9 Emphysema, unspecified; Z87.891 Personal history of nicotine dependence
CPT/HCPCS: 99285; 71045; 80048; 83880; 85025; 93005

== ENCOUNTER → 2024-12-30 08:49 | Outpatient (REF) | payer MEDICARE, SELFPAY | LOC: HWRAD 08:49 | PROVIDERS: ATTENDING PHYSICIAN Nurse Practitioner Adult Health; FAMILY PHYSICIAN Internal Medicine | DX: R05.3 Chronic cough (principal) | CPT/HCPCS: 71250 ==

== ENCOUNTER 2025-01-05 15:07 | Inpatient (IN) | payer MEDICARE, SELFPAY ==
[2025-01-05] VITALS (29 sets, daily range): BP systolic 69–114; BP diastolic 32–73; BMI 29.0
--- NOTE | 2025-01-05 11:57 | ED.GENMED ---
History of Present Illness
<Manuel Ayoub PA-C - Last Filed: 01/05/25 14:33>
General
Chief Complaint: Change in Mental Status
Source: records and ambulance crew
Time Seen by Provider: 01/05/25 11:52
History of Present Illness
History of Present Illness:
79-year-old male with past medical history of early dementia, Parkinson's disease, emphysema, hypertension, hyperlipidemia, stage III chronic kidney disease presenting to the ER from [facility] for evaluation of reported change in mental status
that reportedly started over the last 24 hours. EMS states that the staff at [facility] was otherwise unable to give much history although they do note that patient's dementia seems to have been worsening over the last month or so. No reported
fevers at the facility despite the patient having a 101.9 rectal temperature here. EMS notes that the patient reportedly talked to his daughter on Sunday and reportedly at baseline at that time. Patient unable to provide any history presently
due to current state.
Past History
<Manuel Ayoub PA-C - Last Filed: 01/05/25 14:33>
Past History
ED Past Medical History: HTN, Hypercholesterolemia, NIDDM, Renal failure, Psychiatric (Anxiety, Depression, ), Other (Diabetic Neuropathy. Parkinson's, PNA, emphysema, Renal calculus, Urinary retention, UTI, Diplopia, thrombocytopenia, Strabismus)
and Other (Parkinson's dx, BPH)
ED Past Surgical History: Orthopedic (Spinal fusion), Urological (Lithotripsy, Urogenital implants) and Other (cataracts, )
Social History
Tobacco: Former smoker
Alcohol: None
Drug: None
Personal: Single
Living: [facility]
Review of Systems
<Manuel Ayoub PA-C - Last Filed: 01/05/25 14:33>
Review of Systems
All Other Systems: ROS reviewed and negative except as documented in HPI and ROS
Phy Exam
<Manuel Ayoub PA-C - Last Filed: 01/05/25 14:33>
Physical Exam
Physical Exam:
GENERAL: Obtunded but maintaining airway, intermittently opens his eyes while being moved around, also opens eyes to name but is having a hard time following commands.
EYE: clear conjunctiva
NECK: Supple
ENT: o/p clr, dry mucous membranes
CARDIAC: Regular rate and rhythm .
LUNGS: Rhonchorous lung sounds, tachypneic, no Rales
ABDOMEN: Soft, without focal tenderness, no r/g, no cvat
NEUROLOGICAL: Not answering questions and unable to assess fully
SKIN: Warm and dry, skin intact.
MUSCULOSKELETAL: No edema, well perfused.
PSYCH: Unable to assess
Scores
<Manuel Ayoub PA-C - Last Filed: 01/05/25 14:33>
Heart Failure Risk
Heart Failure Risk Score: Not Applicable
Heart Score for Chest Pain Patients
STEMI patient?: Not applicable
Withdrawal Assessment of Alcohol
Withdrawal Assessment Completed?: Not applicable
Sepsis
<Manuel Ayoub PA-C - Last Filed: 01/05/25 14:33>
Sepsis Screening
Sepsis Assessment: Septic Shock
Sepsis Screening: Hypotension, Sustained Hypotension-SBP <90,MAP<65, or SBP decrease 40mmHg or more and Vasopressor support required
Sepsis Screen
Sepsis Screen: Septic Shock
Date: 01/05/25
Time: 14:30
<Marquez Estrella MD - Last Filed: 01/05/25 14:34>
Sepsis Screen
Sepsis Screen: Septic Shock
Date: 01/05/25
Time: 14:31
Course
<Manuel Ayoub PA-C - Last Filed: 01/05/25 14:33>
Orders/Labs/Results
Orders:
Orders
01/05/25 11:50
Electrocardiogram (*1) Urgent
Reason for Study: Shortness of Breath
CXR [CR Chest Portable - 1 View] Urgent
Comment:
Reason For Exam: sob
Reason Study Needs to be Portable: Unable to Transport
01/05/25 11:51
EKG- Treatment ONCE
01/05/25 11:52
Straight cath- Treatment ONCE
0.9% Sodium Chloride 1000 ml [Nss] 2,900 ml IV NOW STA
01/05/25 12:00
Blood Culture Urgent
SARTHAK Source: Blood/Venous
Specimen Description:
01/05/25 12:01
COVID-19 Antigen Urgent
Source: Nasal Swab
Complete Blood Count/With Diff Urgent
Comprehensive Metabolic Panel Urgent
Lactic Acid Q4H
Comment: ON ICE, CANCEL 2ND ORDER IF FIRST LACTIC ACID LEVEL <2
Blood Culture Urgent
SARTHAK Source: Blood/Venous
Specimen Description:
Influenza A+B Rapid Molecular Urgent
SARTHAK Source: Nasal Swab
Specimen Description:
01/05/25 12:05
Piperacillin/Tazo 3.375 Gram [Zosyn] 3.375 gram in 50 ml IV NOW
01/05/25 12:15
Acetaminophen 10 mg/ml [Ofirmev] 400 mg Empty Viaflex Container 100 ml [Viaflex Empty Container] 0 ml IV ONCE
Acetaminophen IV Indication:: No UT & No Enteral Access
Vancomycin [Vancocin] 2,000 mg 0.9% Sodium Chloride 500 ml [Nss] 500 ml IV NOW
01/05/25 12:20
CT Abd/pelvis W Iv Cont Urgent
Comment:
Reason For Exam: sepsis, firm and distended abdomen
01/05/25 12:39
Urinalysis Reflex To Culture Urgent
Date Specimen was Collected: 01/05/25
Time Specimen was Collected: 11:51
Urine Microscopic Reflex Cult Urgent
Urine Culture Urgent
SARTHAK Source: U
Specimen Description:
Date Specimen was Collected: 01/05/25
Time Specimen was Collected: 11:51
01/05/25 14:15
NORepinephrine 4 MG/250 ML [Levophed] 4 mg in 250 ml IV PER PROTOCOL
Initial dose in mcg/min, then titrate:: 2
Titrate to keep:: SBP > 90 mmHg
Titrate by mcg/min:: 1-2 mcg/min
Frequency of titrations (minutes):: 5
Maximum dose in ICU in mcg/min:: 30
Maximum dose in IMU in mcg/min:: 8
Maximum dose in IVU in mcg/min:: 4
Begin to taper infusion when:: Remained at goal for 4hrs
Taper by mcg/min:: 1-2 mcg/min
Frequency of taper (minutes) if patient maintains goal:: 30
Taper to off?: Yes
If infusion off & no longer maintaining goal:: Contact Provider
01/05/25 14:17
Admit/Transfer Patient As Directed
Co-Sign Provider:
Level of Care: Inpatient admission
Assign to:: IMU- Intermediate Care
Physician / Group: Hospitalist
Diagnosis: Sepsis sec to uti
Reason for Hospitalization: Septic Shock sec to UTI
Expected length of stay greater than two midnights?: Yes
ELOS- Estimated Length of Stay in days: 4
I certify the patient meets the requirements for IP care: Yes
01/05/25 14:18
PRN Pain Medication Management As Directed
May give lesser potent ordered pain med per pt: Yes
preference::
Protocol:: Medication orders for pain may be administered in a
manner that supports deferring to patient preference
when the pt is:
- Requesting an ordered lesser potent pain medication.
Least to most potent pain medications are defined
as: acetaminophen < NSAID < tramadol < opioids
(morphine, oxycodone, hydromorphone).
- Requesting a lesser dose of the same medication IF
ORDERED.
- Requesting a less intrusive route of administration
if both routes are prescribed by the provider (PO <
IV).
01/05/25 16:00
Lactic Acid Q4H
Comment: ON ICE, CANCEL 2ND ORDER IF FIRST LACTIC ACID LEVEL <2
Abnormal Lab Results
01/05/25 01/05/25
12:01 12:39
WBC 14.4 H 10^3/uL
(4.8-10.8)
RBC 4.45 L 10^6/uL
(4.70-6.10)
Hct 38.1 L %
(39.0-52.0)
RDW 15.0 H %
(11.5-14.5)
Plt Count 108 L 10^3/uL
(130-400)
Abs Immat Gran (auto) 0.1 H 10^3/uL
(0-0.05)
Absolute Neuts (auto) 13.1 H 10^3/uL
(1.4-6.5)
Absolute Lymphs (auto) 0.4 L 10^3/uL
(1.2-3.4)
Absolute Monos (auto) 0.8 H 10^3/uL
(0.1-0.6)
Immature Gran % 0.6 H %
(0-0.5)
Neutrophils % 91.0 H %
(42.2-75.2)
Lymphocytes % 2.8 L %
(20.5-51.1)
BUN 33 H mg/dl
(9-20)
Creatinine 2.1 H mg/dL
(0.7-1.3)
Glucose 180 H mg/dl
(70-99)
Total Bilirubin 2.3 H mg/dl
(0.2-1.3)
AST 15 L U/L
(17-59)
Total Protein 5.2 L g/dl
(6.3-8.2)
Albumin 2.9 L g/dl
(3.5-5.0)
Urine Ketones 1+ A
(Negative)
Ur Occult Blood Reflex 4+ A
(Negative)
Urine Nitrite (Reflex) Positive A
(Negative)
Leukocyte Esterase Rfl 3+ A
(Negative)
Urine WBC (Reflex) >100 A /HPF
(0-5)
Urine Bacteria (Reflex) Moderate A
(Negative)
Urine Albumin (Reflex) 4+ A
(Neg - Trace)
01/05/25 12:01
01/05/25 12:01
Vital Signs
Initial and Last Documented VS:
Initial Vital Signs
Temp Pulse Resp BP Pulse Ox
38.8 C H 86 18 69/55 94
01/05/25 11:52 01/05/25 11:52 01/05/25 11:52 01/05/25 11:52 01/05/25 11:52
Last Documented Vital Signs
Temp Pulse Resp BP Pulse Ox
101.9 F H 72 31 106/68 92
01/05/25 11:52 01/05/25 13:20 01/05/25 13:00 01/05/25 12:40 01/05/25 13:20
Shipping Processor consulted with Physician
Shipping Processor consulted with physician?: Yes
Name of Physician Consulted: Delores
<Marquez Estrella MD - Last Filed: 01/05/25 14:34>
Orders/Labs/Results
Orders:
Orders
01/05/25 11:50
Electrocardiogram (*1) Urgent
Reason for Study: Shortness of Breath
CXR [CR Chest Portable - 1 View] Urgent
Comment:
Reason For Exam: sob
Reason Study Needs to be Portable: Unable to Transport
01/05/25 11:51
EKG- Treatment ONCE
01/05/25 11:52
Straight cath- Treatment ONCE
0.9% Sodium Chloride 1000 ml [Nss] 2,900 ml IV NOW STA
01/05/25 12:00
Blood Culture Urgent
SARTHAK Source: Blood/Venous
Specimen Description:
01/05/25 12:01
COVID-19 Antigen Urgent
Source: Nasal Swab
Complete Blood Count/With Diff Urgent
Comprehensive Metabolic Panel Urgent
Lactic Acid Q4H
Comment: ON ICE, CANCEL 2ND ORDER IF FIRST LACTIC ACID LEVEL <2
Blood Culture Urgent
SARTHAK Source: Blood/Venous
Specimen Description:
Influenza A+B Rapid Molecular Urgent
SARTHAK Source: Nasal Swab
Specimen Description:
01/05/25 12:05
Piperacillin/Tazo 3.375 Gram [Zosyn] 3.375 gram in 50 ml IV NOW
01/05/25 12:15
Acetaminophen 10 mg/ml [Ofirmev] 400 mg Empty Viaflex Container 100 ml [Viaflex Empty Container] 0 ml IV ONCE
Acetaminophen IV Indication:: No UT & No Enteral Access
Vancomycin [Vancocin] 2,000 mg 0.9% Sodium Chloride 500 ml [Nss] 500 ml IV NOW
01/05/25 12:20
CT Abd/pelvis W Iv Cont Urgent
Comment:
Reason For Exam: sepsis, firm and distended abdomen
01/05/25 12:39
Urinalysis Reflex To Culture Urgent
Date Specimen was Collected: 01/05/25
Time Specimen was Collected: 11:51
Urine Microscopic Reflex Cult Urgent
Urine Culture Urgent
SARTHAK Source: U
Specimen Description:
Date Specimen was Collected: 01/05/25
Time Specimen was Collected: 11:51
01/05/25 14:15
NORepinephrine 4 MG/250 ML [Levophed] 4 mg in 250 ml IV PER PROTOCOL
Initial dose in mcg/min, then titrate:: 2
Titrate to keep:: SBP > 90 mmHg
Titrate by mcg/min:: 1-2 mcg/min
Frequency of titrations (minutes):: 5
Maximum dose in ICU in mcg/min:: 30
Maximum dose in IMU in mcg/min:: 8
Maximum dose in IVU in mcg/min:: 4
Begin to taper infusion when:: Remained at goal for 4hrs
Taper by mcg/min:: 1-2 mcg/min
Frequency of taper (minutes) if patient maintains goal:: 30
Taper to off?: Yes
If infusion off & no longer maintaining goal:: Contact Provider
01/05/25 14:17
Admit/Transfer Patient As Directed
Co-Sign Provider:
Level of Care: Inpatient admission
Assign to:: IMU- Intermediate Care
Physician / Group: Hospitalist
Diagnosis: Sepsis sec to uti
Reason for Hospitalization: Septic Shock sec to UTI
Expected length of stay greater than two midnights?: Yes
ELOS- Estimated Length of Stay in days: 4
I certify the patient meets the requirements for IP care: Yes
01/05/25 14:18
PRN Pain Medication Management As Directed
May give lesser potent ordered pain med per pt: Yes
preference::
Protocol:: Medication orders for pain may be administered in a
manner that supports deferring to patient preference
when the pt is:
- Requesting an ordered lesser potent pain medication.
Least to most potent pain medications are defined
as: acetaminophen < NSAID < tramadol < opioids
(morphine, oxycodone, hydromorphone).
- Requesting a lesser dose of the same medication IF
ORDERED.
- Requesting a less intrusive route of administration
if both routes are prescribed by the provider (PO <
IV).
01/05/25 16:00
Lactic Acid Q4H
Comment: ON ICE, CANCEL 2ND ORDER IF FIRST LACTIC ACID LEVEL <2
Abnormal Lab Results
01/05/25 01/05/25
12:01 12:39
WBC 14.4 H 10^3/uL
(4.8-10.8)
RBC 4.45 L 10^6/uL
(4.70-6.10)
Hct 38.1 L %
(39.0-52.0)
RDW 15.0 H %
(11.5-14.5)
Plt Count 108 L 10^3/uL
(130-400)
Abs Immat Gran (auto) 0.1 H 10^3/uL
(0-0.05)
Absolute Neuts (auto) 13.1 H 10^3/uL
(1.4-6.5)
Absolute Lymphs (auto) 0.4 L 10^3/uL
(1.2-3.4)
Absolute Monos (auto) 0.8 H 10^3/uL
(0.1-0.6)
Immature Gran % 0.6 H %
(0-0.5)
Neutrophils % 91.0 H %
(42.2-75.2)
Lymphocytes % 2.8 L %
(20.5-51.1)
BUN 33 H mg/dl
(9-20)
Creatinine 2.1 H mg/dL
(0.7-1.3)
Glucose 180 H mg/dl
(70-99)
Total Bilirubin 2.3 H mg/dl
(0.2-1.3)
AST 15 L U/L
(17-59)
Total Protein 5.2 L g/dl
(6.3-8.2)
Albumin 2.9 L g/dl
(3.5-5.0)
Urine Ketones 1+ A
(Negative)
Ur Occult Blood Reflex 4+ A
(Negative)
Urine Nitrite (Reflex) Positive A
(Negative)
Leukocyte Esterase Rfl 3+ A
(Negative)
Urine WBC (Reflex) >100 A /HPF
(0-5)
Urine Bacteria (Reflex) Moderate A
(Negative)
Urine Albumin (Reflex) 4+ A
(Neg - Trace)
01/05/25 12:01
01/05/25 12:01
Vital Signs
Initial and Last Documented VS:
Initial Vital Signs
Temp Pulse Resp BP Pulse Ox
38.8 C H 86 18 69/55 94
01/05/25 11:52 01/05/25 11:52 01/05/25 11:52 01/05/25 11:52 01/05/25 11:52
Last Documented Vital Signs
Temp Pulse Resp BP Pulse Ox
101.9 F H 72 31 106/68 92
01/05/25 11:52 01/05/25 13:20 01/05/25 13:00 01/05/25 12:40 01/05/25 13:20
<Manuel Ayoub PA-C - Last Filed: 01/05/25 14:33>
MDM/Problems Addressed
Differential Diagnosis Includes:
COVID, flu, pneumonia, urinary tract infection, sepsis/bacteremia
MDM/Problems Addressed:
79-year-old male with extensive chronic past medical history presenting to the ER for reported change in mental status, found to be febrile to 101.9. Patient is also hypotensive and oxygen status between 90 and 94% on room air. Placed on 2 L via
nasal cannula. Sepsis fluid bundle ordered. Will closely monitor patient's blood pressure and consider pressors if blood pressure does not improve with fluids. COVID and flu testing ordered. Anticipate admission
Chronic conditions affecting care: COPD and Neurological disorder
<Manuel Ayoub PA-C - Last Filed: 01/05/25 14:33>
*Radiology
Radiology exam reviewed: preliminary read by ED provider (No evidence for pneumonia or pleural effusion)
*Pulse Oximetry
Patient hypoxic: yes
*EKG
Heart Rate: 83
Rate: normal
Rhythm: sinus and PAC's
Ischemia: no ischemia
*Distributed [employer] Consultant Interpretation
Rate: normal
Rhythm: sinus
*Critical Care Note
Total Time (30-74mins, 75-104mins- exclusive of procedures): 30
comment:
Critical care statement: A total of 30 minutes of critical care time was provided for this patient. This includes management of unstable vital signs, evaluation of the patient at bedside, reviewing the patient's pertinent medical records, discussion
with consultants, review of old EKGs and review of pertinent medical records. This time with separate from time utilized to perform the aforementioned documented procedures
Data Reviewed
Review of Other/Old Records Reveals: Labs and Records
<Manuel Ayoub PA-C - Last Filed: 01/05/25 14:33>
Patient Management
Discussion with other providers: Hospitalist
Escalation/DeEscalation of care consider admission/obs:
Patient's labs reveal a leukocytosis with a leftward shift. He has a mild acute kidney injury which is likely secondary to dehydration, urinalysis shows nitrite positive urine with 3+ leukocytes and greater than [address] without evidence for
acute intra-abdominal pathology. Patient was treated with broad-spectrum antibiotics as well as sepsis fluid bundle. Following the 3 L of fluids patient still hypotensive. Decision was made to start peripheral Levophed for blood pressure
management. Hospitalist team is aware and accepts patient for continued evaluation and treatment.
ED Attending Note
<Manuel Ayoub PA-C - Last Filed: 01/05/25 14:33>
-
Portions of this chart may have been created with voice recognition software.� Occasional wrong word or��sound alike� substitutions may have occurred due to the inherent limitations of voice recognition software.
<Marquez Estrella MD - Last Filed: 01/05/25 14:34>
ED Attending Note
Patient seen and examined by attending physician: Yes
ED Attending Note:
I have seen and evaluated the patient with a [id number] encounter. I have spoken to the advance practicer provider and involved in the medical history, the physical exam, medical decision making.
Evaluation and management service: agree unless noted differently below.
Results interpretation: agree unless noted differently below.
Focused HPI: 79-year-old male with history as noted presents to the ER for evaluation of change in mental status. According to daughter who is at bedside normally awake and able to have a normal conversation when she presented today he was
lethargic. She says he has been more fatigued over the past few days but not to this extent. She says that he has a chronic cough related to his Parkinson's but not new. He has frequent bouts of pneumonia and urinary tract infection she says.
Physical exam: Patient is lethargic, able to tell me his name but only oriented to person. Hypotensive, febrile. Abdomen somewhat distended and tympanic somewhat firm. Rhonchorous breath sounds scattered bilaterally. Occasional cough.
Medical Decision Making: Change in mental status�he is febrile and hypotensive. Labs significant for leukocytosis to 14. He has an acute kidney injury with a creatinine of 2.1 from a baseline of less than 1. His lactate is less than 2.
Urinalysis was positive for infection with nitrites and pyuria. He was sent for a CT abdomen which showed no acute pathology. Chest x-ray atelectasis versus pneumonia; COVID and flu negative. COVID brought with antibiotics, given IV fluids for
resuscitation. Low-dose Levophed for refractory hypotension. Admit to hospitalist service.
Discharge Plan
Departure
Patient Disposition: Admit
Date of Disposition: 01/05/25
Time of Disposition: 13:28
Presentation/result/management discussed w/ accepting MD/DO: Hospitalist
Discharge Problem:
Sepsis, Acute UTI
Prescriptions:
No Action
acetaminophen [Tylenol] 325 mg Tablet
650 mg PO Q4HPRN PRN (Reason: mild pain/fever>100)
atorvastatin 20 mg Tablet
20 mg PO HS
prednisone 20 mg Tablet
20 mg PO DAILY
clonazepam 0.5 mg Tablet
0.5 mg PO TID
therapeutic multivitamin Tablet
1 tab PO DAILY
famotidine 20 mg Tablet
20 mg PO DAILY
magnesium hydroxide [Milk of Magnesia] 400 mg/5 mL Suspension
30 ml PO DAILYPRN PRN (Reason: if no bm 3 days)
tamsulosin 0.4 mg Capsule
0.8 mg PO DAILY
bisacodyl [Dulcolax (bisacodyl)] 10 mg Suppository
10 mg UT DAILYPRN PRN (Reason: if mom ineffective after 24 hrs)
Fleet Enema 19-7 gram/118 mL Enema
118 ml UT DAILYPRN PRN (Reason: if dulcolax ineffective after 24 hrs)
carbidopa-levodopa 25-100 mg Tablet
1 tab PO TID
finasteride 5 mg Tablet
5 mg PO DAILY
Artificial Tears (PF) Dropperette
1 drp BOTH EYES [id number] PRN (Reason: dry eyes)
escitalopram oxalate [Lexapro] 5 mg Tablet
15 mg PO DAILY
metoprolol succinate 25 mg Tablet Extended Release 24 Hr
25 mg PO DAILY Qty: 30 0RF
ibuprofen 200 mg Tablet
400 mg PO Q6HPRN PRN (Reason: mod to severe pain) Qty: 0 0RF
polyethylene glycol 3350 [Miralax] 17 gram powder in packet
17 g PO DAILY Qty: 30 0RF
quetiapine [Seroquel] 25 mg Tablet
25 mg PO BID@0800,1200
amlodipine [Norvasc] 5 mg Tablet
5 mg PO DAILY
quetiapine [Seroquel] 100 mg Tablet
100 mg PO HS
ipratropium-albuterol 0.5 mg-3 mg(2.5 mg base)/3 mL Solution For Nebulization
3 ml inhalation R TID Qty: 90 0RF
ipratropium-albuterol 0.5 mg-3 mg(2.5 mg base)/3 mL Solution For Nebulization
3 ml inhalation R Q4HPRN PRN (Reason: sob/wheeze) Qty: 30 0RF
benzonatate 100 mg Capsule
100 mg PO TID Qty: 20 0RF
budesonide 0.5 mg/2 mL Suspension For Nebulization
0.5 mg inhalation R BID Qty: 60 0RF
guaifenesin 600 mg Tablet Extended Release 12hr
1,200 mg PO Q12 Qty: 60 0RF
phenazopyridine [Pyridium] 100 mg tablet
100 mg PO Q8HPRN PRN (Reason: dysuria)
sennosides [senna] 8.6 mg Tablet
17.2 mg PO HS
quetiapine [Seroquel] 50 mg Tablet
50 mg PO DAILY
Referrals:
Ken Bond I., DO [Family Provider] -
Interventions
Interventions:
*Risk Screen - Suicide Last Done: 01/05/25 11:47
*Neglect/Abuse Screening Last Done: 01/05/25 11:47
ED- Fall Risk Assessment Last Done: 01/05/25 12:42
*ED COVID-19 Vaccine History Last Done: 01/05/25 11:47
ED- Pulmonary Assessment Last Done: 01/05/25 12:42
ED- Neurological Assessment Last Done: 01/05/25 12:42
ED- Cardiac Assessment Last Done: 01/05/25 12:42
ED Swallowing Screen Last Done: 01/05/25 12:41
Discharge Date and Time
Print Language: FRENCH
[2025-01-05] MEDS: NSS 2900 ML IV (12:01)
[2025-01-05] MEDS: OFIRMEV 40 MG IV (12:32)
[2025-01-05] MEDS: VANCOCIN 540 MG IV (12:32)
[2025-01-05 12:35] LABS: COVID-19 Antigen Negative (Negative)
[2025-01-05 12:39] LABS: % Basophils 0.2 % (0-2); % Immature Granulocytes 0.6 % (0-0.5); % Lymphocytes 2.8 % (20.5-51.1); % Monocytes 5.4 % (1.7-9.3); Absolute Immature Granulocytes 0.1 10^3/uL (0-0.05); Absolute Lymphocytes 0.4 10^3/uL (1.2-3.4); Absolute Monocytes 0.8 10^3/uL (0.1-0.6); Absolute Neutrophils 13.1 10^3/uL (1.4-6.5); Hematocrit 38.1 % (39.0-52.0); Hemoglobin 13.3 g/dL (13.0-18.0); Mean Corp Hgb Conc. 34.9 g/dL (33.0-37.0); Mean Corpuscular Hgb 29.9 pg (27.0-31.0); Mean Corpuscular Volume 85.6 fL (80.0-94.0); Mean Platelet Volume 9.5 fL (7.4-10.4); Nucleated Red Blood Cells % 0 % (-); Platelet Count 108 10^3/uL (130-400); Red Blood Cell Count 4.45 10^6/uL (4.70-6.10); White Blood Cell Count 14.4 10^3/uL (4.8-10.8)
[2025-01-05 12:44] LABS: Lactic Acid 1.5 mmol/L (0.7-2.0)
[2025-01-05 12:58] LABS: ALT (SGPT) < 10 U/L (0-50); AST (SGOT) 15 U/L (17-59); Albumin 2.9 g/dl (3.5-5.0); Alkaline Phosphatase 75 U/L (38-126); Blood Urea Nitrogen 33 mg/dl (9-20); Calcium 8.4 mg/dl (8.4-10.2); Carbon Dioxide 23 mmol/L (22-30); Chloride 107 mmol/L (98-107); Glucose 180 mg/dl (70-99); Potassium 3.9 mmol/L (3.5-5.1); Sodium 138 mmol/L (135-145); Total Bilirubin 2.3 mg/dl (0.2-1.3); Total Protein 5.2 g/dl (6.3-8.2); eGFR 31.82
[2025-01-05 13:09] LABS: Urine Albumin 4+ (Neg - Trace); Urine Bilirubin Negative (Negative); Urine Character Slightly Cloudy (Clear); Urine Color Amber; Urine Glucose Negative (Negative); Urine Ketone 1+ (Negative); Urine Leukocyte 3+ (Negative); Urine Nitrite Positive (Negative); Urine Occult Blood 4+ (Negative); Urine Urobilinogen Negative (Neg - 1+)
[2025-01-05] MEDS: ZOSYN 50 IV ×2 (13:35→20:16)
--- NOTE | 2025-01-05 13:40 | EDRN ---
3L NSS infused completely. Patient currently has vancomycin and Zosyn infusing. Patient now on 6L NC w/ SPo2 at 93%. Patient still with wet non productive cough. Responds to painful stimuli. Patient's BP is soft at 93/67.
Patient's daughter is bedside and Gabriele SCHROEDER was in room to update her on admission to the hospital.
[2025-01-05 13:44] LABS: Urine White Cell >100 /HPF (0-5)
[2025-01-05 13:45] LABS: Urine Bacteria Moderate (Negative)
--- NOTE | 2025-01-05 14:37 | HPS.HSE ---
Addendum entered and electronically signed by Nick Carty MD 01/05/25 21:09:
Attending Addendum-
I performed a history and physical exam of the patient and discussed his management with the resident. I reviewed the resident's note and agree with the documented findings and plan of care CC/HPI- patient sent to via EMS secondary to [facility]/
decreased responsiveness from [facility]. Patient obtunded and unable to answer questions. Daughter present at bedside. Full 12 point ROS reviewed and negative except as documented Exam- vitals reviewed in EMR GEN-obtunded heart RRR lungs CT
B/L Abd obese NT ND pos BS LE no edema
Plan:
# Septic Shock secondary to UTI likely
- admit to IMU- critically ill
- cont abx started in ED zosyn/vanco, check MRSA nasal
- blood cx and urine cultures cooking await cx results
- maintain MAP > 65
- echo 05/2024-Left ventricular ejection fraction is 60 to 65%, by visual assessment. Normal regional wall motion
- s/p sepsis fluid bolus @ 3L (30ml/kg) - MAP < 65 - will start levophed
- trend LA
# Acute Hypoxemic Respiratory Failure
- no h/o COPD per notes likely has ROYER
- cxr shows atelectasis vs PNA
- CT 12/30-Subpleural nodular opacities in the lower lobes bilaterally, as detailed above, cannot exclude malignancy versus focal atelectasis.
-Suggestion of approximate 1.4 cm low-attenuation lesion in the right lobe of the liver
- cont to monitor cont nebs
- wean 02 for sats > 92%
# JANNY
- likely prerenal/dehydration
- r/o obs check PVR/bladder scan
- monitor strict I and O
- cont IVF
- repeat BMP in am
# Anxiety/Depression
- on chronic standing benzos TID- make prn while CIM[facility]
- cont lexapro
# HTN-
- hold amlodipine and metoprolol
# ITP
- on chronic prednisone 20mg
- start stress dose
# Parkinsons Disease
- cont sinemet
-adhere to NH schedule
# Dementia with behavioral Disturbance
- hold seroquel due to mental status
- restart as MS improves
# GERD- cont famotidine
# BPH- cont finasteride and tamsulosin monitor for urinary retention
DVTp start heparin
Code DNR
Dispo- From [facility]
ACP
Patient unable to consent to discuss, was with daughter/Liliam, time spent explanation of advance directives, changes in health status, patient�s health care wishes if the patient becomes unable to make health decisions, goals of care, code
status, and prognosis 'he wouldn't want any of that' also verified with NH documentation -16 minutes
CC Note
Due to a high probability of clinically significant, life-threatening deterioration, the patient required a high level of preparedness to intervene emergently. I personally spent this critical care time directly and personally managing the patient.
This critical care time included obtaining a history; examining the patient; ordering and review of studies and STAT labs; arranging urgent treatment with development of a management plan; evaluation of patient's response to treatment; reassessment;
and, discussions with other providers.
This critical care time was performed to assess and manage the high probability of imminent, life-threatening deterioration that could result in multi-organ failure. It was exclusive of separately billable procedures and treating other patients and
teaching time. Total time documented is also exclusive of any additional time listed that was spent in advance care planning discussion
Total critical care time: Approximately 39 minutes
Original Note:
Family Physician
-
Family Physician: Ken Bond
Chief Complaint
-
Altered mental status
History of Present Illness
The patient is a 79-year-old male with known past medical history of dementia, Parkinson's disease, history of emphysema, hypertension, hyperlipidemia, stage III chronic kidney disease, [id number] diabetes mellitus, anxiety, depression,
diabetic neuropathy, history of renal calculi, urinary retention, ITP, BPH and strabismus presented from [facility] for evaluation of change in mental status for the last 1 day.
Patient was obtunded in the ER, most of the history is obtained from his POA/daughter Liliam at bedside and chart review.
On arrival in the ER he was found to be in sepsis with temperature of 101.9., Respiratory rate 43, heart rate of 97 and blood pressure of 69/55.
EKG showed sinus rhythm with premature supraventricular complexes.
Chest x-ray showed low lung volumes with bibasilar atelectasis and/or pneumonia.
CBC showed white count of 14.4, platelet 108.
CMP with BUN 33, creatinine 2.1 and blood glucose of 180.
Lactic acid was 1.5.
COVID and flu negative.
Urinalysis positive for acute UTI.
He received IV fluids per sepsis protocol however blood pressure continued to remain low in 80s over 50s and he was started on Levophed.
Blood culture and urine culture was obtained and he was started on IV antibiotics including vancomycin and Zosyn.
CT abdomen pelvis showed
1. No significant acute abnormality identified in the abdomen or pelvis, as described above.
2. Mild fusiform aneurysmal dilatation of the ascending thoracic aorta measuring up to 4.3 cm, partially visualized.
3. Mild splenomegaly.
Medical History
Past Medical History
Past Medical History: Reports Dementia, HTN, Hypercholesterolemia, NIDDM, Psychiatric (Anxiety depression) and Other (Diabetic Neuropathy. Parkinson's, PNA, emphysema, Renal calculus, Urinary retention, UTI, Diplopia, ITP, Strabismus) and BPH.)
Past Surgical History: Reports Orthopedic (Spinal fusion) and Urological (Lithotripsy, urogenital implants)
Additional Past Surgical History:
Cataracts
Social History
Unable to obtain full social history at this time due to: Dementia
Tobacco: Former Smoker
Alcohol: None
Drug: None
Personal: Single
Living: Correction
Family History
Family History: Not pertinent
Allergies / Home Medications
Allergies reflects when Allergies were last updated in [facility].
Home Medications with original date entered in [facility]
Allergy/Medication List:
Allergies
Allergy/AdvReac Type Severity Reaction Status Date / Time
Penicillins Allergy Unknown Verified 01/05/25 12:11
Home Medications
acetaminophen 325 mg tablet (Tylenol) 650 mg PO Q4HPRN PRN mild pain/fever>100 05/26/24
atorvastatin 20 mg tablet 20 mg PO HS High Cholesterol 05/26/24
bisacodyl 10 mg rectal suppository (Dulcolax (bisacodyl)) 10 mg FL DAILYPRN PRN if mom ineffective after 24 hrs 05/26/24
carbidopa 25 mg-levodopa 100 mg tablet 1 tab PO TID parkinson's disease 05/26/24
clonazepam 0.5 mg tablet 0.5 mg PO TID anxiety 05/26/24
dextran 70-hypromellose eye drops in a dropperette (Artificial Tears (PF) drops in a dropperette) 1 drp BOTH EYES [id number] PRN dry eyes 05/26/24
escitalopram oxalate 5 mg tablet (Lexapro) 15 mg PO DAILY depression/anxiety 05/26/24
famotidine 20 mg tablet 20 mg PO DAILY Gastrointestinal Issue 05/26/24
finasteride 5 mg tablet 5 mg PO DAILY Urinary Issue 05/26/24
magnesium hydroxide 400 mg/5 mL oral suspension (Milk of Magnesia) 30 ml PO DAILYPRN PRN if no bm 3 days 05/26/24
prednisone 20 mg tablet 20 mg PO DAILY Anti-Inflammatory 05/26/24
sodium phosphates 19 gram-7 gram/118 mL enema (Fleet Enema) 118 ml FL DAILYPRN PRN if dulcolax ineffective after 24 hrs 05/26/24
tamsulosin 0.4 mg capsule 0.8 mg PO DAILY Urinary Issue 05/26/24
therapeutic multivitamin 1 tab PO DAILY Supplement 05/26/24
ibuprofen 200 mg tablet 400 mg (2 x 200 mg) PO Q6HPRN PRN mod to severe pain #0 tabs 06/01/24
metoprolol succinate 25 mg tablet,extended release 24 hr 25 mg PO DAILY #30 tabs 06/01/24
polyethylene glycol 3350 17 gram oral powder packet (Miralax) 17 g PO DAILY #30 ea 06/01/24
amlodipine 5 mg tablet (Norvasc) 5 mg PO DAILY Blood Pressure 08/08/24
quetiapine 100 mg tablet (Seroquel) 100 mg PO HS Sleep 08/08/24
quetiapine 25 mg tablet (Seroquel) 25 mg PO BID@0800,1200 Mental Health/Anxiety 08/08/24
benzonatate 100 mg capsule 100 mg PO TID #20 caps 08/20/24
budesonide 0.5 mg/2 mL suspension for nebulization 0.5 mg (2 mL) inhalation R BID #60 applic 08/20/24
guaifenesin 600 mg tablet, extended release 12 hr 1,200 mg (2 x 600 mg) PO Q12 #60 tabs 08/20/24
ipratropium 0.5 mg-albuterol 3 mg (2.5 mg base)/3 mL nebulization soln 3 ml inhalation R Q4HPRN PRN sob/wheeze #30 applic 08/20/24
ipratropium 0.5 mg-albuterol 3 mg (2.5 mg base)/3 mL nebulization soln 3 ml inhalation R TID #90 applic 08/20/24
phenazopyridine 100 mg tablet (Pyridium) 100 mg PO Q8HPRN PRN dysuria 09/16/24
quetiapine 50 mg tablet (Seroquel) 50 mg PO DAILY 01/05/25
sennosides 8.6 mg tablet (senna) 17.2 mg PO HS 01/05/25
Review of Systems
-
Unable to obtain full review of systems at this time due to: Patient Non-verbal
Physical Exam
Vital Signs
Vital Signs
Temp Pulse Resp BP Pulse Ox
101.9 F H 63 15 92/63 97
01/05/25 11:52 01/05/25 14:24 01/05/25 14:24 01/05/25 14:24 01/05/25 14:24
Physical Exam
General: Appears in Distress, Appears Chronically Ill and Obese
HEENT: Moist mucous membranes
Respiratory: Crackles
Cardiac: S1/S2 and Regular Rhythm
GI: Non Tender and Distended
Musculoskeletal: No Edema
Neuro: Tremors and Other (Obtunded)
Laboratory Results
-
01/05/25 12:01
01/05/25 12:01
Laboratory Results
Lactic Acid 1.5 mmol/L (0.7-2.0) 01/05/25 12:01
Total Bilirubin 2.3 mg/dl (0.2-1.3) H 01/05/25 12:01
AST 15 U/L (17-59) L 01/05/25 12:01
ALT < 10 U/L (0-50) 01/05/25 12:01
Alkaline Phosphatase 75 U/L (38-126) 01/05/25 12:01
Data Reviewed
-
Diagnostic Radiology: Report Reviewed by me
CT Scan: Report Reviewed by me
Lab Data: Labs Reviewed by me, Discussed with Physician and Discussed with Family
Impression/Plan
-
The patient is a 79-year-old male with known past medical history of dementia, Parkinson's disease, history of emphysema, hypertension, hyperlipidemia, stage III chronic kidney disease, beg-rkhckfs-zogyjdkvb diabetes mellitus, anxiety, depression,
diabetic neuropathy, history of renal calculi, urinary retention, ITP, BPH and strabismus presented from [facility] for evaluation of change in mental status.
# Septic shock; likely secondary to acute UTI
-- s/p sepsis protocol IV fluid bolus
-- COVID and flu negative
-- Blood culture and urine culture pending
-- Started on IV Vanco and Zosyn; check mrsa
-- Blood pressure remained low after IV bolus; started on Levophed in the ER
-- Plan to admit to IMU
# Leukocytosis
-- Repeat CBC in the a.m.
# Cough
# Shortness of breath
-- Benzonatate 100 mg p.o. 3 times daily; home regimen
-- Mucinex p.o. every 12H
-- DuoNeb
-- Budesonide; home med
-- Supplemental O2 via nasal cannula 5 L
# Parkinson's Disease
# Dementia
-- Dementia with Behavioral Disturbance
-- On high doses of prednisone 20 mg daily for ITP, high risk for delirium
-- Continue carbidopa/levodopa
# ITP
# Thrombocytopenia
-- Uses prednisone 20 mg daily at home; hold
-- will give stress dose 60mg /day for 3 days
# JANNY on CKD 3b
-- Creatinine 2.1; likely pre renal in setting of hypertension `
-- Monitor Is & Os
-- bladder scan
-- repeat BMP in the am
#NIDDM
-- Patient currently not on any medication per home medication review however the previous records showed that he was on metformin 500 at 1 time.
-- Insulin sliding scale for now
-- a1c in the a.m.
# Hypertension
-- Will hold blood pressure medication for now and resume when necessary
-- Hold amlodipine, metoprolol
# BPH
-- Hold tamsulosin
-- Finasteride 5 mg daily; home regimen
# Anxiety/depression
-- Clonazepam 0.5 mg 3 times daily; home regimen; switch to as needed
-- Escitalopram 15 mg daily: Home regimen
-- Hold off quetiapine 25 mg twice daily, quetiapine 50 mg daily, quetiapine 100 mg at bedtime
# Hyperlipidemia
-- Atorvastatin 20 mg
# GERD
-- Famotidine 20 mg daily
Code-DNR
[2025-01-05] MEDS: SINEMET 25-100 PO ×2 (18:37→21:23)
[2025-01-05] MEDS: DELTASONE PO (18:38)
[2025-01-05] MEDS: TESSALON PERLES PO ×2 (18:38→21:23)
[2025-01-05 18:52] LABS: Glucose - Point of Care 189 mg/dl (70-99)
--- NOTE | 2025-01-05 19:27 | PHA.VAN.IN ---
Assessment
- Assessment
Renal Function: Appears elevated from baseline (0.9)
Maximum Temperature: 101.9 F rectal 01/05 @ 1152
Concomitant Antimicrobials: piperacillin/tazobactam
Plan
- Plan
Initial / Loading Dose: vanc 2000mg
Maintenance Regimen: dosing by level
Monitoring: random level 01/06 0600
Pharmacokinetics Vancomycin I
- -
Patient Age: 79
Patient Sex: Male
Vancomycin Day #: 1
Indication: Genito-Urinary Tract
Requesting Provider: Dr. Weir
Pertinent Antimicrobial Allergies:
penicillin - unknown
Height / Weight:
Height 5 ft 11 in
Actual Weight 94.4 kg
- Vital Signs / Lab Results
Temp Pulse Resp BP Pulse Ox
98.3 F 55 23 94/66 98
01/05/25 17:53 01/05/25 19:00 01/05/25 19:00 01/05/25 19:00 01/05/25 19:00
Lab Results - Hematology
01/05/25
12:01
WBC 14.4 H
Lab Results - Chemistry
01/05/25
12:01
BUN 33 H
Creatinine 2.1 H
Albumin 2.9 L
01/05/25
12:01
Lactic Acid 1.5
Lab Results - Urine
01/05/25
12:39
Urine Nitrite (Reflex) Positive A
Leukocyte Esterase Rfl 3+ A
Urine WBC (Reflex) >100 A
Ur Squamous Epith Cells
Urine Bacteria (Reflex) Moderate A
Microbiology Results
01/05/25 12:01 Influenza Types A & B (NEEMA) - Final
Nasal Swab Negative for Influenza A & B, NAAT
Negative results must be combined with clinical observations
and patient history.
Nucleic Acid Amplification test (NAAT)performed on the
[employer] platform.
[2025-01-05] MEDS: PULMICORT 0.5 MG INH (19:33)
[2025-01-05] MEDS: DUONEB 3 ML INH (19:33)
[2025-01-05] MEDS: NSS 1000 IV (20:16)
[2025-01-05] MEDS: SENOKOT PO (21:23)
[2025-01-05] MEDS: LIPITOR PO (21:23)
[2025-01-05] MEDS: NOVOLOG FLEXPEN-LOW RESISTANCE SC (21:23)
[2025-01-05] MEDS: MUCINEX PO (21:23)
[2025-01-05] MEDS: LEVOPHED 250 IV (23:44)
[2025-01-05] MEDS: HEPARIN 5000 UNITS SC (23:46)
[2025-01-05 23:57] LABS: Glucose - Point of Care 157 mg/dl (70-99)
[2025-01-06] VITALS (76 sets, daily range): BP systolic 86–156; BP diastolic 55–137; BMI 29.0
--- NOTE | 2025-01-06 00:16 | PTCARENOTE ---
Assumed care of Pt from Day RN. Pt lethargic and not responding to verbal commands. Pt sys maintaining >90 for some time. Pt sys <90 around 0000, Levo started. Pt opening eyes to voice and tactile for brief moments.
[2025-01-06] MEDS: ZOSYN 50 IV ×4 (01:31→20:05)
--- NOTE | 2025-01-06 04:28 | PTCARENOTE ---
Pt becoming more alert this morning. Pt able to tell us his name, and that he is in hospital but still somewhat drowsy. Pt now on 2L NC. Levo at 2.
[2025-01-06 04:44] LABS: Hematocrit 37.6 % (39.0-52.0); Hemoglobin 12.8 g/dL (13.0-18.0); Mean Corpuscular Volume 88.3 fL (80.0-94.0); Platelet Count 89 10^3/uL (130-400); Red Blood Cell Count 4.26 10^6/uL (4.70-6.10); Red Cell Dist. Width 15.1 % (11.5-14.5); White Blood Cell Count 16.5 10^3/uL (4.8-10.8)
[2025-01-06 04:59] LABS: ALT (SGPT) 14 U/L (0-50); AST (SGOT) 15 U/L (17-59); Albumin 3.2 g/dl (3.5-5.0); Alkaline Phosphatase 72 U/L (38-126); Blood Urea Nitrogen 36 mg/dl (9-20); Calcium 7.8 mg/dl (8.4-10.2); Carbon Dioxide 21 mmol/L (22-30); Chloride 108 mmol/L (98-107); Estimated Creatinine Clearance 35 ml/min; Glucose 149 mg/dl (70-99); Potassium 4.2 mmol/L (3.5-5.1); Sodium 141 mmol/L (135-145); Total Bilirubin 1.5 mg/dl (0.2-1.3); Total Protein 5.6 g/dl (6.3-8.2); eGFR 35.88
[2025-01-06 05:02] LABS: Vancomycin Random 14.4 ug/ml
[2025-01-06 06:31] LABS: Glucose - Point of Care 165 mg/dl (70-99)
--- NOTE | 2025-01-06 07:21 | W.PN.HOSP.TC ---
Addendum entered and electronically signed by Nick Carty MD 01/06/25 21:11:
Attending Addendum-I saw and evaluated the patient. I reviewed the resident�s note and agree with findings and plan as documented in the resident�s note. Sub: Patient much more alert today! Albe to answer questions appropriately. Has no recollection
of past few days. No current complaints except 'im hungry doc can i eat?' Full 12 point ROS reviewed and negative except as documented Exam- vitals reviewed in EMR GEN-NAD heart RRR lungs CT B/L Abd obese NT ND pos BS LE no edema condom cath in
place draining clear yellow urine Neuro AAO x 3 resting pill rolling tremor UE
Plan:
# Septic Shock secondary to UTI
- cont care in IMU- critically ill
- cont zosyn day # 2 DC vancomycin
- blood cx #1-proteus species, blood cx #2- GN bacilli, urine cx- GN bacilli - likely all proteus reviewed previous cx, await sensi
- repeat blood cx x 2
- maintain MAP > 65
- wean Levophed as able
- echo 05/2024-Left ventricular ejection fraction is 60 to 65%, by visual assessment. Normal regional wall motion
- s/p sepsis fluid bolus @ 3L (30ml/kg) cont IVF
- LA wnl
- leukocytosis mildly increased but afebrile- cont to trend
# Acute Hypoxemic Respiratory Failure
- no documented h/o COPD (has h/o tob abuse) or ROYER but highly probable
- cxr shows atelectasis vs less likely PNA
- CT 12/30-Subpleural nodular opacities in the lower lobes bilaterally, as detailed above, cannot exclude malignancy versus focal atelectasis.
-Suggestion of approximate 1.4 cm low-attenuation lesion in the right lobe of the liver
- cont to monitor cont nebs
- wean 02 for sats > 88%
- start IS and acapella
# JANNY
- improving
- likely prerenal/dehydration
- voiding as usual
- monitor strict I and O
- cont IVF
- repeat BMP in am
# Anxiety/Depression
- on chronic standing benzos TID at NH
- avoid withdrawal start BID dosing in am if MS improved
- cont lexapro
# HTN-
- hold amlodipine and metoprolol until BP improves
# ITP
- on chronic prednisone 20mg daily
- cont stress dose x 3 days
- monitor plt closely decreased to 89 from 108
# Parkinson Disease
- cont Sinemet
- strict adherence to NH schedule
# Dementia with behavioral Disturbance
- hold seroquel due to mental status
- restart as MS improves
# GERD- cont famotidine
# BPH- cont finasteride and restart tamsulosin monitor for urinary retention
DVTp cont heparin- monitor plts closely DC if < 50k or bleeding
Code DNR
Dispo- From [facility]
CC Note
Due to a high probability of clinically significant, life-threatening deterioration, the patient required a high level of preparedness to intervene emergently. I personally spent this critical care time directly and personally managing the patient.
This critical care time included obtaining a history; examining the patient; ordering and review of studies and STAT labs; arranging urgent treatment with development of a management plan; evaluation of patient's response to treatment; reassessment;
and, discussions with other providers.
This critical care time was performed to assess and manage the high probability of imminent, life-threatening deterioration that could result in multi-organ failure. It was exclusive of separately billable procedures and treating other patients and
teaching time.
Total critical care time: Approximately 38 minutes
Original Note:
Today's Communication/Plan
-
Wean Levophed
Restart diet
Resume tamsulosin
Discontinue Vanco
Assessment / Plan
Assessment / Plan
The patient is a 79-year-old male with known past medical history of dementia, Parkinson's disease, history of emphysema, hypertension, hyperlipidemia, stage III chronic kidney disease, zpm-zqvkmkx-bjradnzgg diabetes mellitus, anxiety, depression,
diabetic neuropathy, history of renal calculi, urinary retention, ITP, BPH and strabismus presented from [facility] for evaluation of change in mental status.
# Septic shock; likely secondary to acute UTI
-- s/p sepsis protocol IV fluid bolus 3L ; now on NS maintenance fluid
-- COVID and flu negative
-- Blood culture returning positive for gram-negative bacilli and urine culture pending
-- Continue IV Zosyn;
-- d/c vanco for now; mrsa pending but unlikely
-- Blood pressure remained low after IV bolus; was started on Levophed in the ER; maintaining good blood pressure now; maintain MAP >65
-- Restart diet; able to tolerate po
# Leukocytosis
--Trending up likely due to ongoing UTI versus bacteremia
-- Repeat CBC in the a.m.
# Acute hypoxemic respiratory failure
# Cough
# Shortness of breath
-- Benzonatate 100 mg p.o. 3 times daily; home regimen
-- Mucinex p.o. every 12H
-- DuoNeb
-- Budesonide; home med
-- Supplemental O2 via nasal cannula currently on 2 L; wean O2 for saturation > 92%
-- Chest x-ray : Atelectasis versus pneumonia
# JANNY on CKD 3b
-- Prerenal/Dehydration
-- Creatinine trending down 1.9 today
-- Monitor Is & Os
-- bladder scan showed 36
-- repeat BMP in the am
-- Condom catheter in place
# Parkinson's Disease
# Dementia
-- Dementia with Behavioral Disturbance
-- On high doses of prednisone 20 mg daily for ITP, high risk for delirium
-- Continue carbidopa/levodopa
# ITP
# Thrombocytopenia
-- Uses prednisone 20 mg daily at home; hold
-- will give stress dose 60mg /day for 3 days
#NIDDM
-- Patient currently not on any medication per home medication review however the previous records showed that he was on metformin 500 at 1 time.
-- Insulin sliding scale for now
-- HbA1c 6.4
# Hypertension
-- Will hold blood pressure medication for now and resume when necessary
-- Hold amlodipine, metoprolol
# BPH
--Resume tamsulosin
-- Finasteride 5 mg daily; home regimen
# Anxiety/depression
-- Clonazepam 0.5 mg 3 times daily; home regimen; switch to as needed
-- Escitalopram 15 mg daily: Home regimen
-- Hold off quetiapine 25 mg twice daily, quetiapine 50 mg daily, quetiapine 100 mg at bedtime
# Hyperlipidemia
-- Atorvastatin 20 mg
# GERD
-- Famotidine 20 mg daily
Code-DNR
Anticipated Discharge: 24 - 48 hours
Subjective/Interval History
-
Date of Service: January 06, 2025
AFVSS. Opens eyes on command and speaking in short sentences.
Objective Data
-
Labs:
Laboratory Results
01/06/25 01/06/25
04:08 06:00
WBC 16.5 H
Hgb 12.8 L
Hct 37.6 L
Plt Count 89 L
Sodium 141 Cancelled
Potassium 4.2 Cancelled
Chloride 108 H Cancelled
Carbon Dioxide 21 L Cancelled
BUN 36 H Cancelled
Creatinine 1.9 H Cancelled
Glucose 149 H Cancelled
Calcium 7.8 L Cancelled
Total Bilirubin 1.5 H
AST 15 L
ALT 14
Alkaline Phosphatase 72
Vital Signs:
Vital Signs
Temp Pulse Resp BP Pulse Ox
96.6 F L 61 19 122/80 100
01/06/25 03:24 01/06/25 06:00 01/06/25 06:00 01/06/25 06:00 01/06/25 06:00
I&O
01/05/25 01/06/25 01/07/25
06:59 06:59 06:59
Intake Total 1031 / 1031
Output Total 450 / 450
Balance 581 / 581
Review of Systems
-
Unable to obtain full review of systems at this time due to: Dementia
History Source: Patient
Constitutional: Denies Fever
EENT: Reports No Symptoms Reported
Respiratory: Reports No Symptoms
Cardiac: Reports No Symptoms
Abdomen/GI: Reports No Symptoms
Genitourinary: Reports No Symptoms
Neuro: Reports No Symptoms
Physical Exam
-
General: Appears Chronically Ill and Obese
HEENT: Normocephalic
Respiratory: Clear to Auscultation
Cardiac: Regular Rhythm and S1/S2
GI: Nontender
Genito-urinary: Other (Condom catheter in place)
Skin: Warm and Dry
Neuro: Awake
Data Reviewed
-
Labs: Labs Reviewed by me, Discussed with Physician and Discussed with Patient
[2025-01-06] MEDS: PULMICORT 0.5 MG INH ×2 (07:33→19:26)
[2025-01-06] MEDS: DUONEB 3 ML INH ×3 (07:33→19:26)
[2025-01-06] MEDS: NSS 1000 IV ×2 (09:08→22:43)
[2025-01-06] MEDS: NOVOLOG FLEXPEN-LOW RESISTANCE SC ×2 (09:09→12:13)
[2025-01-06] MEDS: TESSALON PERLES 100 MG PO ×3 (09:10→20:05)
[2025-01-06] MEDS: DELTASONE 60 MG PO (09:10)
[2025-01-06] MEDS: PEPCID 20 MG PO (09:11)
[2025-01-06] MEDS: SINEMET 25-100 1 TABLET PO ×3 (09:11→20:05)
[2025-01-06] MEDS: PROSCAR 5 MG PO (09:11)
[2025-01-06] MEDS: LEXAPRO 15 MG PO (09:12)
[2025-01-06] MEDS: HEPARIN 5000 UNITS SC ×3 (09:13→23:29)
[2025-01-06] MEDS: MUCINEX PO (09:14)
[2025-01-06] MEDS: MIRALAX 17 GRAMS PO (09:14)
[2025-01-06 09:22] LABS: Glycohemoglobin (HgbA1c) 6.4 % (4.0-5.6)
[2025-01-06] MEDS: FLOMAX 0.8 MG PO (12:18)
[2025-01-06 12:24] LABS: Glucose - Point of Care 129 mg/dl (70-99)
--- NOTE | 2025-01-06 15:57 | CM ---
Addendum entered by Sara Quijano RN 01/06/25 16:09:
Plan watch for O2 needs.
Plan return to [facility] when medically ready.
Original Note:
Patient from [facility] with Hx Parkinsons Dz & dementia. O2 2L. Receiving IV Zosyn, orders to wean Levophed gtt. Per nursing assessment; confused.
Spoke with Carol, [facility];
the patient resides there in LTC and is on an MA bed hold.
He is assisted with ADLs, requires mod-max assist.
The patient is w/c bound and chooses to remain in bed most of the day.
He was not receiving PT/OT.
The ph for report [phone], fax [phone].
[2025-01-06 18:03] LABS: Glucose - Point of Care 208 mg/dl (70-99)
--- NOTE | 2025-01-06 18:11 | PTCARENOTE ---
patient weaned off levophed this am. bps maintained above 90 systolic. order placed by hospitalist for lida arredondo however only temp below 97 was axillary temp therfore therapy not initiated. pt sleeping most of shift bu awake at times and answering
questions and requested food. diabetic diet ordered and pt ate 100 percent of lunch with assistance. condom cath intact, pt voided 750 mls. blood cultures positive, notified.
[2025-01-06] MEDS: NOVOLOG FLEXPEN-LOW RESISTANCE 2 UNITS SC (18:16)
[2025-01-06] MEDS: LIPITOR 20 MG PO (20:05)
[2025-01-06] MEDS: SENOKOT 17.2 MG PO (20:05)
[2025-01-06] MEDS: MUCINEX 1200 MG PO (20:05)
[2025-01-06 22:32] LABS: Glucose - Point of Care 175 mg/dl (70-99)
[2025-01-07] VITALS (40 sets, daily range): BP systolic 119–160; BP diastolic 53–105
--- NOTE | 2025-01-07 00:34 | PTCARENOTE ---
assumed care of patient from previous RN. Patient answering questions and Aox1-2, confused about where he is at times. NSR on monitor. Patient on 2L NC with chronic cough. Condom cath #[address] draining yellow urine. NS running at 80 ml/hr.
Patient frequently asking for food. No complaints of pain. Patient resting in bed with call stevens in reach.
[2025-01-07] MEDS: ZOSYN 50 IV ×4 (02:43→20:17)
[2025-01-07] MEDS: KLONOPIN 0.5 MG PO ×2 (06:03→20:17)
[2025-01-07 06:35] LABS: Hematocrit 34.1 % (39.0-52.0); Hemoglobin 11.9 g/dL (13.0-18.0); Mean Corp Hgb Conc. 34.9 g/dL (33.0-37.0); Mean Corpuscular Hgb 29.7 pg (27.0-31.0); Red Blood Cell Count 4.01 10^6/uL (4.70-6.10); Red Cell Dist. Width 14.9 % (11.5-14.5); White Blood Cell Count 12.7 10^3/uL (4.8-10.8)
--- NOTE | 2025-01-07 06:38 | DOWNTIME ---
There was a [employer] Downtime on 01/07/2025 from 0100 to 01/07/2024 at 0235 . Downtime documentation of patient's care, including medication administrations, has been reconciled in the electronic record per guidelines. Refer to the
patient's paper chart under the miscellaneous tab to see printed paper medication records and downtime forms.
[2025-01-07 06:39] LABS: Blood Urea Nitrogen 27 mg/dl (9-20); Calcium 6.8 mg/dl (8.4-10.2); Carbon Dioxide 16 mmol/L (22-30); Chloride 117 mmol/L (98-107); Estimated Creatinine Clearance 51 ml/min; Glucose 92 mg/dl (70-99); Potassium 3.6 mmol/L (3.5-5.1); Sodium 144 mmol/L (135-145); eGFR 56.58
[2025-01-07 07:24] LABS: Mean Platelet Volume 11.1 fL (7.4-10.4); Platelet Count 74 10^3/uL (130-400)
[2025-01-07] MEDS: DUONEB 3 ML INH ×3 (07:53→19:43)
[2025-01-07] MEDS: PULMICORT 0.5 MG INH ×2 (07:54→19:43)
[2025-01-07 08:05] LABS: Glucose - Point of Care 107 mg/dl (70-99)
--- NOTE | 2025-01-07 08:13 | W.PN.HOSP.TC ---
Addendum entered and electronically signed by Nick Carty MD 01/07/25 22:13:
Attending Addendum-I saw and evaluated the patient. I reviewed the resident�s note and agree with findings and plan as documented in the resident�s note. Sub: Patient alert and oriented. 'when can i go home?' Complains of being anxious. No other
complaints. Full 12 point ROS reviewed and negative except as documented Exam- vitals reviewed in EMR GEN-tremulous heart RRR lungs CT B/L Abd obese NT ND pos BS LE no edema condom cath in place draining clear yellow urine Neuro AAO x 3 resting
pill rolling tremor UE
Plan:
# Septic Shock secondary to UTI
- transfer out of IMU
- resolving
- cont zosyn day # 3
- blood cx #1-proteus species, blood cx #2- proteus species, urine cx- proteus-sensi resulted
- repeat blood cx x 2- NGTD x 24 hours
- levophed weaned off
- dispo planning
# Acute Hypoxemic Respiratory Failure
- no documented h/o COPD (has h/o tob abuse) or ROYER but highly probable
- cxr shows atelectasis vs less likely PNA
- CT 12/30-Subpleural nodular opacities in the lower lobes bilaterally, as detailed above, cannot exclude malignancy versus focal atelectasis.
-Suggestion of approximate 1.4 cm low-attenuation lesion in the right lobe of the liver
- cont nebs
- wean 02 for sats > 88%
- cont IS and acapella
# JANNY
- improving
- likely prerenal/dehydration
- voiding as usual
- monitor strict I and O
- DC IVF
- repeat BMP in am
# Anxiety/Depression
- on chronic standing benzos TID at NH
- avoid withdrawal start BID dosing
- cont lexapro
# HTN-
- restart amlodipine and metoprolol
# ITP
- on chronic prednisone 20mg daily
- cont stress dose x 3 days
- monitor plt closely decreased to 74 from 89
# Parkinson Disease
- cont Sinemet
- strict adherence to NH schedule
# Dementia with behavioral Disturbance
- restart seroquel when able at decreased dose
# GERD- cont famotidine
# BPH- cont finasteride and restart tamsulosin monitor for urinary retention
DVTp cont heparin- monitor plts closely DC if < 50k or bleeding
Code DNR
Dispo- From [facility] DC when blood cx NGTD x 48 hours 01/09
Time spent coordinating care, review of plan of care with resident, personally reviewed records in EMR, med rec, consults, notes, labs, radiology, d/w nursing � 52 mins
Original Note:
Today's Communication/Plan
-
Increase clonazepam from as needed to twice daily
Continue IV Zosyn for now day 3 will transition to p.o. upon discharge to complete total course of 7 days
Transfer to telemetry
Resume home blood pressure medication
Assessment / Plan
Assessment / Plan
The patient is a 79-year-old male with known past medical history of dementia, Parkinson's disease, history of emphysema, hypertension, hyperlipidemia, stage III chronic kidney disease, glh-iowkbbg-mcqehcsfl diabetes mellitus, anxiety, depression,
diabetic neuropathy, history of renal calculi, urinary retention, ITP, BPH and strabismus presented from [facility] for evaluation of change in mental status.
# Septic shock; likely secondary to acute UTI/bacteremia
-- s/p sepsis protocol IV fluid bolus 3L
-- Discontinue NS maintenance fluid
-- COVID and flu negative
-- Blood culture and urine culture positive for Proteus; no MRSA
-- Continue IV Zosyn for now day 3
-- Discontinue Levophed
-- Continue diet
-- Repeat blood cultures today
-- Transfer to telemetry
-- PT/OT
# Encephalopathy due to sepsis secondary to UTI/bacteremia
--Significantly improved
-- Patient alert and conversant
# Leukocytosis
-- Trending down
-- Repeat CBC in the a.m.
# Hypocalcemia
--Corrected calcium 8.1
--Continue to monitor
# Acute hypoxemic respiratory failure; present on admission
# Cough
# Shortness of breath
-- Benzonatate 100 mg p.o. 3 times daily; home regimen
-- Mucinex p.o. every 12H
-- DuoNeb
-- Budesonide; home med
-- Supplemental O2 via nasal cannula currently on 2 L; wean O2 for saturation > 88%
-- Chest x-ray : Atelectasis versus pneumonia
# JANNY on CKD 3b
-- Prerenal/Dehydration
-- Creatinine trending down 1.9 today
-- Monitor Is & Os
-- bladder scan showed 36
-- repeat BMP in the am
-- Condom catheter in place
# Parkinson's Disease
# Dementia with Behavioral Disturbance
-- On high doses of prednisone 20 mg daily for ITP, high risk for delirium
-- Continue carbidopa/levodopa
# ITP
# Thrombocytopenia
-- Uses prednisone 20 mg daily at home; hold for now; will resume after completing stress dose
-- stress dose prednisone day 2/
-- Continue to monitor for platelets
#NIDDM
-- Patient currently not on any medication per home medication review however the previous records showed that he was on metformin 500 at 1 time.
-- Insulin sliding scale for now
-- HbA1c 6.4
# Hypertension
-- Resume home amlodipine, metoprolol
# BPH
-- Continue tamsulosin
-- Finasteride 5 mg daily; home regimen
# Anxiety/depression
-- Clonazepam 0.5 mg 3 times daily; home regimen; increased from as needed to twice daily
-- Escitalopram 15 mg daily: Home regimen
-- Hold off quetiapine 25 mg twice daily, quetiapine 50 mg daily, quetiapine 100 mg at bedtime
# Hyperlipidemia
-- Atorvastatin 20 mg
# GERD
-- Famotidine 20 mg daily
Code-DNR
Anticipated Discharge: Within 24 hours
Subjective/Interval History
-
Date of Service: January 07, 2025
AF VSS. States that he is slightly anxious. Reports no other complaints denies any pain or trouble breathing.
Objective Data
-
Labs:
Laboratory Results
01/07/25 01/07/25
05:10 06:13
WBC Cancelled 12.7 H
Hgb Cancelled 11.9 L
Hct Cancelled 34.1 L
Plt Count Cancelled 74 L
Sodium 144
Potassium 3.6
Chloride 117 H
Carbon Dioxide 16 L
BUN 27 H
Creatinine 1.3
Glucose 92
Calcium 6.8 L*
Vital Signs:
Vital Signs
Temp Pulse Resp BP Pulse Ox
97.6 F 68 23 151/87 98
01/07/25 02:57 01/07/25 07:55 01/07/25 07:55 01/07/25 06:30 01/07/25 07:55
I&O
01/06/25 01/07/25 01/08/25
06:59 06:59 06:59
Intake Total 1031 / 1031 1620 / 1620
Output Total 450 / 450 750 / 750
Balance 581 / 581 870 / 870
Review of Systems
-
Unable to obtain full review of systems at this time due to: Dementia
History Source: Patient
Constitutional: Reports No Symptoms
EENT: Reports No Symptoms Reported
Respiratory: Reports No Symptoms
Cardiac: Reports No Symptoms
Abdomen/GI: Reports No Symptoms
Genitourinary: Reports No Symptoms
Neuro: Reports No Symptoms
Psych: Reports Anxious
Physical Exam
-
General: Appears Chronically Ill and Obese
HEENT: Normocephalic
Respiratory: Clear to Auscultation
Cardiac: Regular Rhythm and S1/S2
GI: Nontender
Genito-urinary: Other (Condom catheter in place)
Skin: Warm and Dry
Neuro: Awake, Oriented and Tremors
Psych: Anxious
Data Reviewed
-
Labs: Labs Reviewed by me, Discussed with Physician and Discussed with Patient
[2025-01-07 08:23] LABS: Albumin 2.4 g/dl (3.5-5.0)
--- NOTE | 2025-01-07 08:30 | PN.CDI ---
CDI
- -
CDI:
Physician Documentation Request
Admit Date: 01/05/25 15:07
Dear Doctor,
Please review the following and provide your response in the progress notes.
Clinical Indicators:
- Patient admit for septic shock due to UTI
- 01/06 PN 'Acute Hypoxemic Respiratory Failure'
- Documented VS 2-4L O2, SpO2 >91%
Based on the above information and the recognized standard for respiratory failure could you please verify this diagnoses is still accurate and reflective of the patient�s condition to ensure quality of the medical record.
Please clarify in the Progress Notes:
Acute hypoxic respiratory failure is/was present and is a clinical diagnosis based on (please include this additional support in the medical record)
After study acute hypoxic respiratory failure has been ruled out
Other (please specify)
Additional information for Respiratory Failure:
Recognized criteria for Respiratory Failure (Source: [employer] [facility]ist Sep 2013)
ABGs: (1 or more) Symptoms Please indicate type if known
1. p)2 <60 or RA SPO2 <91% on RA 1. Tachypnea, SOB, dyspnea Hypoxic
2. pCO2 50 and pH <7.35 2. Use of accessory muscles Hypercapnic
3. pO2 decrease of pCO2 increase by 3. Pallor or cyanosis Hypoxic and Hypercapnic
10 mmHg from baseline if known 4. Anxiety or restlessness Unable to determine
5. Unable to speak in full sentences
Supplemental O2 of > 40% (5LPM) Intubation is not required
Use of terms such as suspected, likely, concern for, or probable (associated with a specific diagnosis that is being evaluated, monitored, or treated as if it exists) are acceptable and can be coded in the inpatient setting, when documented at the
time of discharge.
Thank you,
Mariano Rea RN
CDI Specialist
Please use your independent medical judgment in providing your response.
--- NOTE | 2025-01-07 08:37 | PN.CDI ---
CDI
- -
CDI:
Physician Documentation Request
Admit Date: 01/05/25 15:07
Dear Doctor,
Please review the following and provide your response in the progress notes.
Clinical Indicators:
- per ER Physician patient arrived for change in mental status
'normally awake and able to have a normal conversation'
- 01/05 H&P 'Patient obtunded and unable to answer questions'
- 01/06 PN 'Patient much more alert today...Has no recollection of past few days'
- History of dementia
Please clarify in the Progress Notes and Discharge Summary which, if any of the following, is the most likely etiology of the confusion/altered mental status.
Encephalopathy - indicate type, such as metabolic, toxic, septic, alcoholic, anoxic, hypertensive etc. due to a specific condition such as UTI, CVA, hyponatremia etc.
Dementia with acute delirium - indicate type fo dementia, such as Alzheimer's, senile, vascular, Lewy body etc.
Acute or subacute confusional state due to (specify known or suspected etiology)
Other
Use of terms such as suspected, likely, concern for, or probable (associated with a specific diagnosis that is being evaluated, monitored, or treated as if it exists) are acceptable and can be coded in the inpatient setting, when documented at the
time of discharge.
Thank you,
Mariano Rea RN
CDI Specialist
Please use your independent medical judgment in providing your response.
[2025-01-07] MEDS: NOVOLOG FLEXPEN-LOW RESISTANCE SC ×2 (09:04→13:00)
[2025-01-07] MEDS: MIRALAX 17 GRAMS PO (09:06)
[2025-01-07] MEDS: LEXAPRO 15 MG PO (09:06)
[2025-01-07] MEDS: MUCINEX 1200 MG PO ×2 (09:07→20:17)
[2025-01-07] MEDS: SINEMET 25-100 1 TABLET PO ×3 (09:07→22:23)
[2025-01-07] MEDS: FLOMAX 0.8 MG PO (09:08)
[2025-01-07] MEDS: PEPCID 20 MG PO (09:08)
[2025-01-07] MEDS: PROSCAR 5 MG PO (09:09)
[2025-01-07] MEDS: TESSALON PERLES 100 MG PO ×3 (09:09→22:23)
[2025-01-07] MEDS: DELTASONE 60 MG PO (09:09)
[2025-01-07] MEDS: HEPARIN 5000 UNITS SC ×2 (09:10→15:43)
[2025-01-07] MEDS: NSS 1000 IV (09:48)
[2025-01-07] MEDS: TOPROL XL 25 MG PO (12:56)
[2025-01-07 13:11] LABS: Glucose - Point of Care 149 mg/dl (70-99)
--- NOTE | 2025-01-07 16:19 | PTCARENOTE ---
Patient is sleeping off and on but easily arousable to verbal stimuli. Patient knows where he is and the year. Able to feed himself today, fair appetite. Denying pain when asked but has periods of anxiety with rapid breathing. Patient is easily
calmed down however. Incontinent of bowel and bladder today. Compliant with plan of care.
--- NOTE | 2025-01-07 17:28 | PTCARENOTE ---
Report given to Lynn FRIAS for transfer to room 434 bed 2. Belongings to be sent with patient. Patient educated about plan of care.
[2025-01-07 18:05] LABS: Glucose - Point of Care 209 mg/dl (70-99)
[2025-01-07] MEDS: NOVOLOG FLEXPEN-LOW RESISTANCE 2 UNITS SC (18:06)
--- NOTE | 2025-01-07 19:30 | TRANSFER ---
Pt transferred from IMU to [facility]. VSS, bed alarm in place, pt is AAOx2 to person and place, no complaints of pain. Bed in lowest position, call stevens within reach.
[2025-01-07 22:06] LABS: Glucose - Point of Care 160 mg/dl (70-99)
[2025-01-07] MEDS: SENOKOT PO (22:09)
[2025-01-07] MEDS: LIPITOR 20 MG PO (22:23)
[2025-01-08] VITALS (7 sets, daily range): BP systolic 135–158; BP diastolic 80–91; PULSE 77; O2SAT 95
[2025-01-08] MEDS: HEPARIN 5000 UNITS SC ×3 (00:16→17:10)
[2025-01-08] MEDS: ZOSYN 50 IV ×4 (02:10→21:32)
[2025-01-08] MEDS: TYLENOL 650 MG PO (02:12)
[2025-01-08] MEDS: DUONEB 3 ML INH ×4 (03:58→19:30)
--- NOTE | 2025-01-08 07:20 | W.PN.HOSP.TC ---
Addendum entered and electronically signed by Nick Carty MD 01/08/25 22:00:
Attending Addendum-I saw and evaluated the patient. I reviewed the resident�s note and agree with findings and plan as documented in the resident�s note. Sub: TELLER called due to apparent decreased responsiveness and flickering of eyes. Patient seen
comfortable sleeping in bed. 'i feel fine' Patient alert and oriented. No other complaints. Full 12 point ROS reviewed and negative except as documented Exam- vitals reviewed in EMR GEN-NAD heart RRR lungs CT B/L Abd obese NT ND pos BS LE no edema
NPPB Neuro AAO x 3 resting pill rolling tremor UE
Plan:
# Septic Shock secondary to UTI
- cont care on tele
- resolving
- cont zosyn day # 4 transition to PO abx on DC
- blood cx x 2 and urine [id number] resulted and reviewed
- repeat blood cx x 2- NGTD x 48 hours
- dispo planning- DC in am
# Acute Hypoxemic Respiratory Failure
- no documented h/o COPD (has h/o tob abuse) or ROYER but highly probable
- cxr shows atelectasis vs less likely PNA
- CT 12/30-Subpleural nodular opacities in the lower lobes bilaterally, as detailed above, cannot exclude malignancy versus focal atelectasis.
-Suggestion of approximate 1.4 cm low-attenuation lesion in the right lobe of the liver
- cont nebs
- wean 02 for sats > 88%
- cont IS and acapella
# JANNY
- mildly worse
- likely prerenal/dehydration
- restart IVF
- voiding as usual
- monitor strict I and O
- repeat BMP in am
# Anxiety/Depression
- on chronic standing benzos TID at NH
- avoid withdrawal cont BID dosing
- cont lexapro
# HTN-
- cont amlodipine and metoprolol
# ITP
- on chronic prednisone 20mg daily
- completed stress dose x 3 days
- resume in am
- monitor plt closely
# Parkinson Disease
- cont Sinemet
- strict adherence to NH schedule
# Dementia with behavioral Disturbance
- restarted seroquel at decreased dose
# GERD- cont famotidine
# BPH- cont finasteride and restart tamsulosin monitor for urinary retention
DVTp cont heparin- monitor plts closely DC if < 50k or bleeding
Code DNR
[facility] cx NGTD x 48 hours 01/09
Time spent coordinating care, review of plan of care with resident, personally reviewed records in EMR, med rec, consults, notes, labs, radiology, d/w nursing � 57 mins
Original Note:
Today's Communication/Plan
-
Continue antibiotics
restart iv fluids
resume seroquel 25mg bid
probiotics
Assessment / Plan
Assessment / Plan
The patient is a 79-year-old male with known past medical history of dementia, Parkinson's disease, history of emphysema, hypertension, hyperlipidemia, stage III chronic kidney disease, tgv-lqusjll-kccqvyzqy diabetes mellitus, anxiety, depression,
diabetic neuropathy, history of renal calculi, urinary retention, ITP, BPH and strabismus presented from [facility] for evaluation of change in mental status.
# Septic shock; likely secondary to acute UTI/bacteremia
-- s/p sepsis protocol IV fluid bolus 3L
-- restart NS maintenance fluid
-- COVID and flu negative
-- Blood culture and urine culture positive for Proteus; no MRSA
-- Continue IV Zosyn for now day 4
-- Continue diabetic diet
-- Repeat blood cultures negative to date
-- PT/OT; dispo planning
-- Loose stools x2; added probiotics
# Encephalopathy due to sepsis secondary to UTI/bacteremia
--Significantly improved
-- Patient alert and conversant
# Leukocytosis
-- Trending down
-- Repeat CBC in the a.m.
# Hypocalcemia
--Corrected calcium 8.1
--Continue to monitor
# Acute hypoxemic respiratory failure; present on admission
# Cough
# Shortness of breath
-- Benzonatate 100 mg p.o. 3 times daily; home regimen
-- Mucinex p.o. every 12H
-- DuoNeb
-- Budesonide; home med
-- Supplemental O2 via nasal cannula currently on 2 L; wean O2 for saturation > 88%
-- Chest x-ray : Atelectasis versus pneumonia
# JANNY on CKD 3b
-- Prerenal/Dehydration
-- Creatinine increased to 1.6
-- Monitor Is & Os
-- Repeat bladder scan
-- restart IV fluids
# Parkinson's Disease
# Dementia with Behavioral Disturbance
-- On high doses of prednisone 20 mg daily for ITP, high risk for delirium
-- Continue carbidopa/levodopa
# ITP
# Thrombocytopenia
-- Uses prednisone 20 mg daily at home; hold for now; will resume after completing stress dose
-- stress dose prednisone day 3/
-- Continue to monitor for platelets. 74>>>87
#NIDDM
-- Patient currently not on any medication per home medication review however the previous records showed that he was on metformin 500 at 1 time.
-- Insulin sliding scale for now
-- HbA1c 6.4
# Hypertension
-- Resume home amlodipine, metoprolol
# BPH
-- Continue tamsulosin
-- Finasteride 5 mg daily; home regimen
# Anxiety/depression
-- Clonazepam 0.5 mg 3 times daily; home regimen; increased from as needed to twice daily
-- Escitalopram 15 mg daily: Home regimen
-- resume quetiapine 25 mg twice daily,
-- continue to hold quetiapine 50 mg daily, quetiapine 100 mg at bedtime
# Hyperlipidemia
-- Atorvastatin 20 mg
# GERD
-- Famotidine 20 mg daily
Code-DNR
Anticipated Discharge: 24 - 48 hours
Subjective/Interval History
-
Date of Service: January 08, 2025
AF, blood pressure slightly on the higher side. Reports 2 watery stools last night. Patient is anxious/teary as he cannot remember where his family is. Also he cannot recall the name of this hospital.
Objective Data
-
Labs:
Laboratory Results
01/08/25
06:00
WBC Pending
Hgb Pending
Hct Pending
Plt Count Pending
Sodium Pending
Potassium Pending
Chloride Pending
Carbon Dioxide Pending
BUN Pending
Creatinine Pending
Glucose Pending
Calcium Pending
Total Bilirubin Pending
AST Pending
ALT Pending
Alkaline Phosphatase Pending
Vital Signs:
Vital Signs
Temp Pulse Resp BP Pulse Ox
97.4 F 88 24 148/89 94
01/08/25 03:23 01/08/25 04:01 01/08/25 04:01 01/08/25 03:23 01/08/25 03:23
I&O
01/07/25 01/08/25 01/09/25
06:59 06:59 06:59
Intake Total 1620 / 1620 2180 / 2180
Output Total 750 / 750 750 / 750
Balance 870 / 870 1430 / 1430
Review of Systems
-
Unable to obtain full review of systems at this time due to: Dementia
History Source: Patient
Constitutional: Reports No Symptoms
EENT: Reports No Symptoms Reported
Respiratory: Reports No Symptoms
Cardiac: Reports No Symptoms
Abdomen/GI: Reports No Symptoms
Genitourinary: Reports No Symptoms
Neuro: Reports No Symptoms
Psych: Reports Anxious
Physical Exam
-
General: Appears Chronically Ill and Obese
HEENT: Normocephalic
Respiratory: Clear to Auscultation
Cardiac: Regular Rhythm and S1/S2
GI: Nontender and Normal Bowel Sounds
Skin: Warm and Dry
Neuro: Awake, Oriented and Tremors
Psych: Anxious
Data Reviewed
-
Labs: Labs Reviewed by me, Discussed with Physician and Discussed with Patient
[2025-01-08] MEDS: PULMICORT 0.5 MG INH ×2 (07:23→19:35)
[2025-01-08 07:52] LABS: Glucose - Point of Care 99 mg/dl (70-99)
[2025-01-08] MEDS: NOVOLOG FLEXPEN-LOW RESISTANCE SC ×2 (07:57→12:54)
[2025-01-08 08:00] LABS: Hematocrit 33.9 % (39.0-52.0); Hemoglobin 11.5 g/dL (13.0-18.0); Mean Corp Hgb Conc. 33.9 g/dL (33.0-37.0); Mean Corpuscular Hgb 29.1 pg (27.0-31.0); Mean Corpuscular Volume 85.8 fL (80.0-94.0); Mean Platelet Volume 11.1 fL (7.4-10.4); Platelet Count 87 10^3/uL (130-400); Red Blood Cell Count 3.95 10^6/uL (4.70-6.10); White Blood Cell Count 8.1 10^3/uL (4.8-10.8)
[2025-01-08 08:18] LABS: ALT (SGPT) < 10 U/L (0-50); AST (SGOT) 14 U/L (17-59); Albumin 3.2 g/dl (3.5-5.0); Alkaline Phosphatase 65 U/L (38-126); Blood Urea Nitrogen 27 mg/dl (9-20); Calcium 8.6 mg/dl (8.4-10.2); Carbon Dioxide 22 mmol/L (22-30); Chloride 110 mmol/L (98-107); Estimated Creatinine Clearance 41 ml/min; Glucose 97 mg/dl (70-99); Potassium 3.7 mmol/L (3.5-5.1); Sodium 140 mmol/L (135-145); Total Bilirubin 0.9 mg/dl (0.2-1.3); Total Protein 5.6 g/dl (6.3-8.2)
[2025-01-08] MEDS: MIRALAX 17 GRAMS PO (08:35)
[2025-01-08] MEDS: KLONOPIN 0.5 MG PO ×2 (08:36→21:34)
[2025-01-08] MEDS: LEXAPRO 15 MG PO (08:36)
[2025-01-08] MEDS: TESSALON PERLES 100 MG PO ×3 (08:37→21:35)
[2025-01-08] MEDS: FLOMAX 0.8 MG PO (08:37)
[2025-01-08] MEDS: SINEMET 25-100 1 TABLET PO ×3 (08:37→21:34)
[2025-01-08] MEDS: DELTASONE 60 MG PO (08:37)
[2025-01-08] MEDS: NORVASC 5 MG PO (08:37)
[2025-01-08] MEDS: PEPCID 20 MG PO (08:39)
[2025-01-08] MEDS: TOPROL XL 25 MG PO (08:39)
[2025-01-08] MEDS: MUCINEX 1200 MG PO ×2 (08:39→21:34)
[2025-01-08] MEDS: PROSCAR 5 MG PO (08:56)
[2025-01-08] MEDS: VISBIOME 1 CAP PO (10:50)
[2025-01-08] MEDS: NSS 1000 IV (10:50)
[2025-01-08 11:37] LABS: Glucose - Point of Care 155 mg/dl (70-99)
[2025-01-08 12:23] LABS: Glucose - Point of Care 137 mg/dl (70-99)
--- NOTE | 2025-01-08 12:45 | VATNOTE ---
labs obtained by this VAT RN during RR, per Priscilla TAX ANALYST, labs sent for 'holding' to lab. No pink slip sent with labs.
[2025-01-08] MEDS: SEROQUEL 25 MG PO ×2 (12:55→21:35)
--- NOTE | 2025-01-08 15:18 | CM ---
Chart reviewed and patient to return to [facility] when stable.
[facility]
Report [phone]
.
[2025-01-08 16:56] LABS: Glucose - Point of Care 159 mg/dl (70-99)
[2025-01-08] MEDS: NOVOLOG FLEXPEN-LOW RESISTANCE 1 UNITS SC (17:37)
[2025-01-08] MEDS: LIPITOR 20 MG PO (21:35)
[2025-01-08] MEDS: SENOKOT PO (21:35)
[2025-01-08 21:44] LABS: Glucose - Point of Care 140 mg/dl (70-99)
[2025-01-09] MEDS: HEPARIN 5000 UNITS SC ×2 (01:00→11:18)
[2025-01-09] MEDS: ZOSYN 50 IV ×2 (01:27→11:17)
[2025-01-09] MEDS: NSS 1000 IV (01:27)
[2025-01-09 03:21] VITALS: BP 117/81
[2025-01-09 07:30] VITALS: BP 144/91
[2025-01-09] MEDS: PULMICORT 0.5 MG INH (07:34)
[2025-01-09] MEDS: DUONEB 3 ML INH ×2 (07:34→13:50)
--- NOTE | 2025-01-09 07:35 | W.PN.HOSP.TC ---
Addendum entered and electronically signed by Nick Carty MD 01/09/25 23:52:
Attending Addendum-I saw and evaluated the patient. I reviewed the resident�s note and agree with findings and plan as documented in the resident�s note. Sub: Feels back to baseline. Wants to go home. No complaints. Full 12 point ROS reviewed and
negative except as documented Exam- vitals reviewed in EMR GEN-NAD heart RRR lungs CT B/L Abd obese NT ND pos BS LE no edema NPPB Neuro AAO x 3 resting pill rolling tremor UE
Plan:
# Septic Shock secondary to UTI
- cont care on tele
- resolving
- zosyn day # 5 transition to PO abx on DC
- blood cx x 2 and urine [id number] resulted and reviewed
- repeat blood cx x 2- NGTD x 48 hours
- DC
# Acute on Chronic Hypoxemic Respiratory Failure
- back to baseline O2 @ 2L
- no documented h/o COPD (has h/o tob abuse) or ROYER but highly probable
- cxr shows atelectasis vs less likely PNA
- CT 12/30-Subpleural nodular opacities in the lower lobes bilaterally, as detailed above, cannot exclude malignancy versus focal atelectasis.
-Suggestion of approximate 1.4 cm low-attenuation lesion in the right lobe of the liver
- cont nebs
- wean 02 for sats > 88%
- cont IS and acapella
# JANNY
- stable cr
- voiding as usual
- monitor strict I and O
- repeat BMP in am
# Anxiety/Depression
- on chronic standing benzos TID at NH
- avoid withdrawal cont BID dosing
- cont lexapro
# HTN-
- cont amlodipine and metoprolol
# ITP
- on chronic prednisone 20mg daily
- completed stress dose x 3 days
- resume home dose
- monitor plt closely
# Parkinson Disease
- cont Sinemet
- strict adherence to NH schedule
# Dementia with behavioral Disturbance
- restarted seroquel at greatly decreased dose
- f/u as NH to uptitrate as warranted
# GERD- cont famotidine
# BPH- cont finasteride and tamsulosin
DVTp heparin- monitor plts closely DC if < 50k or bleeding
Code DNR
Dis[facility]- [facility]
Time spent coordinating care, DC planning, review of DC plan of care with resident, transition of care, review of records, med rec/scripts sent electronically, consults, notes, d/w consultants, nursing, family, and CM�33 mins
Original Note:
Today's Communication/Plan
-
d/c to [facility].
Assessment / Plan
Assessment / Plan
The patient is a 79-year-old male with known past medical history of dementia, Parkinson's disease, history of emphysema, hypertension, hyperlipidemia, stage III chronic kidney disease, zzu-fswekbs-ihubrtdzx diabetes mellitus, anxiety, depression,
diabetic neuropathy, history of renal calculi, urinary retention, ITP, BPH and strabismus presented from [facility] for evaluation of change in mental status.
# Septic shock; likely secondary to acute UTI/bacteremia
-- s/p sepsis protocol IV fluid bolus 3L
-- Continue NS maintenance fluid
-- COVID and flu negative
-- initial Blood culture and urine culture positive for Proteus; no MRSA
-- Continue IV Zosyn for now day 5; will complete total 10 day course; transition to po augmentin upon discharge
-- Continue diabetic diet
-- Repeat blood cultures negative to date x48hrs
-- PT/OT; dispo planning
# Encephalopathy due to sepsis secondary to UTI/bacteremia
-- Significantly improved
-- Patient alert and conversant
# Leukocytosis
-- Resolved
# Hypocalcemia
-- Resolved
# Acute hypoxemic respiratory failure; present on admission
# Cough
# Shortness of breath
-- Benzonatate 100 mg p.o. 3 times daily; home regimen
-- Mucinex p.o. every 12H
-- DuoNeb
-- Budesonide; home med
-- Supplemental O2 via nasal cannula currently on 2L; same as POA ; wean O2 for saturation > 88%
-- Chest x-ray : Atelectasis versus pneumonia
# JANNY on CKD 3b
-- Prerenal/Dehydration
-- Creatinine around 1.3 ; stable
-- Monitor Is & Os
-- Continue IV fluids while awaiting d/c
# Parkinson's Disease
# Dementia with Behavioral Disturbance
-- On high doses of prednisone 20 mg daily for ITP, high risk for delirium
-- Continue carbidopa/levodopa
# ITP
# Thrombocytopenia
-- Uses prednisone 20 mg daily at home; restart
-- Completed 3 days of prednisone 60 mg
-- Continue to monitor for platelets. 87>>>89
#NIDDM
-- Patient currently not on any medication per home medication review however the previous records showed that he was on metformin 500 previous
-- Insulin sliding scale; not requiring any
-- HbA1c 6.4
# Hypertension
-- continue home amlodipine, metoprolol
# BPH
-- Continue tamsulosin
-- Finasteride 5 mg daily; home regimen
# Anxiety/depression
-- Clonazepam 0.5 mg 3 times daily; home regimen;stable on bid in hosp.
-- Escitalopram 15 mg daily: Home regimen
-- resume quetiapine 25 mg twice daily, ;time changed to am pm
-- continue to hold quetiapine 50 mg daily, quetiapine 100 mg at bedtime
# Hyperlipidemia
-- Atorvastatin 20 mg
# GERD
-- Famotidine 20 mg daily
Code-DNR
Anticipated Discharge: Today
Subjective/Interval History
-
Date of Service: January 09, 2025
Offers no new complaint
Objective Data
-
Labs:
Laboratory Results
01/09/25
07:24
WBC Pending
Hgb Pending
Hct Pending
Plt Count Pending
Sodium Pending
Potassium Pending
Chloride Pending
Carbon Dioxide Pending
BUN Pending
Creatinine Pending
Glucose Pending
Calcium Pending
Vital Signs:
Vital Signs
Temp Pulse Resp BP Pulse Ox
98.2 F 87 18 117/81 99
01/09/25 03:21 01/09/25 03:21 01/09/25 03:21 01/09/25 03:21 01/09/25 03:21
I&O
01/08/25 01/09/25 01/10/25
06:59 06:59 06:59
Intake Total 2180 / 2180 480 / 480
Output Total 750 / 750 300 / 300
Balance 1430 / 1430 180 / 180
Review of Systems
-
Unable to obtain full review of systems at this time due to: Dementia
History Source: Patient
Constitutional: Reports No Symptoms
EENT: Reports No Symptoms Reported
Respiratory: Reports No Symptoms
Cardiac: Reports No Symptoms
Abdomen/GI: Reports No Symptoms
Genitourinary: Reports No Symptoms
Neuro: Reports No Symptoms
Physical Exam
-
General: Appears Chronically Ill and Obese
HEENT: Normocephalic
Respiratory: Clear to Auscultation
Cardiac: Regular Rhythm and S1/S2
GI: Nontender and Normal Bowel Sounds
Skin: Warm and Dry
Neuro: Awake and Tremors (Parkinson)
Psych: Calm
Data Reviewed
-
Labs: Labs Reviewed by me, Discussed with Physician and Discussed with Patient
[2025-01-09 07:49] LABS: Glucose - Point of Care 99 mg/dl (70-99)
[2025-01-09 08:03] LABS: Hematocrit 35.6 % (39.0-52.0); Hemoglobin 11.8 g/dL (13.0-18.0); Mean Corp Hgb Conc. 33.1 g/dL (33.0-37.0); Mean Corpuscular Hgb 29.5 pg (27.0-31.0); Mean Platelet Volume 10.7 fL (7.4-10.4); Platelet Count 89 10^3/uL (130-400); Red Cell Dist. Width 15.1 % (11.5-14.5)
[2025-01-09 08:06] LABS: Blood Urea Nitrogen 27 mg/dl (9-20); Carbon Dioxide 21 mmol/L (22-30); Chloride 109 mmol/L (98-107); Estimated Creatinine Clearance 41 ml/min; Glucose 92 mg/dl (70-99); Potassium 3.9 mmol/L (3.5-5.1); Sodium 141 mmol/L (135-145)
[2025-01-09] MEDS: NOVOLOG FLEXPEN-LOW RESISTANCE SC ×2 (11:01→11:57)
[2025-01-09] MEDS: MIRALAX 17 GRAMS PO (11:16)
[2025-01-09] MEDS: FLOMAX 0.8 MG PO (11:17)
[2025-01-09] MEDS: LEXAPRO 15 MG PO (11:17)
[2025-01-09] MEDS: VISBIOME 1 CAP PO (11:17)
[2025-01-09] MEDS: KLONOPIN 0.5 MG PO (11:18)
[2025-01-09] MEDS: PEPCID 20 MG PO (11:18)
[2025-01-09] MEDS: TOPROL XL 25 MG PO (11:19)
[2025-01-09] MEDS: PROSCAR 5 MG PO (11:19)
[2025-01-09] MEDS: SINEMET 25-100 1 TABLET PO (11:19)
[2025-01-09] MEDS: TESSALON PERLES 100 MG PO (11:19)
[2025-01-09] MEDS: SEROQUEL 25 MG PO (11:19)
[2025-01-09] MEDS: MUCINEX 1200 MG PO (11:20)
[2025-01-09] MEDS: DELTASONE 20 MG PO (11:20)
[2025-01-09] MEDS: NORVASC 5 MG PO (11:20)
[2025-01-09 11:37] VITALS: BP 147/91
[2025-01-09 11:53] LABS: Glucose - Point of Care 76 mg/dl (70-99)
--- NOTE | 2025-01-09 12:57 | CM ---
CM reviewed chart, reviewed with Resident, patient stable for discharge to return to [facility]. Updated clinicals sent to [facility]. CM spoke with patients daughter, reviewed IMM, agreeable to discharge. Patient scheduled for a 3:30 p.m.
ambulance transport. CM will continue to follow for all discharge planning needs.
Plan: Return to [facility], 3:30 p.m. ambulance transport
[facility]
Report [phone]
.
[2025-01-09] MEDS: NSS IV (14:16)
--- NOTE | 2025-01-09 15:21 | PTCARENOTE ---
Called [facility] for report. They were unable to take report at this time, call back number provided.
[2025-01-09] MEDS: FLUAD (65 yr+) 2024-2025 FORMULA 0.5 ML IM (15:22)
--- NOTE | 2025-01-09 18:01 | W.DCSUMMARY ---
Discharge Summary
Discharge Data
Date of Admission: 01/05/25
Date of Discharge: 01/09/25
-
Pending Results: No
Hospital Course
Discharging Physician : Robson Weir MD ; Nick Carty MD
Disposition : SNF
Primary care physician : Ken Bond
Principal Discharge diagnosis : Septic shock; likely secondary to acute UTI/bacteremia, Encephalopathy due to sepsis secondary to UTI/bacteremia
Chronic Discharge diagnosis : Acute hypoxemic respiratory failure, JANNY on CKD 3b, Parkinson's Disease, Dementia with Behavioral Disturbance, ITP, NIDDM, Hypertension, BPH, Anxiety/depression, Hyperlipidemia, GERD
Hospital Course : The patient is a 79-year-old male with known past medical history of dementia, Parkinson's disease, history of emphysema, hypertension, hyperlipidemia, stage III chronic kidney disease, ooz-peguiba-yacqdeess diabetes mellitus,
anxiety, depression, diabetic neuropathy, history of renal calculi, urinary retention, ITP, BPH and strabismus presented from [facility] for evaluation of change in mental status for the last 1 day.
Patient was obtunded in the ER, most of the history was obtained from his POA/daughter Liliam at bedside and chart review.
1. Septic shock; likely secondary to acute UTI/bacteremia
On arrival in the ER he was found to be in septic shock with temperature of 101.9., Respiratory rate 43, heart rate of 97 and blood pressure of 69/55. EKG showed sinus rhythm with premature supraventricular complexes. Chest x-ray showed low lung
volumes with bibasilar atelectasis and/or pneumonia.
CBC showed white count of 14.4, platelet 108. CMP with BUN 33, creatinine 2.1 and blood glucose of 180. Lactic acid was 1.5. COVID and flu negative. Urinalysis positive for acute UTI. He received IV fluids per sepsis protocol however blood pressure
continued to remain low in 80s over 50s and he was admitted in the IMU and was started on Levophed. Blood culture and urine culture was obtained and he was started on IV antibiotics including vancomycin and Zosyn. After confirmation of No MRSA,
vanco was d/c. Initial Blood culture and urine culture both positive for Proteus. He received 5 days of IV zosyn which was transitioned to PO augmentin upon d/c and recommended to utilize for another 5 days. Repeat Blood culture remained negative
for >48 hrs at the time of discharge.
2. Encephalopathy due to sepsis secondary to UTI/bacteremia
He was obtunded on arrival. It significantly improved with rx and he was conversant on day of discharge.
3. Leukocytosis
Wbc was elevated to 14 on arrival but resolved with treatment.
4. Acute hypoxemic respiratory failure
was present on admission. He had intermittent cough as well. He was continued on his home regimen Benzonatate 100 mg p.o. 3 times daily; Mucinex p.o. every 12H, DuoNeb, Budesonide. He continued to require Supplemental O2 via nasal cannula currently
on 2L; same as on arrival. Chest x-ray was obtained; result below.
5. JANNY on CKD 3b
on arrival his Cr was found to be 2.1 with baseline of 1.3 from record review. it was likely Prerenal sec to Dehydration. After Iv fluids his Creatinine taper down near baseline. Strict input and output was monitored during his hospital stay.
6. Parkinson's Disease and Dementia with Behavioral Disturbance
He was continued on home carbidopa/levodopa. he is on high doses of prednisone 20 mg daily for ITP which put him on high risk for delirium. However with management his condition remained stable.
7. ITP
He Uses prednisone 20 mg daily at home. Initially he was given high dose prednisone 60 mg for 3 days and transitioned back to 20mg/day. Platelets remained stable.
8. NIDDM
Patient currently not on any medication per home medication review however the previous records showed that he was on metformin 500. He was ordered Insulin sliding scale but did not requiring any. His HbA1c was 6.4
9. Hypertension
He was continued on home amlodipine and metoprolol.
10. BPH
He was Continued on home tamsulosin and Finasteride 5 mg daily.
11. Anxiety/depression
He was using Clonazepam 0.5 mg 3 times daily on arrival. it was started as prn basis and later increased to BID. He tolerated it well and was stable on BID.
His Escitalopram 15 mg daily was continues as is.
He was using three different strengths of quetiapine including 25 mg twice daily, quetiapine 50 mg daily, quetiapine 100 mg at bedtime. It was held initially but later started on 25mg bid. He tolerated it well and remained stable on this dose.
Unclear that if he needs more. can be uptitrated at the facility if needed but he seem stable on 25 bid dose on discharge.
12. Hyperlipidemia
He was continued on home Atorvastatin 20 mg
13. GERD
He was continued on home Famotidine 20 mg daily
Patient had a rapid response during his hosp stay due to decreased responsiveness however additional labs did not show any remarkable abnormality and upon awakening he said ' i am fine' and did not offer any complaints.
Important imaging findings : 01/05 CXR: Low lung volumes with bibasilar atelectasis and/or pneumonia
CT Abd/pelvis W Iv Cont: IMPRESSION:
1. No significant acute abnormality identified in the abdomen or pelvis, as described above.
2. Mild fusiform aneurysmal dilatation of the ascending thoracic aorta measuring up to 4.3 cm, partially visualized.
3. Mild splenomegaly.
Procedure findings : EKG 01/05 SINUS RHYTHM WITH PREMATURE SUPRAVENTRICULAR COMPLEXES
OTHERWISE NORMAL ECG
WHEN COMPARED WITH ECG OF 11-NOV-2024
EKG 01/08: SINUS RHYTHM WITH PREMATURE ATRIAL COMPLEXES
OTHERWISE NORMAL ECG
WHEN COMPARED WITH ECG OF 05-JAN-2025
Discharge Plan
-
Patient Disposition: Custodial/SNF
Discharge Diagnosis/Procedures: Septic shock; likely secondary to acute UTI/bacteremia, Encephalopathy due to sepsis secondary to UTI/bacteremia, Hypocalcemia, Leukocytosis, Acute hypoxemic respiratory failure, JANNY on CKD 3b, Parkinson's Disease,
Dementia with Behavioral Disturbance, ITP, NIDDM, Hypertension, BPH, Anxiety/depression, Hyperlipidemia, GERD
Condition: Fair
Diet: Diabetic, Carb Controlled
Activity: With assistance and As tolerated
Driving Restrictions: As prior to admission
Bathing Restrictions: None
Referrals:
Ken Bond I., DO [Family Provider] - in less than 1 week
Additional Discharge Medication Instructions: Take Augmentin 875/125 1 tablet by mouth twice daily; first dose today 01/08 1 at night.
Clonazepam change to twice daily; patient tolerated well during hospital stay; titrate if needed at the facility.
Continue probiotic(Visbiome) 1 capsule daily while on antibiotics and 1 week after that.
Seroquel 25 mg 1 tablet by mouth twice daily. ; Dose changed and patient stable in the hospital; titrate up if needed at the facility.
Discontinue Pyridium. Not recommended with creatinine clearance less than 50.
Continue oxygen via nasal cannula 2 L as prior to admission
Prescriptions:
New
amoxicillin-pot clavulanate 875-125 mg tablet
1 tab PO Q12H Qty: 11 0RF
Rx Instructions:
1st dose 01/09/25 pm
clonazepam 0.5 mg Tablet
0.5 mg PO BID Qty: 60 0RF
quetiapine 25 mg Tablet
25 mg PO BID Qty: 60 0RF
Lactobac/Bifidobac [Visbiome]
1 cap PO DAILY Qty: 30 0RF
Continued
acetaminophen [Tylenol] 325 mg Tablet
650 mg PO Q4HPRN PRN (Reason: mild pain/fever>100)
atorvastatin 20 mg Tablet
20 mg PO HS
prednisone 20 mg Tablet
20 mg PO DAILY
therapeutic multivitamin Tablet
1 tab PO DAILY
famotidine 20 mg Tablet
20 mg PO DAILY
magnesium hydroxide [Milk of Magnesia] 400 mg/5 mL Suspension
30 ml PO DAILYPRN PRN (Reason: if no bm 3 days)
tamsulosin 0.4 mg Capsule
0.8 mg PO DAILY
bisacodyl [Dulcolax (bisacodyl)] 10 mg Suppository
10 mg DE DAILYPRN PRN (Reason: if mom ineffective after 24 hrs)
Fleet Enema 19-7 gram/118 mL Enema
118 ml DE DAILYPRN PRN (Reason: if dulcolax ineffective after 24 hrs)
carbidopa-levodopa 25-100 mg Tablet
1 tab PO TID
finasteride 5 mg Tablet
5 mg PO DAILY
Artificial Tears (PF) Dropperette
1 drp BOTH EYES [id number] PRN (Reason: dry eyes)
escitalopram oxalate [Lexapro] 5 mg Tablet
15 mg PO DAILY
metoprolol succinate 25 mg Tablet Extended Release 24 Hr
25 mg PO DAILY Qty: 30 0RF
ibuprofen 200 mg Tablet
400 mg PO Q6HPRN PRN (Reason: mod to severe pain) Qty: 0 0RF
polyethylene glycol 3350 [Miralax] 17 gram powder in packet
17 g PO DAILY Qty: 30 0RF
amlodipine [Norvasc] 5 mg Tablet
5 mg PO DAILY
ipratropium-albuterol 0.5 mg-3 mg(2.5 mg base)/3 mL Solution For Nebulization
3 ml inhalation R TID Qty: 90 0RF
ipratropium-albuterol 0.5 mg-3 mg(2.5 mg base)/3 mL Solution For Nebulization
3 ml inhalation R Q4HPRN PRN (Reason: sob/wheeze) Qty: 30 0RF
benzonatate 100 mg Capsule
100 mg PO TID Qty: 20 0RF
budesonide 0.5 mg/2 mL Suspension For Nebulization
0.5 mg inhalation R BID Qty: 60 0RF
guaifenesin 600 mg Tablet Extended Release 12hr
1,200 mg PO Q12 Qty: 60 0RF
sennosides [senna] 8.6 mg Tablet
17.2 mg PO HS
Discontinued
clonazepam 0.5 mg Tablet
0.5 mg PO TID
quetiapine [Seroquel] 25 mg Tablet
25 mg PO BID@0800,1200
quetiapine [Seroquel] 100 mg Tablet
100 mg PO HS
phenazopyridine [Pyridium] 100 mg tablet
100 mg PO Q8HPRN PRN (Reason: dysuria)
quetiapine [Seroquel] 50 mg Tablet
50 mg PO DAILY
Discharge Orders:
Discharge Patient (As Directed); Ordered 01/09/25
Ordered By: Robson Weir
Discharge Date and Time
Discharge Date/Time: 01/09/25 15:39
Print Language: BULGARIAN
== END 2025-01-09 15:39 | DRG 871 ==
LOC: 4 WEST ACU 15:07
PROVIDERS: Physician Assistant Medical; ADMITTING PHYSICIAN Family Medicine; EMERGENCY PHYSICIAN Emergency Medicine; FAMILY PHYSICIAN Internal Medicine
PROC: 3E02340 Introduction of Influenza Vaccine into Muscle, Percutaneous Approach (ICD-10-PCS; 2025-01-09)
DX: A41.9 Sepsis, unspecified organism (principal); G93.41 Metabolic encephalopathy; R65.21 Severe sepsis with septic shock; J96.21 Acute and chronic respiratory failure with hypoxia; N39.0 Urinary tract infection, site not specified; N17.9 Acute kidney failure, unspecified; F02.83 Dementia in other diseases classified elsewhere, unspecified severity, with mood disturbance; F02.818 Dementia in other diseases classified elsewhere, unspecified severity, with other behavioral disturbance; F02.84 Dementia in other diseases classified elsewhere, unspecified severity, with anxiety; D69.3 Immune thrombocytopenic purpura; I12.9 Hypertensive chronic kidney disease with stage 1 through stage 4 chronic kidney disease, or unspecified chronic kidney disease; E11.22 Type 2 diabetes mellitus with diabetic chronic kidney disease; N18.32 Chronic kidney disease, stage 3b; G20.A1 Parkinson's disease without dyskinesia, without mention of fluctuations; E11.40 Type 2 diabetes mellitus with diabetic neuropathy, unspecified; R33.8 Other retention of urine; E78.00 Pure hypercholesterolemia, unspecified; K21.9 Gastro-esophageal reflux disease without esophagitis; F32.A Depression, unspecified; Z87.442 Personal history of urinary calculi; Z79.52 Long term (current) use of systemic steroids; Z66 Do not resuscitate; E83.51 Hypocalcemia; E86.0 Dehydration; J43.9 Emphysema, unspecified; H50.9 Unspecified strabismus; H53.2 Diplopia; I71.21 Aneurysm of the ascending aorta, without rupture; N40.1 Benign prostatic hyperplasia with lower urinary tract symptoms; Z79.899 Other long term (current) drug therapy; Z87.891 Personal history of nicotine dependence; Z98.1 Arthrodesis status; Z11.52 Encounter for screening for COVID-19; Z23 Encounter for immunization
CPT/HCPCS: 51701; 71045; 74177; 80048; 80053; 80202; 81003; 81015; 82040; 82962; 83036; 83605; 85025; 85027; 87040; 87070; 87077; 87086; 87149; 87186; 87205; 87502; 87811; 90662; 93005; 94640; 96361; 96365; 96375; 97163; 97167; 99291; G0008; Q9967

== ENCOUNTER 2025-01-18 18:50 | Inpatient (IN) | payer MEDICARE, SELFPAY ==
[2025-01-18] VITALS (11 sets, daily range): BP systolic 83–157; BP diastolic 66–96; BMI 29.9; BMI 29.8
--- NOTE | 2025-01-18 14:55 | ED.GENMED ---
History of Present Illness
General
Chief Complaint: Back Pain
Source: patient, records, ambulance crew and halfway
Exam Limitations: none
Time Seen by Provider: 01/18/25 14:45
History of Present Illness
History of Present Illness:
79yoM with a history of dementia, Parkinson's disease, type 2 diabetes, hypertension, hyperlipidemia, emphysema, CKD, and ITP presenting via EMS from [facility] for evaluation of abdominal and back pain. Patient is moaning in pain on arrival
and reports pain in his back. He reports his pain started after staff at the halfway were 'goofing on me.' He is unable to provide any additional details. I called and spoke with Liliam from [facility]. She reports that he started
to complain of back and stomach pain yesterday. He was unable to sleep last night due to his symptoms and was crying out in pain today. Staff noticed that his abdomen was distended and called EMS. He was also reportedly complaining of shortness
of breath and has been slightly more confused than normal. No reported fevers or vomiting. Of note, he was recently hospitalized from 01/05/25-01/09/25 for sepsis and a UTI.
Past History
Past History
ED Past Medical History: HTN, Hypercholesterolemia, NIDDM, Renal failure, Psychiatric (Anxiety, Depression, ), Other (Diabetic Neuropathy. Parkinson's, PNA, emphysema, Renal calculus, Urinary retention, UTI, Diplopia, thrombocytopenia, Strabismus)
and Other (Parkinson's dx, BPH)
ED Past Surgical History: Orthopedic (Spinal fusion), Urological (Lithotripsy, Urogenital implants) and Other (cataracts, )
Social History
Tobacco: Former smoker
Alcohol: None
Drug: None
Personal: Single
Living: halfway
Phy Exam
Physical Exam
Physical Exam:
Patient moaning in pain stating his back hurts
General Physical Exam
General Presentation: mild distress
General Skin: warm and dry
General Habitus: normal and elderly
General Mental: alert
ENT Exam
ENT Exam: normocephalic
Cardiovascular Exam
Cardiovascular Exam: regular rate/rhythm
Pulmonary Exam
Pulmonary Exam: lungs clear, no respiratory distress, no rales, no crackles and no rhonchi
Gastrointestinal Exam
Gastrointestinal Exam: soft and other (Abdomen distended with mild generalized tenderness. No rebound or guarding. +L CVA tenderness noted.)
Neurological Exam
Neurological Exam: alert
Skin Exam
Skin Exam: normal color and warm/dry
Course
Orders/Labs/Results
Orders:
Orders
01/18/25 14:49
Electrocardiogram (*1) Urgent
Reason for Study: Abdominal Pain
EKG- Treatment ONCE
01/18/25 14:54
CT Head W/o Iv Contrast Urgent
Comment:
Reason For Exam: AMS
CR Chest - 2 Views Urgent
Comment:
Reason For Exam: SOB
01/18/25 14:56
Complete Blood Count/With Diff Urgent
Comprehensive Metabolic Panel Urgent
Lipase Urgent
Troponin I Urgent
Influenza A+B Rapid Molecular Urgent
SARTHAK Source: Nasal Swab
Specimen Description:
01/18/25 14:57
COVID-19 Antigen Urgent
Source: Nasal Swab
Lactate Level [Lactic Acid] Urgent
01/18/25 Dinner
NPO
Allow oral meds: Yes
Allow clear liquids: No
NPO with Ice Chips: Yes
01/18/25 15:15
Urinalysis Reflex To Culture Urgent
Date Specimen was Collected: 01/18/25
Time Specimen was Collected: 15:02
Urine Microscopic Reflex Cult Urgent
Urine Culture Urgent
SARTHAK Source: U
Specimen Description:
Date Specimen was Collected: 01/18/25
Time Specimen was Collected: 15:02
01/18/25 15:30
CT Abd/pel Without Iv Or Oral Urgent
Comment:
Reason For Exam: abd pain, distention
0.9% Sodium Chloride 1000 ml [Nss] 1,000 ml IV BOLUS
01/18/25 16:38
Fentanyl Citrate/Pf [Sublimaze] 50 mcg IV NOW STA
01/18/25 17:49
CefTRIAXone [Rocephin] 2,000 mg IV NOW STA
01/18/25 18:00
Sterile Water [Sterile Water For Injection] 20 ml .ROUTE .STK-MED
01/18/25 18:16
Dexamethasone Sod Phosphate [Decadron] 20 mg .ROUTE .STK-MED ONE
Fentanyl Citrate/Pf [Sublimaze] 100 mcg .ROUTE .STK-MED ONE
Lidocaine 2% Mpf [Xylocaine Mpf 2%] 100 mg .ROUTE .STK-MED ONE
Midazolam HCl [Versed] 2 mg .ROUTE .STK-MED ONE
Ondansetron Injectable [Zofran] 4 mg .ROUTE .STK-MED ONE
Propofol [Diprivan] 20 ml .ROUTE .STK-MED
01/18/25 18:24
Fentanyl Citrate/Pf [Sublimaze] 25 mcg IV PACU-Q5MPRN PRN
Fentanyl Citrate/Pf [Sublimaze] 50 mcg IV PACU-Q5MPRN PRN
Ondansetron Injectable [Zofran] 4 mg IV PACU-ONCEPRN PRN
Notify MD As Directed
Notify physician if: for SDS patients with known or suspected sleep obstructive sleep apnea, monitor in the
PACU.
Notify MD for any apneic/desaturation episodes
O2 Therapy [RESP] Urgent
Titrate/Wean O2 to maintain O2 sat greater than (%): 92
Special Instructions: -Provide supplemental oxygen to achieve O2 sat of 92% or greater.
-After 15 min, may wean O2 and discontinue if patient is able to maintain O2 sat of 92%
or greater during recovery period.
If patient is a discharge home, without oxygen therapy, notify anestheiologist if
unable to maintain O2 SAT of 92% or greater on room air for MD clearance.
01/18/25 18:36
Admit/Transfer Patient As Directed
Co-Sign Provider:
Level of Care: Inpatient admission
Assign to:: IMU- Intermediate Care
Physician / Group: [email or web address]
Diagnosis: reteric colic due to passage of distal left ureter 2-3 mm calculus
Reason for Hospitalization: Painful ureteric colic due to passage of distal left ureter 2-3 mm calculus
Possible minimal left hydroureteronephrosis
Expected length of stay greater than two midnights?: Yes
ELOS- Estimated Length of Stay in days: 3
I certify the patient meets the requirements for IP care: Yes
01/18/25 18:42
Code Status As Directed
Resuscitation Status: Do not resuscitate
Reached after discussion with pt or family/Healthcare POA: Yes
01/18/25 18:45
Phenylephrine HCl/0.9% NaCl [Maury-Synephrine] 1,000 mcg .ROUTE .STK-MED ONE
01/18/25 18:46
DNR Bracelet Application ONCE
01/18/25 18:50
Urinalysis Routine
Date Specimen was Collected: 01/18/25
Time Specimen was Collected: 18:51
Urine Culture Routine
SARTHAK Source: Urine
Specimen Description:
Obtained by: Cysto
Date Specimen was Collected: 01/18/25
Time Specimen was Collected: 18:51
01/18/25 19:04
Acetaminophen [Tylenol] 650 mg PO Q4HPRN PRN
Acetaminophen [Tylenol] 650 mg PO Q4HPRN PRN
Bisacodyl [Dulcolax] 10 mg RECTAL [id number] PRN
Docusate W/Senna [Senokot-S] 1 tablet PO BIDPRN PRN
HYDROmorphone [Dilaudid] 0.25 mg IV Q4HPRN PRN
Lactated Ringers [Lr] 1,000 ml IV 60 mls/hr
Magnesium Hydroxide [Milk of Magnesia] 30 ml PO DAILYPRN PRN
Ondansetron Injectable [Zofran] 4 mg IV Q6HPRN PRN
Polyethylene Glycol Powder [Miralax] 17 grams PO DAILYPRN PRN
01/18/25 19:04
Activity As Directed
Activity Level: With Assistance
Intake/ Output As Directed
Frequency: Per unit guidelines
Vital Signs As Directed
Frequency: Per unit guidelines
Weight As Directed
Frequency: Daily
DX Deep Vein Thrombosis Video Routine
01/18/25 20:00
Albuterol Nebs [Ventolin Nebules] 2.5 mg INH R TID
Budesonide [Pulmicort] 0.5 mg INH R TID
CefTRIAXone [Rocephin] 1,000 mg IV Q24H
Clonazepam [Klonopin] 0.5 mg PO BID
Heparin 5,000 units SC Q12
ipratropium bromide [Atrovent HFA] 1 puff INH R TID
01/18/25 22:00
Atorvastatin [Lipitor] 20 mg PO HS
Carbidopa/Levodopa [Sinemet 25-100] 1 tablet PO TID
01/19/25 06:00
Basic Metabolic Panel IN AM
Complete Blood Count/No Diff IN AM
01/19/25 08:00
Amlodipine [Norvasc] 5 mg PO DAILY
Escitalopram Oxalate [Lexapro] 15 mg PO DAILY
Famotidine [Pepcid] 20 mg PO DAILY
Finasteride [Proscar] 5 mg PO DAILY
Metoprolol Xl [Toprol Xl] 25 mg PO DAILY
Abnormal Lab Results
01/18/25 01/18/25 01/18/25
14:56 14:57 15:15
WBC 11.8 H 10^3/uL
(4.8-10.8)
RBC 4.39 L 10^6/uL
(4.70-6.10)
Hgb 12.6 L g/dL
(13.0-18.0)
Hct 37.3 L %
(39.0-52.0)
RDW 14.6 H %
(11.5-14.5)
Plt Count 122 L 10^3/uL
(130-400)
Abs Immat Gran (auto) 0.1 H 10^3/uL
(0-0.05)
Absolute Neuts (auto) 9.7 H 10^3/uL
(1.4-6.5)
Absolute Lymphs (auto) 0.9 L 10^3/uL
(1.2-3.4)
Absolute Monos (auto) 0.9 H 10^3/uL
(0.1-0.6)
Immature Gran % 1.0 H %
(0-0.5)
Neutrophils % 82.5 H %
(42.2-75.2)
Lymphocytes % 7.7 L %
(20.5-51.1)
BUN 33 H mg/dl
(9-20)
Creatinine 2.4 H mg/dL
(0.7-1.3)
Lactic Acid 3.1 H mmol/L
(0.7-2.0)
AST 15 L U/L
(17-59)
Total Protein 6.2 L g/dl
(6.3-8.2)
Urine Occult Blood
Ur Occult Blood Reflex 2+ A
(Negative)
Ur Leukocyte Esterase
Leukocyte Esterase Rfl 1+ A
(Negative)
Urine RBC 3-6 A /HPF
(0-2)
Urine Albumin
Urine Albumin (Reflex) 1+ A
(Neg - Trace)
01/18/25
18:50
WBC
RBC
Hgb
Hct
RDW
Plt Count
Abs Immat Gran (auto)
Absolute Neuts (auto)
Absolute Lymphs (auto)
Absolute Monos (auto)
Immature Gran %
Neutrophils %
Lymphocytes %
BUN
Creatinine
Lactic Acid
AST
Total Protein
Urine Occult Blood 4+ A
(Negative)
Ur Occult Blood Reflex
Ur Leukocyte Esterase 1+ A
(Negative)
Leukocyte Esterase Rfl
Urine RBC
Urine Albumin 1+ A
(Neg - Trace)
Urine Albumin (Reflex)
01/18/25 14:56
01/18/25 14:56
Vital Signs
Initial and Last Documented VS:
Initial Vital Signs
Temp Resp BP Pulse Ox
97.8 F 22 121/80 96
01/18/25 14:48 01/18/25 14:48 01/18/25 14:48 01/18/25 14:48
Last Documented Vital Signs
Temp Pulse Resp BP Pulse Ox
98.0 F 66 14 104/66 97
01/18/25 19:30 01/18/25 19:30 01/18/25 19:30 01/18/25 19:24 01/18/25 19:30
MDM/Problems Addressed
Differential Diagnosis Includes:
79yoM here with back and abdominal pain since yesterday. Hx of dementia. Recent admission for urosepsis. Moaning in pain on arrival stating his back hurts. Vital signs stable and he is afebrile. Abdomen appears distended and there is L CVA
tenderness present. Differential diagnosis includes but is not limited to: pyelonephritis, kidney stone, AAA, SBO, constipation, perforated viscous
Initial ED plan: Check abdominal labs, lactate, troponin/EKG, UA, CXR, and CT abdomen.
*EKG
Interpreted by ED Provider?: Yes
EKG Intrepretation Date: 01/18/25
Heart Rate: 72
Rate: normal
Rhythm: sinus
[place]: normal axis
Interval: normal interval
QRS Pattern: normal QRS
Ischemia: no ischemia
*Critical Care Note
Total Time (30-74mins, 75-104mins- exclusive of procedures): Not Applicable
Update Note
Update Note:
Labs reveal a mild leukocytosis with a WBC of 11.8. Lactate 3.1. Creatinine 2.4 (1.6 at time of discharge last month). UA obtained via straight cath. Urinalysis shows 1+ leukocytes with 3-5 WBCs on microscopic analysis. CT abdomen switched to
non-contrast study due to JANNY. CT shows a possible 2-3mm distal L ureteral stone. Case discussed with urology who is planning on taking the patient to the OR tonight. IV Rocephin ordered. Patient admitted for further management.
ED Attending Note
-
Portions of this chart may have been created with voice recognition software.� Occasional wrong word or��sound alike� substitutions may have occurred due to the inherent limitations of voice recognition software.
Discharge Plan
Departure
Patient Disposition: Admit
Date of Disposition: 01/18/25
Time of Disposition: 16:41
Presentation/result/management discussed w/ accepting MD/DO: Hospitalist
Discharge Problem:
Acute kidney injury, Lactic acidosis, Calculus of distal left ureter
Interventions
Interventions:
*Risk Screen - Suicide Last Done: 01/18/25 14:46
*General Assessment Last Done: 01/18/25 14:46
*Neglect/Abuse Screening Last Done: 01/18/25 14:46
ED- Fall Risk Assessment Last Done: 01/18/25 18:18
*ED COVID-19 Vaccine History Last Done: 01/18/25 14:43
*Nursing Disposition Last Done: 01/18/25 18:18
ED-Musculoskeletal Assessment Last Done: 01/18/25 14:46
Discharge Date and Time
Discharge Date/Time: 01/18/25 18:35
[2025-01-18 15:06] LABS: % Basophils 0.3 % (0-2); % Eosinophils 0.7 % (0-6); % Lymphocytes 7.7 % (20.5-51.1); % Monocytes 7.8 % (1.7-9.3); % Neutrophils 82.5 % (42.2-75.2); Absolute Eosinophils 0.1 10^3/uL (0-0.7); Absolute Immature Granulocytes 0.1 10^3/uL (0-0.05); Absolute Lymphocytes 0.9 10^3/uL (1.2-3.4); Absolute Monocytes 0.9 10^3/uL (0.1-0.6); Absolute Neutrophils 9.7 10^3/uL (1.4-6.5); Hematocrit 37.3 % (39.0-52.0); Hemoglobin 12.6 g/dL (13.0-18.0); Mean Corp Hgb Conc. 33.8 g/dL (33.0-37.0); Mean Corpuscular Hgb 28.7 pg (27.0-31.0); Mean Platelet Volume 9.9 fL (7.4-10.4); Nucleated Red Blood Cells % 0 % (-); Platelet Count 122 10^3/uL (130-400); Red Blood Cell Count 4.39 10^6/uL (4.70-6.10); Red Cell Dist. Width 14.6 % (11.5-14.5); White Blood Cell Count 11.8 10^3/uL (4.8-10.8)
[2025-01-18 15:18] LABS: Lactic Acid 3.1 mmol/L (0.7-2.0)
[2025-01-18 15:22] LABS: ALT (SGPT) < 10 U/L (0-50); AST (SGOT) 15 U/L (17-59); Albumin 3.6 g/dl (3.5-5.0); Alkaline Phosphatase 62 U/L (38-126); Blood Urea Nitrogen 33 mg/dl (9-20); Calcium 9.4 mg/dl (8.4-10.2); Carbon Dioxide 26 mmol/L (22-30); Chloride 104 mmol/L (98-107); Estimated Creatinine Clearance 27 ml/min; Glucose 93 mg/dl (70-99); Lipase 99 U/L (23-300); Potassium 4.2 mmol/L (3.5-5.1); Sodium 138 mmol/L (135-145); Total Bilirubin 1.1 mg/dl (0.2-1.3); Total Protein 6.2 g/dl (6.3-8.2); eGFR 27.11
[2025-01-18 15:28] LABS: Urine Albumin 1+ (Neg - Trace); Urine Bilirubin Negative (Negative); Urine Character Clear (Clear); Urine Color Yellow; Urine Glucose Negative (Negative); Urine Ketone Negative (Negative); Urine Leukocyte 1+ (Negative); Urine Nitrite Negative (Negative); Urine Occult Blood 2+ (Negative); Urine Specific Gravity 1.015 (<1.030); Urine Urobilinogen Negative (Neg - 1+)
[2025-01-18 15:31] LABS: Troponin I < 0.012 ng/ml
[2025-01-18 15:33] LABS: COVID-19 Antigen Negative (Negative)
[2025-01-18] MEDS: NSS 1000 IV (15:35)
[2025-01-18 15:39] LABS: Urine Squamous Cell 0-2 /LPF (Few)
[2025-01-18] MEDS: SUBLIMAZE 50 MCG IV (16:50)
--- NOTE | 2025-01-18 18:28 | HPS.HSE ---
Family Physician
-
Family Physician: NOT KNOW UNKNOWN - PT DOES
Chief Complaint
-
abdominal and back pain
History of Present Illness
Limited historian 79M Overweight/ Obese Res of [facility] HX dementia, Parkinson's disease, T2DM, HTN, HLD , CKD3a/b, emphysema, ITP, recent admission ( 01/05/25 - 01/09/25) with septic shock due to complicated UTI with bacteremia seen at
ER:
- patient is WC bound
- evaluation of abdominal and back pain, moaning in pain on arrival and reports pain in his back
- Per [facility] Staffs:
Onset of back and stomach pain since yesterday. He was unable to sleep last night due to pain
Staff noticed that his abdomen was distended and called EMS.
- reportedly complaining of shortness of breath and has been slightly more confused than normal.
- No reported fevers or vomiting.
Medical History
Past Medical History
Past Medical History: Reports Dementia, HTN, Hypercholesterolemia, NIDDM, Psychiatric (Anxiety depression) and Other (Diabetic Neuropathy. Parkinson's, PNA, emphysema, Renal calculus, Urinary retention, UTI, Diplopia, ITP, Strabismus) and BPH.)
Past Surgical History: Reports Orthopedic (Spinal fusion) and Urological (Lithotripsy, urogenital implants)
Additional Past Surgical History:
Cataracts
Social History
Unable to obtain full social history at this time due to: Dementia
Tobacco: Former Smoker
Alcohol: None
Drug: None
Personal: Single
Living: Halfway
Family History
Family History: Not pertinent
Allergies / Home Medications
Allergies reflects when Allergies were last updated in [employer].
Home Medications with original date entered in [facility]
Allergy/Medication List:
Allergies
Allergy/AdvReac Type Severity Reaction Status Date / Time
Penicillins Allergy Unknown Verified 01/05/25 12:11
Home Medications
acetaminophen 325 mg tablet (Tylenol) 650 mg PO Q4HPRN PRN mild pain/fever>100 05/26/24
atorvastatin 20 mg tablet 20 mg PO HS High Cholesterol 05/26/24
bisacodyl 10 mg rectal suppository (Dulcolax (bisacodyl)) 10 mg RI DAILYPRN PRN if mom ineffective after 24 hrs 05/26/24
carbidopa 25 mg-levodopa 100 mg tablet 1 tab PO TID parkinson's disease 05/26/24
clonazepam 0.5 mg tablet 0.5 mg PO TID anxiety 05/26/24
dextran 70-hypromellose eye drops in a dropperette (Artificial Tears (PF) drops in a dropperette) 1 drp BOTH EYES [id number] PRN dry eyes 05/26/24
escitalopram oxalate 5 mg tablet (Lexapro) 15 mg PO DAILY depression/anxiety 05/26/24
famotidine 20 mg tablet 20 mg PO DAILY Gastrointestinal Issue 05/26/24
finasteride 5 mg tablet 5 mg PO DAILY Urinary Issue 05/26/24
magnesium hydroxide 400 mg/5 mL oral suspension (Milk of Magnesia) 30 ml PO DAILYPRN PRN if no bm 3 days 05/26/24
prednisone 20 mg tablet 20 mg PO DAILY Anti-Inflammatory 05/26/24
sodium phosphates 19 gram-7 gram/118 mL enema (Fleet Enema) 118 ml RI DAILYPRN PRN if dulcolax ineffective after 24 hrs 05/26/24
tamsulosin 0.4 mg capsule 0.8 mg PO DAILY Urinary Issue 05/26/24
therapeutic multivitamin 1 tab PO DAILY Supplement 05/26/24
ibuprofen 200 mg tablet 400 mg (2 x 200 mg) PO Q6HPRN PRN mod to severe pain #0 tabs 06/01/24
metoprolol succinate 25 mg tablet,extended release 24 hr 25 mg PO DAILY #30 tabs 06/01/24
polyethylene glycol 3350 17 gram oral powder packet (Miralax) 17 g PO DAILY #30 ea 06/01/24
amlodipine 5 mg tablet (Norvasc) 5 mg PO DAILY Blood Pressure 08/08/24
quetiapine 100 mg tablet (Seroquel) 100 mg PO HS Sleep 08/08/24
quetiapine 25 mg tablet (Seroquel) 25 mg PO BID@0800,1200 Mental Health/Anxiety 08/08/24
benzonatate 100 mg capsule 100 mg PO TID #20 caps 08/20/24
budesonide 0.5 mg/2 mL suspension for nebulization 0.5 mg (2 mL) inhalation R BID #60 applic 08/20/24
guaifenesin 600 mg tablet, extended release 12 hr 1,200 mg (2 x 600 mg) PO Q12 #60 tabs 08/20/24
ipratropium 0.5 mg-albuterol 3 mg (2.5 mg base)/3 mL nebulization soln 3 ml inhalation R Q4HPRN PRN sob/wheeze #30 applic 08/20/24
ipratropium 0.5 mg-albuterol 3 mg (2.5 mg base)/3 mL nebulization soln 3 ml inhalation R TID #90 applic 08/20/24
phenazopyridine 100 mg tablet (Pyridium) 100 mg PO Q8HPRN PRN dysuria 09/16/24
quetiapine 50 mg tablet (Seroquel) 50 mg PO DAILY 01/05/25
sennosides 8.6 mg tablet (senna) 17.2 mg PO HS 01/05/25
Review of Systems
-
Constitutional: Reports No Symptoms
EENT: Reports No Symptoms
Respiratory: Reports No Symptoms
Cardiac: Reports No Symptoms
Abdomen/GI: Reports No Symptoms
: Reports See HPI
Musculoskeletal: Reports No Symptoms
Skin: Reports No Symptoms
Neurological: Reports No Symptoms
Endocrine: Reports No Symptoms
Hematologic/Lymphatic: Reports No Symptoms
Psych: Reports No Symptoms
Physical Exam
Vital Signs
Vital Signs
Temp Pulse Resp BP Pulse Ox
97.8 F 83 25 157/96 96
01/18/25 14:48 01/18/25 17:45 01/18/25 17:45 01/18/25 16:25 01/18/25 17:45
Physical Exam
General: Obese and Other (lethargic s/p fentanyl IV)
HEENT: NormoCephalic, Moist mucous membranes, Atraumatic and Other (unkempt facial hair )
Respiratory: Clear
Cardiac: S1/S2 and Regular Rhythm; No Murmur or Rub
GI: Soft, Non Tender, Non Distended and Normal Bowel Sounds; No Organomegaly
Rectal: Deferred by Provider
Musculoskeletal: No Clubbing, No Cyanosis and No Edema
Skin: No Rash
Neuro: Nonfocal/grossly intact
Laboratory Results
-
01/18/25 14:56
01/18/25 14:56
Laboratory Results
Lactic Acid 3.1 mmol/L (0.7-2.0) H 01/18/25 14:57
Total Bilirubin 1.1 mg/dl (0.2-1.3) 01/18/25 14:56
AST 15 U/L (17-59) L 01/18/25 14:56
ALT < 10 U/L (0-50) 01/18/25 14:56
Alkaline Phosphatase 62 U/L (38-126) 01/18/25 14:56
Troponin I < 0.012 ng/ml 01/18/25 14:56
Lipase 99 U/L (23-300) 01/18/25 14:56
Data Reviewed
-
CT Scan: Report Reviewed by me
Lab Data: Labs Reviewed by me
Old Records: Reviewed
Impression/Plan
-
Selected Entries
01/18/25
14:48 01/18/25
15:00 01/18/25
15:00
Temp 97.8 F
Pulse 71
Resp Rate 17
Blood pressure 130/93
SaO2 100
Laboratory Tests
01/09/25 01/18/25 01/18/25
07:24 14:56 14:57
WBC 11.8 H
Hgb 12.6 L
Plt Count 89 L 122 L
BUN 33 H
Creatinine 1.6 H 2.4 H
eGFR 44.10 27.11
Lactic Acid 3.1 H
Troponin I < 0.012
Leukocyte Esterase Rfl 1+
Urine RBC 3-6
Urine WBC (Reflex) 3- 5
SARS-CoV-2 [address] Abd/pel Without Iv Or Oral contrast
- MARKEDLY LIMITED STUDY A RESULT OF NUMEROUS FACTORS, DETAILED ABOVE.
- Possible 2-3 mm calculus in the distal left ureter with possible minimal left hydroureteronephrosis.
- Possible tiny nonobstructing left renal calculi.
- Bilateral lower lobe opacification, left greater than right most likely representing subsegmental atelectasis.
Cannot exclude left lower lobe pneumonia.
Last hospitalist admission:
Date of Admission: 01/05/25 - Date of Discharge: 01/09/25
Principal Discharge diagnosis :
Septic shock; likely secondary to acute UTI/bacteremia,
Encephalopathy due to sepsis secondary to UTI/bacteremia
Chronic Discharge diagnosis :
Acute hypoxemic respiratory failure,
JANNY on CKD 3b
Parkinson's Disease,
Dementia with Behavioral Disturbance,
ITP
NIDDM
Hypertension
BPH
Anxiety/depression, Hyperlipidemia, GERD
ASSESSMENT & PLAN
Painful ureteric colic due to passage of distal left ureter 2-3 mm calculus
Possible minimal left hydroureteronephrosis
Unremarkable UA
- at risk for infected stone complicated by sepsis an shock
- Narcotic analgesia
- IV LR
- empiric IV CFTZ
- NPO for emergent Uro procedure at OR in plan per Uro
- Uro consulted
JANNY due to obstructive nephropathy due to distal left ureter 2-3 mm calculus
CKD3a/b ( baseline Cr 1.5- 1.9, baseline eGFR low 40s
- for Uro procedure at OR in plan per Uro to overcome obstructive uropathy
- LR IVF
- IOS
- daily Wt and IOs
- daily BMP
HX Anxiety/Depression
- on chronic standing benzo TID
- cont Lexapro
Benign HTN-
- c/w amlodipine and metoprolol with hold index for SBP < 110
HX ITP
- on chronic prednisone 20mg
- stress dose IV Hydrocortisone if hemodynamicall become labile periop uro procedure
Parkinson Disease with dementia
- cont Sinemet
- adhere to NH schedule
Dementia with behavioral Disturbance
- c/w Seroquel due to mental status
BPH
- cont finasteride and tamsulosin
DVT Px: SQH
DNR confirmed by Daughter at bed side
IP TLM
--- NOTE | 2025-01-18 18:30 | CONS.URO ---
Addendum entered and electronically signed by Corey Rubio MD 01/18/25 19:10:
Stent on string to be removed prior to discharge
Original Note:
Consultation
-
Performing Provider: Joanne
Reason for Consultation: Ureteral stone, JANNY
Medical History
History of Present Illness
79M being admitted for 2 days severe abdominal and flank pain
CT showing small obstructing L ureteral stone with mild hydro
Prior history of neurogenic bladder and indwelling bernardo which was recently removed after passed trial of void in the office
Recent admission for urosepsis last month without obstruction
Past Medical History
Past Medical History: Other (HTN, Hypercholesterolemia, NIDDM, Renal failure, Psychiatric (Anxiety, Depression, ), Other (Diabetic Neuropathy. Parkinson's, PNA, emphysema, Renal calculus, Urinary retention, UTI, Diplopia, thrombocytopenia,
Strabismus) and Other (Parkinson's dx, BPH)
Social History
Unable to obtain full social history at this time due to: Dementia
Family History
Family History: Reviewed & Not Pertinent
Allergies/Home Medications
Allergies
Allergy/AdvReac Type Severity Reaction Status Date / Time
Penicillins Allergy Unknown - Verified 01/05/25 18:39
tolerated
piperacillin/tazobactam
01/05/25
Home Medications
�Medication �Instructions �Recorded �Confirmed �Type
acetaminophen 325 mg tablet 650 mg PO Q4HPRN PRN fever>100 05/26/24 01/18/25 History
(Tylenol)
atorvastatin 20 mg tablet 20 mg PO HS High Cholesterol 05/26/24 01/18/25 History
bisacodyl 10 mg rectal suppository 10 mg HI DAILYPRN PRN if mom 05/26/24 01/18/25 History
(Dulcolax (bisacodyl)) ineffective after 24 hrs
carbidopa 25 mg-levodopa 100 mg 1 tab PO TID parkinson's disease 05/26/24 01/18/25 History
tablet
escitalopram oxalate 5 mg tablet 15 mg PO DAILY depression/anxiety 05/26/24 01/18/25 History
(Lexapro)
famotidine 20 mg tablet 20 mg PO DAILY Gastrointestinal 05/26/24 01/18/25 History
Issue
finasteride 5 mg tablet 5 mg PO DAILY Urinary Issue 05/26/24 01/18/25 History
magnesium hydroxide 400 mg/5 mL 30 ml PO DAILYPRN PRN if no bm 3 05/26/24 01/18/25 History
oral suspension (Milk of Magnesia) days
prednisone 20 mg tablet 20 mg PO DAILY Anti-Inflammatory 05/26/24 01/18/25 History
sodium phosphates 19 gram-7 118 ml HI DAILYPRN PRN if dulcolax 05/26/24 01/18/25 History
gram/118 mL enema (Fleet Enema) ineffective after 24 hrs
tamsulosin 0.4 mg capsule 0.8 mg PO DAILY Urinary Issue 05/26/24 01/18/25 History
therapeutic multivitamin 1 tab PO DAILY Supplement 05/26/24 01/18/25 History
metoprolol succinate 25 mg 25 mg PO DAILY #30 tabs 06/01/24 01/18/25 Rx
tablet,extended release 24 hr
polyethylene glycol 3350 17 gram 17 g PO DAILY #30 ea 06/01/24 01/18/25 Rx
oral powder packet (Miralax)
amlodipine 5 mg tablet (Norvasc) 5 mg PO DAILY Blood Pressure 08/08/24 01/18/25 History
benzonatate 100 mg capsule 100 mg PO TID #20 caps 08/20/24 01/18/25 Rx
guaifenesin 600 mg tablet, 1,200 mg (2 x 600 mg) PO Q12 #60 08/20/24 01/18/25 Rx
extended release 12 hr tabs
sennosides 8.6 mg tablet (senna) 17.2 mg PO HS Constipation 01/05/25 01/18/25 History
clonazepam 0.5 mg tablet 0.5 mg PO BID #60 tabs 01/09/25 01/18/25 Rx
quetiapine 25 mg tablet 25 mg PO BID #60 tabs 01/09/25 01/18/25 Rx
Lactobac no.2-Bifidobac no.1-S. 1 cap PO DAILY 01/18/25 01/18/25 History
thermo 112.5 billion cell capsule
(Visbiome)
albuterol sulfate 2.5 mg/3 mL 2.5 mg inhalation R TID 01/18/25 01/18/25 History
(0.083 %) solution for nebulization
budesonide 0.5 mg/2 mL suspension 0.5 mg inhalation R TID 01/18/25 01/18/25 History
for nebulization
carboxymethylcellulose 0.5 1 drp BOTH EYES BIDPRN PRN dry eyes 01/18/25 01/18/25 History
%-glycerin 0.9 % eye drops
(Refresh Optive)
ibuprofen 200 mg tablet 400 mg PO Q6HPRN PRN mild pain 01/18/25 01/18/25 History
ipratropium bromide 17 1 puff inhalation R TID 01/18/25 01/18/25 History
mcg/actuation HFA aerosol inhaler
(Atrovent HFA)
Physical Exam
Vital Signs
Vital Signs
Temp Pulse Resp BP Pulse Ox
97.8 F 83 25 157/96 96
01/18/25 14:48 01/18/25 17:45 01/18/25 17:45 01/18/25 16:25 01/18/25 17:45
Lab / Testing Results
Laboratory Results
01/18/25 14:56
01/18/25 14:56
Physical Exam
General: Well Developed and Pain
GI: Soft and Non Tender
Genito-urinary: Costovertebral Angle Tend
Neuro: Awake and Alert
Psych: Confused and Apparent Dementia
Assessment / Plan
-
79M with 2mm L distal ureteral stone, severe pain, JANNY, elevated lactate, recent urosepsis admission
Given inability to accurately strain urine, baseline dementia and inability to communicate symptoms well, possible early infectious signs, recommended intervention
01/18/25: cystoscopy, left ureteroscopy, removal of small left ureteral stone, left ureteral stent
Cloudy urine above stone sent for culture
Continue ceftriaxone
Trend renal function
History of post op thrombocytopenia - trend platelets post op
History of urinary retention/neurogenic bladder - bladder scan post void
[2025-01-18 19:18] LABS: Urine Albumin 1+ (Neg - Trace); Urine Bilirubin Negative (Negative); Urine Character Cloudy (Clear); Urine Color Red; Urine Glucose Negative (Negative); Urine Ketone Negative (Negative); Urine Leukocyte 1+ (Negative); Urine Nitrite Negative (Negative); Urine Occult Blood 4+ (Negative); Urine Specific Gravity 1.005 (<1.030); Urine Urobilinogen Negative (Neg - 1+)
[2025-01-18 19:21] LABS: Glucose - Point of Care 90 mg/dl (70-99)
[2025-01-18 19:44] LABS: Urine Squamous Cell None seen /LPF (Few)
[2025-01-18 19:45] LABS: Urine Bacteria Few (Negative); Urine Red Blood Cell 16-20 /HPF (0-2); Urine White Cell 40-50 /HPF (0-5)
[2025-01-18] MEDS: LR 1000 IV (19:56)
--- NOTE | 2025-01-18 19:57 | PTCARENOTE ---
Report received from BUREAU DIRECTOR. Patient arrived into room 3344 and moved over to bed. CHG done. Tele applied showing NSR. Pt moaning & grunting with eyes closed, but able to follow simple commands and noded head when ask if pain was improved. LR @
60mL/hr. 2L in place Sp02 93%. Lungs with scattered rhonchi and ex. wheeze. BP 119/80. Skin check done with RODRIGUEZ Smith. No pressure injuries noted. MASD to groin, perineum, star anal area. Heels boggy, blanchable red. Bruising to lower Abd and right
hand. Abd firm. LE with +1 edema. Heels floated on a pillow.
Bed alarm set. Call stevens within reach. Admission info will be obtained from [facility] chart as pt is poor historian.
[2025-01-18] MEDS: PULMICORT 0.5 MG INH (20:02)
[2025-01-18] MEDS: VENTOLIN NEBULES 2.5 MG INH (20:02)
[2025-01-18] MEDS: KLONOPIN 0.5 MG PO (22:14)
[2025-01-18] MEDS: HEPARIN 5000 UNITS SC (22:14)
[2025-01-18] MEDS: LIPITOR 20 MG PO (22:14)
[2025-01-18] MEDS: ROCEPHIN 1000 MG IV (22:14)
[2025-01-18] MEDS: SINEMET 25-100 1 TABLET PO (22:14)
[2025-01-18] MEDS: DILAUDID 0.25 MG IV (22:20)
[2025-01-18 22:57] LABS: Lactic Acid 0.8 mmol/L (0.7-2.0)
[2025-01-18 23:36] LABS: Glucose - Point of Care 198 mg/dl (70-99)
[2025-01-19] VITALS (14 sets, daily range): BP systolic 101–139; BP diastolic 75–92; PULSE 2; BMI 29.2
--- NOTE | 2025-01-19 02:57 | PTCARENOTE ---
Sp02 decreasing to 60s with good pleth on 2-3L NC. Pt noted to be apneic while sleeping. WARD Hawk made aware and ordered Bipap. Pt states he has worn a bipap for sleep before. RT aware and will place.
[2025-01-19 05:20] LABS: Blood Urea Nitrogen 28 mg/dl (9-20); Calcium 8.8 mg/dl (8.4-10.2); Carbon Dioxide 24 mmol/L (22-30); Chloride 103 mmol/L (98-107); Estimated Creatinine Clearance 39 ml/min; Glucose 165 mg/dl (70-99); Potassium 4.9 mmol/L (3.5-5.1); Sodium 138 mmol/L (135-145); eGFR 41.01
[2025-01-19 05:23] LABS: White Blood Cell Count 8.5 10^3/uL (4.8-10.8)
[2025-01-19 05:24] LABS: Hematocrit 35.7 % (39.0-52.0); Hemoglobin 12.1 g/dL (13.0-18.0); Mean Corp Hgb Conc. 33.9 g/dL (33.0-37.0); Mean Corpuscular Hgb 28.7 pg (27.0-31.0); Mean Corpuscular Volume 84.8 fL (80.0-94.0); Mean Platelet Volume 10.2 fL (7.4-10.4); Platelet Count 134 10^3/uL (130-400); Red Blood Cell Count 4.21 10^6/uL (4.70-6.10); Red Cell Dist. Width 14.7 % (11.5-14.5)
[2025-01-19] MEDS: VENTOLIN NEBULES 2.5 MG INH ×3 (07:27→19:42)
[2025-01-19] MEDS: PULMICORT 0.5 MG INH ×3 (07:27→19:42)
[2025-01-19] MEDS: ATROVENT NEBULES 0.5 MG INH ×3 (07:27→19:42)
--- NOTE | 2025-01-19 08:32 | W.PN.URO.CBU ---
Today's Communication / Plan
-
Continue antibiotic
Stent on string to be removed before discharge
Assessment / Plan
-
79M with 2mm L distal ureteral stone, severe pain, JANNY, elevated lactate, recent urosepsis admission
Given inability to accurately strain urine, baseline dementia and inability to communicate symptoms well, possible early infectious signs, recommended intervention
01/18/25: cystoscopy, left ureteroscopy, removal of small left ureteral stone, left ureteral stent
Cloudy urine above stone sent for culture
Continue ceftriaxone
Trend renal function - JANNY improving
History of post op thrombocytopenia - normal today
History of urinary retention/neurogenic bladder - bladder scan post void
Stent on string to be removed prior to discharge
Diagnosis
-
Date of Service: January 19, 2025
-
Patient Diagnosis:
L ureteral stone
Neurogenic bladder
UTI
Post Op Day:
Subjective
-
No events overnight
Objective
-
Vital Signs
Temp Pulse Resp BP Pulse Ox
97.8 F 53 14 128/82 97
01/19/25 04:23 01/19/25 07:30 01/19/25 07:30 01/19/25 06:00 01/19/25 07:30
Intake and Output
01/18/25 01/19/25 01/20/25
06:59 06:59 06:59
Other:
How many times incontinent 1
SATURATED amount urine
Laboratory Results
01/19/25 04:32
01/19/25 04:32
Review of Systems
-
Unable to obtain full review of systems at this time due to: Dementia
Physical Exam
-
General - well developed, well nourished, no acute distress
Chest - clear bilaterally
Abdomen - soft, non-tender
STent on string in place
[2025-01-19] MEDS: TOPROL XL 25 MG PO (09:57)
[2025-01-19] MEDS: LEXAPRO 15 MG PO (09:57)
[2025-01-19] MEDS: PROSCAR 5 MG PO (09:57)
[2025-01-19] MEDS: NORVASC 5 MG PO (09:57)
[2025-01-19] MEDS: SINEMET 25-100 1 TABLET PO ×2 (09:57→19:43)
[2025-01-19] MEDS: PEPCID 20 MG PO (09:58)
[2025-01-19] MEDS: HEPARIN 5000 UNITS SC ×2 (09:58→19:38)
[2025-01-19] MEDS: KLONOPIN PO (10:00)
[2025-01-19] MEDS: SENOKOT-S 1 TABLET PO (12:13)
[2025-01-19] MEDS: MIRALAX 17 GRAMS PO (12:14)
[2025-01-19] MEDS: LR 1000 IV (12:14)
[2025-01-19] MEDS: FLUSH (NSS) IV ×2 (12:16)
[2025-01-19] MEDS: STERILE WATER FOR INJECTION IV (12:17)
--- NOTE | 2025-01-19 12:59 | W.PN.HOSP.TC ---
Today's Communication/Plan
-
Continue IV CTX
Follow urine culture
Plan for stent removal prior to DC
Speech evaluation with full liquids for now
Assessment / Plan
Assessment / Plan
#Left ureterolithiasis s/p stent placement
-Presented with ureteral colic with subsequent passage of 2 to 3 mm left ureteral calculi
-Was associated with severe pain, JANNY, lactic acidosis, recent urosepsis
-Cystoscopy and ureteroscopy on 01/18/2025 with stone removal and stent placed
-Remains on IV ceftriaxone, cultures and sensitivities pending
-Trend CBC, temperature curve
-Narrow antibiotics per culture findings
-Urology planning to remove stent prior to DC
#Post-renal JANNY on CKD 3a
-Likely due to obstructive left ureteral stone with hydronephrosis
-Presented with creatinine 2.4, baseline in the range of 1.3-1.6
-Status post stone removal, IVF, creatinine down to 1.7
-Will continue maintenance IVF and avoid nephrotoxins
-Trend daily BMP
#Presumed ROYER
-Has had desaturations when sleeping with oxygen saturations as low as high 50s
-He does have obese habitus with thick appearing neck suspicious for ROYER, likely obstructive
-Was started on nightly BiPAP here with improvement
-Will plan for sleep study and pulm follow-up at [place]
#Chronic ITP
-Previously with chronically low platelets though seems to have since recovered
-Home medications include prednisone 20 mg daily
-Platelet count 134 on most recent
#COPD
-History of emphysema, no recent pulmonary function tests available
-Home medications include albuterol/ipratropium nebulizer and budesonide TID
-No recent history of severe exacerbation requiring hospitalization or intubation
-No signs of COPD flare here, remains on room air during the day
#Primary HTN
-No known history of hypertensive systemic disease
-Home medications include amlodipine
#BPH
-Home regimen includes tamsulosin 0.8 mg nightly
-Caution with orthostasis secondary to PD history
#Parkinson's disease
#Dementia
-Home regimen includes Sinemet
-Does have notable resting tremor
-Unclear if associated with orthostasis or other neuropathy
DVT prophylaxis: Subcutaneous heparin
Diet: Full liquid pending speech eval
CODE STATUS: DNR
Anticipated Discharge: 24 - 48 hours
Subjective/Interval History
-
Date of Service: January 19, 2025
Seen and examined at the bedside. No acute events reported overnight. AFVSS as of this morning
Was noted by nursing to have significant desaturations when on nasal cannula and sleeping. Leukocytosis resolved, renal function improving
ROS limited by his dementia
Objective Data
-
Labs:
Laboratory Results
01/19/25
04:32
WBC 8.5
Hgb 12.1 L
Hct 35.7 L
Plt Count 134
Sodium 138
Potassium 4.9
Chloride 103
Carbon Dioxide 24
BUN 28 H
Creatinine 1.7 H
Glucose 165 H
Calcium 8.8
Vital Signs:
Vital Signs
Temp Pulse Resp BP Pulse Ox
97.6 F 48 19 136/82 98
01/19/25 07:05 01/19/25 11:45 01/19/25 11:45 01/19/25 10:00 01/19/25 11:45
Review of Systems
-
History Source: Patient
All other systems: Reviewed and negative
Physical Exam
-
General: Well Developed and Obese
HEENT: Normocephalic, Atraumatic and Moist Mucous Membranes
Respiratory: Clear to Auscultation and Non Labored Respirations
Cardiac: Regular Rhythm and S1/S2; Negative Murmur, Rub or Gallop
GI: Soft, Nontender, Normal Bowel Sounds and Distended
Musculoskeletal: No Clubbing, No Cyanosis and No Edema
Skin: Warm and Dry; Negative Rash
Neuro: Awake, Alert, Oriented, Tremors and Nonfocal/Grossly Intact
Data Reviewed
-
Labs: Labs Reviewed by me and Discussed with Patient
--- NOTE | 2025-01-19 14:10 | PTOTSP ---
Speech Therapy Evaluation:
Pt demonstrates clinical signs of oropharyngeal dysphagia, likely chronic related to hx of Parkinson's and Dementia, compounded by acute medical illness and lethargy. Pt with s/sx of aspiration across all PO trials including thin liquids via
cup/straw and puree. 3oz swallow screen deferred given concern for aspiration. CXR with b/l LL opacifications, L>R, favored to represent atelectasis, however PNA not excluded.
Recommend:
1. Temporary NPO
2. Medications non-oral
3.Oral care 3x/daily
4. GUN EXAMINER to follow to assess candidacy for diet initiation versus need to instrumental assessment
--- NOTE | 2025-01-19 16:00 | PTCARENOTE ---
Patient oriented to self. Beginning of shift was lethargic but then as the shift progressed he became very emotional. Reports that he is sad. Then had hysterical crying for a very long time, unable to console. MD notified. Psych to see. VSS. Stent
string intact. Will closely monitor.
[2025-01-19] MEDS: SINEMET 25-100 PO (17:20)
--- NOTE | 2025-01-19 17:31 | CM ---
Addendum entered by Sara Quijano RN 01/19/25 17:37:
PT Eval requested.
Original Note:
Patient from [facility] with Hx Parkinsons Dz & dementia, with Dx Cystoscopy and ureteroscopy on 01/18 with stone removal and stent placed. O2 2L. Receiving IV Abx, IVF. NPO- ST Eval.
Spoke with Carol, [facility];
the patient resides there in LTC and is on an MA bed hold.
He is assisted with ADLs and is w/c bound.
He was receiving PT at [facility].
The ph for report [phone], fax [phone].
Plan return to [facility] when medically ready.
[2025-01-19] MEDS: DESENEX/MITRAZOL/ZEASORB 1 APPLIC TOPICAL (19:40)
[2025-01-19] MEDS: FLUSH (NSS) 1 FLUSH IV ×2 (19:41→19:42)
[2025-01-19] MEDS: ROCEPHIN 1000 MG IV (19:41)
[2025-01-19] MEDS: STERILE WATER FOR INJECTION 10 ML IV (19:41)
[2025-01-19] MEDS: LIPITOR 20 MG PO (19:43)
[2025-01-19] MEDS: KLONOPIN 0.5 MG PO (19:43)
[2025-01-20] VITALS (17 sets, daily range): BP systolic 86–133; BP diastolic 60–87; PULSE 2–70; O2SAT 99; BMI 29.2
--- NOTE | 2025-01-20 00:07 | PTCARENOTE ---
Patient tearful at start of shift. Oriented to self, denies pain throughout shift. Patient asleep for a short period, currently on BiPap and pox . CHG bath provided at this time. NSR on the monitor, maru at times. Positive pedal and radial pulses.
Edema noted to b/l LE's, SCDs remain in place. Lung sounds diminished, poor respiratory effort due to cognition. Abdomen round, firm and distended. Patient incontinent of urine, string from stent remains. Skin with MASD to groin and buttocks,
barrier cream applied to buttocks, powder applied to groin. Patient currently resting in bed, observed comfort. Patient has right ac IV with LR at 60ml/hr continuous and has IV Rocephin. Will continue to monitor.
[2025-01-20] MEDS: DILAUDID 0.25 MG IV (02:49)
--- NOTE | 2025-01-20 03:03 | PTCARENOTE ---
Patient sobbing with Bipap on, difficult to understand. States, 'just let me go'. Active listening provided. Pericare provided as well, patient incontinent of large amount of urine. Bladder scan revealed minimal urine in bladder. PRN pain medication
administered at this time for severe pain.
Right ac IV with redness star insertion site, flushes well and has blood return. IV team called to replace IV due to redness/irritation.
[2025-01-20 03:44] LABS: % Basophils 0.3 % (0-2); % Eosinophils 0.2 % (0-6); % Neutrophils 78.5 % (42.2-75.2); Absolute Immature Granulocytes 0.1 10^3/uL (0-0.05); Absolute Lymphocytes 1.1 10^3/uL (1.2-3.4); Absolute Monocytes 0.9 10^3/uL (0.1-0.6); Hematocrit 32.6 % (39.0-52.0); Hemoglobin 11.3 g/dL (13.0-18.0); Mean Corp Hgb Conc. 34.7 g/dL (33.0-37.0); Mean Corpuscular Hgb 28.5 pg (27.0-31.0); Mean Corpuscular Volume 82.1 fL (80.0-94.0); Mean Platelet Volume 10.1 fL (7.4-10.4); Nucleated Red Blood Cells % 0 % (-); Platelet Count 135 10^3/uL (130-400); Red Blood Cell Count 3.97 10^6/uL (4.70-6.10); Red Cell Dist. Width 14.6 % (11.5-14.5); White Blood Cell Count 10.1 10^3/uL (4.8-10.8)
[2025-01-20 04:26] LABS: Blood Urea Nitrogen 26 mg/dl (9-20); Calcium 9.2 mg/dl (8.4-10.2); Carbon Dioxide 22 mmol/L (22-30); Chloride 106 mmol/L (98-107); Estimated Creatinine Clearance 47 ml/min; Glucose 85 mg/dl (70-99); Potassium 4.4 mmol/L (3.5-5.1); Sodium 138 mmol/L (135-145); eGFR 51.77
[2025-01-20] MEDS: LR 1000 IV ×2 (05:25→21:25)
[2025-01-20] MEDS: PULMICORT 0.5 MG INH ×3 (07:39→20:06)
[2025-01-20] MEDS: VENTOLIN NEBULES 2.5 MG INH ×3 (07:39→20:06)
[2025-01-20] MEDS: ATROVENT NEBULES 0.5 MG INH ×3 (07:39→20:06)
--- NOTE | 2025-01-20 08:10 | W.PN.URO.CBU ---
Today's Communication / Plan
-
Stent removed today
Follow cultures
Continue antibiotic
Assessment / Plan
-
79M with 2mm L distal ureteral stone, severe pain, JANNY, elevated lactate, recent urosepsis admission
Given inability to accurately strain urine, baseline dementia and inability to communicate symptoms well, possible early infectious signs, recommended intervention
01/18/25: cystoscopy, left ureteroscopy, removal of small left ureteral stone, left ureteral stent
Cloudy urine above stone sent for culture
Stent on string removed 01/20
Continue ceftriaxone - OR culture still pending
Trend renal function - JANNY improving
History of post op thrombocytopenia - normal since procedure
History of urinary retention/neurogenic bladder - bladder scan only 83cc 01/20
Diagnosis
-
Date of Service: January 20, 2025
-
Patient Diagnosis:
L ureteral stone
Neurogenic bladder
UTI
Post Op Day:
Subjective
-
UTO dt dementia
Objective
-
Vital Signs
Temp Pulse Resp BP Pulse Ox
98.1 F 54 18 110/63 98
01/20/25 07:07 01/20/25 07:40 01/20/25 07:40 01/20/25 06:00 01/20/25 07:40
Intake and Output
01/19/25 01/20/25 01/21/25
06:59 06:59 06:59
Intake Total 820 / 820
Balance 820 / 820
Intake:
IV fluids (Total) 720 / 720
IV piggybacks 100 / 100
Other:
How many times incontinent 1 1
SATURATED amount urine
Laboratory Results
01/20/25 03:22
01/20/25 03:22
Physical Exam
-
General - well developed, well nourished
Chest - clear resp
Abdomen - soft, non-tender
- stent on string in place
[2025-01-20] MEDS: LEXAPRO 15 MG PO (10:41)
[2025-01-20] MEDS: MIRALAX 17 GRAMS PO (10:41)
[2025-01-20] MEDS: KLONOPIN 0.5 MG PO ×2 (10:41→19:34)
[2025-01-20] MEDS: SINEMET 25-100 1 TABLET PO ×3 (10:42→19:34)
[2025-01-20] MEDS: PROSCAR 5 MG PO (10:42)
[2025-01-20] MEDS: PEPCID 20 MG PO (10:42)
[2025-01-20] MEDS: HEPARIN 5000 UNITS SC ×2 (10:42→19:33)
[2025-01-20] MEDS: DESENEX/MITRAZOL/ZEASORB 1 APPLIC TOPICAL ×2 (10:43→19:33)
--- NOTE | 2025-01-20 10:52 | W.PN.HOSP.TC ---
Today's Communication/Plan
-
Continue ceftriaxone and follow cultures
Continue maintenance IVF and trend BMP
NPO/BRINE PROCESS OPERATOR
Metoprolol hold parameters
Telemetry
Assessment / Plan
Assessment / Plan
#Left ureterolithiasis s/p stent placement
-Presented with ureteral colic with subsequent passage of 2 to 3 mm left ureteral calculi
-Was associated with severe pain, JANNY, lactic acidosis, recent urosepsis
-Cystoscopy and ureteroscopy on 01/18/2025 with stone removal and stent placed
-Left ureteral stent was removed by urology on morning of 01/20/2025
-Remains on IV ceftriaxone, cultures and sensitivities pending
-Trend CBC and temperature curve
-Narrow antibiotics per culture findings
#Post-renal JANNY on CKD 3a
-Likely due to obstructive left ureteral stone with hydronephrosis
-Presented with creatinine 2.4, baseline in the range of 1.0-1.3
-Status post stone removal, IVF, creatinine down to 1.4 as of 01/20
-Will continue maintenance IVF and avoid nephrotoxins
-Trend daily BMP
#Sinus bradycardia
-Heart rate here has been intermittently as low as high 40s to low 50s per minute
-Home medications do include metoprolol succinate which she takes for HTN
-Add hold parameters to metoprolol succinate, hold for HR < 55/min
-Monitor on telemetry for signs of tachycardia-bradycardia syndrome
#Presumed ROYER
-Has had desaturations when sleeping with oxygen saturations as low as high 50s
-He does have obese habitus with thick appearing neck suspicious for ROYER, likely obstructive
-Was started on nightly BiPAP here with improvement
-Will plan for sleep study and pulm follow-up at [place]
#Aspiration risk
-Evaluated by BRINE PROCESS OPERATOR who recommended strict n.p.o. status for now
-Suspect chronic deficits of the context of dementia/Parkinson's disease
-Will continue to follow BRINE PROCESS OPERATOR recommendations in regards to diet
-Consider DHT with tube feeds if unable to tolerate p.o. intake by 01/22
#Chronic ITP
-Previously with chronically low platelets though seems to have since recovered
-Home medications include prednisone 20 mg daily
-Platelet count has been stable in the 130s here
#COPD
-History of emphysema, no recent pulmonary function tests available
-Home medications include albuterol/ipratropium nebulizer and budesonide TID
-No recent history of severe exacerbation requiring hospitalization or intubation
-No signs of COPD flare here, remains on room air during the day
#Primary HTN
-No known history of hypertensive systemic disease
-Home medications include amlodipine and metoprolol
#BPH
-Home regimen includes tamsulosin 0.8 mg nightly
-Caution with orthostasis secondary to PD history
#Parkinson's disease
#Dementia
-Home regimen includes Sinemet
-Does have notable resting tremor
-Unclear if associated with orthostasis or other neuropathy
DVT prophylaxis: Subcutaneous heparin
Diet: N.p.o. per speech evaluation
CODE STATUS: DNR
Anticipated Discharge: 24 - 48 hours
Subjective/Interval History
-
Date of Service: January 20, 2025
Seen and examined at the bedside. No acute events reported overnight. AFVSS on 2 L O2 with SpO2 98%
Patient more responsive today and able to answer questions. Urology removed ureteral stent this morning. Urine cultures pending
He denies any new complaints as of this morning. Was noted by nursing to have episodes of crying and complaints of depression for which psych was consulted
Objective Data
-
Labs:
Laboratory Results
01/20/25
03:22
WBC 10.1
Hgb 11.3 L
Hct 32.6 L
Plt Count 135
Sodium 138
Potassium 4.4
Chloride 106
Carbon Dioxide 22
BUN 26 H
Creatinine 1.4 H
Glucose 85
Calcium 9.2
Vital Signs:
Vital Signs
Temp Pulse Resp BP Pulse Ox
98.1 F 59 11 126/68 98
01/20/25 07:07 01/20/25 10:00 01/20/25 10:00 01/20/25 09:41 01/20/25 10:00
I&O
01/19/25 01/20/25 01/21/25
06:59 06:59 06:59
Intake Total 820 / 820
Balance 820 / 820
Review of Systems
-
History Source: Patient
All other systems: Reviewed and negative
Physical Exam
-
General: Well Developed, No Apparent Distress and Obese
HEENT: Normocephalic, Atraumatic and Moist Mucous Membranes
Respiratory: Clear to Auscultation and Non Labored Respirations; Negative Wheezes, Rales, Rhonchi or Accessory Resp Muscle Use
Cardiac: Regular Rhythm and S1/S2; Negative Murmur, Rub or Gallop
GI: Soft, Nontender, Nondistended and Normal Bowel Sounds
Musculoskeletal: No Clubbing, No Cyanosis and No Edema
Skin: Warm, Dry and Normal Turgor; Negative Rash
Neuro: Awake, Alert, Oriented, Tremors and Nonfocal/Grossly Intact
Psych: Calm
Data Reviewed
-
Labs: Labs Reviewed by me, Discussed with Physician (Urology) and Discussed with Patient
--- NOTE | 2025-01-20 11:01 | PTOTSP ---
Speech Pathology Follow Up
79M continues to demonstrate s/s of oropharyngeal dysphagia, likely chronic related to hx of Parkinsons and dementia, compounded by acute medical illness and lethargy. No overt s/s of aspiration across limited PO trials this date (thin liquid and
puree). Deferred advanced solids 2/2 increased lethargy with significant s/s of reflux putting patient at HIGH RISK for reverse aspiration.
Recommend:
1. Trial puree (IDDSI 4), thin liquids
2. Medications whole in applesauce vs. thin liquid wash
3. Strategies: small bites, single sips, full supervision and partial assistance , smaller meals t/o the day
4. Oral care 3x/daily
5. Strict reflux precautions
4. MANAGER VIDEO GAMES to follow re: assess diet level tolerance and consider need for instrumental assessment pending pt status
[2025-01-20] MEDS: NORVASC PO (11:04)
[2025-01-20] MEDS: TOPROL XL PO (11:04)
--- NOTE | 2025-01-20 11:06 | PTCARENOTE ---
Assumed care of patient at beginning of this shift from previous RN with LR infusing at 60ml/hr and O2 2l n/c. Patient sleeping most of this morning, does awake easily to voice. Able to given name and ; knew he was in the hospital but not able to
name hospital. Seen by speech therapist; able to take meds with water and with applesauce. Did have some difficulty with volume of water for each pill; did not cough or choke, did belch. HR 49-61 with BP 111/63; reviewed with Dr Walker who instructed
to hold norvasc and toprol xl this morning. See worklist for full assessment and vital signs.
[2025-01-20] MEDS: FLUSH (NSS) 1 FLUSH IV ×3 (13:16→13:18)
--- NOTE | 2025-01-20 14:32 | CS.PSYCHR ---
Consult Summary - Psychiatry
-
Pt is a 79 yo male with hx of Parkinson's dz, dementia, recent admission for sepsis/UTI, bacteremia, who presented with acute back pain. Pt found to have a ureteral stone, which was removed. Psychiatry asked to assess pt for depression. Pt seen
resting quietly in bed, somewhat groggy/slowed. Pt woke with verbal stimulus, made eye contact, though he tended to nod off. Pt denies feeling depressed. He states he is feeling relief of acute pain. Pt unsure of his current home medications.
QTc 422.
Psych hx: unable to obtain. Pt is prescribed Lexapro 15 mg QD, Seroquel 25 mg BID, Klonopin 0.5 mg BID
SH: resides in senior living
MSE: sleepy/groggy, awakened easily but continued to be slowed/sedated. Calm, cooperative, pleasant. Denies feeling depressed. No signs of depression or psychosis.
Imp: Dementia by hx, Parkinson's dz. Mood appears stable on current medications
Rec: continue current mgt, resume Seroquel when pt more awake\\
Will follow peripherally
[2025-01-20] MEDS: LIPITOR 20 MG PO (19:34)
[2025-01-20] MEDS: STERILE WATER FOR INJECTION 10 ML IV (19:35)
[2025-01-20] MEDS: ROCEPHIN 1000 MG IV (19:36)
--- NOTE | 2025-01-20 20:17 | PTCARENOTE ---
Received patient at start of shift. Patient aao1 to self, bedbound, affect pleasant at this time. NSR on the monitor with PVC's. Lung sounds diminished throughout. Currently on 02 at 2L via n/c. BS active x4, RN assisted patient with dinner, ate
approx 40%. Incontinent of bowel and bladder. Skin intact, care provided. Patient continues on LR at 60ml/hr to left fa IV. Will continue to monitor.
[2025-01-21] VITALS (10 sets, daily range): BP systolic 114–140; BP diastolic 51–91; PULSE 2–63; BMI 29.4
[2025-01-21] MEDS: DILAUDID 0.25 MG IV (01:56)
[2025-01-21 04:23] LABS: % Basophils 0.4 % (0-2); % Immature Granulocytes 1.2 % (0-0.5); % Lymphocytes 11.6 % (20.5-51.1); % Neutrophils 77.8 % (42.2-75.2); Absolute Eosinophils 0.1 10^3/uL (0-0.7); Absolute Immature Granulocytes 0.1 10^3/uL (0-0.05); Absolute Lymphocytes 0.8 10^3/uL (1.2-3.4); Absolute Monocytes 0.6 10^3/uL (0.1-0.6); Absolute Neutrophils 5.7 10^3/uL (1.4-6.5); Hematocrit 32.1 % (39.0-52.0); Hemoglobin 10.7 g/dL (13.0-18.0); Mean Corp Hgb Conc. 33.3 g/dL (33.0-37.0); Mean Corpuscular Hgb 28.5 pg (27.0-31.0); Mean Corpuscular Volume 85.4 fL (80.0-94.0); Mean Platelet Volume 10.3 fL (7.4-10.4); Nucleated Red Blood Cells % 0 % (-); Platelet Count 128 10^3/uL (130-400); Red Blood Cell Count 3.76 10^6/uL (4.70-6.10); Red Cell Dist. Width 14.8 % (11.5-14.5); White Blood Cell Count 7.3 10^3/uL (4.8-10.8)
[2025-01-21 04:58] LABS: Blood Urea Nitrogen 19 mg/dl (9-20); Calcium 8.6 mg/dl (8.4-10.2); Carbon Dioxide 25 mmol/L (22-30); Chloride 102 mmol/L (98-107); Estimated Creatinine Clearance 60 ml/min; Glucose 79 mg/dl (70-99); Potassium 3.6 mmol/L (3.5-5.1); Sodium 137 mmol/L (135-145); eGFR > 60.00
[2025-01-21] MEDS: ATROVENT NEBULES 0.5 MG INH ×2 (08:32→13:47)
[2025-01-21] MEDS: VENTOLIN NEBULES 2.5 MG INH ×2 (08:32→13:47)
[2025-01-21] MEDS: PULMICORT 0.5 MG INH ×2 (08:32→13:47)
[2025-01-21] MEDS: DESENEX/MITRAZOL/ZEASORB 1 APPLIC TOPICAL (08:53)
[2025-01-21] MEDS: PROSCAR 5 MG PO (08:54)
[2025-01-21] MEDS: SINEMET 25-100 1 TABLET PO (08:54)
[2025-01-21] MEDS: MIRALAX 17 GRAMS PO (08:54)
[2025-01-21] MEDS: HEPARIN 5000 UNITS SC (08:54)
[2025-01-21] MEDS: TOPROL XL 25 MG PO (08:54)
[2025-01-21] MEDS: KLONOPIN 0.5 MG PO (08:54)
[2025-01-21] MEDS: LEXAPRO 15 MG PO (08:54)
[2025-01-21] MEDS: PEPCID 20 MG PO (08:54)
[2025-01-21] MEDS: NORVASC 5 MG PO (08:54)
[2025-01-21] MEDS: SENOKOT-S 1 TABLET PO (09:33)
--- NOTE | 2025-01-21 09:49 | PTCARENOTE ---
Assumed care of patient at beginning of this shift from previous RN. Abdomen continues to be firm, round and distended; no documented bm. Dr Walker notified via TT; senokot given as per prn does in addition to morning miralax.
--- NOTE | 2025-01-21 10:00 | W.PN.HOSP.TC ---
Today's Communication/Plan
-
Discontinue antibiotics
BMP in 1 week
OP pulmonology follow-up
Assessment / Plan
Assessment / Plan
#Left ureterolithiasis s/p stent placement
-Presented with ureteral colic with subsequent passage of 2 to 3 mm left ureteral calculi
-Was associated with severe pain, JANNY, lactic acidosis, recent urosepsis
-Cystoscopy and ureteroscopy on 01/18/2025 with stone removal and stent placed
-Left ureteral stent was removed by urology on morning of 01/20/2025
-Urine culture ultimately negative; low suspicion for infection
-Discontinue antibiotics today
#Post-renal JANNY on CKD 3a
-Likely due to obstructive left ureteral stone with hydronephrosis
-Presented with creatinine 2.4, baseline in the range of 1.0-1.3
-Status post stone removal, IVF, creatinine down to 1.4 as of 01/20
-Resolved with IVF
#Sinus bradycardia
-Heart rate here has been intermittently as low as high 40s to low 50s per minute
-Home medications do include metoprolol succinate which she takes for HTN
-Add hold parameters to metoprolol succinate, hold for HR < 55/min
-Monitor on telemetry for signs of tachycardia-bradycardia syndrome
#Presumed ROYER
-Has had desaturations when sleeping with oxygen saturations as low as high 50s
-He does have obese habitus with thick appearing neck suspicious for ROYER, likely obstructive
-Was started on nightly BiPAP here with improvement
-Will plan for sleep study and pulm follow-up at [place]
#Aspiration risk
-Evaluated by MANAGER STONE who recommended strict n.p.o. status for now
-Suspect chronic deficits of the context of dementia/Parkinson's disease
-Will continue to follow MANAGER STONE recommendations in regards to diet
-Currently on IDDS 4 pur�ed diet
#Chronic ITP
-Previously with chronically low platelets though seems to have since recovered
-Home medications include prednisone 20 mg daily
-Platelet count has been stable in the 130s here
#COPD
-History of emphysema, no recent pulmonary function tests available
-Home medications include albuterol/ipratropium nebulizer and budesonide TID
-No recent history of severe exacerbation requiring hospitalization or intubation
-No signs of COPD flare here, remains on room air during the day
#Primary HTN
-No known history of hypertensive systemic disease
-Home medications include amlodipine and metoprolol
#BPH
-Home regimen includes tamsulosin 0.8 mg nightly
-Caution with orthostasis secondary to PD history
#Major depressive disorder
-Has chronic depression, on Lexapro/Seroquel/as needed benzodiazepines
-Evaluated by psychiatry here who recommended continuing the same regimen
-Will put hold parameters for Seroquel (for sedation) at [place]
#Parkinson's disease
#Dementia
-Home regimen includes Sinemet
-Does have notable resting tremor
-Unclear if associated with orthostasis or other neuropathy
DVT prophylaxis: Subcutaneous heparin
Diet: N.p.o. per speech evaluation
CODE STATUS: DNR
Anticipated Discharge: Today
Subjective/Interval History
-
Date of Service: January 21, 2025
Seen and examined at the bedside. No acute events reported overnight. AFVSS
Noted by nursing did not have bowel movement in last day, slightly distended abdomen.
He states he feels well and denies any new complaints.
Objective Data
-
Labs:
Laboratory Results
01/21/25
03:53
WBC 7.3
Hgb 10.7 L
Hct 32.1 L
Plt Count 128 L
Sodium 137
Potassium 3.6
Chloride 102
Carbon Dioxide 25
BUN 19
Creatinine 1.1
Glucose 79
Calcium 8.6
Vital Signs:
Vital Signs
Temp Pulse Resp BP Pulse Ox
98.3 F 71 16 123/74 96
01/21/25 07:05 01/21/25 08:54 01/21/25 08:35 01/21/25 08:54 01/21/25 08:35
I&O
01/20/25 01/21/25 01/22/25
06:59 06:59 06:59
Intake Total 820 / 820 720 / 720
Output Total 400 / 400 175 / 175
Balance 820 / 820 320 / 320 -175 / -175
Review of Systems
-
History Source: Patient
All other systems: Reviewed and negative
Physical Exam
-
General: Well Developed, No Apparent Distress and Obese
HEENT: Normocephalic, Atraumatic and Moist Mucous Membranes
Respiratory: Clear to Auscultation and Non Labored Respirations
Cardiac: Regular Rhythm and S1/S2; Negative Murmur, Rub or Gallop
GI: Soft, Nontender, Normal Bowel Sounds and Distended (Mild)
Musculoskeletal: No Clubbing, No Cyanosis and No Edema
Skin: Warm, Dry and Normal Turgor; Negative Rash
Neuro: Awake, Alert, Oriented and Nonfocal/Grossly Intact
Psych: Calm
Data Reviewed
-
Labs: Labs Reviewed by me and Discussed with Patient
[2025-01-21] MEDS: DULCOLAX 10 MG RECTAL (10:19)
--- NOTE | 2025-01-21 11:03 | CM ---
Addendum entered by Saloni Conner 01/21/25 12:03:
Spoke with Carlo atkins at [facility] regarding BIPAP at night, facility to obtain, faxed BIPAP settings to [phone]
Called daughter Liliam & updated. IMM in chart
PLAN: [facility]
report [phone], fax [phone].
Original Note:
Patient discharge to [facility]
Patient LTC resident at [facility] Updated.
Spoke with Carol atkins & updated
PLAN: [facility]
report [phone], fax [phone].
[2025-01-21] MEDS: FLUSH (NSS) IV ×2 (11:24→12:52)
--- NOTE | 2025-01-21 11:50 | PTCARENOTE ---
Addendum entered by Denita Santana RN 01/21/25 13:12:
Per SANDRA Schmidt, patient ready to go to [facility].
Original Note:
Alfred from [facility] called for an update; notified her that patient being discharge. This nurse gave her report. Alfred stated that patient has not had bipap there, only oxygen as needed. She stated that bipap would need to be ordered by for
him. This nurse spoke with Roxana from to inform her. Roxana stated that [facility] should order and set up; she stated she would contact them.
--- NOTE | 2025-01-21 14:04 | W.DCSUMMARY ---
Discharge Summary
Discharge Data
Date of Admission: 01/18/25
Date of Discharge: 01/21/25
Total time spent discharging patient (in min): 33
-
Pending Results: No
Hospital Course
Discharging Physician : Nadeem Walker DO
Disposition : [facility]
Principal Discharge diagnosis :
Left ureterolithiasis s/p stent removal and stone retrieval
Obstructive JANNY secondary to ureterolithiasis
Depression
Presumed obstructive sleep apnea
Chronic Discharge diagnosis :
Dementia/Parkinson's disease
COPD
CKD stage III
T2DM
ITP on prednisone
Neurogenic bladder
HTN
HL
Hospital Course : 79-year-old male who presented to the hospital with left-sided flank pain, labs showing JANNY on CKD stage III. CT scan demonstrated a obstructing left ureterolithiasis with hydronephrosis associated. Was started on IV antibiotics
with ceftriaxone empirically. As patient recently had hospitalization with sepsis, urology determined high-priority for stone removal and stent placement which was performed on 01/18/2025. Was treated with IV fluids once obstruction relieved and
renal function returned to baseline. Urine cultures taken at admission were ultimately unyielding. Urinalysis was equivocal, he had no leukocytosis or fevers while in the hospital. Discussed with urology and was deemed to be low risk for infected
stone and antibiotics were discontinued prior to discharge from the hospital. He did have episodes of depression with crying episodes, was evaluated by psychiatry who recommended to continue his current medications and have him follow-up with
outpatient physicians. Was also noted to have oxygen desaturations nightly when sleeping, with his habitus suspicious for ROYER. Recommend that he follows up with a electrical repairer after discharge for sleep study and possibly pulmonary function tests.
Referral provided
Consultants:
Urologist -- Corey Rubio MD
Psychiatrist -- Aramis Alba MD
Important imaging findings :
CT Head W/o Iv Contrast (01/18/2025)
FINDINGS: Unenhanced CT imaging of the head reveals no findings to suggest recent infarction, intracranial hemorrhage, extra-axial fluid collection, mass effect or midline shift. The ventricles, cisterns and sulci are prominent commensurate with
age. There is minor decreased attenuation in the periventricular deep white matter bilaterally suggesting senescent and/or chronic small vessel related ischemic changes. The brainstem and posterior fossa structures demonstrate no significant focal
abnormality. There is some opacification suggesting chronic inflammatory changes in the right maxillary and left side of sphenoid sinus.
CT Abd/pel Without Iv Or Oral (01/18/25)
IMPRESSION: MARKEDLY LIMITED STUDY A RESULT OF NUMEROUS FACTORS, DETAILED ABOVE. Possible 2-3 mm calculus in the distal left ureter with possible minimal left hydroureteronephrosis. Possible tiny nonobstructing left renal calculi. Bilateral
lower lobe opacification, left greater than right most likely representing subsegmental atelectasis. Cannot exclude left lower lobe pneumonia.
Procedure findings :
Surgeon: Corey Rubio MD
PROCEDURE PERFORMED: Cystoscopy, left ureteroscopy, left ureteral stone removal, left ureteral stent placement.
SPECIMENS TAKEN: Purulent urine for culture.
DRAINS PLACED: 6-Uzbek x 26 cm left double-J ureteral stent with string tether.
INTRAOPERATIVE FINDINGS:
1. Cystourethroscopy was unremarkable. Bladder had low capacity. There were some small stones within the bladder.
2. Left ureteroscopy revealed small distal ureteral stone, which was easily removed with a stone basket. There was prompt drainage of cloudy and purulent urine following removal of the stone.
3. Ureteral stent with string tether in good position at case conclusion.
Follow-up : Follow-up with electrical repairer in office for sleep study. Follow-up with PCP follow-up with PCP in 1 to 2 weeks. Repeat BMP and CBC 1 week after discharge
Discharge Plan
-
Patient Disposition: Assisted Living
Discharge Diagnosis/Procedures: Left ureterolithiasis s/p stone retrieval and stent
Obstructive acute kidney injury
Presumed obstructive sleep apnea
Major depressive disorder
Chronic dementia/Parkinson's disease
Condition: Fair
Diet: Other diet
Additional Diets: IDDSI 4 pur�ed diet. Should have follow-up with speech for escalation of diet if appropriate
Activity: As tolerated
Driving Restrictions: No driving
Bathing Restrictions: None
Blood Work: BMP in 1 week to recheck electrolytes and kidney function
Other Services: PT and OT
Activity Restrictions/Additional Instructions:
After discharge from the hospital patient should have follow-up with a family doctor. Should be seen in office within 1 to 2 weeks of discharge from the hospital. Provided a referral below if patient requires a new PCP
Patient should follow-up with a electrical repairer in office for sleep study. It is suspected that he has obstructive sleep apnea as his oxygen levels drop at night when he is sleeping.
Instructions: Kidney stones in adults
Referrals:
Delbert Angeles MD, Resident [Family Practice Resident Year2] - in two weeks
Harvey Quesada MD [Active] - in two to three weeks
UNKNOWN - PT DOES,NOT KNOW [Family Provider] -
Additional Discharge Medication Instructions: No antibiotics needed after hospitalization
Added hold parameters to Seroquel and clonazepam (medication should not be given if patient appears sedated)
Continue with bowel regimen and escalate if needed
Discontinue ibuprofen due to chronic kidney disease
Prescriptions:
Continued
acetaminophen [Tylenol] 325 mg Tablet
650 mg PO Q4HPRN PRN (Reason: fever>100)
atorvastatin 20 mg Tablet
20 mg PO HS
prednisone 20 mg Tablet
20 mg PO DAILY
therapeutic multivitamin Tablet
1 tab PO DAILY
famotidine 20 mg Tablet
20 mg PO DAILY
magnesium hydroxide [Milk of Magnesia] 400 mg/5 mL Suspension
30 ml PO DAILYPRN PRN (Reason: if no bm 3 days)
tamsulosin 0.4 mg Capsule
0.8 mg PO DAILY
bisacodyl [Dulcolax (bisacodyl)] 10 mg Suppository
10 mg NE DAILYPRN PRN (Reason: if mom ineffective after 24 hrs)
Fleet Enema 19-7 gram/118 mL Enema
118 ml NE DAILYPRN PRN (Reason: if dulcolax ineffective after 24 hrs)
carbidopa-levodopa 25-100 mg Tablet
1 tab PO TID
finasteride 5 mg Tablet
5 mg PO DAILY
escitalopram oxalate [Lexapro] 5 mg Tablet
15 mg PO DAILY
metoprolol succinate 25 mg Tablet Extended Release 24 Hr
25 mg PO DAILY Qty: 30 0RF
polyethylene glycol 3350 [Miralax] 17 gram powder in packet
17 g PO DAILY Qty: 30 0RF
amlodipine [Norvasc] 5 mg Tablet
5 mg PO DAILY
benzonatate 100 mg Capsule
100 mg PO TID Qty: 20 0RF
guaifenesin 600 mg Tablet Extended Release 12hr
1,200 mg PO Q12 Qty: 60 0RF
sennosides [senna] 8.6 mg Tablet
17.2 mg PO HS
albuterol sulfate 2.5 mg /3 mL (0.083 %) Solution For Nebulization
2.5 mg INHALATION R TID
Atrovent HFA 17 mcg/actuation Hfa Aerosol Inhaler
1 puff INHALATION R TID
Visbiome 112.5 billion cell Capsule
1 cap PO DAILY
Refresh Optive 0.5-0.9 % Drops
1 drp BOTH EYES BIDPRN PRN (Reason: dry eyes)
budesonide 0.5 mg/2 mL suspension for nebulization
0.5 mg inhalation R TID
quetiapine 25 mg Tablet
25 mg PO BID Qty: 60 0RF
Rx Instructions:
HOLD FOR SEDATION
clonazepam 0.5 mg Tablet
0.5 mg PO BID Qty: 60 0RF
Rx Instructions:
HOLD for SEDATION
Discontinued
ibuprofen 200 mg tablet
400 mg PO Q6HPRN PRN (Reason: mild pain)
Discharge Orders:
Discharge Patient (As Directed); Ordered 01/21/25
Ordered By: Nadeem Walker
Discharge Date and Time
Print Language: BRITISH
== END 2025-01-21 14:19 | DRG 660 ==
LOC: IMU 18:50
PROVIDERS: Internal Medicine; Physician Assistant; ADMITTING PHYSICIAN Urology; ATTENDING PHYSICIAN Internal Medicine; CONSULT PHYSICIAN Psychiatry & Neurology Psychiatry; EMERGENCY PHYSICIAN Emergency Medicine
PROC: 0TC78ZZ Extirpation of Matter from Left Ureter, Via Natural or Artificial Opening Endoscopic (ICD-10-PCS; 2025-01-18)
PROC: 0T778DZ Dilation of Left Ureter with Intraluminal Device, Via Natural or Artificial Opening Endoscopic (ICD-10-PCS; 2025-01-18)
DX: N13.6 Pyonephrosis (principal); D69.3 Immune thrombocytopenic purpura; N13.8 Other obstructive and reflux uropathy; E87.20 Acidosis, unspecified; F02.83 Dementia in other diseases classified elsewhere, unspecified severity, with mood disturbance; F02.84 Dementia in other diseases classified elsewhere, unspecified severity, with anxiety; F02.818 Dementia in other diseases classified elsewhere, unspecified severity, with other behavioral disturbance; N17.9 Acute kidney failure, unspecified; Z87.891 Personal history of nicotine dependence; Z11.52 Encounter for screening for COVID-19; Z66 Do not resuscitate; G20.A1 Parkinson's disease without dyskinesia, without mention of fluctuations; N18.31 Chronic kidney disease, stage 3a; I12.9 Hypertensive chronic kidney disease with stage 1 through stage 4 chronic kidney disease, or unspecified chronic kidney disease; G47.33 Obstructive sleep apnea (adult) (pediatric); J44.9 Chronic obstructive pulmonary disease, unspecified; E11.22 Type 2 diabetes mellitus with diabetic chronic kidney disease; E11.36 Type 2 diabetes mellitus with diabetic cataract; E11.40 Type 2 diabetes mellitus with diabetic neuropathy, unspecified; F32.9 Major depressive disorder, single episode, unspecified; N21.0 Calculus in bladder; Z99.3 Dependence on wheelchair; N31.9 Neuromuscular dysfunction of bladder, unspecified
CPT/HCPCS: 70450; 71046; 74018; 74176; 76000; 80048; 80053; 81003; 81015; 82962; 83605; 83690; 84484; 85025; 85027; 87070; 87086; 87502; 87811; 92526; 92610; 93005; 94640; 94660; 96361; 96374; 97163; 99285; C1769; C2617